=== PATIENT | male | born 1960 | race African-American/Black ===

== ENCOUNTER → 2016-05-24 | Day surgery (SDC) | payer OTHER ==
[2016-05-21 08:07] VITALS: Ht 193 cm; Wt 109.1 kg
[~2016-05-24] VITALS: Ht 193 cm; Wt 109.1 kg
[~2016-05-24] MED LIST: 500ML BSS 0.3ML EPI 1:1000PF IRRIG ONE; ACET-1311 PO; ACETAMINOPHEN 325 MG TAB PO PRN; AMOX500T PO; AMVISC PLUS 0.8ML SYRINGE INT OCU ONE; ASPI81TA28 PO; ATROPINE SULFATE 0.1 MG/ML 5ML SYR IV PRN; BISA1TAB15 PO; BROM0.07 TOP; BSS FLUSH ONE; CALC600T9 PO; CEPH500C2 PO; CLIN1CAP51 PO; DOCU100C31 PO; DOXY100C76 PO; EpHEDrine SULFATE INJ 50 MG/ML AMP IV PRN; EpINEphrine INJ 1MG/ML AMP 1 MG/ML AMP ONE; FIBER PO; FURO-85 PO; HYZ/10015 PO; IBUP-1427 PO; INSDGI SC; INSPMPRGR; INSU1INJ SC; LACTATED RINGER'S 1000ML 500 ML IV SCH; LCHC12280 TOP; LEVO175T3 PO; LIDOCAINE 3.5% OPH GEL PER APPLICATION CHARGE ONE; LIDOCAINE HCL 1% MPF 2 ML VIAL ONE; LISI40TA PO; MAGN400T6 PO; METO100T14 PO; MIDAZOLAM HCL 1 MG/ML 2ML VIAL ONE; MINO1TAB PO; MULT-106 PO; OCUCOAT 1 ML SOLN IO ONE; OMEP20TA PO; ONDA4TAB46 PO; PARO30TA3 PO; PHENYLEPHRINE HCL 10% OP SOLN PER DROP CHARGE OPL SCH; POLY99.0 OPB; POVIDONE-IODINE OP SOLN 30 ML BTL ONE; PRED1SUS3 OPL; PROPARACAINE 0.5% OP SOLN PER DROP CHARGE OPL SCH; RANI300T2 PO; SNTO30; SPIR100T PO; SULF800T23 PO; TOBRAMYCIN/DEXAMETHASONE OPH OINT PER APPLN CHARGE ONE; TOPI50TA16 PO
[2016-05-24] MEDS: PHENYLEPHRINE HCL 2.5% OP SOLN PER DROP CHARGE OPL SCH ×2 (06:48→06:53)
[2016-05-24] MEDS: TROPICAMIDE 1% OP SOLN PER DROP CHARGE OPL SCH ×2 (06:49→06:54)
[2016-05-24] MEDS: CYCLOPENTOLATE HCL 1% OP SOLN PER DROP CHARGE OPL SCH ×2 (06:50→06:55)
[2016-05-24] MEDS: KETOROLAC 0.5% OP SOLN PER DROP CHARGE OPL SCH ×2 (06:51→06:56)
[2016-05-24] MEDS: GATIFLOXACIN OP SOLN PER DROP CHARGE OPL SCH ×2 (06:52→07:02)
--- NOTE | 2016-05-24 07:03 | History & Physical Bridge - [place] ---
H&P Re-Evaluation Bridge Note: I have examined the patient, reviewed the History & Physical and in the interval since the performance of the History & Physical I have noted the following changes of clinical significance: No changes noted
--- NOTE | 2016-05-24 07:28 | Discharge Instructions-SurgCtr ---
Discharge Instructions Date of Service May 24, 2016. Visit Reason for Visit: Cataract Left Eye Discharge Discharge Diagnosis / Problem: cataract Discharge Goals Goal(s): Improve function Activity Recommendations Activity Limitations: per Instructions/Follow-up section Anesthesia . Post Anesthesia Instructions: If you have had General Anesthesia or IV Sedation: * Do not drive today. * Resume driving when surgeon permits. * Do not make important decisions or sign legal documents today. * Call surgeon for: 1. Temperature elevations greater than 101 degrees F. 2. Uncontrollable pain. 3. Excessive bleeding. 4. Persistent nausea and vomiting. 5. Medication intolerance (nausea, vomiting or rash). * For nausea and vomiting use only clear liquids such as: tea, soda, bouillon until nausea subsides, then gradually increase diet as tolerated. * If you have any concerns or questions, call your surgeon's office. If physician is unavailable and it is an emergency, call 911 or go to the nearest emergency room. . Instructions / Follow-Up Instructions / Follow-Up ACTIVITY RECOMMENDATIONS: * No strenuous lifting, jogging or running for 4 days * No swimming or yard work for 1 week. * Limited bending is permitted, such as putting on shoes. RETURN TO SCHOOL/WORK: No work until seen by physician in office. MEDICATIONS: Resume previous medications unless instructed otherwise by your surgeon. This includes eye drops for glaucoma. Zymaxid/Gatifloxacin (stuart cap) - one drop every 2 hours until bedtime Nevanac/Ilevro/Prolensa/Ketorolac (arguelles cap) - one drop every 4 hours until bedtime Prednisolone (white/pink cap, SHAKE WELL) - one drop every 2 hours until bedtime Starting tomorrow - all 3 drops every 4 hours until seen in the office Optive drops - as needed for discomfort SPECIAL CARE INSTRUCTIONS: * Wear eyeshield when sleeping, for four nights. * You may wear your own glasses or sunglasses while awake. * You may read or watch TV * You may shower and wash your face, but be gentle around the eye and pat dry. * Blurry vision and mild irritation are normal. * Call office if pain is more severe or vision becomes dark at . FOLLOW UP VISIT: Follow-up with Dr Waterman tomorrow. Diet Recommendations Home Diet: resume previous diet Procedures Procedures Performed: Left Cataract Phacoemulsification With Intraocular Lens Implant Pending Studies Studies pending at discharge: no Medical Emergencies . Who to Call and When: Medical Emergencies: If at any time you feel your situation is an emergency, please call 911 immediately. . Non-Emergent Contact Non-Emergency issues call your: Grocery Store Manager . . "Provider Documentation" section prepared by Mikey Waterman.
--- NOTE | 2016-05-24 07:29 | [facility] Operative Report ---
Operative Report Date of Service May 24, 2016. Operative Report 1. PREOPERATIVE DIAGNOSIS: Cataract of the left eye. 2. POSTOPERATIVE DIAGNOSIS: Same. 3. PROCEDURE: Phacoemulsification with intraocular lens implantation of the left eye. SURGEON: Dr. Mikey Waterman. ANESTHESIA: Topical Lidocaine gel, 1% Non- Preserved intracameral Lidocaine, and monitored intravenous sedation. INDICATIONS FOR THE PROCEDURE: The patient is a 55 - year-old male with a history of cataract of the left eye causing significant visual impairment. The details of the proposed procedure were explained to the patient who asked appropriate questions and following discussion of all risks, benefits and alternatives agreed to have the procedure done. 4. OPERATION AND FINDINGS: DESCRIPTION OF PROCEDURE: After informed consent was obtained, the patient was brought to the Operating Room at the [facility]. The patient was placed in a supine position and then the left eye was prepped and draped in the usual sterile fashion for intraocular surgery. A drop of topical Lidocaine gel was placed in the operative eye. A wire lid speculum was then placed in the fornices. A corneal paracentesis was then created temporally. The Non-Preserved Lidocaine was then instilled into the anterior chamber. The anterior chamber was then pressurized with viscoelastic. A 2.0 mm clear corneal incision was then created temporally. A cystotome was inserted into the anterior chamber and used to create a tear in the anterior lens capsule. This capsular tear was then used to create a small flap and the flap was dragged in a counterclockwise direction in order to create a continuous curvilinear capsulorrhexis. Hydrodissection was accomplished with balanced salt solution. Phacoemulsification of the lens nucleus was then performed in a standard bywxma-aaz-gpykzmy technique. The phaco time was 30 seconds with an average power of 12 %. The remaining cortical material was removed using irrigation aspiration. The capsular bag was then filled with viscoelastic. A Bausch [employer] Lomb MX60 +22.0 diopters lens was then loaded into the injector and injected into the capsular bag. The remaining viscoelastic was removed with the irrigation aspiration handpiece. The wound was hydrated and then checked and found to be watertight. The intraocular pressure was checked and found to be adequate. The wire lid speculum was removed and the patient's face was cleaned and dried. TobraDex ointment was placed in the inferior fornix. The patient was discharged to the Recovery Room having tolerated the procedure well. There were no complications. The patient will be seen tomorrow in the office for follow-up. I attest to the content of the Intraoperative Record and any orders documented therein. Any exceptions are noted below.
[2016-05-24 07:34] VITALS: TEMP 36.3
[2016-05-24 07:42] VITALS: BP 123/84; PULSE 62; O2SAT 99
--- NOTE | 2016-05-24 08:07 | Anesthesia Progress Nt - [facility] ---
Anesthesia Post Op Note Date & Time May 24, 2016 at 08:07 Vital Signs Pain Intensity: 0 Vital Signs Past 12 Hours Date Time Temp Pulse Resp B/P Pulse Ox O2 Delivery O2 Flow Rate FiO2 05/24/16 07:42 62 18 123/84 99 Room Air 05/24/16 07:34 36.3 69 18 153/101 99 Room Air 05/24/16 06:36 36.0 73 16 141/95 100 Room Air Notes Mental Status: alert / awake / arousable, participated in evaluation Pt Amnestic to Procedure: Yes Nausea / Vomiting: adequately controlled Pain: adequately controlled Airway Patency, RR, SpO2: stable & adequate BP & HR: stable & adequate Hydration State: stable & adequate Anesthetic Complications: no major complications apparent
== END | disposition home or self-care (01) ==
LOC: X.SURG 06:19
PROVIDERS: ATTEND Ophthalmology
DX: H26.9 Unspecified cataract (principal); H54.7 Unspecified visual loss; E11.9 Type 2 diabetes mellitus without complications; I10 Essential (primary) hypertension; D69.6 Thrombocytopenia, unspecified; Z98.890 Other specified postprocedural states

== ENCOUNTER → 2016-12-20 | Day surgery (SDC) | payer OTHER ==
[2016-09-17 09:37] VITALS: Ht 193 cm; Wt 109.1 kg
[~2016-12-20] VITALS: Ht 193 cm; Wt 109.1 kg
[~2016-12-20] MED LIST changes: -AMOX500T PO; -BISA1TAB15 PO; -BROM0.07 TOP; -CEPH500C2 PO; -CLIN1CAP51 PO; +CYCLOPENTOLATE HCL 1% OP SOLN PER DROP CHARGE OPR SCH; +GATIFLOXACIN OP SOLN PER DROP CHARGE OPR SCH; -INSDGI SC; +KETOROLAC 0.5% OP SOLN PER DROP CHARGE OPR SCH; -MAGN400T6 PO; -PHENYLEPHRINE HCL 10% OP SOLN PER DROP CHARGE OPL SCH; +PHENYLEPHRINE HCL 2.5% OP SOLN PER DROP CHARGE OPR SCH; -PRED1SUS3 OPL; -PROPARACAINE 0.5% OP SOLN PER DROP CHARGE OPL SCH; +PROPARACAINE 0.5% OP SOLN PER DROP CHARGE OPR SCH; -SNTO30; -SULF800T23 PO; +TROPICAMIDE 1% OP SOLN PER DROP CHARGE OPR SCH
[2016-12-20] MEDS: PHENYLEPHRINE HCL 2.5% OP SOLN PER DROP CHARGE OPR SCH ×2 (10:49→10:55)
[2016-12-20] MEDS: TROPICAMIDE 1% OP SOLN PER DROP CHARGE OPR SCH ×2 (10:50→10:56)
[2016-12-20] MEDS: CYCLOPENTOLATE HCL 1% OP SOLN PER DROP CHARGE OPR SCH ×2 (10:51→10:57)
[2016-12-20] MEDS: KETOROLAC 0.5% OP SOLN PER DROP CHARGE OPR SCH ×2 (10:52→10:57)
[2016-12-20] MEDS: GATIFLOXACIN OP SOLN PER DROP CHARGE OPR SCH ×2 (10:53→11:03)
--- NOTE | 2016-12-20 11:17 | History & Physical Bridge - [place] ---
H&P Re-Evaluation Bridge Note: I have examined the patient, reviewed the History & Physical and in the interval since the performance of the History & Physical I have noted the following changes of clinical significance: Diagnosis: Right Cataract Procedure: Right Cataract Removal with Lens Implant No changes noted
--- NOTE | 2016-12-20 12:05 | Discharge Instructions-SurgCtr ---
Discharge Instructions Date of Service Dec 20, 2016. Visit Reason for Visit: Cataract Right Eye Discharge Discharge Diagnosis / Problem: cataract Discharge Goals Goal(s): Improve function Activity Recommendations Activity Limitations: per Instructions/Follow-up section Anesthesia . Post Anesthesia Instructions: If you have had General Anesthesia or IV Sedation: * Do not drive today. * Resume driving when surgeon permits. * Do not make important decisions or sign legal documents today. * Call surgeon for: 1. Temperature elevations greater than 101 degrees F. 2. Uncontrollable pain. 3. Excessive bleeding. 4. Persistent nausea and vomiting. 5. Medication intolerance (nausea, vomiting or rash). * For nausea and vomiting use only clear liquids such as: tea, soda, bouillon until nausea subsides, then gradually increase diet as tolerated. * If you have any concerns or questions, call your surgeon's office. If physician is unavailable and it is an emergency, call 911 or go to the nearest emergency room. . Diet Recommendations Home Diet: resume previous diet Procedures Procedures Performed: Right Cataract Phacoemulsification With Intraocular Lens Implant Pending Studies Studies pending at discharge: no Medical Emergencies . Who to Call and When: Medical Emergencies: If at any time you feel your situation is an emergency, please call 911 immediately. . Non-Emergent Contact Non-Emergency issues call your: Special Technical Operations Officer . . "Provider Documentation" section prepared by Mikey Waterman. .
--- NOTE | 2016-12-20 12:06 | [facility] Operative Report ---
Operative Report Date of Service Dec 20, 2016. Operative Report 1. PREOPERATIVE DIAGNOSIS: Cataract of the right eye. 2. POSTOPERATIVE DIAGNOSIS: Same. 3. PROCEDURE: Phacoemulsification with intraocular lens implantation of the right eye. SURGEON: Dr. Mikey Waterman. ANESTHESIA: Topical Lidocaine gel, 1% Non- Preserved intracameral Lidocaine, and monitored intravenous sedation. INDICATIONS FOR THE PROCEDURE: The patient is a 56 - year-old male with a history of cataract of the right eye causing significant visual impairment. The details of the proposed procedure were explained to the patient who asked appropriate questions and following discussion of all risks, benefits and alternatives agreed to have the procedure done. 4. OPERATION AND FINDINGS: DESCRIPTION OF PROCEDURE: After informed consent was obtained, the patient was brought to the Operating Room at the [facility]. The patient was placed in a supine position and then the right eye was prepped and draped in the usual sterile fashion for intraocular surgery. A drop of topical Lidocaine gel was placed in the operative eye. A wire lid speculum was then placed in the fornices. A corneal paracentesis was then created temporally. The Non-Preserved Lidocaine was then instilled into the anterior chamber. The anterior chamber was then pressurized with viscoelastic. A 2.0 mm clear corneal incision was then created temporally. A cystotome was inserted into the anterior chamber and used to create a tear in the anterior lens capsule. This capsular tear was then used to create a small flap and the flap was dragged in a counterclockwise direction in order to create a continuous curvilinear capsulorrhexis. Hydrodissection was accomplished with balanced salt solution. Phacoemulsification of the lens nucleus was then performed in a standard hphgdy-kug-noblcae technique. The phaco time was 29 seconds with an average power of 11 %. The remaining cortical material was removed using irrigation aspiration. The capsular bag was then filled with viscoelastic. A Bausch & Lomb MX60 +20.5 diopters lens was then loaded into the injector and injected into the capsular bag. The remaining viscoelastic was removed with the irrigation aspiration handpiece. The wound was hydrated and then checked and found to be watertight. The intraocular pressure was checked and found to be adequate. The wire lid speculum was removed and the patient's face was cleaned and dried. TobraDex ointment was placed in the inferior fornix. The patient was discharged to the Recovery Room having tolerated the procedure well. There were no complications. The patient will be seen tomorrow in the office for follow-up. I attest to the content of the Intraoperative Record and any orders documented therein. Any exceptions are noted below.
[2016-12-20 12:21] VITALS: BP 125/80; PULSE 58; TEMP 36.5; O2SAT 100
--- NOTE | 2016-12-20 12:31 | Anesthesia Progress Nt - [facility] ---
Anesthesia Post Op Note Date & Time Dec 20, 2016 at 12:30 Vital Signs Pain Intensity: 0 Vital Signs Past 12 Hours Date Time Temp Pulse Resp B/P (MAP) Pulse Ox O2 Delivery O2 Flow Rate FiO2 12/20/16 12:21 36.5 58 16 125/80 (95) 100 Room Air 12/20/16 12:10 36.5 62 18 153/105 (121) 98 Room Air 12/20/16 10:43 36.4 61 20 126/80 (95) 99 Room Air Notes Mental Status: alert / awake / arousable, participated in evaluation Pt Amnestic to Procedure: Yes Nausea / Vomiting: adequately controlled Pain: adequately controlled Airway Patency, RR, SpO2: stable & adequate BP & HR: stable & adequate Hydration State: stable & adequate Anesthetic Complications: no major complications apparent
== END | disposition home or self-care (01) ==
LOC: X.SURG 10:22
PROVIDERS: ATTEND Ophthalmology
DX: E11.36 Type 2 diabetes mellitus with diabetic cataract (principal); H26.9 Unspecified cataract; Z98.42 Cataract extraction status, left eye; I10 Essential (primary) hypertension; E03.9 Hypothyroidism, unspecified; Z90.89 Acquired absence of other organs; Z86.19 Personal history of other infectious and parasitic diseases; Z79.4 Long term (current) use of insulin; Z79.899 Other long term (current) drug therapy

== ENCOUNTER → 2017-04-23 | Outpatient (CLI) | payer OTHER ==
[~2017-04-23] MED LIST changes: -500ML BSS 0.3ML EPI 1:1000PF IRRIG ONE; -ACET-1311 PO; -ACETAMINOPHEN 325 MG TAB PO PRN; -AMVISC PLUS 0.8ML SYRINGE INT OCU ONE; +ATOR-22 PO; -ATROPINE SULFATE 0.1 MG/ML 5ML SYR IV PRN; +BROM0.07 OPR; -BSS FLUSH ONE; +CEPH500C2 PO; -CYCLOPENTOLATE HCL 1% OP SOLN PER DROP CHARGE OPR SCH; -DOXY100C76 PO; -EpHEDrine SULFATE INJ 50 MG/ML AMP IV PRN; -EpINEphrine INJ 1MG/ML AMP 1 MG/ML AMP ONE; -FIBER PO; -FURO-85 PO; -GATIFLOXACIN OP SOLN PER DROP CHARGE OPR SCH; -KETOROLAC 0.5% OP SOLN PER DROP CHARGE OPR SCH; -LACTATED RINGER'S 1000ML 500 ML IV SCH; -LCHC12280 TOP; -LIDOCAINE 3.5% OPH GEL PER APPLICATION CHARGE ONE; -LIDOCAINE HCL 1% MPF 2 ML VIAL ONE; -MIDAZOLAM HCL 1 MG/ML 2ML VIAL ONE; -MULT-106 PO; -OCUCOAT 1 ML SOLN IO ONE; -OMEP20TA PO; -ONDA4TAB46 PO; -PHENYLEPHRINE HCL 2.5% OP SOLN PER DROP CHARGE OPR SCH; -POVIDONE-IODINE OP SOLN 30 ML BTL ONE; +PRED1SUS17 OPR; -PROPARACAINE 0.5% OP SOLN PER DROP CHARGE OPR SCH; -RANI300T2 PO; -SPIR100T PO; -TOBRAMYCIN/DEXAMETHASONE OPH OINT PER APPLN CHARGE ONE; -TROPICAMIDE 1% OP SOLN PER DROP CHARGE OPR SCH
== END | disposition home or self-care (01) ==
LOC: C.RDSM 07:00
PROVIDERS: ATTEND Orthopaedic Surgery Sports Medicine
DX: L98.499 Non-pressure chronic ulcer of skin of other sites with unspecified severity (principal)

== ENCOUNTER 2021-01-08 08:28 | Inpatient (IN) ==
[2021-01-08] MEDS ORDERED: SODIUM CHLORIDE 0.9% 500 ML IV STA (08:39)
[2021-01-08] MEDS ORDERED: dexAMETHasone**PF** 10 MG/ML VIAL IV ONE (08:39)
--- NOTE | 2021-01-08 08:45 | Emergency Department Note ---
Impression & Plan Respiratory failure, acute, Pneumonia due to 2019 novel coronavirus, Acute kidney injury, Hypoxia ED Provider Note NAME: MATTHEW [id number] ALVAREZ AGE: 60 SEX: M : 1960 ARRIVES VIA: Ambulance INFORMANT: Patient, EMS ED PROVIDER(S): Pj Shepard DO CHIEF COMPLAINT: Covid hypoxic HPI: Patient is a 60-year-old male who presents the ER from [facility]. His sympto ms start about 4 to 5 days ago. Includes cough, congestion, and a runny nose. He also admits to decreased taste and smell. He has shortness of breath which has been getting worse. He was tested in the correction and was positive for Covid. He was found to be hypoxic today consequently was transported to the ER. He was placed on 4 to 6 L and was 94%. He denies any belly pain, nausea, vomiting, or diarrhea. No dysuria, urgency, or frequency. He has not taken his blood pressure medications today as his blood pressure at the correction was a low per the report. ROS: See above HPI for pertinent positives & negatives. A total of 10 systems reviewed and were otherwise negative. PAST MEDICAL HISTORY:See Below PAST SURGICAL HISTORY:See Below FAMILY HISTORY:See Below SOCIAL HISTORY:See Below HOME MEDICATIONS:See Below ALLERGIES:See Below VITALS:See Below PHYSICAL EXAMINATION: GENERAL: Sitting up in bed, alert, chronically ill-appearing, disheveled, on nonrebreather EYE EXAM: normal conjunctiva. PERRL and EOM's grossly intact. OROPHARYNX: no exudate, no erythema, lips, buccal mucosa, and tongue normal and mucous membranes are moist NECK: supple, no nuchal rigidity, no adenopathy, non-tender LUNGS: Diminished bilaterally. Normal chest wall mechanics HEART: no murmurs, S1 normal and S2 normal ABDOMEN: abdomen soft, non-tender, normo-active bowel sounds, no masses, no rebound or guarding. UPPER EXTREMITIES: upper extremities are grossly normal. LOWER EXTREMITIES: No pitting edema. NEURO EXAM: Normal sensorium, cranial nerves II-XII grossly intact, normal speech, no gross weakness of arms, no gross weakness of legs. MEDICAL DECISION MAKING: Patient is a 60-year-old male who presents ER for above-stated complaint. He is Covid positive. IV was established blood was obtained. He was brought in on a nonrebreather. He is flipped to high flow. This was titrated up. Labs show no significant leukocytosis or anemia. INR was unremarkable. VBG with a pH of 7.3. BMP with a creatinine of 3.4 up from baseline of 1. Was a slight acidosis with a very faint gap. Do favor that this is likely reflecting uremia. Patient was Covid positive. Chest x-ray with bilateral infiltrates. He was discussed with hospitalist. He was given fluids as well as steroids and admitted for further work-up on BiPAP for hypoxic respiratory failure secondary to Covid. Triage Nursing notes reviewed. Limited review of prior medical records performed Vital Signs: reviewed and remarkable for hypoxic Differential diagnosis: Differential diagnoses includes but is not limited to pneumonia, bronchitis, COPD/Asthma exacerbation, pneumothorax, pulmonary embolism, congestive heart failure, acute coronary syndrome ER treatment provided: See below Diagnostics interpreted by me: ECG: Sinus rhythm rate of 99 Left axis No PVCs QTC 515 Cardiac Monitoring: An order was placed for continuous cardiac monitoring. The monitor shows a rate of 92 with sinus rhythm. Laboratory studies: As stated above and show below. Imaging studies: Portable AP upright 1 view chest shows bilateral infiltrates Consultation(s): Discussed with hospitalist for further evaluation Procedures: none Critical Care: I have personally spent 35 minutes of critical care time in the direct management of this patient. This includes bedside care, interpretation of diagnostic studies, and testing, discussion with consultants, patient, and family members, and other required patient management activities. This 35 mi nutes is in excess of all separately billable procedures. 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 [facility] History of cataract surgery History of thyroidectomy Family History Other Family history non-contributory Social History (Updated 01/08/21 @ 11:42 by Dianne Ashford MD) Smoking Status: Never smoker Beliefs That Will Affect Care: None marital status: Single Current Living Situation: Other Current Living Situation Comment: [facility] since 1989 current occupational status: other Feels Safe at Home: Yes Allergies Allergies Allergy/AdvReac Type Severity Reaction Status Date / Time No Known Allergies Allergy Verified 01/08/21 09:51 Home Meds Home Medications Medication Instructions Recorded Confirmed aspirin 81 mg tablet,delayed 81 mg PO DAILY 01/21/18 01/08/21 release (Adult Low Dose Aspirin) calcium carbonate 600 mg (1,500 1 tab PO TID tab 01/21/18 01/08/21 mg)-vitamin D3 400 unit tablet (Calcium 600 + D(3)) docusate sodium 100 mg capsule 100 mg PO BID 01/21/18 01/08/21 hydrochlorothiazide 25 mg tablet 25 mg PO DAILY 01/21/18 01/08/21 levothyroxine 175 mcg tablet 175 mcg PO DAILY 01/21/18 01/08/21 metoprolol succinate 100 mg 100 mg PO DAILY 01/21/18 01/08/21 tablet,extended release 24 hr minoxidil 10 mg tablet 10 mg PO DAILY 01/21/18 01/08/21 paroxetine HCl 30 mg tablet 60 mg PO DAILY tab 01/21/18 01/08/21 peg [id number] 1 1 drops OP QID 01/21/18 01/08/21 %-0.2 %-0.2 % eye drops (Visine Tears) topiramate 50 mg capsule,extended 50 mg PO DAILY 01/21/18 01/08/21 release 24 hr vitamin E 1 appln TOP BID gm 01/21/18 01/08/21 lisinopril 40 mg tablet 40 mg PO DAILY 03/17/18 01/08/21 timolol 0.5 % eye drops 1 drp OPHTHALMIC (EYE) BID 03/17/18 01/08/21 amlodipine 5 mg tablet 5 mg PO DAILY 01/08/21 01/08/21 atorvastatin 40 mg tablet 40 mg PO HS 01/08/21 01/08/21 brimonidine 0.15 % eye drops 1 drp OPHTHALMIC (EYE) TID 01/08/21 01/08/21 diclofenac sodium 75 mg 75 mg PO BID 01/08/21 01/08/21 tablet,delayed release insulin glargine 100 unit/mL 60 unit SUBCUT BID 01/08/21 01/08/21 subcutaneous solution (Semglee U-100 Insulin) insulin regular human 100 unit/mL 1 sliding scale dose SUBCUT 01/08/21 01/08/21 injection solution (Novolin R USEASDIRECTD Regular U-100 Insulin) insulin regular human 100 unit/mL 30 unit SUBCUT BID 01/08/21 01/08/21 injection solution (Novolin R Regular U-100 Insulin) latanoprost 0.005 % eye drops 1 drp OPHTHALMIC (EYE) PM 01/08/21 01/08/21 (Xalatan) trazodone 50 mg tablet 50 mg PO HS 01/08/21 01/08/21 Results & Data (ED) Vital Signs Vital Signs - 24 hr 01/08/21 08:37 01/08/21 08:48 01/08/21 09:03 Temperature 36.9 C Temperature Source Oral Pulse Rate 99 H Pulse Rate [Right Finger] Pulse Rhythm Respiratory Rate 18 Respiratory Effort / Characteristics Blood Pressure 109/67 Blood Pressure [Left Arm] Blood Pressure Mean 81 Blood Pressure Mean [Left Arm] Pulse Oximetry 90 94 100 Oxygen Delivery Method Non-rebreather Non-rebreather Non-rebreather Oxygen Flow Rate 6 10 10 Fraction of Inspired Oxygen Sepsis Recent Fever Within 48 Hours No Sepsis New/Unexplained Change in Mental Status No Sepsis Action Taken by Nursing No Action Required Oxygen Flow Rate - Titration 10 Pulse Oximetry Post Tiitration 93 01/08/21 09:10 01/08/21 09:32 01/08/21 09:52 Temperature Temperature Source Pulse Rate 98 H Pulse Rate [Right Finger] 100 H 100 H 98 H Pulse Rhythm Regular Respiratory Rate 20 20 18 Respiratory Effort / Characteristics Spontaneous Non-Labored Spontaneous Blood Pressure Blood Pressure [Left Arm] 101/80 Blood Pressure Mean Blood Pressure Mean [Left Arm] 87 Pulse Oximetry 99 93 92 Oxygen Delivery Method High Flow Nasal Cannula High Flow Nasal Cannula High Flow Nasal Cannula Oxygen Flow Rate 40 50 Fraction of Inspired Oxygen 40 70 Sepsis Recent Fever Within 48 Hours Sepsis New/Unexplained Change in Mental Status Sepsis Action Taken by Nursing Oxygen Flow Rate - Titration Pulse Oximetry Post Tiitration 01/08/21 10:28 01/08/21 11:00 Temperature Temperature Source Pulse Rate Pulse Rate [Right Finger] 97 H 97 H Pulse Rhythm Respiratory Rate 20 18 Respiratory Effort / Characteristics Blood Pressure Blood Pressure [Left Arm] 100/71 122/76 Blood Pressure Mean Blood Pressure Mean [Left Arm] 80 91 Pulse Oximetry 92 93 Oxygen Delivery Method High Flow Nasal Cannula High Flow Nasal Cannula Oxygen Flow Rate Fraction of Inspired Oxygen Sepsis Recent Fever Within 48 Hours Sepsis New/Unexplained Change in Mental Status Sepsis Action Taken by Nursing Oxygen Flow Rate - Titration Pulse Oximetry Post Tiitration Laboratory Data Result diagrams: 01/08/21 09:25 01/08/21 09:25 Lab Results 01/08/21 01/08/21 01/08/21 Range/Units 09:23 09:25 09:25 WBC 7.55 (4.8-10.8) K/uL RBC 6.72 H (4.7-6.1) M/uL Hgb 14.5 (14.0-18.0) g/dL Hct 43.3 (42-52) % MCV 64.4 L (80-100) fL MCH 21.6 L (25-34) pg MCHC 33.5 (32-36) g/dL RDW Std Deviation 38.5 (36.4-46.3) fL RDW Coeff of Shree 16.7 H (11.5-14.5) % Plt Count 105 L (130-400) K/uL Immature Gran % (Auto) 0.5 % Neut % (Auto) 56.4 % Lymph % (Auto) 33.6 % [place] % (Auto) 9.4 % Eos % (Auto) 0.0 % Baso % (Auto) 0.1 % Neut # (Auto) 4.25 (1.4-6.5) K/uL Lymph # (Auto) 2.54 (1.2-3.4) K/uL [place] # (Auto) 0.71 H (0.11-0.59) K/uL Eos # (Auto) 0.00 (0-0.5) K/uL Baso # (Auto) 0.01 (0-0.2) K/uL Immature Gran # (Auto) 0.04 H (0.00-0.02) K/uL Platelet Estimate Decreased L (Normal) Microcytosis Present Ovalocytes 1+ PT 10.4 (9.0-12.0) Seconds INR 1.0 (0.9-1.1) APTT 33.9 H (21.0-31.0) Seconds PTT Ratio 1.3 VBG pH (7.36-7.41) VBG pCO2 (38-50) mmHg VBG pO2 mmHg VBG HCO3 mmol/L VBG O2 Saturation % VBG Base Excess mEq/L Barometric Pressure mm/Hg Sodium (136-145) mmol/L Potassium (3.5-5.1) mmol/L Chloride (98-107) mmol/L Carbon Dioxide (21-32) mmol/L Anion Gap (3-11) BUN (7-18) mg/dl Creatinine (0.6-1.4) mg/dl Est Cr Clr Drug Dosing ml/min Est GFR ( Amer) ml/min Est GFR (Non-Af Amer) ml/min BUN/Creatinine Ratio (10-20) Glucose (70-99) mg/dl Calcium (8.5-10.1) mg/dl Total Bilirubin (0.2-1) mg/dl AST (15-37) U/L ALT (12-78) U/L Alkaline Phosphatase (45-117) U/L Troponin I (0-0.045) ng/ml C-Reactive Protein (0-0.29) mg/dl Total Protein (6.4-8.2) gm/dl Albumin (3.4-5.0) gm/dl Globulin (2.5-4.0) gm/dl Albumin/Globulin Ratio (0.9-2) Lipase (73-393) U/L SARS-CoV-2 (PCR) POSITIVE A* (Negative) 01/08/21 01/08/21 01/08/21 Range/Units 09:25 09:25 10:43 WBC (4.8-10.8) K/uL RBC (4.7-6.1) M/uL Hgb (14.0-18.0) g/dL Hct (42-52) % MCV (80-100) fL MCH (25-34) pg MCHC (32-36) g/dL RDW Std Deviation (36.4-46.3) fL RDW Coeff of Shree (11.5-14.5) % Plt Count (130-400) K/uL Immature Gran % (Auto) % Neut % (Auto) % Lymph % (Auto) % [place] % (Auto) % Eos % (Auto) % Baso % (Auto) % Neut # (Auto) (1.4-6.5) K/uL Lymph # (Auto) (1.2-3.4) K/uL [place] # (Auto) (0.11-0.59) K/uL Eos # (Auto) (0-0.5) K/uL Baso # (Auto) (0-0.2) K/uL Immature Gran # (Auto) (0.00-0.02) K/uL Platelet Estimate (Normal) Microcytosis Ovalocytes PT (9.0-12.0) Seconds INR (0.9-1.1) APTT (21.0-31.0) Seconds PTT Ratio VBG pH 7.32 L (7.36-7.41) VBG pCO2 47 (38-50) mmHg VBG pO2 31 mmHg VBG HCO3 23 mmol/L VBG O2 Saturation < 60.0 % VBG Base Excess -3.3 mEq/L Barometric Pressure 726.9 mm/Hg Sodium 138 (136-145) mmol/L Potassium 3.8 (3.5-5.1) mmol/L Chloride 104 (98-107) mmol/L Carbon Dioxide 20 L (21-32) mmol/L Anion Gap 13.0 H (3-11) BUN 61 H (7-18) mg/dl Creatinine 3.41 H (0.6-1.4) mg/dl Est Cr Clr Drug Dosing 34.7 ml/min Est GFR ( Amer) 21.6 ml/min Est GFR (Non-Af Amer) 18.6 ml/min BUN/Creatinine Ratio 17.9 (10-20) Glucose 158 H (70-99) mg/dl Calcium 9.6 (8.5-10.1) mg/dl Total Bilirubin 0.7 (0.2-1) mg/dl AST 30 (15-37) U/L ALT 15 (12-78) U/L Alkaline Phosphatase 54 (45-117) U/L Troponin I < 0.015 (0-0.045) ng/ml C-Reactive Protein 15.70 H (0-0.29) mg/dl Total Protein 8.8 H (6.4-8.2) gm/dl Albumin 2.9 L (3.4-5.0) gm/dl Globulin 5.9 H (2.5-4.0) gm/dl Albumin/Globulin Ratio 0.5 L (0.9-2) Lipase 154 (73-393) U/L SARS-CoV-2 (PCR) (Negative) Administered Medications Discontinued Medications Dexamethasone Sodium Phosphate (DexamethasonePf 10 Mg/Ml Vial) 6 mg IV NOW ONE Stop: 01/08/21 08:40 Last Admin: 01/08/21 09:30 Dose: 6 mg Documented by: [id number] Sodium Chloride (Nss) 500 mls @ 999 mls/hr IV .Q31M STA Stop: 01/08/21 09:09 Last Infusion: 01/08/21 10:05 Dose: 0 mls/hr Documented by: [id number] Admin: 01/08/21 09:30 Dose: 999 mls/hr Documented by: [id number] Sodium Chloride (Nss 1000ml) 1,000 mls @ 999 mls/hr IV .Q1H1M ONE Stop: 01/08/21 11:26 Last Infusion: 01/08/21 12:42 Dose: 0 mls/hr Documented by: [id number] Admin: 01/08/21 11:39 Dose: 999 mls/hr Documented by: [id number] Imaging Data Radiologist's Impression: Chest X-Ray 01/08/21 08:39 XR chest 1V portable CLINICAL HISTORY: Chest Pain. COMPARISON STUDY: 11/29/2013 TECHNIQUE: 1 view of the chest FINDINGS: Single frontal view of the chest demonstrates the cardiomediastinal silhouette to be within normal limits. Patchy interstitial and alveolar opacities are present bilaterally. The findings are most characteristic of a viral type pneumonitis. Covid 19 pneumonia should be excluded. There is no evidence for pleural effusion. There is no evidence for vascular congestion. There is no acute osseous pathology. IMPRESSION: Patchy interstitial and alveolar opacities bilaterally c haracteristic of a viral type pneumonitis and probable Covid 19 pneumonia. ACT 112: Negative or not required by law. Electronically signed by: Ede Torres M.D. 01/08/2021 8:57 AM Discharge Plan Visit Data Chief Complaint: Shortness of Breath/Dyspnea Stated Complaint: SOB, COVID + ED Provider: Pj Shepard Discharge Problem: Respiratory failure, acute, Pneumonia due to 2019 novel coronavirus, Acute kidney injury, Hypoxia Discharge Problem: Respiratory failure, acute Qualifiers: Respiratory failure complication: hypoxia Qualified Code(s): J96.01 - Acute respiratory failure with hypoxia
--- NOTE | 2021-01-08 08:59 | XRay Report ---
XR chest 1V portable CLINICAL HISTORY: Chest Pain. COMPARISON STUDY: 11/29/2013 TECHNIQUE: 1 view of the chest FINDINGS: Single frontal view of the chest demonstrates the cardiomediastinal silhouette to be within normal li mits. Patchy interstitial and alveolar opacities are present bilaterally. The findings are most shorty cteristic of a viral type pneumonitis. Covid 19 pneumonia should be excluded. There is no evidence fo r pleural effusion. There is no evidence for vascular congestion. There is no acute osseous pathology . IMPRESSION: Patchy interstitial and alveolar opacities bilaterally characteristic of a viral type pne umonitis and probable Covid 19 pneumonia. ACT 112: Negative or not required by law. Electronically signed by: Ede Torres M.D. 01/08/2021 8:57 AM
[2021-01-08 09:49] LABS: Partial Thromboplastin Ratio 1.3; Partial Thromboplastin Time 33.9 Seconds (21.0-31.0); Prothrombin Time 10.4 Seconds (9.0-12.0)
[2021-01-08 09:54] LABS: Hematocrit (blood only) 43.3 % (42-52); Hemoglobin 14.5 g/dL (14.0-18.0); Mean Corpuscular Hemoglobin 21.6 pg (25-34); Mean Corpuscular Hgb Conc 33.5 g/dL (32-36); Mean Corpuscular Volume 64.4 fL (80-100); Platelet Count 105 K/uL (130-400); RDW Coefficient of Variation 16.7 % (11.5-14.5); RDW Standard Deviation 38.5 fL (36.4-46.3); Red Blood Count 6.72 M/uL (4.7-6.1); White Blood Count 7.55 K/uL (4.8-10.8)
[2021-01-08 09:55] LABS: Albumin Level 2.9 gm/dl (3.4-5.0); BUN Creatinine Ratio 17.9 (10-20); Blood Urea Nitrogen 61 mg/dl (7-18); Calcium 9.6 mg/dl (8.5-10.1); Carbon Dioxide 20 mmol/L (21-32); Chloride 104 mmol/L (98-107); Creatinine Clr Calc Pharmacy 34.7 ml/min; Est GFR (African American) 21.6 ml/min; Est GFR (Non-African American) 18.6 ml/min; Glucose 158 mg/dl (70-99); Lipase 154 U/L (73-393); Potassium 3.8 mmol/L (3.5-5.1); Sodium 138 mmol/L (136-145)
[2021-01-08 10:00] LABS: Alanine Aminotransferase 15 U/L (12-78); Albumin Globulin Ratio 0.5 (0.9-2); Alkaline Phosphatase 54 U/L (45-117); Aspartate Aminotransferase 30 U/L (15-37); Bilirubin,Total 0.7 mg/dl (0.2-1); Globulin 5.9 gm/dl (2.5-4.0); Total Protein 8.8 gm/dl (6.4-8.2); Troponin I < 0.015 ng/ml (0-0.045)
[2021-01-08 10:17] LABS: Basophils # (auto) 0.01 K/uL (0-0.2); Basophils % (auto) 0.1 %; Immature Granulocytes # (auto) 0.04 K/uL (0.00-0.02); Immature Granulocytes % (auto) 0.5 %; Lymphocytes # (auto) 2.54 K/uL (1.2-3.4); Lymphocytes % (auto) 33.6 %; Microcytosis Present; Monocytes # (auto) 0.71 K/uL (0.11-0.59); Monocytes % (auto) 9.4 %; Neutrophils # (auto) 4.25 K/uL (1.4-6.5); Neutrophils % (auto) 56.4 %; Ovalocytes 1+; Platelet Estimate Decreased (Normal)
[2021-01-08] MEDS ORDERED: SODIUM CHLORIDE 0.9% 1000ML 1,000 ML IV ONE (10:26)
--- NOTE | 2021-01-08 10:29 | History & Physical Report ---
Date of Service January 08, 2021 Assessment & Plan (1) Pneumonia due to COVID-19 virus: Plan: Symptoms started approximately 01/03. With significantly high CRP and already requiring HFNC Fully vaccinated with J&J Vaccine several months prior CXR with bilat infiltrates With MEHRDAD secondary to dehydration from poor po intake in setting of taking ACEi,thiazide diuretic, and possibly hypotension (soft BPs on arrival) With thrombocytopenia although slightly worse than previous -admit to COVID unit on tele -continue dexamethasone started in ER 6mg IV daily -cannot have Remdesevir due to MEHRDAD but if MEHRDAD resolves, could start this -also does not currently meet criteria for baricitinib due to his MEHRDAD, but again, would start if MEHRADD improves/resolves within the next 72 hours -add IS and flutter valve -start Duonebs scheduled q6 hrs -encourage prone positioning -continue HFNC supplemental O2 to keep POx > 90-92%, and pt is agreeable to CPAP or even mechanical ventilation if needed -follow CBC, CMP, Mg, Phos in AM -check Procal now and if elevated, start abx for secondary bacterial PNA. There may be some slight elevation due to MEHRDAD (2) Acute respiratory failure with hypoxia: Plan: as above, secondary to COVID PNA, do not suspect PE (3) MEHRDAD (acute kidney injury): Plan: BUN/in store banker up to 61/3.4 from baseline in store banker 1.0 secondary to likely prerenal injury from poor po intake/dehydration in setting of taking HCTZ,lisinopril as outpt also takes chronic NSAIDs and was borderline hypotensive on arrival so may be a component of ATN Lytes are ok except mild metabolic acidosis although is also on topamax which itself can cause metabolic acidosis Making urine but is more concentrated -received 2L NS in ER, will give one more liter of LR overnight -follow BMP in AM -check UA with reflex to Ur cx -hold lisinopril, HCTZ, diclofenac -encourage po intake -check Renal US and place Funk if any obstruction -hold minoxidil as may need to be renally dosed (4) Diabetes mellitus, type 2: Plan: continue basal and bolus insulin consult Pharmacy check A1C accuchecks ADA diet (5) Hypothyroidism: Plan: no TSH in our system s/p thyroidectomy check TSH in AM continue home LT4 (6) Thrombocytopenia: Plan: chronic in our system, mildly low at 102 could be worse due to viral suppression check B12 level in AM follow CBC hold heparin and ASA if plts<50 (7) Neuropathy: Plan: with h/o bilat great toe amputations due to DM ulcers no meds needs good foot care (8) Anemia: Plan: chronic, profoundly microcytic hgb on arrival normal but is dehydrated, typical baseline 13 could be Fe def vs thalassemia check Fe studies in AM (9) Hypertension: Plan: BPs soft on arrival due to dehydration hold home HCTZ, lisinopril, minoxidil ok to give amlodipine and metoprolol with hold parameters in AM giving IVFs continue ASA (10) Hyperlipidemia: Plan: continue statin ASA (11) Glaucoma: Plan: continue home eye drops (12) Osteoarthritis: Plan: hold home diclofenac po for ADILSON start tylenol prn (13) Major depression with psychotic features: Plan: continue home Paxil Plan: DVT prophylaxis-heparin SQ 7500 tid due to MEHRDAD, SCDs Dispo-admit to PCU, guarded prognosis FULL CODE and desires intubation if needed, states "do whatever it takes" History of Present Illness Chief Complaint: SOB, COVID Primary Care Provider: MAMIE Polo This pt is a 60 yo male prisoner with a h/o DMII, obesity, parathyroid adenoma, thyroid goiter and hypothyroidism s/p total thyroidectomy, microcytic anemia, HTN, Hepatitis C now s/p curative tx, GERD, major depressive disorder with psychotic features,and hyperlipidemia who presents to the ER with 5 days of wors ening SOB, cough, loss of taste and smell, runny nose and congestion after testing positive for COVID at the custodial a few days ago. Of note, he was FULLY VACCINATED with J&J Vaccine several months ago. He was found to be hypoxic at the custodial and was sent to the ER. He is now on HFNC at 50L, 70% FiO2 and sats in the 90s. He reports feeling very tired, but denies CP. He is not really bringing up much sputum. He feels achy all over his body, denies headache. No nausea or vomiting but has no appetite and has not been eating or drinking much lately. He reports his urine has been dark in color but has been making about the same amount as usual. Denies diarrhea. Denies tongue or throat pain but does have evidence of thrush on exam. His CBC showed a chronic but slightly worse thrombocytopenia, CRP quite elevated at 15, BUN/in store banker elevated at 61/3.4 (baseline in store banker 1.0), trop neg,VBG normal,LFTs normal. CXR showed bilateral airspace opacities consistent with PNA. He will be admitted for COVID-19 Pneumonia and acute respiratory failure with hypoxia as well as acute kidney injury. Allergies Allergy/AdvReac Type Severity Reaction Status Date / Time No Known Allergies Allergy Verified 01/08/21 09:51 Home Medications Medication Instructions Recorded Confirmed Type aspirin 81 mg tablet,delayed 81 mg PO DAILY 01/21/18 01/08/21 History release (Adult Low Dose Aspirin) calcium carbonate 600 mg (1,500 1 tab PO TID tab 01/21/18 01/08/21 History mg)-vitamin D3 400 unit tablet (Calcium 600 + D(3)) docusate sodium 100 mg capsule 100 mg PO BID 01/21/18 01/08/21 History hydrochlorothiazide 25 mg tablet 25 mg PO DAILY 01/21/18 01/08/21 History levothyroxine 175 mcg tablet 175 mcg PO DAILY 01/21/18 01/08/21 History metoprolol succinate 100 mg 100 mg PO DAILY 01/21/18 01/08/21 History tablet,extended release 24 hr minoxidil 10 mg tablet 10 mg PO DAILY 01/21/18 01/08/21 History paroxetine HCl 30 mg tablet 60 mg PO DAILY tab 01/21/18 01/08/21 History peg [id number] 1 1 drops OP QID 01/21/18 01/08/21 History %-0.2 %-0.2 % eye drops (Visine Tears) topiramate 50 mg capsule,extended 50 mg PO DAILY 01/21/18 01/08/21 History release 24 hr vitamin E 1 appln TOP BID gm 01/21/18 01/08/21 History lisinopril 40 mg tablet 40 mg PO DAILY 03/17/18 01/08/21 History timolol 0.5 % eye drops 1 drp OPHTHALMIC (EYE) BID 03/17/18 01/08/21 History amlodipine 5 mg tablet 5 mg PO DAILY 01/08/21 01/08/21 History atorvastatin 40 mg tablet 40 mg PO HS 01/08/21 01/08/21 History brimonidine 0.15 % eye drops 1 drp OPHTHALMIC (EYE) TID 01/08/21 01/08/21 History diclofenac sodium 75 mg 75 mg PO BID 01/08/21 01/08/21 History tablet,delayed release insulin glargine 100 unit/mL 60 unit SUBCUT BID 01/08/21 01/08/21 History subcutaneous solution (Semglee U-100 Insulin) insulin regular human 100 unit/mL 1 sliding scale dose SUBCUT 01/08/21 01/08/21 History injection solution (Novolin R USEASDIRECTD Regular U-100 Insulin) insulin regular human 100 unit/mL 30 unit SUBCUT BID 01/08/21 01/08/21 History injection solution (Novolin R Regular U-100 Insulin) latanoprost 0.005 % eye drops 1 drp OPHTHALMIC (EYE) PM 01/08/21 01/08/21 History (Xalatan) trazodone 50 mg tablet 50 mg PO HS 01/08/21 01/08/21 History Past Med/Surg History Medical History (Updated 01/08/21 @ 10:49 by Dianne Ashford MD) Anemia Anxiety Diabetes mellitus, type 2 IDDM Glaucoma Hyperlipidemia Hypertension Hypocalcemia Hypothyroidism Kidney disease Major depression with psychotic features Neuropathy Osteoarthritis Thrombocytopenia Surgical History History of amputation LEFT GREAT TOE - 06/2017 [facility] History of cataract surgery History of thyroidectomy Family History Other Family history non-contributory Social History (Updated 01/08/21 @ 11:42 by Dianne Ashford MD) Smoking Status: Never smoker Beliefs That Will Affect Care: None marital status: Single Current Living Situation: Other Current Living Situation Comment: [facility] since 1989 current occupational status: other Feels Safe at Home: Yes Review of Systems Review of Systems: All systems reviewed & are unremarkable except as noted in HPI & below Physical Exam Constitutional: WD/WN, vitals as above + ill appearing and + obese Eyes: PERRL, conjunctivae normal, anicteric sclerae ENMT: Mouth: + oral mucosal abnormality (diffuse white exudate on tongue and buccal mucosa) Neck: trachea midline, no thyromegaly Respiratory: normal respiratory effort; no labored breathing and no cough Auscultation: + crackles (bilat lower and middle lung ellis); no wheezes Cardiovascular: RRR, no murmur, no edema Chest (Breasts): Chest: normal inspection of chest Gastrointestinal (Abdomen): normal bowel sounds, soft, nontender, no hepatosplenomegaly Musculoskeletal: Extremities: + extremities abnormal to inspection (bilat great toes amputated), no cyanosis and no clubbing Skin: no rashes, warm and dry Neurologic: moves all extremities and awake; no focal motor deficits Psychiatric: A+Ox3, euthymic affect Lymphatic: no lymphedema Results & Data Results & Data ([facility]) Vital Signs (Past 12 Hours) Vital Signs Temp Pulse Pulse Resp BP BP Pulse Ox 01/08/21 09:52 98 H 98 H 18 92 01/08/21 09:32 100 H 20 101/80 93 01/08/21 09:10 100 H 20 99 01/08/21 09:03 100 01/08/21 08:48 94 01/08/21 08:37 36.9 C 99 H 18 109/67 90 Laboratory Results 01/08/21 01/08/21 01/08/21 Range/Units 09:25 09:25 09:25 WBC 7.55 (4.8-10.8) K/uL RBC 6.72 H (4.7-6.1) M/uL Hgb 14.5 (14.0-18.0) g/dL Hct 43.3 (42-52) % MCV 64.4 L (80-100) fL MCH 21.6 L (25-34) pg MCHC 33.5 (32-36) g/dL RDW Std Deviation 38.5 (36.4-46.3) fL RDW Coeff of Shree 16.7 H (11.5-14.5) % Plt Count 105 L (130-400) K/uL Immature Gran % (Auto) 0.5 % Neut % (Auto) 56.4 % Lymph % (Auto) 33.6 % Sherman % (Auto) 9.4 % Eos % (Auto) 0.0 % Baso % (Auto) 0.1 % Neut # (Auto) 4.25 (1.4-6.5) K/uL Lymph # (Auto) 2.54 (1.2-3.4) K/uL Sherman # (Auto) 0.71 H (0.11-0.59) K/uL Eos # (Auto) 0.00 (0-0.5) K/uL Baso # (Auto) 0.01 (0-0.2) K/uL Immature Gran # (Auto) 0.04 H (0.00-0.02) K/uL Platelet Estimate Decreased L (Normal) Microcytosis Present Ovalocytes 1+ PT 10.4 (9.0-12.0) Seconds INR 1.0 (0.9-1.1) APTT 33.9 H (21.0-31.0) Seconds PTT Ratio 1.3 Sodium 138 (136-145) mmol/L Potassium 3.8 (3.5-5.1) mmol/L Chloride 104 (98-107) mmol/L Carbon Dioxide 20 L (21-32) mmol/L Anion Gap 13.0 H (3-11) BUN 61 H (7-18) mg/dl Creatinine 3.41 H (0.6-1.4) mg/dl Est Cr Clr Drug Dosing 34.7 ml/min Est GFR ( Amer) 21.6 ml/min Est GFR (Non-Af Amer) 18.6 ml/min BUN/Creatinine Ratio 17.9 (10-20) Glucose 158 H (70-99) mg/dl Calcium 9.6 (8.5-10.1) mg/dl Total Bilirubin 0.7 (0.2-1) mg/dl AST 30 (15-37) U/L ALT 15 (12-78) U/L Alkaline Phosphatase 54 (45-117) U/L Troponin I < 0.015 (0-0.045) ng/ml Total Protein 8.8 H (6.4-8.2) gm/dl Albumin 2.9 L (3.4-5.0) gm/dl Globulin 5.9 H (2.5-4.0) gm/dl Albumin/Globulin Ratio 0.5 L (0.9-2) Lipase 154 (73-393) U/L SARS-CoV-2 (PCR) (Negative) 01/08/21 Range/Units 09:23 WBC (4.8-10.8) K/uL RBC (4.7-6.1) M/uL Hgb (14.0-18.0) g/dL Hct (42-52) % MCV (80-100) fL MCH (25-34) pg MCHC (32-36) g/dL RDW Std Deviation (36.4-46.3) fL RDW Coeff of Shree (11.5-14.5) % Plt Count (130-400) K/uL Immature Gran % (Auto) % Neut % (Auto) % Lymph % (Auto) % Sherman % (Auto) % Eos % (Auto) % Baso % (Auto) % Neut # (Auto) (1.4-6.5) K/uL Lymph # (Auto) (1.2-3.4) K/uL Sherman # (Auto) (0.11-0.59) K/uL Eos # (Auto) (0-0.5) K/uL Baso # (Auto) (0-0.2) K/uL Immature Gran # (Auto) (0.00-0.02) K/uL Platelet Estimate (Normal) Microcytosis Ovalocytes PT (9.0-12.0) Seconds INR (0.9-1.1) APTT (21.0-31.0) Seconds PTT Ratio Sodium (136-145) mmol/L Potassium (3.5-5.1) mmol/L Chloride (98-107) mmol/L Carbon Dioxide (21-32) mmol/L Anion Gap (3-11) BUN (7-18) mg/dl Creatinine (0.6-1.4) mg/dl Est Cr Clr Drug Dosing ml/min Est GFR ( Amer) ml/min Est GFR (Non-Af Amer) ml/min BUN/Creatinine Ratio (10-20) Glucose (70-99) mg/dl Calcium (8.5-10.1) mg/dl Total Bilirubin (0.2-1) mg/dl AST (15-37) U/L ALT (12-78) U/L Alkaline Phosphatase (45-117) U/L Troponin I (0-0.045) ng/ml Total Protein (6.4-8.2) gm/dl Albumin (3.4-5.0) gm/dl Globulin (2.5-4.0) gm/dl Albumin/Globulin Ratio (0.9-2) Lipase (73-393) U/L SARS-CoV-2 (PCR) POSITIVE A* (Negative) Diagnostic Findings CXR image personally reviewed by me and agree with the following report: Chest X-Ray 01/08/21 08:39 XR chest 1V portable CLINICAL HISTORY: Chest Pain. COMPARISON STUDY: 11/29/2013 TECHNIQUE: 1 view of the chest FINDINGS: Single frontal view of the chest demonstrates the cardiomediastinal silhouette to be within normal limits. Patchy interstitial and alveolar opacities are present bilaterally. The findings are most characteristic of a viral type pneumonitis. Covid 19 pneumonia should be excluded. There is no evidence for pleural effusion. There is no evidence for vascular congestion. There is no acute osseous pathology. IMPRESSION: Patchy interstitial and alveolar opacities bilaterally characteristic of a viral type pneumonitis and probable Covid 19 pneumonia. ACT 112: Negative or not required by law. Electronically signed by: Ede Torres M.D. 01/08/2021 8:57 AM ECG Additional Comments: ECG 01/08/21 at 8:32 AM with NSR, rate 99, LAFB, prolonged QTc 515, no ischemic changes Code Status & VTE Plan Code Status FULL CODE VTE Prophylaxis Plan VTE Prophylaxis will be ordered: Yes PG Care Time/CCT Total # of Minutes Spent Total Time Spent with Patient: Total time spent is greater than 50% in coordination of care (as documented) at patient's floor/unit and/or counseling patient: Coding Level of Care Code 09155 Initial Inpt Care Lvl 3 Diagnoses Hypothyroidism E03.9 Osteoarthritis M19.90 Neuropathy G62.9 Anemia D64.9 Hypertension I10 Hyperlipidemia E78.5 Glaucoma H40.9 Diabetes mellitus, type 2 E11.9 Thrombocytopenia D69.6 Pneumonia due to COVID-19 virus U07.1; J12.82 Acute respiratory failure with hypoxia J96.01 MEHRDAD (acute kidney injury) N17.9 Major depression with psychotic features F32.3
--- NOTE | 2021-01-08 10:46 | Electrocardiogram Report ---
Test Reason : Blood Pressure : / mmHG Vent. Rate : 099 BPM Atrial Rate : 099 BPM P-R Int : 134 ms QRS Dur : 102 ms QT Int : 402 ms P-R-T Axes : 050 -67 071 degrees QTc Int : 515 ms Normal sinus rhythm Left anterior fascicular block Prolonged QT Abnormal ECG When compared with ECG of 03-JUL-2017 10:10, Vent. rate has increased BY 38 BPM Nonspecific T wave abnormality no longer evident in Inferior leads T wave amplitude has increased in Anterior leads QT has lengthened Confirmed by Syed Monaco ([id number]) on 01/08/2021 10:45:29 AM Referred By: Confirmed By:Gaurang Monaco
[2021-01-08 10:59] LABS: Base Excess VBG -3.3 mEq/L; HCO3 VBG 23 mmol/L; PCO2 VBG 47 mmHg (38-50); PO2 VBG 31 mmHg; pH VBG 7.32 (7.36-7.41)
[2021-01-08 11:06] LABS: Oxygen Saturation VBG < 60.0 %
--- NOTE | 2021-01-08 13:09 | Ultrasound Report ---
US renal/blad retro comp CLINICAL HISTORY: acute kidney injury. COMPARISON: None. TECHNIQUE: Multiple grayscale and color images of the kidneys and bladder. FINDINGS: Right kidney: The kidney is normal in size and echogenicity. There is no evidence for renal calculus or hydronephrosis. There is no evidence for solid renal mass. There is evidence for a 2.5 x 2.2 cm pa rapelvic cyst. No further follow-up is necessary of this benign finding. There is no evidence for med ical renal disease. The kidney measures 14.2 cm in greatest length. Left kidney: The kidney is normal in size and echogenicity. There is no evidence for renal calculus o r hydronephrosis. There is no evidence for solid renal mass. There is no evidence for medical renal d isease. The kidney measures 13.4 cm in greatest length. Bladder: Limited images of the bladder demonstrate no gross abnormality. No ureteral jets were identi fied. IMPRESSION: Essentially negative renal ultrasound. ACT 112: Negative or not required by law. Electronically signed by: Ede Torres M.D. 01/08/2021 1:07 PM
[2021-01-08] MEDS ORDERED: PHARMACY GLYCEMIC MGMT CONSULT PRN (14:02)
[2021-01-08] MEDS ORDERED: GLUCOSE 10 TABS/TUBE PO PRN (14:02)
[2021-01-08] MEDS ORDERED: LACTATED RINGER'S 1,000 ML IV SCH (14:02)
[2021-01-08] MEDS ORDERED: POLYETHYLENE (MIRALAX) 17 GM PACK PO PRN (14:02)
[2021-01-08] MEDS ORDERED: GLUCOSE 40% GEL 15 GM TUBE PO PRN (14:02)
[2021-01-08] MEDS ORDERED: GLUCAGON FOR INJ 1 MG VIAL SQ PRN (14:02)
[2021-01-08] MEDS: ALBUT/IPRATROP 3MG/0.5MG NEB 3 ML VIAL NEB SCH ×2 (14:30→19:33)
--- NOTE | 2021-01-08 15:12 | Pharmacy Report ---
Pharmacy Glycemic Short Note 2 - Date of Service January 08, 2021 - Glycemic Short BSG Results (Last 24 hours): 01/08/21 09:25 Glucose 158 H OUTPATIENT ANTIDIABETIC REGIMEN: * Lantus 60 units BID * Regular 30 units BID * HbA1C pending ASSESSMENT: * Mr Ricks is a 60 y/o M with a PMH of T2DM who presents with COVID plus kidney dysfunction. * Did not take insulin at [facility] today. * Scale of Lantus tonight with 30-60 units based upon BSG as patient's diet is tentative. * Heparin weight-based stress of 3. PLAN FOR INPATIENT GLYCEMIC CONTROL: * Basal insulin * Lantus 30-60 units SQ HS (30 units if BSG < 160 mg/dL; 45 units if BSG 160- 200 mg/dL; 60 units if BSG > 200 mg/dL) * Bolus insulin * NovoLog per scale ACHS or Q6hrs while NPO * Goal Range: Low 110 mg/dL - High 140 mg/dL * Correction Factor: 15 mg/dL/unit * Nutritional / Prandial insulin per carb ratio of 1 unit per 4 grams CHO consumed PLAN FOR DISCHARGE: * TBD HbA1C ordered
[2021-01-08] MEDS: ARTIFICIAL TEARS OP SCH ×4 (16:42→21:19)
[2021-01-08] MEDS: NYSTATIN SUSP 500,000 U/5 ML UDC PO SCH ×3 (16:43→21:23)
[2021-01-08] MEDS: BRIMONIDINE TARTRATE-P 0.15% 5 ML BTL OP SCH ×2 (16:43→21:20)
[2021-01-08] MEDS: HEPARIN SOD 5,000 UNIT/0.5 ML VIAL SQ SCH (16:44)
[2021-01-08] MEDS: INSULIN ASPART 100 UNITS/ML 3 ML PEN SC SCH ×2 (19:11→21:36)
[2021-01-08 20:27] LABS: Appearance Urine Turbid (Clear); Bacteria Urine Automated 1+ (Negative); Blood Urine 2+ (Negative); Color Urine Dark Yellow; Epithelial Cell Urine Auto >30 /lpf (0-5); Glucose Urine UA Trace (Negative); Ketones Urine 1+ (Negative); Leukocyte Esterase Urine Trace (Negative); Nitrite Urine Negative (Negative); Protein Urine 2+ (Negative); Specific Gravity Urine 1.022 (1.000-1.030); Urobilinogen Urine Negative (Negative); WBC Urine Automated >30 /hpf (0-5)
[2021-01-08 20:54] LABS: Bilirubin Urine 1+ (Negative)
[2021-01-08] MEDS: TIMOLOL MALEATE 0.5% OP SOLN 5 ML BTL OP SCH (21:20)
[2021-01-08] MEDS: LATANOPROST 0.005% OP SOLN 2.5 ML BTL OP SCH (21:20)
[2021-01-08] MEDS: traZODone HCL 50 MG TAB PO SCH (21:21)
[2021-01-08] MEDS: ATORVASTATIN 40 MG TAB PO SCH (21:22)
[2021-01-08] MEDS: DOCUSATE SODIUM 100 MG CAP PO SCH (21:22)
[2021-01-08] MEDS: INSULIN GLARGINE SOLOSTAR 100 UNITS/ML 3 ML PEN SC SCH (21:37)
[2021-01-08] MEDS: [UNRECOGNIZED DRUG - REMARK] SCH (23:34)
[2021-01-09] MEDS ORDERED: cefTRIAXone SODIUM 2000MG/70ML D5W IV ONE (00:02)
[2021-01-09] MEDS: cefTRIAXone SODIUM 2,000 MG in DEXTROSE 5% 50 ML IV SCH ×2 (00:11→23:43)
[2021-01-09] MEDS: HEPARIN SOD 5,000 UNIT/0.5 ML VIAL SQ SCH ×4 (00:11→21:12)
[2021-01-09] MEDS: LEVOTHYROXINE SODIUM 175 MCG TABLET PO SCH (05:33)
[2021-01-09 05:46] LABS: Mean Corpuscular Hgb Conc 33.1 g/dL (32-36)
[2021-01-09 06:02] LABS: Hematocrit (blood only) 42.6 % (42-52); Hemoglobin 14.1 g/dL (14.0-18.0); Mean Corpuscular Hemoglobin 21.2 pg (25-34); Mean Corpuscular Volume 64.2 fL (80-100); RDW Coefficient of Variation 16.7 % (11.5-14.5); RDW Standard Deviation 38.8 fL (36.4-46.3); Red Blood Count 6.64 M/uL (4.7-6.1); White Blood Count 8.24 K/uL (4.8-10.8)
[2021-01-09 06:16] LABS: Albumin Globulin Ratio 0.5 (0.9-2); Albumin Level 2.9 gm/dl (3.4-5.0); BUN Creatinine Ratio 27.4 (10-20); Calcium 9.7 mg/dl (8.5-10.1); Creatinine Clr Calc Pharmacy 49.6 ml/min; Est GFR (African American) 33.2 ml/min; Est GFR (Non-African American) 28.6 ml/min; Globulin 6.4 gm/dl (2.5-4.0); Magnesium 2.9 mg/dl (1.8-2.4); Phosphorus 3.5 mg/dl (2.5-4.9); Potassium 3.7 mmol/L (3.5-5.1); Total Protein 9.3 gm/dl (6.4-8.2)
[2021-01-09 06:24] LABS: Bilirubin,Total 0.7 mg/dl (0.2-1); Ferritin 790.1 ng/ml (8-388); Thyroid Stimulating Hormone 0.514 uIu/ml (0.300-4.500)
[2021-01-09 06:40] LABS: Platelet Count 121 K/uL (130-400)
[2021-01-09 06:41] LABS: Immature Granulocytes # (auto) 0.01 K/uL (0.00-0.02); Immature Granulocytes % (auto) 0.1 %; Lymphocytes # (auto) 1.74 K/uL (1.2-3.4); Lymphocytes % (auto) 21.1 %; Monocytes # (auto) 0.33 K/uL (0.11-0.59); Neutrophils # (auto) 6.16 K/uL (1.4-6.5); Neutrophils % (auto) 74.8 %; RBC Morphology Unremarkable
[2021-01-09] MEDS: ALBUT/IPRATROP 3MG/0.5MG NEB 3 ML VIAL NEB SCH ×4 (07:02→19:51)
[2021-01-09 07:33] LABS: Estimated Average Glucose 263 mg/dl; Hemoglobin A1C 10.8 % (4.5-5.6)
[2021-01-09] MEDS: INSULIN ASPART 100 UNITS/ML 3 ML PEN SC SCH ×4 (07:43→21:10)
[2021-01-09] MEDS: [UNRECOGNIZED DRUG - REMARK] SCH ×3 (07:44→23:44)
[2021-01-09] MEDS: ARTIFICIAL TEARS OP SCH ×4 (07:45→21:10)
[2021-01-09] MEDS: amLODIPine BESYLATE 5 MG TAB PO SCH (07:46)
[2021-01-09] MEDS: ASPIRIN 81 MG ECTAB PO SCH (07:46)
[2021-01-09] MEDS: PARoxetine HCL 20 MG TAB PO SCH (07:46)
[2021-01-09] MEDS: TIMOLOL MALEATE 0.5% OP SOLN 5 ML BTL OP SCH ×2 (07:47→21:11)
[2021-01-09] MEDS: BRIMONIDINE TARTRATE-P 0.15% 5 ML BTL OP SCH ×3 (07:49→21:10)
[2021-01-09] MEDS: NYSTATIN SUSP 500,000 U/5 ML UDC PO SCH ×4 (07:49→21:11)
[2021-01-09] MEDS: DOCUSATE SODIUM 100 MG CAP PO SCH ×2 (07:49→21:10)
[2021-01-09] MEDS: ACETAMINOPHEN 325 MG TAB PO PRN (07:51)
[2021-01-09] MEDS: METOPROLOL SUCC 50MG EXT REL TAB PO SCH (07:53)
[2021-01-09] MEDS: dexAMETHasone 6 MG in SYRINGE 0 ML IV SCH (08:57)
[2021-01-09] MEDS ORDERED: INSULIN HUMAN NPH SC SCH (09:00)
[2021-01-09] MEDS ORDERED: REMDESIVIR 200 MG in SODIUM CHLORIDE 0.9% 210 ML IV STA (13:46)
--- NOTE | 2021-01-09 15:24 | Pharmacy Report ---
Pharmacy Glycemic Short Note 2 - Date of Service January 09, 2021 - Glycemic Short BSG Results (Last 24 hours): 01/08/21 01/08/21 01/09/21 18:59 21:33 04:53 Glucose 224 H POC Glucose 240 H 245 H 01/09/21 01/09/21 07:26 11:50 Glucose POC Glucose 211 H 188 H OUTPATIENT ANTIDIABETIC REGIMEN: * Lantus 60 units BID * Regular 30 units BID * A1c = 10.8% 01/09/21 ASSESSMENT: 01/09 * Fasting BSG 211 this AM with 60 units Lantus on board from yesterday. Will up basal insulin regimen today, however will use NPH in the AM and Lantus in the PM due to IV dexamethasone given in the AM * Given the patient required ~180 units of insulin per day as outpt, will base initial Novolog CF and CR doses upon outpt requirements * Will add overnight BSG checks and coverage given upward trend in BSGs with ongoing significant stressors 01/08 * Mr Ricks is a 60 y/o M with a PMH of T2DM who presents with COVID plus kidney dysfunction. * Did not take insulin at [facility] today. * Scale of Lantus tonight with 30-60 units based upon BSG as patient's diet is tentative. * Heparin weight-based stress of 3. PLAN FOR INPATIENT GLYCEMIC CONTROL: * Basal insulin * Lantus 30-60 units SQ HS (30 units if BSG < 120 mg/dL; 45 units if BSG 120- 200 mg/dL; 60 units if BSG > 200 mg/dL) * NPH 40 units (~0.3units/kg) sub-Q Q AM with IV dexamethasone * Bolus insulin * NovoLog per scale ACHS or Q6hrs while NPO * Goal Range: Low 110 mg/dL - High 140 mg/dL * Correction Factor: 12 mg/dL/unit * Nutritional / Prandial insulin per carb ratio of 1 unit per 3 grams CHO consumed PLAN FOR DISCHARGE: * TBD
[2021-01-09 15:51] LABS: BUN Creatinine Ratio 32.6 (10-20); C Reactive Protein 16.1 mg/dl (0-0.29); Calcium 9.3 mg/dl (8.5-10.1); Creatinine Clr Calc Pharmacy 61.7 ml/min; Est GFR (African American) 43.2 ml/min; Est GFR (Non-African American) 37.3 ml/min
--- NOTE | 2021-01-09 16:18 | Pulmonary Consultation ---
Date of Consultation January 09, 2021 Assessment & Plan (1) Pneumonia due to 2019 novel coronavirus: (2) Acute respiratory failure with hypoxia: (3) Obesity (BMI 30-39.9): Attending: Dr. Quesada Impression: This is a 60-year-old -Lithuanian male. GFR is 33. LFTs are within normal limit. Patient presented with symptoms to the [facility] approximately 7 days ago. He was started on remdesivir today by Dr. Vallejo. Pulmonary is consulted regarding recommendation for tocilizumab or baricitinib. Patient has already been started on remdesivir (day #2) and is on dexamethasone 6 mg IV (day #2). He has poor control of his diabetes with a hemoglobin A1c of 10.8%. He also has history of osteomyelitis resulting in amputation of bilateral great toes. He was started on ceftriaxone this admission for UTI. Procalcitonin slightly elevated at 0.71. Recommendations: 1. COVID-19/ARDs: * Day #2 remdesivir * Day #2 dexamethasone 6 mg IV * Day #2 ceftriaxone * At this point would avoid azithromycin as patient has a prolonged QTC at 515 ms * Patient currently meets criteria for baricitinib as he is on high flow and was just recently admitted. It would need to be renally adjusted as the patient's GFR is 33 * Continue high flow supplemental oxygen as needed * Patient is open to endotracheal intubation and mechanical ventilation as needed * Currently on high flow nasal cannula 60 L/min and an FiO2 of 100% with respiratory rate of 26 and heart rate of 85 * Low threshold for endotracheal intubation with mechanical ventilation. * Will place order for baricitinib. Continue to follow on telemetry 2. Obesity: * Patient with a BMI of 35.0 kg/m and a weight of 130.5 kg. * Discussed with the patient obesity can increase mortality with COVID-19 * Will need to focus on weight loss as an outpatient 3. Acute respiratory failure with hypoxia: * Patient denies history of tobacco abuse * This appears to be secondary to his COVID-19/ARDs * Continue supplemental oxygen as above * Follow Covid treatment as above * VBG shows no significant hypercapnia * Serum carbon dioxide at 22 mmol/L * Continue with dexamethasone as above 4. DVT prophylaxis: * Patient with increased risk of thromboembolic disease secondary to COVID-19 * The addition of baricitinib also increases coagulopathy * No asymmetrical edema * Would discontinue heparin subcutaneously and start enoxaparin twice daily with renal adjustment 5. Urinary tract infection: * Patient started on ceftriaxone (day #2) * Procalcitonin 0.71 * With trend procalcitonin while on baricitinib 6. Oral candidiasis: * Continue nystatin swish and swallow Thank you very much for including us in the care of this patient. We will follow along with you for now. Please refer to Dr. Quesada's addendum for further recommendations. History of Present Illness Reason for Consultation: ARDs/COVID-19, hypoxia Requesting Physician: Dr. Vallejo Attending Physician: Farooq Vallejo History of Present Illness Attending: Dr. Quesada This is a 60-year-old -Lithuanian male with a past medical history including hypothyroidism, osteoarthritis, neuropathy, chronic kidney disease, diabetes mellitus type 2, diabetic foot ulcers resulting in amputation of bilateral great toes, multinodular goiter, parathyroid adenoma, hypertension, obesity with BMI of 35.7 kg/m. This is a patient who began having symptoms of COVID-19 approximately 7 days ago. He reports shortness of breath and runny nose. He has decreased smell and decreased taste although it is not absent. He has no reports of diarrhea. He has no abdominal pain or chest pain. He was in the infirmary in the skilled nursing and found to be hypoxic. He was then transferred to [facility] for further evaluation and treatment. The patient did have decreased saturations into the 70s per his report. He is currently on high flow supplemental oxygen at 60 L/min and 100% FiO2. Respiratory rate currently is approximately 22. Heart rate is controlled in the 80s. Patient denies any new back pain, abdominal pain, chest pain. He has no specific sputum production. He has no hemoptysis. Blood pressure is currently 110/75. Patient states he was vaccinated with [employer] several months ago Patient denies any tobacco abuse history Patient has no release date from skilled nursing at this time Allergies Allergy/AdvReac Type Severity Reaction Status Date / Time No Known Allergies Allergy Verified 01/08/21 09:51 Home Medications Medication Instructions Recorded Confirmed Type aspirin 81 mg tablet,delayed 81 mg PO DAILY 01/21/18 01/08/21 History release (Adult Low Dose Aspirin) calcium carbonate 600 mg (1,500 1 tab PO TID tab 01/21/18 01/08/21 History mg)-vitamin D3 400 unit tablet (Calcium 600 + D(3)) docusate sodium 100 mg capsule 100 mg PO BID 01/21/18 01/08/21 History hydrochlorothiazide 25 mg tablet 25 mg PO DAILY 01/21/18 01/08/21 History levothyroxine 175 mcg tablet 175 mcg PO DAILY 01/21/18 01/08/21 History metoprolol succinate 100 mg 100 mg PO DAILY 01/21/18 01/08/21 History tablet,extended release 24 hr minoxidil 10 mg tablet 10 mg PO DAILY 01/21/18 01/08/21 History paroxetine HCl 30 mg tablet 60 mg PO DAILY tab 01/21/18 01/08/21 History peg [id number] 1 1 drops OP QID 01/21/18 01/08/21 History %-0.2 %-0.2 % eye drops (Visine Tears) topiramate 50 mg capsule,extended 50 mg PO DAILY 01/21/18 01/08/21 History release 24 hr vitamin E 1 appln TOP BID gm 01/21/18 01/08/21 History lisinopril 40 mg tablet 40 mg PO DAILY 03/17/18 01/08/21 History timolol 0.5 % eye drops 1 drp OPHTHALMIC (EYE) BID 03/17/18 01/08/21 History amlodipine 5 mg tablet 5 mg PO DAILY 01/08/21 01/08/21 History atorvastatin 40 mg tablet 40 mg PO HS 01/08/21 01/08/21 History brimonidine 0.15 % eye drops 1 drp OPHTHALMIC (EYE) TID 01/08/21 01/08/21 History diclofenac sodium 75 mg 75 mg PO BID 01/08/21 01/08/21 History tablet,delayed release insulin glargine 100 unit/mL 60 unit SUBCUT BID 01/08/21 01/08/21 History subcutaneous solution (Semglee U-100 Insulin) insulin regular human 100 unit/mL 1 sliding scale dose SUBCUT 01/08/21 01/08/21 History injection solution (Novolin R USEASDIRECTD Regular U-100 Insulin) insulin regular human 100 unit/mL 30 unit SUBCUT BID 01/08/21 01/08/21 History injection solution (Novolin R Regular U-100 Insulin) latanoprost 0.005 % eye drops 1 drp OPHTHALMIC (EYE) PM 01/08/21 01/08/21 History (Xalatan) trazodone 50 mg tablet 50 mg PO HS 01/08/21 01/08/21 History Patient History Medical History (Updated 01/09/21 @ 16:25 by Vinny Almeida PA-C) Anemia Anxiety Diabetes mellitus, type 2 IDDM Glaucoma Hyperlipidemia Hypertension Hypocalcemia Hypothyroidism Kidney disease Major depression with psychotic features Neuropathy Obesity (BMI 30-39.9) Osteoarthritis Thrombocytopenia Surgical History History of amputation LEFT GREAT TOE - 06/2017 [facility] History of cataract surgery History of thyroidectomy Family History Other Family history non-contributory Social History Smoking Status: Never smoker Hx Alcohol Use: No Hx Substance Use: No Preferred Language: Israeli Communication Ability: Effective Photographer'S Assistant Required: No Beliefs That Will Affect Care: None marital status: Single Current Living Situation: Other Current Living Situation Comment: [facility] since 1989 current occupational status: other Other Information That Helps Us Care for You: No Feels Safe at Home: Yes Safety Concerns: Feels Safe At This Time Assistive Devices: Oxygen - Continuous Review of Systems Review of Systems: All systems reviewed & are unremarkable except as noted in Subjective Physical Exam Physical Exam: GENERAL : No acute distress. Appears ill EYES: No icterus, gaze conjugate. Pupils equal round and reactive to light NOSE: No evidence of epistaxis. High flow nasal cannula in place and secure MOUTH: No lesions. Evidence of thrush on tongue NECK: Supple LUNGS: Decreased breath sounds throughout. Crackles at the bilateral bases. HEART: Regular, rate controlled ABDOMEN: Soft, NT, ND, BS Present EXTREMITIES: No LE edema, pedal pulses intact and equal bilaterally. Bilateral amputation to the great toes NEURO: A&OX3 Results & Data Results & Data ([facility]) Vital Signs (Past 12 Hours) Vital Signs Temp Pulse Resp BP Pulse Ox 01/09/21 16:10 37.3 C 88 26 H 110/75 90 01/09/21 14:14 87 22 94 01/09/21 14:13 87 22 94 01/09/21 11:24 89 18 91 01/09/21 11:23 90 18 91 01/09/21 08:27 37.9 C H 105 H 20 146/97 H 94 01/09/21 07:03 104 H 24 93 Laboratory Results 01/09/21 04:53 01/09/21 14:45 01/08/21 10:43 VBG pH 7.32 L VBG pCO2 47 VBG pO2 31 VBG HCO3 23 VBG O2 Saturation < 60.0 VBG Base Excess -3.3 COVID-19 Results 01/08/21 09:23 SARS-CoV-2 (PCR) POSITIVE A* Diagnostic Findings XR chest 1V portable CLINICAL HISTORY: Chest Pain. COMPARISON STUDY: 11/29/2013 TECHNIQUE: 1 view of the chest FINDINGS: Single frontal view of the chest demonstrates the cardiomediastinal silhouette to be within normal limits. Patchy interstitial and alveolar opacities are present bilaterally. The findings are most characteristic of a viral type pneumonitis. Covid 19 pneumonia should be excluded. There is no evidence for pleural effusion. There is no evidence for vascular congestion. There is no acute osseous pathology. IMPRESSION: Patchy interstitial and alveolar opacities bilaterally characteristi c of a viral type pneumonitis and probable Covid 19 pneumonia. ACT 112: Negative or not required by law. Electronically signed by: Ede Torres M.D. 01/08/2021 8:57 AM Medications Administered Remdesivir Dexamethasone Ceftriaxone PG Care Time/CCT Total # of Minutes Spent Total Time Spent with Patient: Total time spent is greater than 50% in coordination of care (as documented) at patient's floor/unit and/or counseling patient: Coding Level of Care Code 35747 Inpt Consult Level 5 Diagnoses Pneumonia due to 2019 novel coronavirus U07.1; J12.82 Acute respiratory failure with hypoxia J96.01 Obesity (BMI 30-39.9) E66.9 Time Spent (min) 60
[2021-01-09] MEDS ORDERED: BARICITINIB COMMUNICATION ONE (16:35)
[2021-01-09] MEDS: SODIUM CHLORIDE 0.9% 10ML FLUSH IV SCH (16:39)
[2021-01-09] MEDS: 4mg Daily x 14 days (eGFR >60 mL/min/1.73m2) PO SCH (18:45)
[2021-01-09] MEDS: ATORVASTATIN 40 MG TAB PO SCH (21:10)
[2021-01-09] MEDS: INSULIN GLARGINE SOLOSTAR 100 UNITS/ML 3 ML PEN SC SCH (21:11)
[2021-01-09] MEDS: LATANOPROST 0.005% OP SOLN 2.5 ML BTL OP SCH (21:11)
[2021-01-09] MEDS: traZODone HCL 50 MG TAB PO SCH (21:12)
--- NOTE | 2021-01-09 22:55 | Hospitalist Progress Note ---
Date of Service January 09, 2021 Assessment & Plan (1) Pneumonia due to 2019 novel coronavirus: Plan: (1) Pneumonia due to COVID-19 virus: Plan: Symptoms started approximately 01/03. With significantly high CRP and already requiring HFNC Fully vaccinated with J&J Vaccine several months prior CXR with bilat infiltrates With MEHRDAD secondary to dehydration from poor po intake in setting of taking ACEi,thiazide diuretic, and possibly hypotension (soft BPs on arrival) With thrombocytopenia although slightly worse than previous -admit to COVID unit on tele -continue dexamethasone started in ER 6mg IV daily -cannot have Remdesevir due to MEHRDAD but if MEHRDAD resolves, could start this -also does not currently meet criteria for baricitinib due to his MEHRDAD, but again, would start if MERHDAD improves/resolves within the next 72 hours -add IS and flutter valve -start Duonebs scheduled q6 hrs -encourage prone positioning -continue HFNC supplemental O2 to keep POx > 90-92%, and pt is agreeable to CPAP or even mechanical ventilation if needed -follow CBC, CMP, Mg, Phos in AM -check Procal now and if elevated, start abx for secondary bacterial PNA. There may be some slight elevation due to MEHRDAD On 01/09 Patient continues to require high flow oxygen. Placed on remdesevir as creatinine clearance is above 30. Consulted Pulmonary and will place on baricitinib. (2) Acute respiratory failure with hypoxia: Plan: as above, secondary to COVID PNA, do not suspect PE (3) MEHRDAD (acute kidney injury): Plan: BUN/computer engineering technologist up to 61/3.4 from baseline computer engineering technologist 1.0 secondary to likely prerenal injury from poor po intake/dehydration in setting of taking HCTZ,lisinopril as outpt also takes chronic NSAIDs and was borderline hypotensive on arrival so may be a component of ATN Lytes are ok except mild metabolic acidosis although is also on topamax which itself can cause metabolic acidosis Making urine but is more concentrated -received 2L NS in ER, will give one more liter of LR overnight -follow BMP in AM -check UA with reflex to Ur cx -hold lisinopril, HCTZ, diclofenac -encourage po intake -check Renal US and place Funk if any obstruction -hold minoxidil as may need to be renally dosed (4) Diabetes mellitus, type 2: Plan: continue basal and bolus insulin consult Pharmacy check A1C accuchecks ADA diet (5) Hypothyroidism: Plan: no TSH in our system s/p thyroidectomy check TSH in AM continue home LT4 (6) Thrombocytopenia: Plan: chronic in our system, mildly low at 102 could be worse due to viral suppression check B12 level in AM follow CBC hold heparin and ASA if plts<50 (7) Neuropathy: Plan: with h/o bilat great toe amputations due to DM ulcers no meds needs good foot care (8) Anemia: Plan: chronic, profoundly microcytic hgb on arrival normal but is dehydrated, typical baseline 13 could be Fe def vs thalassemia check Fe studies in AM (9) Hypertension: Plan: BPs soft on arrival due to dehydration hold home HCTZ, lisinopril, minoxidil ok to give amlodipine and metoprolol with hold parameters in AM giving IVFs continue ASA (10) Hyperlipidemia: Plan: continue statin ASA (11) Glaucoma: Plan: continue home eye drops (12) Osteoarthritis: Plan: hold home diclofenac po for ADILSON start tylenol prn (13) Major depression with psychotic features: Plan: continue home Paxil Plan: DVT prophylaxis-heparin SQ 7500 tid due to MEHRDAD, SCDs Dispo-admit to PCU, guarded prognosis FULL CODE and desires intubation if needed, states "do whatever it takes" (2) Acute respiratory failure with hypoxia: (3) Obesity (BMI 30-39.9): Admission and Anticipated Discharge Date Admission Date: January 08, 2021 Subjective 60 yo male reports feeling comfortable on high flow. Review of Systems Review of Systems: All systems reviewed & are unremarkable except as noted in HPI & below Physical Exam Physical Exam: Constitutional: WD/WN, vitals as above + ill appearing and + obese Eyes: PERRL, conjunctivae normal, anicteric sclerae ENMT: Mouth: + oral mucosal abnormality (diffuse white exudate on tongue and buccal mucosa) Neck: trachea midline, no thyromegaly Respiratory: normal respiratory effort; no labored breathing and no cough Auscultation: + crackles (bilat lower and middle lung ellis); no wheezes Cardiovascular: RRR, no murmur, no edema Chest (Breasts): Chest: normal inspection of chest Gastrointestinal (Abdomen): normal bowel sounds, soft, nontender, no hepatosplenomegaly Musculoskeletal: Extremities: + extremities abnormal to inspection (bilat great toes amputated), no cyanosis and no clubbing Skin: no rashes, warm and dry Neurologic: moves all extremities and awake; no focal motor deficits Psychiatric: A+Ox3, euthymic affect Lymphatic: no lymphedema Results & Data Results & Data ([facility]) Vital Signs (Past 12 Hours) Vital Signs Temp Pulse Pulse Resp BP BP Pulse Ox 01/09/21 22:00 81 91 01/09/21 21:30 80 96 01/09/21 21:00 81 95 01/09/21 20:30 82 96 01/09/21 20:00 83 97 01/09/21 19:51 82 24 97 01/09/21 19:45 37.2 C 83 22 127/77 98 01/09/21 19:30 83 99 01/09/21 19:00 84 98 01/09/21 18:30 84 98 01/09/21 18:00 82 93 01/09/21 17:30 86 94 01/09/21 17:00 85 98 01/09/21 16:30 85 97 01/09/21 16:21 84 93 01/09/21 16:11 37.3 C 85 26 H 110/75 90 01/09/21 16:10 37.3 C 88 26 H 110/75 90 01/09/21 15:30 85 17 122/79 94 01/09/21 15:00 86 25 H 112/74 90 01/09/21 14:30 87 20 120/85 94 01/09/21 14:14 87 22 94 01/09/21 14:13 87 22 94 01/09/21 14:00 86 25 H 118/80 95 01/09/21 13:30 87 19 109/76 94 01/09/21 13:00 88 21 120/78 94 01/09/21 12:30 85 19 114/74 89 L 01/09/21 12:00 89 21 117/75 89 L 01/09/21 11:30 90 20 114/75 93 01/09/21 11:24 89 18 91 01/09/21 11:23 90 18 91 01/09/21 11:00 92 H 23 123/74 90 PG Care Time/CCT Total # of Minutes Spent Total Time Spent with Patient: Total time spent is greater than 50% in coordination of care (as documented) at patient's floor/unit and/or counseling patient: Coding Level of Care Code 50387 Subseq Hosp Care Lvl 2 Diagnoses Pneumonia due to 2019 novel coronavirus U07.1; J12.82 Acute respiratory failure with hypoxia J96.01 Obesity (BMI 30-39.9) E66.9
[2021-01-10] MEDS: INSULIN ASPART 100 UNITS/ML 3 ML PEN SC SCH ×5 (02:26→21:33)
[2021-01-10] MEDS: HEPARIN SOD 5,000 UNIT/0.5 ML VIAL SQ SCH ×3 (05:33→21:34)
[2021-01-10] MEDS: LEVOTHYROXINE SODIUM 175 MCG TABLET PO SCH (05:33)
[2021-01-10] MEDS: [UNRECOGNIZED DRUG - REMARK] SCH ×2 (07:10→13:32)
[2021-01-10] MEDS: ALBUT/IPRATROP 3MG/0.5MG NEB 3 ML VIAL NEB SCH (07:19)
[2021-01-10] MEDS: METOPROLOL SUCC 50MG EXT REL TAB PO SCH (07:55)
[2021-01-10] MEDS: DOCUSATE SODIUM 100 MG CAP PO SCH ×2 (07:55→21:33)
[2021-01-10] MEDS: ASPIRIN 81 MG ECTAB PO SCH (07:55)
[2021-01-10] MEDS: PARoxetine HCL 20 MG TAB PO SCH (07:55)
[2021-01-10] MEDS: dexAMETHasone 6 MG in SYRINGE 0 ML IV SCH (07:56)
[2021-01-10] MEDS: ARTIFICIAL TEARS OP SCH ×4 (07:56→21:32)
[2021-01-10] MEDS: BRIMONIDINE TARTRATE-P 0.15% 5 ML BTL OP SCH ×3 (07:56→21:32)
[2021-01-10] MEDS: amLODIPine BESYLATE 5 MG TAB PO SCH (07:56)
[2021-01-10] MEDS: TIMOLOL MALEATE 0.5% OP SOLN 5 ML BTL OP SCH ×2 (07:57→21:34)
[2021-01-10] MEDS: NYSTATIN SUSP 500,000 U/5 ML UDC PO SCH ×4 (07:57→21:34)
[2021-01-10] MEDS ORDERED: INSULIN HUMAN NPH SC SCH (09:00)
[2021-01-10 10:23] LABS: Mean Corpuscular Hgb Conc 32.7 g/dL (32-36)
[2021-01-10 10:25] LABS: Base Excess VBG -1.6 mEq/L; HCO3 VBG 23 mmol/L; PCO2 VBG 39 mmHg (38-50); PO2 VBG 30 mmHg; pH VBG 7.39 (7.36-7.41)
[2021-01-10 10:27] LABS: Oxygen Saturation VBG < 60.0 %
[2021-01-10 10:33] LABS: Hematocrit (blood only) 39.7 % (42-52); Mean Corpuscular Hemoglobin 20.8 pg (25-34); Mean Corpuscular Volume 63.6 fL (80-100); RDW Standard Deviation 38.6 fL (36.4-46.3); Red Blood Count 6.24 M/uL (4.7-6.1); White Blood Count 7.41 K/uL (4.8-10.8)
[2021-01-10 10:51] LABS: C Reactive Protein 14.5 mg/dl (0-0.29); Calcium 9.3 mg/dl (8.5-10.1); Creatinine Clr Calc Pharmacy 70.4 ml/min; Est GFR (African American) 51.5 ml/min; Est GFR (Non-African American) 44.4 ml/min; Potassium 4.1 mmol/L (3.5-5.1)
[2021-01-10 11:33] LABS: Platelet Count 152 K/uL (130-400)
[2021-01-10] MEDS: REMDESIVIR 100 MG in SODIUM CHLORIDE 0.9% 230 ML IV SCH (11:41)
[2021-01-10] MEDS: SODIUM CHLORIDE 0.9% 10ML FLUSH IV SCH (11:42)
[2021-01-10] MEDS: ALBUT/IPRATROP 3MG/0.5MG NEB 3 ML VIAL NEB PRN ×2 (14:17→19:25)
--- NOTE | 2021-01-10 14:21 | Pharmacy Report ---
Pharmacy Glycemic Short Note 2 - Date of Service January 10, 2021 - Glycemic Short BSG Results (Last 24 hours): 01/09/21 01/09/21 01/09/21 14:45 16:08 19:49 Glucose 205 H POC Glucose 191 H 202 H 01/10/21 01/10/21 01/10/21 05:18 07:51 09:55 Glucose 218 H POC Glucose 190 H 176 H 01/10/21 11:39 Glucose POC Glucose 212 H OUTPATIENT ANTIDIABETIC REGIMEN: * Lantus 60 units BID * Regular 30 units BID * A1c = 10.8% 01/09/21 ASSESSMENT: 01/10 * 139 units SQ insulin given over last 24 hrs while patient taking in very little PO * Mild hyperglycemia noted on labs, but acceptable given we are still titrating insulin doses * Most BSGs are essentially fasting, will increase NPH dose somewhat today while being cautious due to poor PO intake today as well as concern we have not yet achieved steady-state effects from current basal insulin doses. Will continue to use a scaled Lantus dose this PM as an element of safety. 01/09 * Fasting BSG 211 this AM with 60 units Lantus on board from yesterday. Will up basal insulin regimen today, however will use NPH in the AM and Lantus in the PM due to IV dexamethasone given in the AM * Given the patient required ~180 units of insulin per day as outpt, will base initial Novolog CF and CR doses upon outpt requirements * Will add overnight BSG checks and coverage given upward trend in BSGs with ongoing significant stressors 01/08 * Mr Ricks is a 60 y/o M with a PMH of T2DM who presents with COVID plus kidney dysfunction. * Did not take insulin at long-term today. * Scale of Lantus tonight with 30-60 units based upon BSG as patient's diet is tentative. * Heparin weight-based stress of 3. PLAN FOR INPATIENT GLYCEMIC CONTROL: * Basal insulin * Lantus 30-60 units SQ HS (30 units if BSG < 120 mg/dL; 45 units if BSG 120- 200 mg/dL; 60 units if BSG > 200 mg/dL) * NPH 50 units (~0.3units/kg) sub-Q Q AM with IV dexamethasone * Bolus insulin * NovoLog per scale ACHS or Q6hrs while NPO * Goal Range: Low 110 mg/dL - High 140 mg/dL * Correction Factor: 10 mg/dL/unit * Nutritional / Prandial insulin per carb ratio of 1 unit per 3 grams CHO consumed PLAN FOR DISCHARGE: * TBD
[2021-01-10] MEDS: 4mg Daily x 14 days (eGFR >60 mL/min/1.73m2) PO SCH (17:30)
--- NOTE | 2021-01-10 20:59 | Pulmonology Progress Note ---
Date of Service January 10, 2021 Assessment & Plan (1) Pneumonia due to 2019 novel coronavirus: (2) Acute respiratory failure with hypoxia: (3) Obesity (BMI 30-39.9): Plan: Attending: Dr. Quesada Impression: This is a 60-year-old -Bel[place]ian male. GFR is 33. LFTs are within normal limit. Patient presented with symptoms to the [facility] approximately 7 days ago. He was started on remdesivir today by Dr. Vallejo. Pulmonary is consulted regarding recommendation for tocilizumab or baricitinib. Patient has already been started on remdesivir (day #2) and is on dexamethasone 6 mg IV (day #2). He has poor control of his diabetes with a hemoglobin A1c of 10.8%. He also has history of osteomyelitis resulting in amputation of bilateral great toes. He was started on ceftriaxone this admission for UTI. Procalcitonin slightly elevated at 0.71. He only received one dose of J&J. Unclear role for remdesivir at this point given that he is more than 1 week out from illness. Continue Decadron 6 mg for 10 days total. Will defer antibiotic treatment to primary team. Wean high flow nasal cannula to maintain sats above 90%. O2 requirements improved. Continue baricitinib and monitor creatinine closely. Continue baricitinib for total of 10 days or discontinue if discharged prior or intubated. No further recommendations at this time. Please call ICU should the patient decompensate or potentially require intubation or higher level of care. Admission and Anticipated Discharge Date Admission Date: January 08, 2021 Subjective Mildly short of breath. Denies chest pain. Poor appetite/ Remains on HFNC. Review of Systems Review of Systems: All systems reviewed & are unremarkable except as noted in HPI & below Physical Exam Physical Exam: GENERAL : No acute distress. Appears ill EYES: No icterus, gaze conjugate. Pupils equal round and reactive to light NOSE: No evidence of epistaxis. High flow nasal cannula in place and secure MOUTH: No lesions. Evidence of thrush on tongue NECK: Supple LUNGS: Decreased breath sounds throughout. Crackles at the bilateral bases. HEART: Regular, rate controlled ABDOMEN: Soft, NT, ND, BS Present EXTREMITIES: No LE edema, pedal pulses intact and equal bilaterally. Bilateral amputation to the great toes NEURO: A&OX3 Results & Data Results & Data ([facility]) Vital Signs (Past 12 Hours) Vital Signs Temp Pulse Pulse Resp BP Pulse Ox 01/10/21 19:31 36.6 C 76 18 118/68 92 01/10/21 19:28 77 20 89 L 01/10/21 19:25 77 20 90 01/10/21 15:40 36.9 C 75 24 103/72 89 L 01/10/21 14:52 97 01/10/21 14:18 76 20 93 01/10/21 11:47 36.6 C 77 18 103/74 94 01/10/21 11:12 75 20 89 L Vital signs, labs and imaging reviewed PG Care Time/CCT Total # of Minutes Spent Total Time Spent with Patient: Total time spent is greater than 50% in coordination of care (as documented) at patient's floor/unit and/or counseling patient: Coding Level of Care Code 42838 Subseq Hosp Care Lvl 2 Diagnoses Pneumonia due to 2019 novel coronavirus U07.1; J12.82 Acute respiratory failure with hypoxia J96.01 Obesity (BMI 30-39.9) E66.9
[2021-01-10] MEDS: ATORVASTATIN 40 MG TAB PO SCH (21:32)
[2021-01-10] MEDS: INSULIN GLARGINE SOLOSTAR 100 UNITS/ML 3 ML PEN SC SCH (21:33)
[2021-01-10] MEDS: LATANOPROST 0.005% OP SOLN 2.5 ML BTL OP SCH (21:34)
[2021-01-10] MEDS: traZODone HCL 50 MG TAB PO SCH (21:34)
--- NOTE | 2021-01-10 22:00 | Hospitalist Progress Note ---
Date of Service January 10, 2021 Assessment & Plan (1) Pneumonia due to 2019 novel coronavirus: Plan: (1) Pneumonia due to COVID-19 virus: Plan: Symptoms started approximately 01/03. With significantly high CRP and already requiring HFNC Fully vaccinated with J&J Vaccine several months prior CXR with bilat infiltrates With MEHRDAD secondary to dehydration from poor po intake in setting of taking ACEi,thiazide diuretic, and possibly hypotension (soft BPs on arrival) With thrombocytopenia although slightly worse than previous -admit to COVID unit on tele -continue dexamethasone started in ER 6mg IV daily -cannot have Remdesevir due to MEHRDAD but if MEHRDAD resolves, could start this -also does not currently meet criteria for baricitinib due to his MEHRDAD, but again, would start if MEHRDAD improves/resolves within the next 72 hours -add IS and flutter valve -start Duonebs scheduled q6 hrs -encourage prone positioning -continue HFNC supplemental O2 to keep POx > 90-92%, and pt is agreeable to CPAP or even mechanical ventilation if needed -follow CBC, CMP, Mg, Phos in AM -check Procal now and if elevated, start abx for secondary bacterial PNA. There may be some slight elevation due to MEHRDAD On 01/10 Patient continues to require high flow oxygen, however his level has oxygen has been titrated down.. Placed on remdesevir as creatinine clearance is above 30. Consulted Pulmonary and will continue on baricitinib. 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 secondary to likely prerenal injury from poor po intake/dehydration in setting of taking HCTZ,lisinopril as outpt also takes chronic NSAIDs and was borderline hypotensive on arrival so may be a component of ATN Lytes are ok except mild metabolic acidosis although is also on topamax which itself can cause metabolic acidosis Making urine but is more concentrated -received 2L NS in ER, will give one more liter of LR overnight -follow BMP in AM -check UA with reflex to Ur cx -hold lisinopril, HCTZ, diclofenac -encourage po intake -check Renal US and place Funk if any obstruction -hold minoxidil as may need to be renally dosed (4) Diabetes mellitus, type 2: Plan: continue basal and bolus insulin consult Pharmacy check A1C accuchecks ADA diet (5) Hypothyroidism: Plan: no TSH in our system s/p thyroidectomy check TSH in AM continue home LT4 (6) Thrombocytopenia: Plan: chronic in our system, mildly low at 102 could be worse due to viral suppression check B12 level in AM follow CBC hold heparin and ASA if plts<50 (7) Neuropathy: Plan: with h/o bilat great toe amputations due to DM ulcers no meds needs good foot care (8) Anemia: Plan: chronic, profoundly microcytic hgb on arrival normal but is dehydrated, typical baseline 13 could be Fe def vs thalassemia check Fe studies in AM (9) Hypertension: Plan: BPs soft on arrival due to dehydration hold home HCTZ, lisinopril, minoxidil ok to give amlodipine and metoprolol with hold parameters in AM giving IVFs continue ASA (10) Hyperlipidemia: Plan: continue statin ASA (11) Glaucoma: Plan: continue home eye drops (12) Osteoarthritis: Plan: hold home diclofenac po for ADILSON start tylenol prn (13) Major depression with psychotic features: Plan: continue home Paxil Plan: DVT prophylaxis-heparin SQ 7500 tid due to MEHRDAD, SCDs Dispo-admit to PCU, guarded prognosis FULL CODE and desires intubation if needed, states "do whatever it takes" (2) Acute respiratory failure with hypoxia: (3) Obesity (BMI 30-39.9): Admission and Anticipated Discharge Date Admission Date: January 08, 2021 Subjective 60 yo male reports mild improvement. He is willing to try to prone. Review of Systems Review of Systems: All systems reviewed & are unremarkable except as noted in HPI & below Physical Exam Physical Exam: Constitutional: WD/WN, vitals as above + ill appearing and + obese Eyes: PERRL, conjunctivae normal, anicteric sclerae Neck: trachea midline, no thyromegaly Respiratory: normal respiratory effort; no labored breathing and no cough Auscultation: + crackles (bilat lower and middle lung ellis); no wheezes Cardiovascular: RRR, no murmur, no edema Chest (Breasts): Chest: normal inspection of chest Gastrointestinal (Abdomen): normal bowel sounds, soft, nontender, no hepatosplenomegaly Musculoskeletal: Extremities: + extremities abnormal to inspection (bilat great toes amputated), no cyanosis and no clubbing Skin: no rashes, warm and dry Neurologic: moves all extremities and awake; no focal motor deficits Psychiatric: A+Ox3, euthymic affect Lymphatic: no lymphedema Results & Data Results & Data ([facility]) Vital Signs (Past 12 Hours) Vital Signs Temp Pulse Pulse Resp BP Pulse Ox 01/10/21 19:31 36.6 C 76 18 118/68 92 01/10/21 19:28 77 20 89 L 01/10/21 19:25 77 20 90 01/10/21 15:40 36.9 C 75 24 103/72 89 L 01/10/21 14:52 97 01/10/21 14:18 76 20 93 01/10/21 11:47 36.6 C 77 18 103/74 94 01/10/21 11:12 75 20 89 L PG Care Time/CCT Total # of Minutes Spent Total Time Spent with Patient: Total time spent is greater than 50% in coordination of care (as documented) at patient's floor/unit and/or counseling patient: Coding Level of Care Code 68715 Subseq Hosp Care Lvl 2 Diagnoses Pneumonia due to 2019 novel coronavirus U07.1; J12.82 Acute respiratory failure with hypoxia J96.01 Obesity (BMI 30-39.9) E66.9
[2021-01-11] MEDS: [UNRECOGNIZED DRUG - REMARK] SCH ×3 (00:05→09:29)
[2021-01-11] MEDS: cefTRIAXone SODIUM 2,000 MG in DEXTROSE 5% 50 ML IV SCH (00:05)
[2021-01-11] MEDS: INSULIN ASPART 100 UNITS/ML 3 ML PEN SC SCH ×5 (01:54→21:07)
[2021-01-11] MEDS: HEPARIN SOD 5,000 UNIT/0.5 ML VIAL SQ SCH ×3 (05:30→20:55)
[2021-01-11] MEDS: LEVOTHYROXINE SODIUM 175 MCG TABLET PO SCH (05:30)
[2021-01-11 08:48] LABS: Calcium 9.1 mg/dl (8.5-10.1); Creatinine Clr Calc Pharmacy 86.3 ml/min; Est GFR (African American) 66.1 ml/min; Est GFR (Non-African American) 57.1 ml/min; Potassium 3.8 mmol/L (3.5-5.1)
[2021-01-11] MEDS ORDERED: INSULIN HUMAN NPH SC SCH (09:00)
[2021-01-11] MEDS: PARoxetine HCL 20 MG TAB PO SCH (09:17)
[2021-01-11] MEDS: NYSTATIN SUSP 500,000 U/5 ML UDC PO SCH ×4 (09:17→19:51)
[2021-01-11] MEDS: METOPROLOL SUCC 50MG EXT REL TAB PO SCH (09:18)
[2021-01-11] MEDS: amLODIPine BESYLATE 5 MG TAB PO SCH (09:18)
[2021-01-11] MEDS: TIMOLOL MALEATE 0.5% OP SOLN 5 ML BTL OP SCH ×2 (09:19→19:53)
[2021-01-11] MEDS: BRIMONIDINE TARTRATE-P 0.15% 5 ML BTL OP SCH ×3 (09:19→21:08)
[2021-01-11] MEDS: ARTIFICIAL TEARS OP SCH ×4 (09:20→19:53)
[2021-01-11] MEDS: ASPIRIN 81 MG ECTAB PO SCH (09:23)
[2021-01-11] MEDS: DOCUSATE SODIUM 100 MG CAP PO SCH ×2 (09:23→20:55)
[2021-01-11] MEDS: dexAMETHasone 6 MG in SYRINGE 0 ML IV SCH (09:28)
--- NOTE | 2021-01-11 12:39 | Pharmacy Report ---
Pharmacy Glycemic Short Note 2 - Date of Service January 11, 2021 - Glycemic Short BSG Results (Last 24 hours): 01/10/21 01/10/21 01/11/21 16:45 19:33 01:48 Glucose POC Glucose 244 H 273 H 168 H 01/11/21 01/11/21 01/11/21 07:23 07:43 11:38 Glucose 134 H POC Glucose 133 H 136 H OUTPATIENT ANTIDIABETIC REGIMEN: * Lantus 60 units BID * Regular 30 units BID * A1c = 10.8% 01/09/21 ASSESSMENT: 01/11: * BSGs increased throughout the day yesterday. NPH was increased this morning in response and thus far BSGs well controlled. Will continue with current novolog scale and adjust evening lantus scale slightly. Patient is ordered a diet and did eat ~21 g CHO at breakfast. * Patient continues on IV dexamethasone 01/10 * 139 units SQ insulin given over last 24 hrs while patient taking in very little PO * Mild hyperglycemia noted on labs, but acceptable given we are still titrating insulin doses * Most BSGs are essentially fasting, will increase NPH dose somewhat today while being cautious due to poor PO intake today as well as concern we have not yet achieved steady-state effects from current basal insulin doses. Will continue to use a scaled Lantus dose this PM as an element of safety. 01/09 * Fasting BSG 211 this AM with 60 units Lantus on board from yesterday. Will up basal insulin regimen today, however will use NPH in the AM and Lantus in the PM due to IV dexamethasone given in the AM * Given the patient required ~180 units of insulin per day as outpt, will base initial Novolog CF and CR doses upon outpt requirements * Will add overnight BSG checks and coverage given upward trend in BSGs with ongoing significant stressors 01/08 * Mr Ricks is a 60 y/o M with a PMH of T2DM who presents with COVID plus kidney dysfunction. * [facility]. * Scale of Lantus tonight with 30-60 units based upon BSG as patient's diet is tentative. * Heparin weight-based stress of 3. PLAN FOR INPATIENT GLYCEMIC CONTROL: * Basal insulin * Lantus 30-60 units SQ HS (30 units if BSG < 120 mg/dL; 50 units if BSG 120- 200 mg/dL; 60 units if BSG > 200 mg/dL) * NPH 60 units (~0.45 units/kg) sub-Q Q AM with IV dexamethasone * Bolus insulin * NovoLog per scale ACHS or Q6hrs while NPO * Goal Range: Low 110 mg/dL - High 140 mg/dL * Correction Factor: 10 mg/dL/unit * Nutritional / Prandial insulin per carb ratio of 1 unit per 3 grams CHO consumed PLAN FOR DISCHARGE: * TBD
[2021-01-11] MEDS: REMDESIVIR 100 MG in SODIUM CHLORIDE 0.9% 230 ML IV SCH (12:59)
[2021-01-11] MEDS: SODIUM CHLORIDE 0.9% 10ML FLUSH IV SCH (12:59)
[2021-01-11] MEDS: 4mg Daily x 14 days (eGFR >60 mL/min/1.73m2) PO SCH (17:14)
[2021-01-11] MEDS: ATORVASTATIN 40 MG TAB PO SCH (19:50)
[2021-01-11] MEDS: LATANOPROST 0.005% OP SOLN 2.5 ML BTL OP SCH (19:52)
[2021-01-11] MEDS: traZODone HCL 50 MG TAB PO SCH (20:55)
[2021-01-11] MEDS: INSULIN GLARGINE SOLOSTAR 100 UNITS/ML 3 ML PEN SC SCH (21:07)
--- NOTE | 2021-01-11 23:20 | Hospitalist Progress Note ---
Date of Service January 11, 2021 Assessment & Plan (1) Pneumonia due to 2019 novel coronavirus: Plan: (1) Pneumonia due to COVID-19 virus: Plan: Symptoms started approximately 01/03. With significantly high CRP and already requiring HFNC Fully vaccinated with J&J Vaccine several months prior CXR with bilat infiltrates With MEHRDAD secondary to dehydration from poor po intake in setting of taking ACEi,thiazide diuretic, and possibly hypotension (soft BPs on arrival) With thrombocytopenia although slightly worse than previous -admit to COVID unit on tele -continue dexamethasone started in ER 6mg IV daily -cannot have Remdesevir due to MEHRDAD but if MEHRDAD resolves, could start this -also does not currently meet criteria for baricitinib due to his MEHRDAD, but again, would start if MEHRDAD improves/resolves within the next 72 hours -add IS and flutter valve -start Duonebs scheduled q6 hrs -encourage prone positioning -continue HFNC supplemental O2 to keep POx > 90-92%, and pt is agreeable to CPAP or even mechanical ventilation if needed -follow CBC, CMP, Mg, Phos in AM -check Procal now and if elevated, start abx for secondary bacterial PNA. There may be some slight elevation due to MEHRDAD On 01/10 Patient continues to require high flow oxygen, however his level has oxygen has been titrated down.. Placed on remdesevir as creatinine clearance is above 30. Consulted Pulmonary and will continue on baricitinib. on 01/11 continues on high flow, and again is at 60 liters. continue baricitinib and remdesevir. recommend proning. 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 secondary to likely prerenal injury from poor po intake/dehydration in setting of taking HCTZ,lisinopril as outpt also takes chronic NSAIDs and was borderline hypotensive on arrival so may be a component of ATN resolved -hold lisinopril, HCTZ, diclofenac -encourage po intake -check Renal US and place Funk if any obstruction -hold minoxidil as may need to be renally dosed (4) Diabetes mellitus, type 2: Plan: continue basal and bolus insulin consult Pharmacy check A1C accuchecks ADA diet (5) Hypothyroidism: Plan: no TSH in our system s/p thyroidectomy check TSH in AM continue home LT4 (6) Thrombocytopenia: Plan: chronic in our system, mildly low at 102 could be worse due to viral suppression check B12 level in AM follow CBC hold heparin and ASA if plts<50 (7) Neuropathy: Plan: with h/o bilat great toe amputations due to DM ulcers no meds needs good foot care (8) Anemia: Plan: chronic, profoundly microcytic hgb on arrival normal but is dehydrated, typical baseline 13 could be Fe def vs thalassemia check Fe studies in AM (9) Hypertension: Plan: BPs soft on arrival due to dehydration hold home HCTZ, lisinopril, minoxidil ok to give amlodipine and metoprolol with hold parameters in AM giving IVFs continue ASA (10) Hyperlipidemia: Plan: continue statin ASA (11) Glaucoma: Plan: continue home eye drops (12) Osteoarthritis: Plan: hold home diclofenac po for ADILSON start tylenol prn (13) Major depression with psychotic features: Plan: continue home Paxil Plan: DVT prophylaxis-heparin SQ 7500 tid due to MEHRDAD, SCDs Dispo-admit to PCU, guarded prognosis FULL CODE and desires intubation if needed, states "do whatever it takes" (2) Acute respiratory failure with hypoxia: (3) Obesity (BMI 30-39.9): Admission and Anticipated Discharge Date Admission Date: January 08, 2021 Subjective Patient states that he is comfortable. He has no new complaints. Review of Systems Review of Systems: All systems reviewed & are unremarkable except as noted in HPI & below Physical Exam Physical Exam: Constitutional: WD/WN, vitals as above + ill appearing and + obese Eyes: PERRL, conjunctivae normal, anicteric sclerae Neck: trachea midline, no thyromegaly Respiratory: normal respiratory effort; no labored breathing and no cough Auscultation: + crackles (bilat lower and middle lung ellis); no wheezes Cardiovascular: RRR, no murmur, no edema Chest (Breasts): Chest: normal inspection of chest Gastrointestinal (Abdomen): normal bowel sounds, soft, nontender, no hepatosplenomegaly Musculoskeletal: Extremities: + extremities abnormal to inspection (bilat great toes amputated), no cyanosis and no clubbing Skin: no rashes, warm and dry Neurologic: moves all extremities and awake; no focal motor deficits Psychiatric: A+Ox3, euthymic affect Lymphatic: no lymphedema Results & Data Results & Data ([facility]) Vital Signs (Past 12 Hours) Vital Signs Temp Pulse Pulse Resp BP Pulse Ox Pulse Ox 01/11/21 23:09 36.8 C 75 16 131/84 90 01/11/21 22:34 78 18 90 01/11/21 19:33 36.8 C 76 18 133/80 82 L 01/11/21 17:33 75 20 90 01/11/21 16:27 37.1 C 76 22 129/70 92 01/11/21 15:14 75 19 90 01/11/21 14:00 92 01/11/21 12:10 79 21 93 01/11/21 11:51 36.8 C 79 20 125/78 90 PG Care Time/CCT Total # of Minutes Spent Total Time Spent with Patient: Total time spent is greater than 50% in coordination of care (as documented) at patient's floor/unit and/or counseling patient: Coding Level of Care Code 77575 Subseq Hosp Care Lvl 2 Diagnoses Pneumonia due to 2019 novel coronavirus U07.1; J12.82 Acute respiratory failure with hypoxia J96.01 Obesity (BMI 30-39.9) E66.9
[2021-01-12] MEDS: cefTRIAXone SODIUM 2,000 MG in DEXTROSE 5% 50 ML IV SCH ×2 (00:04→23:40)
[2021-01-12] MEDS: [UNRECOGNIZED DRUG - REMARK] SCH ×3 (03:31→12:12)
[2021-01-12] MEDS: CARBOHYDRATES FOR HYPOGLYCEMIA PO PRN ×2 (05:19→05:21)
[2021-01-12] MEDS: DEXTROSE 50% 50 ML SYRINGE IV PRN (05:21)
[2021-01-12] MEDS: INSULIN ASPART 100 UNITS/ML 3 ML PEN SC SCH ×5 (06:10→20:48)
[2021-01-12] MEDS: LEVOTHYROXINE SODIUM 175 MCG TABLET PO SCH (06:32)
[2021-01-12] MEDS: HEPARIN SOD 5,000 UNIT/0.5 ML VIAL SQ SCH ×3 (06:32→22:01)
[2021-01-12] MEDS: amLODIPine BESYLATE 5 MG TAB PO SCH (09:26)
[2021-01-12] MEDS: BRIMONIDINE TARTRATE-P 0.15% 5 ML BTL OP SCH ×3 (09:26→20:56)
[2021-01-12] MEDS: METOPROLOL SUCC 50MG EXT REL TAB PO SCH (09:26)
[2021-01-12] MEDS: NYSTATIN SUSP 500,000 U/5 ML UDC PO SCH ×4 (09:26→20:58)
[2021-01-12] MEDS: ASPIRIN 81 MG ECTAB PO SCH (09:26)
[2021-01-12] MEDS: PARoxetine HCL 20 MG TAB PO SCH (09:26)
[2021-01-12] MEDS: dexAMETHasone 6 MG in SYRINGE 0 ML IV SCH (09:26)
[2021-01-12] MEDS: ARTIFICIAL TEARS OP SCH ×4 (09:27→20:55)
[2021-01-12] MEDS: TIMOLOL MALEATE 0.5% OP SOLN 5 ML BTL OP SCH ×2 (09:27→20:54)
[2021-01-12] MEDS: DOCUSATE SODIUM 100 MG CAP PO SCH ×2 (09:27→22:00)
[2021-01-12 09:34] LABS: Hemoglobin 14.6 g/dL (14.0-18.0); Mean Corpuscular Hemoglobin 21.3 pg (25-34); Mean Corpuscular Hgb Conc 33.2 g/dL (32-36); Mean Corpuscular Volume 64.3 fL (80-100); Platelet Count 169 K/uL (130-400); RDW Coefficient of Variation 16.9 % (11.5-14.5); RDW Standard Deviation 38.5 fL (36.4-46.3); Red Blood Count 6.84 M/uL (4.7-6.1); White Blood Count 9.09 K/uL (4.8-10.8)
[2021-01-12 10:19] LABS: BUN Creatinine Ratio 38.2 (10-20); Calcium 9.1 mg/dl (8.5-10.1); Creatinine Clr Calc Pharmacy 110.4 ml/min; Est GFR (African American) 88.6 ml/min; Est GFR (Non-African American) 76.4 ml/min; Potassium 3.5 mmol/L (3.5-5.1)
[2021-01-12] MEDS: REMDESIVIR 100 MG in SODIUM CHLORIDE 0.9% 230 ML IV SCH (12:13)
[2021-01-12] MEDS: SODIUM CHLORIDE 0.9% 10ML FLUSH IV SCH (12:13)
--- NOTE | 2021-01-12 14:32 | Pharmacy Report ---
Pharmacy Glycemic Short Note 2 - Date of Service January 12, 2021 - Glycemic Short BSG Results (Last 24 hours): 01/11/21 01/11/21 01/12/21 16:09 19:53 03:39 Glucose POC Glucose 159 H 153 H 32 L* 01/12/21 01/12/21 01/12/21 03:43 04:09 04:12 Glucose POC Glucose 37 L* 38 L* 43 L* 01/12/21 01/12/21 01/12/21 04:36 05:01 07:58 Glucose POC Glucose 39 L* 101 H 96 01/12/21 01/12/21 09:06 11:51 Glucose 77 POC Glucose 87 OUTPATIENT ANTIDIABETIC REGIMEN: * Lantus 60 units BID * Regular 30 units BID * A1c = 10.8% 01/09/21 ASSESSMENT: 01/12: * 136 units SQ insulin admin in last 24 hours * PO intake low, but some carbs documented with each meal yesterday. 0 carbs given this AM per distance learning unit leader * Pt's BSGs well controlled during the day yesterday however severe hypoglycemia developed overnight (BSGs in 30s). Pt had received 60 units NPH yesterday and 50 units Lantus yesterday. Suspect pt's decreased PO intake combined with insulin accumulation may be to blame. BSGs remain below 100 thus far today. Will continue to hold both NPH and Lantus at this time and follow BSG pattern. Suspect he may resume a greatly reduced dose of Lantus this PM if BSG > 140 * IV dexamethasone continues 01/11: * BSGs increased throughout the day yesterday. NPH was increased this morning in response and thus far BSGs well controlled. Will continue with current novolog scale and adjust evening lantus scale slightly. Patient is ordered a diet and did eat ~21 g CHO at breakfast. * Patient continues on IV dexamethasone 01/10 * 139 units SQ insulin given over last 24 hrs while patient taking in very little PO * Mild hyperglycemia noted on labs, but acceptable given we are still titrating insulin doses * Most BSGs are essentially fasting, will increase NPH dose somewhat today while being cautious due to poor PO intake today as well as concern we have not yet achieved steady-state effects from current basal insulin doses. Will continue to use a scaled Lantus dose this PM as an element of safety. 11/29 * Fasting BSG 211 this AM with 60 units Lantus on board from yesterday. Will up basal insulin regimen today, however will use NPH in the AM and Lantus in the PM due to IV dexamethasone given in the AM * Given the patient required ~180 units of insulin per day as outpt, will base initial Novolog CF and CR doses upon outpt requirements * Will add overnight BSG checks and coverage given upward trend in BSGs with ongoing significant stressors 01/08 * Mr Ricks is a 60 y/o M with a PMH of T2DM who presents with COVID plus kidney dysfunction. * Did not take insulin at [facility] today. * Scale of Lantus tonight with 30-60 units based upon BSG as patient's diet is tentative. * Heparin weight-based stress of 3. PLAN FOR INPATIENT GLYCEMIC CONTROL: * Basal insulin * Hold Lantus * Hold NPH * Bolus insulin * NovoLog per scale ACHS or Q6hrs while NPO * Goal Range: Low 110 mg/dL - High 140 mg/dL * Correction Factor: 10 mg/dL/unit * Nutritional / Prandial insulin per carb ratio of 1 unit per 3 grams CHO consumed PLAN FOR DISCHARGE: * to be determined
[2021-01-12] MEDS: 4mg Daily x 14 days (eGFR >60 mL/min/1.73m2) PO SCH (17:34)
[2021-01-12] MEDS: LATANOPROST 0.005% OP SOLN 2.5 ML BTL OP SCH (20:53)
[2021-01-12] MEDS: ATORVASTATIN 40 MG TAB PO SCH (20:57)
[2021-01-12] MEDS: traZODone HCL 50 MG TAB PO SCH (22:01)
--- NOTE | 2021-01-12 23:18 | Hospitalist Progress Note ---
Date of Service January 12, 2021 Assessment & Plan (1) Pneumonia due to 2019 novel coronavirus: Plan: (1) Pneumonia due to COVID-19 virus: Plan: Symptoms started approximately 01/03. With significantly high CRP and already requiring HFNC Fully vaccinated with J&J Vaccine several months prior CXR with bilat infiltrates With MEHRDAD secondary to dehydration from poor po intake in setting of taking ACEi,thiazide diuretic, and possibly hypotension (soft BPs on arrival) With thrombocytopenia although slightly worse than previous -admit to COVID unit on tele -continue dexamethasone started in ER 6mg IV daily -cannot have Remdesevir due to MEHRDAD but if MEHRDAD resolves, could start this -also does not currently meet criteria for baricitinib due to his MEHRDAD, but again, would start if MEHRDAD improves/resolves within the next 72 hours -add IS and flutter valve -start Duonebs scheduled q6 hrs -encourage prone positioning -continue HFNC supplemental O2 to keep POx > 90-92%, and pt is agreeable to CPAP or even mechanical ventilation if needed -follow CBC, CMP, Mg, Phos in AM -check Procal now and if elevated, start abx for secondary bacterial PNA. There may be some slight elevation due to MEHRDAD On 01/10 Patient continues to require high flow oxygen, however his level has oxygen has been titrated down.. Placed on remdesevir as creatinine clearance is above 30. Consulted Pulmonary and will continue on baricitinib. on 01/12 continues on high flow, and again is at 60 liters. continue baricitinib and remdesevir. recommend proning. 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 secondary to likely prerenal injury from poor po intake/dehydration in setting of taking HCTZ,lisinopril as outpt also takes chronic NSAIDs and was borderline hypotensive on arrival so may be a component of ATN resolved -hold lisinopril, HCTZ, diclofenac -encourage po intake -check Renal US and place Funk if any obstruction -hold minoxidil as may need to be renally dosed (4) Diabetes mellitus, type 2: Plan: continue basal and bolus insulin consult Pharmacy check A1C accuchecks ADA diet (5) Hypothyroidism: Plan: no TSH in our system s/p thyroidectomy check TSH in AM continue home LT4 (6) Thrombocytopenia: Plan: chronic in our system, mildly low at 102 could be worse due to viral suppression check B12 level in AM follow CBC hold heparin and ASA if plts<50 (7) Neuropathy: Plan: with h/o bilat great toe amputations due to DM ulcers no meds needs good foot care (8) Anemia: Plan: chronic, profoundly microcytic hgb on arrival normal but is dehydrated, typical baseline 13 could be Fe def vs thalassemia check Fe studies in AM (9) Hypertension: Plan: BPs soft on arrival due to dehydration hold home HCTZ, lisinopril, minoxidil ok to give amlodipine and metoprolol with hold parameters in AM giving IVFs continue ASA (10) Hyperlipidemia: Plan: continue statin ASA (11) Glaucoma: Plan: continue home eye drops (12) Osteoarthritis: Plan: hold home diclofenac po for ADILSON start tylenol prn (13) Major depression with psychotic features: Plan: continue home Paxil Plan: DVT prophylaxis-heparin SQ 7500 tid due to MEHRDAD, SCDs Dispo-admit to PCU, guarded prognosis FULL CODE and desires intubation if needed, states "do whatever it takes" (2) Acute respiratory failure with hypoxia: (3) Obesity (BMI 30-39.9): Admission and Anticipated Discharge Date Admission Date: January 08, 2021 Subjective Patient reports feeling more SOB. Explained he needs to prone. Had extensive talk with patient. D.W staff. Review of Systems Review of Systems: All systems reviewed & are unremarkable except as noted in HPI & below Physical Exam Physical Exam: Constitutional: WD/WN, vitals as above + ill appearing and + obese Eyes: PERRL, conjunctivae normal, anicteric sclerae Neck: trachea midline, no thyromegaly Respiratory: normal respiratory effort; no labored breathing and no cough Auscultation: + crackles (bilat lower and middle lung ellis); no wheezes Cardiovascular: RRR, no murmur, no edema Chest (Breasts): Chest: normal inspection of chest Gastrointestinal (Abdomen): normal bowel sounds, soft, nontender, no hepatosplenomegaly Musculoskeletal: Extremities: + extremities abnormal to inspection (bilat great toes amputated), no cyanosis and no clubbing Skin: no rashes, warm and dry Neurologic: moves all extremities and awake; no focal motor deficits Psychiatric: A+Ox3, euthymic affect Lymphatic: no lymphedema Results & Data Results & Data ([facility]) Vital Signs (Past 12 Hours) Vital Signs Temp Pulse Resp BP Pulse Ox 01/12/21 20:00 37.6 C H 87 20 151/100 H 91 01/12/21 18:26 85 21 91 01/12/21 17:06 36.7 C 86 20 154/89 H 95 01/12/21 14:56 60 22 98 01/12/21 11:31 88 26 H 91 01/12/21 11:24 36.8 C 87 24 155/83 H 93 PG Care Time/CCT Total # of Minutes Spent Total Time Spent with Patient: Total time spent is greater than 50% in coordination of care (as documented) at patient's floor/unit and/or counseling patient: Coding Level of Care Code 82095 Subseq Hosp Care Lvl 2 Diagnoses Pneumonia due to 2019 novel coronavirus U07.1; J12.82 Acute respiratory failure with hypoxia J96.01 Obesity (BMI 30-39.9) E66.9 Time Spent (min) 25
[2021-01-13] MEDS: INSULIN ASPART 100 UNITS/ML 3 ML PEN SC SCH ×5 (02:24→21:06)
[2021-01-13] MEDS: [UNRECOGNIZED DRUG - REMARK] SCH (02:38)
[2021-01-13] MEDS: HEPARIN SOD 5,000 UNIT/0.5 ML VIAL SQ SCH ×3 (06:12→21:04)
[2021-01-13] MEDS: LEVOTHYROXINE SODIUM 175 MCG TABLET PO SCH (06:12)
[2021-01-13] MEDS: amLODIPine BESYLATE 5 MG TAB PO SCH ×2 (08:00→09:12)
[2021-01-13] MEDS: ASPIRIN 81 MG ECTAB PO SCH ×2 (08:28→09:12)
[2021-01-13] MEDS: DOCUSATE SODIUM 100 MG CAP PO SCH ×3 (08:29→21:03)
[2021-01-13] MEDS: METOPROLOL SUCC 50MG EXT REL TAB PO SCH ×2 (08:29→09:13)
[2021-01-13] MEDS: PARoxetine HCL 20 MG TAB PO SCH ×2 (08:30→09:13)
[2021-01-13] MEDS: ACETAMINOPHEN 325 MG TAB PO PRN (08:30)
[2021-01-13] MEDS: dexAMETHasone 6 MG in SYRINGE 0 ML IV SCH ×3 (08:32→21:24)
[2021-01-13] MEDS: ARTIFICIAL TEARS OP SCH ×4 (09:12→20:48)
[2021-01-13] MEDS: BRIMONIDINE TARTRATE-P 0.15% 5 ML BTL OP SCH ×3 (09:12→20:50)
[2021-01-13] MEDS: NYSTATIN SUSP 500,000 U/5 ML UDC PO SCH ×4 (09:13→21:04)
[2021-01-13] MEDS: TIMOLOL MALEATE 0.5% OP SOLN 5 ML BTL OP SCH ×2 (09:13→20:50)
[2021-01-13 09:16] LABS: BUN Creatinine Ratio 28.3 (10-20); Calcium 9.4 mg/dl (8.5-10.1); Est GFR (African American) 105.1 ml/min; Est GFR (Non-African American) 90.7 ml/min
[2021-01-13] MEDS: INSULIN GLARGINE SOLOSTAR 100 UNITS/ML 3 ML PEN SC SCH (09:47)
[2021-01-13] MEDS: REMDESIVIR 100 MG in SODIUM CHLORIDE 0.9% 230 ML IV SCH (12:00)
[2021-01-13] MEDS: SODIUM CHLORIDE 0.9% 10ML FLUSH IV SCH (12:07)
--- NOTE | 2021-01-13 12:13 | Pharmacy Report ---
Pharmacy Glycemic Short Note 2 - Date of Service January 13, 2021 - Glycemic Short BSG Results (Last 24 hours): 01/12/21 01/12/21 01/13/21 16:56 20:14 02:20 Glucose POC Glucose 103 H 113 H 211 H 01/13/21 01/13/21 01/13/21 05:50 07:36 07:55 Glucose Cancelled 187 H POC Glucose 176 H 01/13/21 11:16 Glucose POC Glucose 213 H OUTPATIENT ANTIDIABETIC REGIMEN: * Lantus 60 units BID * Regular 30 units BID * A1c = 10.8% 01/09/21 ASSESSMENT: 01/13: * BSGs remained low for the duration of the day yesterday. No repeat episodes of hypoglycemia noted. BSG did begin to climb overnight however. * Will resume a reduced dose of Lantus this AM and add a small dose of NPH with lunch for continued fasting hyperglycemia. Will be cautious with insulin doses in light of recent hypoglycemic episode and ongoing poor nutritional intake; * IV dexamethasone continues 01/12: * 136 units SQ insulin admin in last 24 hours * PO intake low, but some carbs documented with each meal yesterday. 0 carbs given this AM per loss control representative * Pt's BSGs well controlled during the day yesterday however severe hypoglycemia developed overnight (BSGs in 30s). Pt had received 60 units NPH yesterday and 50 units Lantus yesterday. Suspect pt's decreased PO intake combined with insulin accumulation may be to blame. BSGs remain below 100 thus far today. Will continue to hold both NPH and Lantus at this time and follow BSG pattern. Suspect he may resume a greatly reduced dose of Lantus this PM if BSG > 140 * IV dexamethasone continues 01/11: * BSGs increased throughout the day yesterday. NPH was increased this morning in response and thus far BSGs well controlled. Will continue with current novolog scale and adjust evening lantus scale slightly. Patient is ordered a diet and did eat ~21 g CHO at breakfast. * Patient continues on IV dexamethasone 01/10 * 139 units SQ insulin given over last 24 hrs while patient taking in very little PO * Mild hyperglycemia noted on labs, but acceptable given we are still titrating insulin doses * Most BSGs are essentially fasting, will increase NPH dose somewhat today while being cautious due to poor PO intake today as well as concern we have not yet achieved steady-state effects from current basal insulin doses. Will continue to use a scaled Lantus dose this PM as an element of safety. PLAN FOR INPATIENT GLYCEMIC CONTROL: * Basal insulin * Lantus 30 units SQ QAM * NPH 15 units SQ x 1 at noon * Bolus insulin * NovoLog per scale ACHS or Q6hrs while NPO * Goal Range: Low 110 mg/dL - High 140 mg/dL * Correction Factor: 10 mg/dL/unit * Nutritional / Prandial insulin per carb ratio of 1 unit per 3 grams CHO consumed PLAN FOR DISCHARGE: * to be determined
[2021-01-13] MEDS ORDERED: INSULIN HUMAN NPH SC ONE (12:15)
[2021-01-13] MEDS: 4mg Daily x 14 days (eGFR >60 mL/min/1.73m2) PO SCH (17:36)
[2021-01-13] MEDS: ALBUT/IPRATROP 3MG/0.5MG NEB 3 ML VIAL NEB PRN (20:02)
[2021-01-13] MEDS: LATANOPROST 0.005% OP SOLN 2.5 ML BTL OP SCH (20:51)
[2021-01-13] MEDS: ATORVASTATIN 40 MG TAB PO SCH (21:03)
[2021-01-13] MEDS: traZODone HCL 50 MG TAB PO SCH (21:05)
[2021-01-13] MEDS ORDERED: INSULIN GLARGINE SOLOSTAR 100 UNITS/ML 3 ML PEN SC SCH (22:00)
--- NOTE | 2021-01-13 22:51 | Hospitalist Progress Note ---
Date of Service January 13, 2021 Assessment & Plan (1) Pneumonia due to 2019 novel coronavirus: Plan: (1) Pneumonia due to COVID-19 virus: Plan: Symptoms started approximately 01/03. With significantly high CRP and already requiring HFNC Fully vaccinated with J&J Vaccine several months prior CXR with bilat infiltrates With MEHRDAD secondary to dehydration from poor po intake in setting of taking ACEi,thiazide diuretic, and possibly hypotension (soft BPs on arrival) With thrombocytopenia although slightly worse than previous -admit to COVID unit on tele -continue dexamethasone started in ER 6mg IV daily -cannot have Remdesevir due to MEHRDAD but if MEHRDAD resolves, could start this -also does not currently meet criteria for baricitinib due to his MEHRDAD, but again, would start if MEHRDAD improves/resolves within the next 72 hours -add IS and flutter valve -start Duonebs scheduled q6 hrs -encourage prone positioning -continue HFNC supplemental O2 to keep POx > 90-92%, and pt is agreeable to CPAP or even mechanical ventilation if needed -follow CBC, CMP, Mg, Phos in AM -check Procal now and if elevated, start abx for secondary bacterial PNA. There may be some slight elevation due to MEHRDAD On 01/10 Patient continues to require high flow oxygen, however his level has oxygen has been titrated down.. Placed on remdesevir as creatinine clearance is above 30. Consulted Pulmonary and will continue on baricitinib. on 01/12 continues on high flow, and again is at 60 liters. continue baricitinib and remdesevir. recommend proning. on 01/13 Now on BIPAP 100 FIO2 contine baricitinib and remdesevir recommend proning. will increase dexamethasone IV BID as CRP is elevated at 17 (2) Acute respiratory failure with hypoxia: Plan: as above, secondary to COVID PNA, do not suspect PE (3) MEHRDAD (acute kidney injury): Plan: BUN/flight physician up to 61/3.4 from baseline flight physician 1.0 secondary to likely prerenal injury from poor po intake/dehydration in setting of taking HCTZ,lisinopril as outpt also takes chronic NSAIDs and was borderline hypotensive on arrival so may be a component of ATN resolved -hold lisinopril, HCTZ, diclofenac -encourage po intake -check Renal US and place Funk if any obstruction -hold minoxidil as may need to be renally dosed (4) Diabetes mellitus, type 2: Plan: continue basal and bolus insulin consult Pharmacy check A1C accuchecks ADA diet (5) Hypothyroidism: Plan: no TSH in our system s/p thyroidectomy check TSH in AM continue home LT4 (6) Thrombocytopenia: Plan: chronic in our system, mildly low at 102 could be worse due to viral suppression check B12 level in AM follow CBC hold heparin and ASA if plts<50 (7) Neuropathy: Plan: with h/o bilat great toe amputations due to DM ulcers no meds needs good foot care (8) Anemia: Plan: chronic, profoundly microcytic hgb on arrival normal but is dehydrated, typical baseline 13 could be Fe def vs thalassemia check Fe studies in AM (9) Hypertension: Plan: BPs soft on arrival due to dehydration hold home HCTZ, lisinopril, minoxidil ok to give amlodipine and metoprolol with hold parameters in AM giving IVFs continue ASA (10) Hyperlipidemia: Plan: continue statin ASA (11) Glaucoma: Plan: continue home eye drops (12) Osteoarthritis: Plan: hold home diclofenac po for ADILSON start tylenol prn (13) Major depression with psychotic features: Plan: continue home Paxil Plan: DVT prophylaxis-heparin SQ 7500 tid due to MEHRDAD, SCDs Dispo-admit to PCU, guarded prognosis FULL CODE and desires intubation if needed, states "do whatever it takes" (2) Acute respiratory failure with hypoxia: (3) Obesity (BMI 30-39.9): Admission and Anticipated Discharge Date Admission Date: January 08, 2021 Subjective Patient is comfortable on BIPAP. He continues to state that he will prone, but he has yet to attempt to prone since he has been in the hospital Review of Systems Review of Systems: All systems reviewed & are unremarkable except as noted in HPI & below Physical Exam Physical Exam: Constitutional: WD/WN, vitals as above + ill appearing and + obese Eyes: PERRL, conjunctivae normal, anicteric sclerae Neck: trachea midline, no thyromegaly Respiratory: normal respiratory effort; no labored breathing and no cough Auscultation: + crackles (bilat lower and middle lung ellis); no wheezes Cardiovascular: RRR, no murmur, no edema Chest (Breasts): Chest: normal inspection of chest Gastrointestinal (Abdomen): normal bowel sounds, soft, nontender, no hepatosplenomegaly Musculoskeletal: Extremities: + extremities abnormal to inspection (bilat great toes amputated), no cyanosis and no clubbing Skin: no rashes, warm and dry Neurologic: moves all extremities and awake; no focal motor deficits Psychiatric: A+Ox3, euthymic affect Lymphatic: no lymphedema Results & Data Results & Data ([facility]) Vital Signs (Past 12 Hours) Vital Signs Temp Pulse Pulse Resp BP Pulse Ox Pulse Ox 01/13/21 20:03 83 30 H 95 01/13/21 19:40 36.9 C 83 20 143/95 H 95 01/13/21 17:36 83 01/13/21 17:09 84 98 01/13/21 15:40 84 01/13/21 15:21 36.6 C 84 17 143/91 H 93 01/13/21 14:04 83 23 92 01/13/21 14:00 83 01/13/21 11:30 95 01/13/21 11:18 36.6 C 87 21 114/79 96 PG Care Time/CCT Total # of Minutes Spent Total Time Spent with Patient: Total time spent is greater than 50% in coordination of care (as documented) at patient's floor/unit and/or counseling patient: Coding Level of Care Code 39750 Subseq Hosp Care Lvl 2 Diagnoses Pneumonia due to 2019 novel coronavirus U07.1; J12.82 Acute respiratory failure with hypoxia J96.01 Obesity (BMI 30-39.9) E66.9
[2021-01-14] MEDS: INSULIN ASPART 100 UNITS/ML 3 ML PEN SC SCH ×5 (02:36→21:48)
[2021-01-14] MEDS: LEVOTHYROXINE SODIUM 175 MCG TABLET PO SCH (05:53)
[2021-01-14] MEDS: HEPARIN SOD 5,000 UNIT/0.5 ML VIAL SQ SCH ×3 (05:53→21:46)
[2021-01-14] MEDS: PARoxetine HCL 20 MG TAB PO SCH (08:00)
[2021-01-14 08:13] LABS: Hematocrit (blood only) 41.4 % (42-52); Hemoglobin 13.5 g/dL (14.0-18.0); Mean Corpuscular Hemoglobin 21.1 pg (25-34); Mean Corpuscular Hgb Conc 32.6 g/dL (32-36); Mean Corpuscular Volume 64.7 fL (80-100); Platelet Count 194 K/uL (130-400); RDW Coefficient of Variation 16.7 % (11.5-14.5); RDW Standard Deviation 38.9 fL (36.4-46.3); White Blood Count 13.74 K/uL (4.8-10.8)
[2021-01-14] MEDS: amLODIPine BESYLATE 5 MG TAB PO SCH (08:28)
[2021-01-14] MEDS: ASPIRIN 81 MG ECTAB PO SCH (08:28)
[2021-01-14] MEDS: dexAMETHasone 6 MG in SYRINGE 0 ML IV SCH ×2 (08:29→21:46)
[2021-01-14] MEDS: METOPROLOL SUCC 50MG EXT REL TAB PO SCH (08:29)
[2021-01-14 08:30] LABS: BUN Creatinine Ratio 30.5 (10-20); C Reactive Protein 15.8 mg/dl (0-0.29); Calcium 9.4 mg/dl (8.5-10.1); Creatinine Clr Calc Pharmacy 105.3 ml/min; Est GFR (African American) 84.7 ml/min; Est GFR (Non-African American) 73.1 ml/min; Potassium 4.2 mmol/L (3.5-5.1)
[2021-01-14] MEDS: DOCUSATE SODIUM 100 MG CAP PO SCH ×2 (08:30→21:46)
[2021-01-14] MEDS: BRIMONIDINE TARTRATE-P 0.15% 5 ML BTL OP SCH ×3 (08:31→21:46)
[2021-01-14] MEDS: ARTIFICIAL TEARS OP SCH ×4 (08:32→21:44)
[2021-01-14] MEDS: INSULIN GLARGINE SOLOSTAR 100 UNITS/ML 3 ML PEN SC SCH (08:37)
[2021-01-14] MEDS ORDERED: INSULIN HUMAN NPH SC ONE (09:00)
[2021-01-14] MEDS: TIMOLOL MALEATE 0.5% OP SOLN 5 ML BTL OP SCH ×2 (09:18→21:45)
[2021-01-14] MEDS: NYSTATIN SUSP 500,000 U/5 ML UDC PO SCH ×4 (09:18→21:41)
--- NOTE | 2021-01-14 11:05 | Hospitalist Progress Note ---
Date of Service January 14, 2021 Assessment & Plan (1) Pneumonia due to 2019 novel coronavirus: Plan: (1) Pneumonia due to COVID-19 virus: Plan: Symptoms started approximately 01/03. With significantly high CRP and already requiring HFNC on admission Fully vaccinated with J&J Vaccine several months prior CXR with bilat infiltrates patient is on dexamethasone and baricitinib has been on BIPAP for over 24 hours but able to place on 60L 100% this evening to give him a break he is tachypneic but not is distress try to avoid intubation if possible pulmonary following, contact ICU if he needs intubated (2) Acute respiratory failure with hypoxia: Plan: as above, secondary to COVID PNA give Lasix daily, place bo (3) MEHRDAD (acute kidney injury): Plan: BUN/resolution expert up to 61/3.4 from baseline resolution expert 1.0 secondary to likely prerenal injury from poor po intake/dehydration in setting of taking HCTZ,lisinopril as outpt also takes chronic NSAIDs and was borderline hypotensive on arrival so may be a component of ATN resolved, Cr is 1.1 today bo placed for urinary retention (4) Diabetes mellitus, type 2: Plan: continue basal and bolus insulin consult Pharmacy check A1C accuchecks ADA diet monitor for hypo and hyperglycemia (5) Hypothyroidism: Plan: no TSH in our system s/p thyroidectomy (6) Thrombocytopenia: Plan: resolved, counts are 194k today, likely from acute viral illness (7) Neuropathy: Plan: with h/o bilat great toe amputations due to DM ulcers no meds needs good foot care (8) Anemia: Plan: chronic, profoundly microcytic Hb is 13 today (9) Hypertension: Plan: BPs soft on arrival due to dehydration holding home HCTZ, lisinopril, minoxidil ok to give amlodipine and metoprolol with hold parameters in AM BP better now that he is volume resuscitated (10) Hyperlipidemia: Plan: continue statin ASA (11) Glaucoma: Plan: continue home eye drops (12) Osteoarthritis: Plan: hold home diclofenac po for MEHRDAD start tylenol prn (13) Major depression with psychotic features: Plan: continue home Paxil Plan: DVT prophylaxis-heparin SQ 7500 tid due to MEHRDAD, SCDs Dispo-admit to PCU, guarded prognosis FULL CODE and desires intubation if needed, states "do whatever it takes" (2) Acute respiratory failure with hypoxia: (3) Obesity (BMI 30-39.9): (4) Respiratory failure, acute: (5) Acute kidney injury: (6) Major depression with psychotic features: (7) Thrombocytopenia: (8) Hypothyroidism: (9) Osteoarthritis: (10) Neuropathy: (11) Anemia: Admission and Anticipated Discharge Date Admission Date: January 08, 2021 Subjective patient has been on BIPAP since yesterday, 01/18 this morning at 70% FiO2 he is asking to take the mask off to drink cold water, very dry mouth I discussed with RT, working to get FiO2 down to 65% and will try high flow to give him some relief spoke with ICU/pulmonology, will let them know if patient needs intubated, try to avoid it reviewed labs and the chart since time of admission Review of Systems Review of Systems: All systems reviewed & are unremarkable except as noted in Subjective Ear, Nose, Mouth, Throat: + dry mouth Respiratory: + cough, + dyspnea and + dyspnea on exertion Physical Exam Physical Exam: General: well developed, well nourished, no distress, on BIPAP, ill appearing male EENT: dry MMM Neck: supple, trachea midline, normal thyroid Lungs: clear to auscultation bilaterally, tachypneic, accessory muscle use on BIPAP Heart: regular S1 and S2, no murmur, peripheral pulses normal, capillary refill normal, no edema Abdomen: soft, NT, ND, + BS, no hepatomegaly, normal to percussion Extremities: normal in appearance, no cyanosis, no petechiae, strength is 5/5 bilaterally Neuro: awake, cooperative, moves all extremities, no focal motor deficits, CN II-XII intact, sensation in extremities intact, normal speech Skin: warm, dry, no rash, normal turgor Psych: Awake, alert oriented x 3, euthymic affect Results & Data Results & Data ([facility]) Vital Signs (Past 12 Hours) Vital Signs Temp Pulse Pulse Resp BP Pulse Ox 01/14/21 10:54 81 22 01/14/21 10:31 84 01/14/21 08:00 83 01/14/21 07:29 37.4 C 86 18 128/81 93 01/14/21 07:02 87 20 95 01/14/21 06:13 92 01/14/21 03:50 37.4 C 85 21 129/89 95 01/14/21 03:15 83 21 95 01/13/21 23:45 89 20 97 01/13/21 23:31 36.8 C 89 21 142/92 H 95 Laboratory Results Laboratory Results - last 24 hr 01/13/21 01/13/21 01/13/21 05:50 07:55 11:16 WBC RBC Hgb Hct MCV MCH MCHC RDW Std Deviation RDW Coeff of Shree Plt Count Sodium Potassium Chloride Carbon Dioxide Anion Gap BUN Creatinine Est Cr Clr Drug Dosing Est GFR ( Amer) Est GFR (Non-Af Amer) BUN/Creatinine Ratio Glucose POC Glucose 213 H Calcium C-Reactive Protein 17.10 H Procalcitonin Cancelled 01/13/21 01/13/21 01/13/21 15:05 16:32 20:15 WBC RBC Hgb Hct MCV MCH MCHC RDW Std Deviation RDW Coeff of Shree Plt Count Sodium Potassium Chloride Carbon Dioxide Anion Gap BUN Creatinine Est Cr Clr Drug Dosing Est GFR ( Amer) Est GFR (Non-Af Amer) BUN/Creatinine Ratio Glucose POC Glucose 257 H 228 H Calcium C-Reactive Protein Procalcitonin 0.14 01/14/21 01/14/21 01/14/21 02:35 07:27 07:36 WBC RBC Hgb Hct MCV MCH MCHC RDW Std Deviation RDW Coeff of Shree Plt Count Sodium 136 Potassium 4.2 Chloride 103 Carbon Dioxide 24 Anion Gap 10.0 BUN 34 H Creatinine 1.10 Est Cr Clr Drug Dosing 105.3 Est GFR ( Amer) 84.7 Est GFR (Non-Af Amer) 73.1 BUN/Creatinine Ratio 30.5 H Glucose 270 H POC Glucose 261 H 235 H Calcium 9.4 C-Reactive Protein 15.80 H Procalcitonin 01/14/21 07:36 WBC 13.74 H RBC 6.40 H Hgb 13.5 L Hct 41.4 L MCV 64.7 L MCH 21.1 L MCHC 32.6 RDW Std Deviation 38.9 RDW Coeff of Shree 16.7 H Plt Count 194 Sodium Potassium Chloride Carbon Dioxide Anion Gap BUN Creatinine Est Cr Clr Drug Dosing Est GFR ( Amer) Est GFR (Non-Af Amer) BUN/Creatinine Ratio Glucose POC Glucose Calcium C-Reactive Protein Procalcitonin Medications Administered Current Inpatient Medications Acetaminophen (Acetaminophen 325 Mg Tab) 650 mg PO Q4H PRN PRN Reason: Pain or Fever Stop: 02/07/21 14:01 Last Admin: 01/13/21 08:30 Dose: 650 mg Documented by: Albuterol (Albut/Ipratrop 3mg/0.5mg Neb 3 Ml Vial) 3 ml NEB Q4 PRN PRN Reason: Shortness Of Breath Or Wheezing Stop: 02/09/21 10:41 Last Admin: 01/13/21 20:02 Dose: 3 ml Documented by: Amlodipine Besylate (Amlodipine Besylate 5 Mg Tab) 5 mg PO DAILY DENILSON Stop: 02/08/21 08:59 Last Admin: 01/14/21 08:28 Dose: 5 mg Documented by: Artificial Tears (Artificial Tears) 1 drops OP QID DENILSON Stop: 02/07/21 14:01 Last Admin: 01/14/21 08:32 Dose: 1 drops Documented by: Aspirin (Aspirin 81 Mg Ectab) 81 mg PO DAILY DENILSON Stop: 02/08/21 08:59 Last Admin: 01/14/21 08:28 Dose: 81 mg Documented by: Atorvastatin Calcium (Atorvastatin 40 Mg Tab) 40 mg PO HS DENILSON Stop: 02/07/21 20:59 Last Admin: 01/13/21 21:03 Dose: 40 mg Documented by: Baricitinib (4mg Daily X 14 Days (Egfr >60 Ml/Min/1.73m2)) 4 mg PO Q24H DENILSON; Protocol Stop: 01/22/21 17:01 Last Admin: 01/13/21 17:36 Dose: 4 mg Documented by: Brimonidine Tartrate (Brimonidine Tartrate-P 0.15% 5 Ml Btl) 1 drops OP TID DENILSON Stop: 02/07/21 14:01 Last Admin: 01/14/21 08:31 Dose: 1 drops Documented by: Dextrose (Dextrose 50% 50 Ml Syringe) 25 - 50 ml IV UD PRN; Protocol PRN Reason: Hypoglycemia Protocol Stop: 02/07/21 14:01 Last Admin: 01/12/21 05:21 Dose: 25 ml Documented by: Docusate Sodium (Docusate Sodium 100 Mg Cap) 100 mg PO BID DENILSON Stop: 02/07/21 20:59 Last Admin: 01/14/21 08:30 Dose: 100 mg Documented by: Glucagon (Glucagon For Inj 1 Mg Vial) 1 mg SQ UD PRN; Protocol PRN Reason: Hypoglycemia Protocol Stop: 02/07/21 14:01 Glucose (Glucose 10 Tabs/Tube) 4 - 8 tabs PO UD PRN; Protocol PRN Reason: Hypoglycemia Protocol Stop: 02/07/21 14:01 Glucose (Glucose 40% Gel 15 Gm Tube) 15 - 30 gm PO UD PRN; Protocol PRN Reason: Hypoglycemia Protocol Stop: 02/07/21 14:01 Heparin Sodium (Porcine) (Heparin Sod 5,000 Unit/0.5 Ml Vial) 7,500 units SQ Q8 [facility] Stop: 02/07/21 14:01 Last Admin: 01/14/21 05:53 Dose: 7,500 units Documented by: Dexamethasone 6 mg/ Syringe 1.5 mls @ 1 mls/min IV BID [facility] Stop: 02/12/21 20:59 Last Admin: 01/14/21 08:29 Dose: 1 mls/min Documented by: Insulin Aspart (Insulin Aspart 100 Units/Ml 3 Ml Pen) 0 units SC ACHS [facility] Stop: 02/07/21 16:29 Last Admin: 01/14/21 08:36 Dose: 12 units Documented by: Insulin Aspart (Insulin Aspart 100 Units/Ml 3 Ml Pen) 0 units SC TODAY@0200 [facility] Stop: 02/09/21 01:59 Last Admin: 01/14/21 02:36 Dose: 13 units Documented by: Insulin Glargine (Insulin Glargine Solostar 100 Units/Ml 3 Ml Pen) [facility] [place] Stop: 02/12/21 08:59 Last Admin: 01/14/21 08:37 Dose: 30 units Documented by: Insulin Glargine (Insulin Glargine Solostar 100 Units/Ml 3 Ml Pen) 30 units SC [facility]; Protocol Stop: 01/14/21 21:01 Latanoprost (Latanoprost 0.005% Op Soln 2.5 Ml Btl) 1 drops OP PM [facility] Stop: 02/07/21 20:59 Last Admin: 01/13/21 20:51 Dose: 1 drops Documented by: Levothyroxine Sodium (Levothyroxine Sodium 175 Mcg Tablet) 175 mcg PO DAILYBB [facility] Stop: 02/08/21 06:29 Last Admin: 01/14/21 05:53 Dose: 175 mcg Documented by: Metoprolol Succinate (Metoprolol Succ 50mg Ext Rel Tab) 100 mg PO DAILY DENILSON Stop: 02/08/21 08:59 Last Admin: 01/14/21 08:29 Dose: 100 mg Documented by: Petraaneous (Topiramate Xr: Order Awaiting Action) 1 ea N/A QS DENILSON Stop: 02/07/21 15:59 Last Admin: 01/13/21 02:38 Dose: Not Given Documented by: Denia (Carbohydrates For Hypoglycemia ) 15 - 30 gm PO UD PRN PRN Reason: Hypoglycemia Protocol Stop: 02/07/21 14:01 Last Admin: 01/12/21 05:21 Dose: 30 gm Documented by: Denia Information (Pharmacy Glycemic Mgmt Consult) 1 ea N/A UD PRN; Protocol PRN Reason: Consult Stop: 02/07/21 14:01 Nystatin (Nystatin Susp 500,000 U/5 Ml Udc) 5 ml PO QID DENILSON Stop: 01/18/21 14:01 Last Admin: 01/14/21 09:18 Dose: 5 ml Documented by: Paroxetine HCl (Paroxetine Hcl 20 Mg Tab) 60 mg PO DAILY DENILSON Stop: 02/08/21 08:59 Last Admin: 01/14/21 08:00 Dose: 60 mg Documented by: Polyethylene Glycol (Polyethylene (Miralax) 17 Gm Pack) 17 gm PO DAILY PRN PRN Reason: Constipation Stop: 02/07/21 14:01 Timolol Maleate (Timolol Maleate 0.5% Op Soln 5 Ml Btl) 1 drops OP BID DENILSON Stop: 02/07/21 20:59 Last Admin: 01/14/21 09:18 Dose: 1 drops Documented by: Trazodone HCl (Trazodone Hcl 50 Mg Tab) 50 mg PO HS DENILSON Stop: 02/07/21 20:59 Last Admin: 01/13/21 21:05 Dose: 50 mg Documented by: PG Care Time/CCT Total # of Minutes Spent Total Time Spent with Patient: Total time spent is greater than 50% in coordination of care (as documented) at patient's floor/unit and/or counseling patient: Coding Level of Care Code 19794 Subseq Hosp Care Lvl 3 Diagnoses Pneumonia due to 2019 novel coronavirus U07.1; J12.82 Acute respiratory failure with hypoxia J96.01 Obesity (BMI 30-39.9) E66.9 Respiratory failure, acute J96.01 Respiratory failure complication: hypoxia Acute kidney injury N17.9 Major depression with psychotic features F32.3 Thrombocytopenia D69.6 Hypothyroidism E03.9 Osteoarthritis M19.90 Neuropathy G62.9 Anemia D64.9 (1) Respiratory failure, acute Respiratory failure complication: hypoxia Qualified Code(s): J96.01 - Acute respiratory failure with hypoxia
[2021-01-14] MEDS ORDERED: FUROSEMIDE INJ 20 MG/2 ML VIAL IV ONE (11:07)
--- NOTE | 2021-01-14 12:55 | XRay Report ---
XR chest 1V portable CLINICAL HISTORY: hypoxia, COVID COMPARISON STUDY: Chest radiograph January 08, 2021. FINDINGS: Mild elevation of the left hemidiaphragm is unchanged. There is no pneumothorax or pleural effusion. Extensive bilateral airspace opacities have progressed. There is mild cardiomegaly. There i s no evidence for pulmonary edema. IMPRESSION: Progression of extensive bilateral airspace opacities suggestive of viral pneumonia. Rad iographic follow-up to ensure resolution is recommended. ACT 112: Negative or not required by law. Electronically signed by: Jared Navarro M.D. 01/14/2021 12:54 PM
[2021-01-14] MEDS: 4mg Daily x 14 days (eGFR >60 mL/min/1.73m2) PO SCH (16:46)
[2021-01-14] MEDS ORDERED: INSULIN GLARGINE SOLOSTAR 100 UNITS/ML 3 ML PEN SC SCH (21:00)
[2021-01-14] MEDS: ATORVASTATIN 40 MG TAB PO SCH (21:44)
[2021-01-14] MEDS: LATANOPROST 0.005% OP SOLN 2.5 ML BTL OP SCH (21:45)
[2021-01-14] MEDS: traZODone HCL 50 MG TAB PO SCH (21:55)
[2021-01-14] MEDS: INSULIN HUMAN NPH SC SCH (21:56)
[2021-01-15] MEDS: INSULIN ASPART 100 UNITS/ML 3 ML PEN SC SCH ×3 (02:08→13:02)
[2021-01-15] MEDS: LEVOTHYROXINE SODIUM 175 MCG TABLET PO SCH (05:46)
[2021-01-15] MEDS: HEPARIN SOD 5,000 UNIT/0.5 ML VIAL SQ SCH ×3 (05:47→21:34)
[2021-01-15] MEDS: METOPROLOL SUCC 50MG EXT REL TAB PO SCH (08:00)
[2021-01-15] MEDS: dexAMETHasone 6 MG in SYRINGE 0 ML IV SCH ×2 (08:05→21:34)
[2021-01-15] MEDS: amLODIPine BESYLATE 5 MG TAB PO SCH (08:06)
[2021-01-15] MEDS: PARoxetine HCL 20 MG TAB PO SCH (08:06)
[2021-01-15] MEDS: DOCUSATE SODIUM 100 MG CAP PO SCH ×2 (08:06→21:30)
[2021-01-15] MEDS: ASPIRIN 81 MG ECTAB PO SCH (08:06)
[2021-01-15] MEDS: ARTIFICIAL TEARS OP SCH ×4 (08:07→21:23)
[2021-01-15] MEDS: NYSTATIN SUSP 500,000 U/5 ML UDC PO SCH ×4 (08:07→21:32)
[2021-01-15] MEDS: BRIMONIDINE TARTRATE-P 0.15% 5 ML BTL OP SCH ×3 (08:07→21:27)
[2021-01-15] MEDS: TIMOLOL MALEATE 0.5% OP SOLN 5 ML BTL OP SCH ×2 (08:08→21:27)
[2021-01-15 08:20] LABS: Calcium 9.3 mg/dl (8.5-10.1); Creatinine Clr Calc Pharmacy 101.3 ml/min; Est GFR (African American) 80.3 ml/min; Est GFR (Non-African American) 69.3 ml/min; Potassium 5.2 mmol/L (3.5-5.1)
[2021-01-15] MEDS: INSULIN HUMAN NPH SC SCH ×2 (08:36→21:36)
[2021-01-15] MEDS: INSULIN GLARGINE SOLOSTAR 100 UNITS/ML 3 ML PEN SC SCH (08:36)
[2021-01-15] MEDS ORDERED: FUROSEMIDE 40 MG/4 ML VIAL IV ONE (11:30)
--- NOTE | 2021-01-15 11:31 | Hospitalist Progress Note ---
Date of Service January 15, 2021 Assessment & Plan (1) Pneumonia due to 2019 novel coronavirus: Plan: (1) Pneumonia due to COVID-19 virus: Plan: Symptoms started approximately 01/03. With significantly high CRP and already requiring HFNC on admission Fully vaccinated with J&J Vaccine several months prior CXR with bilat infiltrates, CXR on 01/14 shows worsening infiltrates give Lasix 40mg IV this morning patient is on dexamethasone and baricitinib has been on BIPAP 01/18 90% this morning, was able to be on 60L 100% for several hours yesterday afternoon/evening he is tachypneic but not is distress try to avoid intubation if possible pulmonary following, contact ICU if he needs intubated (2) Acute respiratory failure with hypoxia: Plan: as above, secondary to COVID PNA give Lasix 40mg IV daily, place bo (3) MEHRDAD (acute kidney injury): Plan: 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 secondary to likely prerenal injury from poor po intake/dehydration in setting of taking HCTZ,lisinopril as outpt also takes chronic NSAIDs and was borderline hypotensive on arrival so may be a component of ATN resolved, Cr is 1.15 today bo placed for urinary retention, give Lasix to improve urine output want to keep him negative on daily I/O (4) Diabetes mellitus, type 2: Plan: continue basal and bolus insulin consult Pharmacy check A1C accuchecks ADA diet monitor for hypo and hyperglycemia (5) Hypothyroidism: Plan: no TSH in our system s/p thyroidectomy (6) Thrombocytopenia: Plan: resolved, counts are 194k today, likely from acute viral illness (7) Neuropathy: Plan: with h/o bilat great toe amputations due to DM ulcers no meds needs good foot care (8) Anemia: Plan: chronic, profoundly microcytic Hb is 13 today (9) Hypertension: Plan: BPs soft on arrival due to dehydration holding home HCTZ, lisinopril, minoxidil ok to give amlodipine and metoprolol with hold parameters in AM BP better now that he is volume resuscitated give Lasix 40mg IV today (10) Hyperkalemia 5.2 today, give Lasix 40mg IV and repeat BMP this afternoon DVT prophylaxis-[place] 7500 tid due to MEHRDAD, SCDs Dispo-admit to PCU, guarded prognosis FULL CODE and desires intubation if needed, states "do whatever it takes" (2) Acute respiratory failure with hypoxia: (3) Obesity (BMI 30-39.9): (4) Respiratory failure, acute: (5) Acute kidney injury: (6) Major depression with psychotic features: (7) Thrombocytopenia: (8) Hypothyroidism: (9) Osteoarthritis: (10) Neuropathy: (11) Anemia: (12) Hyperkalemia: Admission and Anticipated Discharge Date Admission Date: January 08, 2021 Subjective patient was able to stay on high flow 60L 100% for several hours last night back on BIPAP this morning, will cycle back and forth reviewed labs, K is 5.2, Cr is stable, will give Lasix 40mg IV now discussed with him that he is in a arguleles zone, I need to speak with ICU not an overwhelming need to intubate but cannot be on BIPAP continuously during the day he c/o his dry mouth, he wants to eat and drink but cannot, frustrated Review of Systems Review of Systems: All systems reviewed & are unremarkable except as noted in Subjective Constitutional: no fever Ear, Nose, Mouth, Throat: + dry mouth Respiratory: + cough, + dyspnea and + dyspnea on exertion Cardiovascular: no chest pain Gastrointestinal: no abdominal pain, no nausea, no vomiting, no constipation and no diarrhea/loose stools Physical Exam Physical Exam: General: well developed, well nourished, no distress, on BIPAP, ill appearing male EENT: dry MMM Neck: supple, trachea midline, normal thyroid Lungs: clear to auscultation bilaterally, tachypneic, accessory muscle use on BIPAP Heart: regular S1 and S2, no murmur, peripheral pulses normal, capillary refill normal, no edema Abdomen: soft, NT, ND, + BS, no hepatomegaly, normal to percussion Extremities: normal in appearance, no cyanosis, no petechiae, strength is 5/5 bilaterally Neuro: awake, cooperative, moves all extremities, no focal motor deficits, CN II-XII intact, sensation in extremities intact, normal speech Skin: warm, dry, no rash, normal turgor Psych: Awake, alert oriented x 3, euthymic affect Results & Data Results & Data ([facility]) Vital Signs (Past 12 Hours) Vital Signs Temp Pulse Pulse Resp BP Pulse Ox 01/15/21 07:37 37.0 C 85 20 126/85 94 01/15/21 07:09 83 23 92 01/15/21 04:16 81 30 H 95 01/15/21 04:01 36.8 C 82 20 128/87 95 01/15/21 01:42 83 Laboratory Results Laboratory Results - last 24 hr 01/14/21 01/14/21 01/15/21 17:19 20:14 02:04 Sodium Potassium Chloride Carbon Dioxide Anion Gap BUN Creatinine Est Cr Clr Drug Dosing Est GFR ( Amer) Est GFR (Non-Af Amer) BUN/Creatinine Ratio Glucose POC Glucose 235 H 259 H 174 H Calcium Specimen Hemolysis 01/15/21 01/15/21 06:49 07:38 Sodium 133 L Potassium 5.2 H D Chloride 102 Carbon Dioxide 23 Anion Gap 8.0 BUN 43 H Creatinine 1.15 Est Cr Clr Drug Dosing 101.3 Est GFR ( Amer) 80.3 Est GFR (Non-Af Amer) 69.3 BUN/Creatinine Ratio 37.0 H Glucose 122 H POC Glucose 120 H Calcium 9.3 Specimen Hemolysis Medications Administered Current Inpatient Medications Acetaminophen (Acetaminophen 325 Mg Tab) 650 mg PO Q4H PRN PRN Reason: Pain or Fever Stop: 02/07/21 14:01 Last Admin: 01/13/21 08:30 Dose: 650 mg Documented by: Albuterol (Albut/Ipratrop 3mg/0.5mg Neb 3 Ml Vial) 3 ml NEB Q4 PRN PRN Reason: Shortness Of Breath Or Wheezing Stop: 02/09/21 10:41 Last Admin: 01/13/21 20:02 Dose: 3 ml Documented by: Amlodipine Besylate (Amlodipine Besylate 5 Mg Tab) 5 mg PO DAILY [facility] Stop: 02/08/21 08:59 Last Admin: 01/15/21 08:06 Dose: 5 mg Documented by: Artificial Tears (Artificial Tears) 1 drops OP QID [facility] Stop: 02/07/21 14:01 Last Admin: 01/15/21 08:07 Dose: 1 drops Documented by: Aspirin (Aspirin 81 Mg Ectab) 81 mg PO DAILY [facility] Stop: 02/08/21 08:59 Last Admin: 01/15/21 08:06 Dose: 81 mg Documented by: Atorvastatin Calcium (Atorvastatin 40 Mg Tab) 40 mg PO HS [facility] Stop: 02/07/21 20:59 Last Admin: 01/14/21 21:44 Dose: 40 mg Documented by: Baricitinib (4mg Daily X 14 Days (Egfr >60 Ml/Min/1.73m2)) 4 mg PO Q24H [facility]; Protocol Stop: 01/22/21 17:01 Last Admin: 01/14/21 16:46 Dose: 4 mg Documented by: Brimonidine Tartrate (Brimonidine Tartrate-P 0.15% 5 Ml Btl) 1 drops OP TID [facility] Stop: 02/07/21 14:01 Last Admin: 01/15/21 08:07 Dose: 1 drops Documented by: Dextrose (Dextrose 50% 50 Ml Syringe) 25 - 50 ml IV UD PRN; Protocol PRN Reason: Hypoglycemia Protocol Stop: 02/07/21 14:01 Last Admin: 01/12/21 05:21 Dose: 25 ml Documented by: Docusate Sodium (Docusate Sodium 100 Mg Cap) 100 mg PO BID [facility] Stop: 02/07/21 20:59 Last Admin: 01/15/21 08:06 Dose: 100 mg Documented by: Glucagon (Glucagon For Inj 1 Mg Vial) 1 mg SQ UD PRN; Protocol PRN Reason: Hypoglycemia Protocol Stop: 02/07/21 14:01 Glucose (Glucose 10 Tabs/Tube) 4 - 8 tabs PO UD PRN; Protocol PRN Reason: Hypoglycemia Protocol Stop: 02/07/21 14:01 Glucose (Glucose 40% Gel 15 Gm Tube) 15 - 30 gm PO UD PRN; Protocol PRN Reason: Hypoglycemia Protocol Stop: 02/07/21 14:01 Heparin Sodium (Porcine) (Heparin Sod 5,000 Unit/0.5 Ml Vial) 7,500 units SQ Q8 [facility] Stop: 02/07/21 14:01 Last Admin: 01/15/21 05:47 Dose: 7,500 units Documented by: Dexamethasone 6 mg/ Syringe 1.5 mls @ 1 mls/min IV BID [facility] Stop: 02/12/21 20:59 Last Admin: 01/15/21 08:05 Dose: 1 mls/min Documented by: Insulin Aspart (Insulin Aspart 100 Units/Ml 3 Ml Pen) 0 units SC ACHS [facility] Stop: 02/07/21 16:29 Last Admin: 01/15/21 08:30 Dose: Not Given Documented by: Insulin Aspart (Insulin Aspart 100 Units/Ml 3 Ml Pen) 0 units SC TODAY@0200 [facility] Stop: 02/09/21 01:59 Last Admin: 01/15/21 02:08 Dose: 4 units Documented by: Insulin Glargine (Insulin Glargine Solostar 100 Units/Ml 3 Ml Pen) 30 units SC QAM [facility]; Protocol Stop: 02/12/21 08:59 Last Admin: 01/15/21 08:36 Dose: 30 units Documented by: Insulin Human NPH (Insulin Human Nph) 30 units SC BID [facility] Stop: 02/13/21 21:29 Last Admin: 01/15/21 08:36 Dose: 30 units Documented by: Latanoprost (Latanoprost 0.005% Op Soln 2.5 Ml Btl) 1 drops OP PM [facility] Stop: 02/07/21 20:59 Last Admin: 01/14/21 21:45 Dose: 1 drops Documented by: Levothyroxine Sodium (Levothyroxine Sodium 175 Mcg Tablet) 175 mcg PO DAILYBB [facility] Stop: 02/08/21 06:29 Last Admin: 01/15/21 05:46 Dose: 175 mcg Documented by: Metoprolol Succinate (Metoprolol Succ 50mg Ext Rel Tab) 100 mg PO DAILY [facility] Stop: 02/08/21 08:59 Last Admin: 01/15/21 08:00 Dose: 100 mg Documented by: Miscellaneous (Topiramate Xr: Order Awaiting Action) 1 ea N/A QS [facility] Stop: 02/07/21 15:59 Last Admin: 01/13/21 02:38 Dose: Not Given Documented by: Miscellaneous (Carbohydrates For Hypoglycemia ) 15 - 30 gm PO UD PRN PRN Reason: Hypoglycemia Protocol Stop: 02/07/21 14:01 Last Admin: 01/12/21 05:21 Dose: 30 gm Documented by: Miscellaneous Information (Pharmacy Glycemic Mgmt Consult) 1 ea N/A UD PRN; Protocol PRN Reason: Consult Stop: 02/07/21 14:01 Nystatin (Nystatin Susp 500,000 U/5 Ml Udc) 5 ml PO QID [facility] Stop: 01/18/21 14:01 Last Admin: 01/15/21 08:07 Dose: 5 ml Documented by: Paroxetine HCl (Paroxetine Hcl 20 Mg Tab) 60 mg PO DAILY [facility] Stop: 02/08/21 08:59 Last Admin: 01/15/21 08:06 Dose: 60 mg Documented by: Polyethylene Glycol (Polyethylene (Miralax) 17 Gm Pack) 17 gm PO DAILY PRN PRN Reason: Constipation Stop: 02/07/21 14:01 Timolol Maleate (Timolol Maleate 0.5% Op Soln 5 Ml Btl) 1 drops OP BID [facility] Stop: 02/07/21 20:59 Last Admin: 01/15/21 08:08 Dose: 1 drops Documented by: Trazodone HCl (Trazodone Hcl 50 Mg Tab) 50 mg PO HS [facility] Stop: 02/07/21 20:59 Last Admin: 01/14/21 21:55 Dose: 50 mg Documented by: PG Care Time/CCT Total # of Minutes Spent Total Time Spent with Patient: Total time spent is greater than 50% in coordination of care (as documented) at patient's floor/unit and/or counseling patient: Coding Level of Care Code 93807 Subseq Hosp Care Lvl 3 Diagnoses Pneumonia due to 2019 novel coronavirus U07.1; J12.82 Acute respiratory failure with hypoxia J96.01 Obesity (BMI 30-39.9) E66.9 Respiratory failure, acute J96.01 Respiratory failure complication: hypoxia Acute kidney injury N17.9 Major depression with psychotic features F32.3 Thrombocytopenia D69.6 Hypothyroidism E03.9 Osteoarthritis M19.90 Neuropathy G62.9 Anemia D64.9 Hyperkalemia E87.5 (1) Respiratory failure, acute Respiratory failure complication: hypoxia Qualified Code(s): J96.01 - Acute respiratory failure with hypoxia
[2021-01-15 16:06] LABS: BUN Creatinine Ratio 33.1 (10-20); Calcium 9.1 mg/dl (8.5-10.1); Creatinine Clr Calc Pharmacy 98.7 ml/min; Est GFR (African American) 77.8 ml/min; Est GFR (Non-African American) 67.1 ml/min; Potassium 4.8 mmol/L (3.5-5.1)
[2021-01-15] MEDS: INSULIN ASPART 100 UNITS/ML VIAL SC SCH ×2 (16:37→21:37)
[2021-01-15] MEDS: 4mg Daily x 14 days (eGFR >60 mL/min/1.73m2) PO SCH (17:28)
[2021-01-15] MEDS ORDERED: INSULIN GLARGINE SOLOSTAR 100 UNITS/ML 3 ML PEN SC SCH (21:00)
[2021-01-15] MEDS: LATANOPROST 0.005% OP SOLN 2.5 ML BTL OP SCH (21:28)
[2021-01-15] MEDS: traZODone HCL 50 MG TAB PO SCH (21:30)
[2021-01-15] MEDS: ATORVASTATIN 40 MG TAB PO SCH (21:30)
[2021-01-16] MEDS: INSULIN ASPART 100 UNITS/ML VIAL SC SCH ×5 (02:00→21:09)
[2021-01-16] MEDS: CARBOHYDRATES FOR HYPOGLYCEMIA PO PRN ×2 (02:05→03:10)
[2021-01-16] MEDS: HEPARIN SOD 5,000 UNIT/0.5 ML VIAL SQ SCH ×2 (06:17→21:10)
[2021-01-16] MEDS: LEVOTHYROXINE SODIUM 175 MCG TABLET PO SCH (06:17)
[2021-01-16] MEDS ORDERED: ONDANSETRON INJ 2 MG/ML 2 ML VIAL IV ONE (06:58)
[2021-01-16] MEDS: ARTIFICIAL TEARS OP SCH ×4 (08:03→21:12)
[2021-01-16] MEDS: BRIMONIDINE TARTRATE-P 0.15% 5 ML BTL OP SCH ×3 (08:04→21:12)
[2021-01-16] MEDS: amLODIPine BESYLATE 5 MG TAB PO SCH (08:04)
[2021-01-16] MEDS: dexAMETHasone 6 MG in SYRINGE 0 ML IV SCH (08:05)
[2021-01-16] MEDS: DOCUSATE SODIUM 100 MG CAP PO SCH ×2 (08:05→12:04)
[2021-01-16] MEDS: METOPROLOL SUCC 50MG EXT REL TAB PO SCH (08:05)
[2021-01-16] MEDS: ASPIRIN 81 MG ECTAB PO SCH (08:06)
[2021-01-16] MEDS: TIMOLOL MALEATE 0.5% OP SOLN 5 ML BTL OP SCH ×2 (08:07→21:12)
[2021-01-16] MEDS: NYSTATIN SUSP 500,000 U/5 ML UDC PO SCH ×5 (08:07→21:12)
[2021-01-16] MEDS ORDERED: INSULIN GLARGINE SOLOSTAR 100 UNITS/ML 3 ML PEN SC SCH (09:00)
[2021-01-16] MEDS ORDERED: RAPID SEQUENCE INDUCTION BAG ONE (10:14)
[2021-01-16] MEDS ORDERED: PROPOFOL IV EMULSION 10 MG/ML 100 ML VIAL IV ONE (10:15)
[2021-01-16] MEDS ORDERED: ROCURONIUM BROMIDE 10 MG/ML 5 ML VIAL IV ONE ×2 (10:35→18:23)
[2021-01-16] MEDS ORDERED: PROPOFOL IV EMULSION 10 MG/ML 20 ML VIAL IV ONE (10:35)
[2021-01-16] MEDS ORDERED: NOREPINEPHRINE/D5W 8 MG/508 ML IV ONE (10:55)
[2021-01-16] MEDS: propofoL 1,000 MG/100 ML VIAL IV SCH ×6 (11:30→22:54)
--- NOTE | 2021-01-16 11:36 | Anesthesia Procedure Note ---
Anesthesia Procedure Note Arterial Line Note Date of procedure: 01/16/21 Consent: Risk / Benefits Reviewed With: PT / POA / Parent / Guardian, Accepts Plan and All Questions Answered Monitors attached: Blood Pressure, CO2 and EKG Oxygen delivery method: ETT Time out completed: Yes Premedication: Midazolam (mg) and Propofol (mg) Laterality: Left Location: Radial Hand hygeine: Alcohol based hand rub Equipment/Supplies: Cap, Mask, Sterile gown, Sterile gloves and Sterile procedures used Skin prep: Chloraprep Ultrasound used: Yes US equipment and supplies: Sterile Gel and Sterile Probe Cover Louie test: Negative Attempts: 2 Post-Procedure: Pt hemodynamically stable, Pt tolerates well and No complication Central Line Note Date of procedure: 01/16/21 Indication: Central intravenous access Consent: Risk / Benefits Reviewed With: PT / POA / Parent / Guardian, Accepts Plan and All Questions Answered Monitors attached: Blood Pressure, CO2, EKG and Pulse Oximetry Oxygen delivery method: ETT Time out completed: Yes Premedication: Midazolam (mg), Fentanyl (mcg) and Propofol (mg) Laterality: Right Location: Internal Jugular Surgical Prep: Hand hygeine: Alcohol based hand rub Equipment/Supplies: Cap, Mask, Sterile gown, Sterile gloves, Sterile drapes and Sterile procedures used Skin prep: Chloraprep Ultrasound Guidance: Ultrasound used: Yes US equipment and supplies: Sterile Gel and Sterile Probe Cover Central line lumen: Triple Catheter sutured at: CM (20) Attempts: 1 Post-Procedure: Pt hemodynamically stable, Pt tolerates well, No complication and Post placement CXR ordered Intubation Note Date of procedure: 01/16/21 Indication for intubation: Failure to oxygenate Consent: Risk / Benefits Reviewed With: PT / POA / Parent / Guardian, Accepts Plan, Informed Consent Obtained and All Questions Answered Monitors attached: Blood Pressure, CO2, EKG and Pulse Oximetry Time out completed: Yes Premedication: Midazolam (mg), Fentanyl (mcg) and Propofol (mg) Paralytic medication: Rocuronium (mg) Intubation technique: Adequate preoxygenation and RSI Equipment: Glidescope View: Grade 1 Endotracheal tube: Oral, 8.0, with Stylet, Tube secured @ cm (24) and Balloon inflated Attempts: 1 Tube placement confirmation: auscultation and Positive CO2 detection Post-procedure: Pt hemodynamically stable, Pt tolerates well, No complication and Post placement CXR ordered
[2021-01-16] MEDS: DEXTROSE 50% 50 ML SYRINGE IV PRN (11:44)
[2021-01-16] MEDS: fentaNYL DRIP 1,250 MCG/250 ML BAG IV SCH ×2 (11:45→21:38)
--- NOTE | 2021-01-16 11:48 | XRay Report ---
XR chest 1V portable CLINICAL HISTORY: ETT, central line, OG placement. Follow-up follow-up bilateral airspace opacities COMPARISON STUDY: 01/14/2021 TECHNIQUE: 1 view of the chest FINDINGS: Single frontal view of the chest demonstrates the cardiomediastinal silhouette to be within normal li mits. An endotracheal tube has been placed with its tip approximately 7.5 cm above the mitch. Could be advanced 2 cm. Right ventricular catheter is in place with its tip in the distal SVC. There is no evidence for pneumothorax. OG tube is also in place with its tip extending into the gastric fundus. Compared to previous study, diffuse interstitial and alveolar opacities are again seen bilaterally mo st characteristic of a viral type pneumonitis and probable Covid pneumonia. There is no evidence for pleural effusion. There is no evidence for vascular congestion. There is no acute osseous pathology. IMPRESSION: 1. Status post interval intubation with the tip of the ET tube 7.5 cm above the mitch. It could be a dvanced 2 cm. 2. Tip of right jugular catheter in distal SVC with no pneumothorax. 3. Tip of OG tube in the gastric fundus. 3. Diffuse interstitial and alveolar opacities are again seen bilaterally characteristic of a viral t ype pneumonitis and Covid pneumonia. ACT 112: Negative or not required by law. Electronically signed by: Ede Torres M.D. 01/16/2021 11:46 AM
[2021-01-16] MEDS ORDERED: PROPOFOL BOLUS FROM BAG IV PRN (12:01)
[2021-01-16] MEDS ORDERED: STAT IV Infusion **Titration per Protocol STA ×3 (12:01→13:38)
[2021-01-16] MEDS: PARoxetine HCL 20 MG TAB PO SCH (12:04)
[2021-01-16 12:37] LABS: iSTAT Art Bld Gas pCO2 Correct 69 mmHg (35-46); iSTAT Art Bld Gas pH Corrected 7.252 (7.35-7.45); iSTAT Arterial Blood Gas HCO3 31 meg/L (19-24); iSTAT Arterial Blood Gas pCO2 69 mmHg (35-46); iSTAT Arterial Blood Gas pH 7.25 (7.35-7.45); iSTAT Arterial Blood Gas pO2 80 mmHg (80-95); iSTAT Arterial Blood Gas pO2 C 80; iSTAT Carbon Dioxide 33 mmol/L (24-31); iSTAT FiO2 100 %; iSTAT Hematocrit 49 % (42-52); iSTAT Hemoglobin 16.7 g/dl (14.0-18.0); iSTAT Potassium 4.3 mmol/L (3.3-5.0); iSTAT Site Art Line; iSTAT Sodium 136 mmol/L (135-144)
[2021-01-16] MEDS ORDERED: VECURONIUM BROMIDE 10 MG VIAL IV ONE (13:08)
[2021-01-16 13:09] LABS: Calcium 8.3 mg/dl (8.5-10.1); Creatinine Clr Calc Pharmacy 128.3 ml/min; Est GFR (African American) 103.8 ml/min; Est GFR (Non-African American) 89.5 ml/min
[2021-01-16] MEDS ORDERED: MIDAZOLAM BOLUS FROM BAG IV PRN (13:38)
--- NOTE | 2021-01-16 13:46 | Critical Care Consultation ---
Date of Consultation January 16, 2021 Assessment & Plan (1) Pneumonia due to 2019 novel coronavirus: (2) Respiratory failure, acute: (3) Obesity (BMI 30-39.9): (4) ARDS (adult respiratory distress syndrome): Impression: 60-year-old -[place] male who is an inmate admitted with Covid pneumonia. He is failed high flow oxygen positive airway pressure ventilation despite dexamethasone and baricitinib. He was intubated 01/16/2021 and proned. Recommendations: 1. Neurologic: Continue aggressive sedation with propofol fentanyl and Versed as well as neuromuscular blockade for now. We will discontinue his Paxil. Continue trazodone at night. 2. Cardiac: Hold antihypertensives as a suspect the patient may have some degree of hypotension associated with sedation. May need norepinephrine. 3. Pulmonary: Progressive ARDS: The patient is not a candidate for advanced therapies such as ECMO. We will discontinue baricitinib now that he is on mechanical ventilation. Continue dexamethasone at 6 mg daily. No indication for twice daily dosing. We will continue to follow chest x-ray. Check respiratory cultures as well as procalcitonin and BNP level. Continue ARDS net ventilatory strategy. Prognosis uncertain. 4. GI: N.p.o. for now. Enteric access. Continue PPI. 5. Renal: Electrolytes are acceptable. Post intubation gas demonstrates hypercarbia but will allow for permissive hypercarbia in an effort to try and maintain plateau pressures less than 30. 6. ID: We will check respiratory cultures. Follow fever curve. Previous procalcitonin was negative. 7. Endocrine: Glycemic control per ICU pharmacist. 8. Heme-onc: No active issues. We will decrease DVT prophylaxis subcu heparin to 7500 twice daily. Patient is critically ill with significant possibility of . A total of 50 minutes critical care time was spent in evaluation management and stabilization of this patient. History of Present Illness Attending Physician: Nik Whitfield DO History of Present Illness Asked by hospitalist to evaluate this patient with progressive hypoxemic respiratory failure. He was seen previously on the pulmonary consult service. He has been treated with baricitinib and dexamethasone. Unfortunately his oxygen requirements have escalated. He is failing BiPAP with oxygen saturations in the mid 80s. I discussed with the patient need for intubation mechanical ventilation and he is agreeable to proceed. We briefly discussed tracheostomy and PEG tube placement should the patient fail to improve. Allergies Allergy/AdvReac Type Severity Reaction Status Date / Time No Known Allergies Allergy Verified 01/08/21 09:51 Home Medications Medication Instructions Recorded Confirmed Type aspirin 81 mg tablet,delayed 81 mg PO DAILY 01/21/18 01/08/21 History release (Adult Low Dose Aspirin) calcium carbonate 600 mg-vitamin 1 tab PO TID tab 01/21/18 01/08/21 History D3 10 mcg (400 unit) tablet (Calcium 600 + D(3)) docusate sodium 100 mg capsule 100 mg PO BID 01/21/18 01/08/21 History hydrochlorothiazide 25 mg tablet 25 mg PO DAILY 01/21/18 01/08/21 History levothyroxine 175 mcg tablet 175 mcg PO DAILY 01/21/18 01/08/21 History metoprolol succinate 100 mg 100 mg PO DAILY 01/21/18 01/08/21 History tablet,extended release 24 hr minoxidil 10 mg tablet 10 mg PO DAILY 01/21/18 01/08/21 History paroxetine HCl 30 mg tablet 60 mg PO DAILY tab 01/21/18 01/08/21 History peg [id number] 1 1 drops OP QID 01/21/18 01/08/21 History %-0.2 %-0.2 % eye drops (Visine Tears) topiramate 50 mg capsule,extended 50 mg PO DAILY 01/21/18 01/08/21 History release 24 hr vitamin E 1 appln TOP BID gm 01/21/18 01/08/21 History lisinopril 40 mg tablet 40 mg PO DAILY 03/17/18 01/08/21 History timolol 0.5 % eye drops 1 drp OPHTHALMIC (EYE) BID 03/17/18 01/08/21 History amlodipine 5 mg tablet 5 mg PO DAILY 01/08/21 01/08/21 History atorvastatin 40 mg tablet 40 mg PO HS 01/08/21 01/08/21 History brimonidine 0.15 % eye drops 1 drp OPHTHALMIC (EYE) TID 01/08/21 01/08/21 History diclofenac sodium 75 mg 75 mg PO BID 01/08/21 01/08/21 History tablet,delayed release insulin glargine 100 unit/mL 60 unit SUBCUT BID 01/08/21 01/08/21 History subcutaneous solution (Semglee U-100 Insulin) insulin regular human 100 unit/mL 1 sliding scale dose SUBCUT 01/08/21 01/08/21 History injection solution (Novolin R USEASDIRECTD Regular U-100 Insulin) insulin regular human 100 unit/mL 30 unit SUBCUT BID 01/08/21 01/08/21 History injection solution (Novolin R Regular U-100 Insulin) latanoprost 0.005 % eye drops 1 drp OPHTHALMIC (EYE) PM 01/08/21 01/08/21 History (Xalatan) trazodone 50 mg tablet 50 mg PO HS 01/08/21 01/08/21 History Patient History Medical History (Updated 01/16/21 @ 13:42 by Teddy Reyes MD) Anemia Anxiety Diabetes mellitus, type 2 IDDM Glaucoma Hyperlipidemia Hypertension Hypocalcemia Hypothyroidism Kidney disease Major depression with psychotic features Neuropathy Obesity (BMI 30-39.9) Osteoarthritis Thrombocytopenia Surgical History History of amputation LEFT GREAT TOE - 06/2017 [facility] History of cataract surgery History of thyroidectomy Family History Other Family history non-contributory Social History Smoking Status: Never smoker Hx Alcohol Use: No Hx Substance Use: No Preferred Language: Romanian Communication Ability: Unable 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 Beliefs That Will Affect Care: None marital status: Single Current Living Situation: Other Current Living Situation Comment: [facility] since 1989 current occupational status: other Other Information That Helps Us Care for You: No Feels Safe at Home: Yes Safety Concerns: Feels Safe At This Time Assistive Devices: BiPap Review of Systems Review of Systems: Unobtainable due to endotracheal tube Physical Exam Constitutional: WD/WN, vitals as above + diaphoretic and + mechanically ventilated Neck: trachea midline, no thyromegaly Respiratory: + respiratory distress, + labored breathing and + tachypneic Auscultation: + crackles and + wheezes Cardiovascular: RRR, no murmur, no edema Gastrointestinal (Abdomen): normal bowel sounds, soft, nontender, no hepatosplenomegaly Musculoskeletal: Extremities: extremities normal to inspection Skin: no rashes, warm and dry Neurologic: Nonfocal exam Lymphatic: no cervical lymphadenopathy Results & Data Results & Data ([facility]) Vital Signs (Past 12 Hours) Vital Signs Temp Pulse Pulse Pulse Resp BP Pulse Ox 01/16/21 11:39 90 28 H 91 01/16/21 08:46 81 26 H 90 01/16/21 07:34 37.2 C 89 20 139/90 90 01/16/21 04:02 87 22 90 01/16/21 03:54 36.5 C 87 20 123/81 90 Critical Care Results & Data Vital Signs (Past 12 Hours) Vital Signs Temp Pulse Pulse Pulse Resp BP Pulse Ox 01/16/21 11:39 90 28 H 91 01/16/21 08:46 81 26 H 90 01/16/21 07:34 37.2 C 89 20 139/90 90 01/16/21 04:02 87 22 90 01/16/21 03:54 36.5 C 87 20 123/81 90 Lab & Micro Results (Past 24 Hours) No Data to Display Na 135 mmol/L (136-145) L 01/16/21 K 4.0 mmol/L (3.5-5.1) 01/16/21 Cl 101 mmol/L (98-107) 01/16/21 CO2 27 mmol/L (21-32) 01/16/21 Anion Gap 7.0 (3-11) 01/16/21 BUN 30 mg/dl (7-18) H 01/16/21 Creatinine 0.93 mg/dl (0.6-1.4) 01/16/21 Estimated GFR ( Amer) 103.8 ml/min 01/16/21 Estimated GFR (Non-Af Amer) 89.5 ml/min 01/16/21 BUN/Creatinine Ratio 32.0 (10-20) H 01/16/21 Glu 197 mg/dl (70-99) H 01/16/21 Ca 8.3 mg/dl (8.5-10.1) L 01/16/21 Calcium Level 8.3 mg/dl (8.5-10.1) L 01/16/21 11:53 01/16/21 Louie Test NA 01/16/21 12:23 01/16/21 Diagnostic Findings (Past 24 Hours) Chest X-Ray 01/16/21 11:07 XR chest 1V portable CLINICAL HISTORY: ETT, central line, OG placement. Follow-up follow-up bilateral airspace opacities COMPARISON STUDY: 01/14/2021 TECHNIQUE: 1 view of the chest FINDINGS: Single frontal view of the chest demonstrates the cardiomediastinal silhouette to be within normal limits. An endotracheal tube has been placed with its tip approximately 7.5 cm above the mitch. Could be advanced 2 cm. Right ventricular catheter is in place with its tip in the distal SVC. There is no evidence for pneumothorax. OG tube is also in place with its tip extending into the gastric fundus. Compared to previous study, diffuse interstitial and alveolar opacities are again seen bilaterally most characteristic of a viral type pneumonitis and probable Covid pneumonia. There is no evidence for pleural effusion. There is no evidence for vascular congestion. There is no acute osseous pathology. IMPRESSION: 1. Status post interval intubation with the tip of the ET tube 7.5 cm above the mitch. It could be advanced 2 cm. 2. Tip of right jugular catheter in distal SVC with no pneumothorax. 3. Tip of OG tube in the gastric fundus. 3. Diffuse interstitial and alveolar opacities are again seen bilaterally characteristic of a viral type pneumonitis and Covid pneumonia. ACT 112: Negative or not required by law. Electronically signed by: Ede Torres M.D. 01/16/2021 11:46 AM I & O Totals 24 Hours 01/15/21 01/16/21 01/17/21 06:59 06:59 06:59 Intake Total 920 / 920 1770 / 1770 64.05 / 64.05 Output Total 1825 / 1825 1375 / 1375 200 / 200 Balance -905 / -905 395 / 395 -135.95 / -135.95 Cumulative 01/08/21 08:14 thru 01/16/21 12:00 Intake Total 00993.05 Output Total 9605 Balance 1685.05 RT Ventilator Mngmt (Last Documented) Ventilator Ordered Settings Ventilator Support Mode Assist Control 01/16/21 11:39 Respiratory Rate 28 01/16/21 11:39 Ventilator Tidal Volume 345 01/16/21 11:39 Setting Minute Ventilation 9.3 01/16/21 11:39 Ventilator Positive Pressure 12 01/15/21 20:00 Support Setting Positive End Expiratory 18 01/16/21 11:39 Pressure Fraction of Inspired Oxygen 100 01/16/21 11:39 Ventilator - PT Measurements Respiratory Rate 28 Exhaled Tidal Volume 333 Minute Ventilation 9.3 Peak Inspiratory Airway 38 Pressure Plateau Pressure 34 Respiratory Cycle Inspiratory: 1:1.9 Expiratory Ratio Static Lung Compliance 20.81 Dynamic Lung Compliance 16.65 Normal Static Lung Compliance 44.00 Coding Level of Care Code Critical Care 1st 30-74 mins Diagnoses Pneumonia due to 2019 novel coronavirus U07.1; J12.82 Respiratory failure, acute J96.01 Respiratory failure complication: hypoxia Obesity (BMI 30-39.9) E66.9 ARDS (adult respiratory distress syndrome) J80 (1) Respiratory failure, acute Respiratory failure complication: hypoxia Qualified Code(s): J96.01 - Acute respiratory failure with hypoxia
[2021-01-16] MEDS: CISATRACURIUM BESYLATE 40 MG in 0.9 % SODIUM CHLORIDE 80 ML IV SCH ×2 (13:57→17:22)
--- NOTE | 2021-01-16 14:51 | Pharmacy Report ---
Pharmacy Glycemic Short Note 2 - Date of Service January 16, 2021 - Glycemic Short BSG Results (Last 24 hours): 01/15/21 01/15/21 01/15/21 15:15 16:57 21:06 Glucose 138 H POC Glucose 141 H 94 01/16/21 01/16/21 01/16/21 01:52 01:55 02:28 Glucose POC Glucose 56 L* 60 L* 69 L* 01/16/21 01/16/21 01/16/21 03:25 07:33 11:36 Glucose POC Glucose 127 H 71 46 L* 01/16/21 01/16/21 01/16/21 11:38 11:53 12:04 Glucose 197 H POC Glucose 47 L* 83 01/16/21 13:45 Glucose POC Glucose 89 OUTPATIENT ANTIDIABETIC REGIMEN: * Lantus 60 units BID * Regular 30 units BID * A1c = 10.8% 01/09/21 ASSESSMENT: 01/16: * Patient again became hypoglycemic overnight. Fasting BSG 56 this AM with repeat of hypoglycemia 47 at noon time today. * Patient had received 45 units Lantus + 60 units NPH yesterday. Both basal insulin will be held today. * He had experience a similar hypoglycemic episode on 01/12 and he required no insulin that day while retaining BSGs at an acceptable level. Will likely resume reduced dose basal insulin tomorrow. Would prefer to administer long acting insulins in the AM with IV dexamethasone to allow for dissipation of effect over night. * Dexamethasone has been reduced from 6mg IV BID to once daily in the AM * Will lessen Novolog doses today as well should BSGs begin to rise 01/13: * BSGs remained low for the duration of the day yesterday. No repeat episodes of hypoglycemia noted. BSG did begin to climb overnight however. * Will resume a reduced dose of Lantus this AM and add a small dose of NPH with lunch for continued fasting hyperglycemia. Will be cautious with insulin doses in light of recent hypoglycemic episode and ongoing poor nutritional intake; * IV dexamethasone continues 01/12: * 136 units SQ insulin admin in last 24 hours * PO intake low, but some carbs documented with each meal yesterday. 0 carbs given this AM per food consultant * Pt's BSGs well controlled during the day yesterday however severe hypoglycemia developed overnight (BSGs in 30s). Pt had received 60 units NPH yesterday and 50 units Lantus yesterday. Suspect pt's decreased PO intake combined with insulin accumulation may be to blame. BSGs remain below 100 thus far today. Will continue to hold both NPH and Lantus at this time and follow BSG pattern. Suspect he may resume a greatly reduced dose of Lantus this PM if BSG > 140 * IV dexamethasone continues PLAN FOR INPATIENT GLYCEMIC CONTROL: * Basal insulin * Lantus - hold * NPH - hold * Bolus insulin * NovoLog per scale ACHS and at 0200 * Goal Range: Low 110 mg/dL - High 140 mg/dL * Correction Factor: 15 mg/dL/unit * Nutritional / Prandial insulin per carb ratio of 1 unit per 5 grams CHO consumed PLAN FOR DISCHARGE: * to be determined
[2021-01-16] MEDS: NOREPINEPHRINE/D5W 8 MG/508 ML BAG IV SCH ×2 (15:02→22:47)
[2021-01-16] MEDS: ARTIFICIAL TEARS OP OINT 3.5 GM TUBE OP SCH ×3 (15:02→21:13)
--- NOTE | 2021-01-16 15:57 | Electrocardiogram Report ---
Test Reason : Blood Pressure : / mmHG Vent. Rate : 088 BPM Atrial Rate : 088 BPM P-R Int : 142 ms QRS Dur : 106 ms QT Int : 406 ms P-R-T Axes : 047 -43 051 degrees QTc Int : 491 ms Normal sinus rhythm Left axis deviation Prolonged QT Abnormal ECG When compared with ECG of 08-JAN-2021 08:32, No significant change was found Confirmed by Arnold Gonzalez ([id number]) on 01/16/2021 3:57:03 PM Referred By: NO PCP Confirmed By:Arnold Gonzalez
--- NOTE | 2021-01-16 16:18 | Hospitalist Progress Note ---
Date of Service January 16, 2021 Assessment & Plan (1) Pneumonia due to 2019 novel coronavirus: Plan: (1) Pneumonia due to COVID-19 virus: Plan: Symptoms started approximately 01/03. 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 secondary to likely prerenal injury from poor po intake/dehydration in setting of taking HCTZ,lisinopril as outpt also takes chronic NSAIDs and was borderline hypotensive on arrival so may be a component of ATN resolved, Cr down to 1.1 bo placed for urinary retention, Lasix 40mg IV given 01/15 (4) Diabetes mellitus, type 2: Plan: continue basal and bolus insulin consult Pharmacy check A1C accuchecks ADA diet had hypoglycemia on 01/15 at night ICU protocol now (5) Hypothyroidism: Plan: no TSH in our system s/p thyroidectomy (6) Thrombocytopenia: Plan: resolved, likely from acute viral illness (7) Neuropathy: Plan: with h/o bilat great toe amputations due to DM ulcers no meds needs good foot care (8) Anemia: Plan: chronic, profoundly microcytic Hb is stable (9) Hypertension: Plan: holding meds now needs Levophed after sedation/intubation (10) Hyperkalemia resolved, down to 4.0 after Lasix on 01/16 DVT prophylaxis-heparin SQ 7500 tid due to MEHRDAD, SCDs Dispo- transfer to ICU status FULL CODE and desires intubation if needed, states "do whatever it takes" (2) Acute respiratory failure with hypoxia: (3) Obesity (BMI 30-39.9): (4) Respiratory failure, acute: (5) Acute kidney injury: (6) Major depression with psychotic features: (7) Thrombocytopenia: (8) Hypothyroidism: (9) Osteoarthritis: (10) Neuropathy: (11) Anemia: (12) Hyperkalemia: Admission and Anticipated Discharge Date Admission Date: January 08, 2021 Subjective patient rapidly desaturated this morning after taking his oral medications saturations were < 85% despite BIPAP 100% FiO2 Dr. Reyes was at the bedside, discussed situation with patient, he wanted to be intubated Dr. Reyes performed emergent intubation, now he is ventilated reviewed labs Review of Systems Review of Systems: Unobtainable due to endotracheal tube Physical Exam Physical Exam: General: well developed, well nourished, mechanically ventilated Neck: supple, trachea midline, normal thyroid Lungs: clear to auscultation bilaterally, symmetric chest movement on ventilator Heart: tachycardic S1 and S2, no murmur, peripheral pulses normal, capillary refill normal, no edema Abdomen: soft, NT, ND, + BS, no hepatomegaly, normal to percussion Extremities: normal in appearance, no cyanosis, no petechiae, strength is 5/5 bilaterally Neuro: sedated, no focal motor deficits, CN II-XII intact Skin: warm, dry, no rash, normal turgor Psych: sedated Results & Data Results & Data ([facility]) Vital Signs (Past 12 Hours) Vital Signs Temp Pulse Pulse Resp BP Pulse Ox 01/16/21 14:47 109 H 32 H 88 L 01/16/21 12:00 37.5 C 01/16/21 11:39 90 28 H 91 01/16/21 08:46 81 26 H 90 01/16/21 07:34 37.2 C 89 20 139/90 90 Laboratory Results Laboratory Results - last 24 hr 01/15/21 01/15/21 01/16/21 16:57 21:06 01:52 POC Hgb POC Hct Sample Site POC pH POC pCO2 POC pO2 POC HCO3 POC Total CO2 POC Base Excess ABG pH (Temp Correct) ABG pCO2 (Temp Corrct POC ABG pO2 at Pt Temp POC ABG O2 Sat Louie Test O2 Delivery Device POC O2 Rate Minute Ventilation POC FiO2 Tidal Volume PEEP POC Sodium Sodium POC Potassium Potassium Chloride Carbon Dioxide Anion Gap BUN Creatinine Est Cr Clr Drug Dosing Est GFR ( Amer) Est GFR (Non-Af Amer) BUN/Creatinine Ratio Glucose POC Glucose 141 H 94 56 L* Calcium 01/16/21 01/16/21 01/16/21 01:55 02:28 03:25 POC Hgb POC Hct Sample Site POC pH POC pCO2 POC pO2 POC HCO3 POC Total CO2 POC Base Excess ABG pH (Temp Correct) ABG pCO2 (Temp Corrct POC ABG pO2 at Pt Temp POC ABG O2 Sat Louie Test O2 Delivery Device POC O2 Rate Minute Ventilation POC FiO2 Tidal Volume PEEP POC Sodium Sodium POC Potassium Potassium Chloride Carbon Dioxide Anion Gap BUN Creatinine Est Cr Clr Drug Dosing Est GFR ( Amer) Est GFR (Non-Af Amer) BUN/Creatinine Ratio Glucose POC Glucose 60 L* 69 L* 127 H Calcium 01/16/21 01/16/21 01/16/21 07:33 11:36 11:38 POC Hgb POC Hct Sample Site POC pH POC pCO2 POC pO2 POC HCO3 POC Total CO2 POC Base Excess ABG pH (Temp Correct) ABG pCO2 (Temp Corrct POC ABG pO2 at Pt Temp POC ABG O2 Sat Louie Test O2 Delivery Device POC O2 Rate Minute Ventilation POC FiO2 Tidal Volume PEEP POC Sodium Sodium POC Potassium Potassium Chloride Carbon Dioxide Anion Gap BUN Creatinine Est Cr Clr Drug Dosing Est GFR ( Amer) Est GFR (Non-Af Amer) BUN/Creatinine Ratio Glucose POC Glucose 71 46 L* 47 L* Calcium 01/16/21 01/16/21 01/16/21 11:53 12:04 12:23 POC Hgb 16.7 POC Hct 49 Sample Site Art Line POC pH 7.25 L POC pCO2 69 H POC pO2 80 POC HCO3 31 H POC Total CO2 33 H POC Base Excess 3.0 H ABG pH (Temp Correct) 7.252 L ABG pCO2 (Temp Corrct 69 H POC ABG pO2 at Pt Temp 80 POC ABG O2 Sat 93.0 Louie Test NA O2 Delivery Device Ventilator POC O2 Rate 28 Minute Ventilation 8.16 POC FiO2 100 Tidal Volume 345 PEEP 18 POC Sodium 136 Sodium 135 L POC Potassium 4.3 Potassium 4.0 D Chloride 101 Carbon Dioxide 27 Anion Gap 7.0 BUN 30 H Creatinine 0.93 Est Cr Clr Drug Dosing 128.3 Est GFR ( Amer) 103.8 Est GFR (Non-Af Amer) 89.5 BUN/Creatinine Ratio 32.0 H Glucose 197 H POC Glucose 83 Calcium 8.3 L 01/16/21 13:45 POC Hgb POC Hct Sample Site POC pH POC pCO2 POC pO2 POC HCO3 POC Total CO2 POC Base Excess ABG pH (Temp Correct) ABG pCO2 (Temp Corrct POC ABG pO2 at Pt Temp POC ABG O2 Sat Louie Test O2 Delivery Device POC O2 Rate Minute Ventilation POC FiO2 Tidal Volume PEEP POC Sodium Sodium POC Potassium Potassium Chloride Carbon Dioxide Anion Gap BUN Creatinine Est Cr Clr Drug Dosing Est GFR ( Amer) Est GFR (Non-Af Amer) BUN/Creatinine Ratio Glucose POC Glucose 89 Calcium Medications Administered Current Inpatient Medications Acetaminophen (Acetaminophen 325 Mg Tab) 650 mg PO Q4H PRN PRN Reason: Pain or Fever Stop: 02/07/21 14:01 Last Admin: 01/13/21 08:30 Dose: 650 mg Documented by: Albuterol (Albut/Ipratrop 3mg/0.5mg Neb 3 Ml Vial) 3 ml NEB Q4 PRN PRN Reason: Shortness Of Breath Or Wheezing Stop: 02/09/21 10:41 Last Admin: 01/13/21 20:02 Dose: 3 ml Documented by: Artificial Tears (Artificial Tears) 1 drops OP QID DENILSON Stop: 02/07/21 14:01 Last Admin: 01/16/21 15:01 Dose: 1 drops Documented by: Aspirin (Aspirin 81 Mg Ectab) 81 mg PO DAILY DENILSON Stop: 02/08/21 08:59 Last Admin: 01/16/21 08:06 Dose: 81 mg Documented by: Atorvastatin Calcium (Atorvastatin 40 Mg Tab) 40 mg PO HS DENILSON Stop: 02/07/21 20:59 Last Admin: 01/15/21 21:30 Dose: 40 mg Documented by: Brimonidine Tartrate (Brimonidine Tartrate-P 0.15% 5 Ml Btl) 1 drops OP TID DENILSON Stop: 02/07/21 14:01 Last Admin: 01/16/21 15:02 Dose: 1 drops Documented by: Dextrose (Dextrose 50% 50 Ml Syringe) 25 - 50 ml IV UD PRN; Protocol PRN Reason: Hypoglycemia Protocol Stop: 02/07/21 14:01 Last Admin: 01/16/21 11:44 Dose: 50 ml Documented by: Docusate Sodium (Docusate Sodium 100 Mg Cap) 100 mg PO BID DENILSON Stop: 02/07/21 20:59 Last Admin: 01/16/21 12:04 Dose: Not Given Documented by: Fentanyl Citrate (Fentanyl Bolus From Bag) 50 mcg IV Q60M PRN PRN Reason: Pain or Agitation Stop: 01/30/21 12:01 Glucagon (Glucagon For Inj 1 Mg Vial) 1 mg SQ UD PRN; Protocol PRN Reason: Hypoglycemia Protocol Stop: 02/07/21 14:01 Glucose (Glucose 10 Tabs/Tube) 4 - 8 tabs PO UD PRN; Protocol PRN Reason: Hypoglycemia Protocol Stop: 02/07/21 14:01 Last Admin: 01/16/21 02:37 Dose: 2 tabs Documented by: Glucose (Glucose 40% Gel 15 Gm Tube) 15 - 30 gm PO UD PRN; Protocol PRN Reason: Hypoglycemia Protocol Stop: 02/07/21 14:01 Heparin Sodium (Porcine) (Heparin Sod 5,000 Unit/0.5 Ml Vial) 7,500 units SQ Q12 DENILSON Stop: 02/15/21 20:59 Propofol (Diprivan) 1,000 mg in 100 mls @ 40.5 mls/hr IV .Q2H29M DENILSON; Protocol Stop: 01/19/21 12:14 Last Admin: 01/16/21 13:58 Dose: 50 mcg/kg/min, 40.5 mls/hr Documented by: Fentanyl Citrate (Fentanyl Drip) 1,250 mcg in 250 mls @ 20 mls/hr IV .[id number] DENILSON; Protocol Stop: 01/30/21 12:14 Last Titration: 01/16/21 14:45 Dose: 100 mcg/hr, 20 mls/hr Documented by: Cisatracurium Besylate 40 mg/ (Sodium Chloride) 100 mls @ 13.05 mls/hr IV .Q7H40M [facility]; Protocol Stop: 02/15/21 12:59 Last Admin: 01/16/21 13:57 Dose: 1 mcg/kg/min, 13.1 mls/hr Documented by: Midazolam HCl (Versed) 125 mg in 250 mls @ 2 mls/hr IV .Q96H [facility]; Protocol Stop: 02/15/21 13:44 Norepinephrine Bitartrate (Levophed/D5w) 8 mg in 508 mls @ 25.718 mls/hr IV .[id number] [facility]; Protocol Stop: 02/15/21 13:44 Last Admin: 01/16/21 15:02 Dose: Not Given Documented by: Dexamethasone 6 mg/ Syringe 1.5 mls @ 1 mls/min IV DAILY [facility] Stop: 02/16/21 08:59 Insulin Aspart (Insulin Aspart 100 Units/Ml Vial) 0 units SC ACHS [facility] Stop: 02/14/21 16:29 Last Admin: 01/16/21 12:08 Dose: Not Given Documented by: Insulin Aspart (Insulin Aspart 100 Units/Ml Vial) 0 units SC 0200 [facility] Stop: 02/15/21 01:59 Last Admin: 01/16/21 02:00 Dose: Not Given Documented by: Latanoprost (Latanoprost 0.005% Op Soln 2.5 Ml Btl) 1 drops OP PM [facility] Stop: 02/07/21 20:59 Last Admin: 01/15/21 21:28 Dose: 1 drops Documented by: Levothyroxine Sodium (Levothyroxine Sodium 175 Mcg Tablet) 175 mcg PO DAILYBB [facility] Stop: 02/08/21 06:29 Last Admin: 01/16/21 06:17 Dose: 175 mcg Documented by: Midazolam HCl (Midazolam Bolus From Bag) 2 mg IV Q60M PRN PRN Reason: Sedation Stop: 02/15/21 13:37 Miscellaneous (Topiramate Xr: Order Awaiting Action) 1 ea N/A QS [facility] Stop: 02/07/21 15:59 Last Admin: 01/13/21 02:38 Dose: Not Given Documented by: Miscellaneous (Carbohydrates For Hypoglycemia ) 15 - 30 gm PO UD PRN PRN Reason: Hypoglycemia Protocol Stop: 02/07/21 14:01 Last Admin: 01/16/21 03:10 Dose: 13 gm Documented by: Miscellaneous (Icu Electrolyte Replacement Protocol) 1 ea N/A BID@18 [facility]; Protocol Stop: 01/23/21 17:59 Miscellaneous Information (Pharmacy Glycemic Mgmt Consult) 1 ea N/A UD PRN; Protocol PRN Reason: Consult Stop: 02/07/21 14:01 Multi-Ingredient Cream (Artificial Tears Op Oint 3.5 Gm Tube) 1 appln OP Q4H [facility] Stop: 02/15/21 13:59 Last Admin: 01/16/21 15:02 Dose: 1 appln Documented by: Nystatin (Nystatin Susp 500,000 U/5 Ml Ud) 5 ml PO QID [place]ILSON Stop: 01/18/21 14:01 Last Admin: 01/16/21 13:33 Dose: Not Given Documented by: Polyethylene Glycol (Polyethylene (Miralax) 17 Gm Pack) 17 gm PO DAILY PRN PRN Reason: Constipation Stop: 02/07/21 14:01 Propofol (Propofol Bolus From Bag) 20 mg IV Q5M PRN PRN Reason: Sedation Stop: 01/19/21 12:00 Timolol Maleate (Timolol Maleate 0.5% Op Soln 5 Ml Btl) 1 drops OP BID [place]ILSON Stop: 02/07/21 20:59 Last Admin: 01/16/21 08:07 Dose: Not Given Documented by: Trazodone HCl (Trazodone Hcl 50 Mg Tab) 50 mg PO HS [facility] Stop: 02/07/21 20:59 Last Admin: 01/15/21 21:30 Dose: 50 mg Documented by: PG Care Time/CCT Total # of Minutes Spent Total Time Spent with Patient: Total time spent is greater than 50% in coordination of care (as documented) at patient's floor/unit and/or counseling patient: Coding Level of Care Code 87030 Subseq Hosp Care Lvl 3 Diagnoses Pneumonia due to 2019 novel coronavirus U07.1; J12.82 Acute respiratory failure with hypoxia J96.01 Obesity (BMI 30-39.9) E66.9 Respiratory failure, acute J96.01 Respiratory failure complication: hypoxia Acute kidney injury N17.9 Major depression with psychotic features F32.3 Thrombocytopenia D69.6 Hypothyroidism E03.9 Osteoarthritis M19.90 Neuropathy G62.9 Anemia D64.9 Hyperkalemia E87.5 (1) Respiratory failure, acute Respiratory failure complication: hypoxia Qualified Code(s): J96.01 - Acute respiratory failure with hypoxia
[2021-01-16] MEDS ORDERED: MIDAZOLAM HCL 5 MG/ML 10 ML IV ONE (18:23)
[2021-01-16] MEDS ORDERED: fentaNYL citrate 100 MCG/2 ML VIAL IV ONE (18:23)
[2021-01-16] MEDS: ICU ELECTROLYTE REPLACEMENT PROTOCOL SCH (19:07)
[2021-01-16] MEDS: LATANOPROST 0.005% OP SOLN 2.5 ML BTL OP SCH (21:12)
[2021-01-16] MEDS ORDERED: FUROSEMIDE 40 MG/4 ML VIAL IV ONE (22:23)
[2021-01-16 22:53] LABS: iSTAT Art Bld Gas pCO2 Correct 94 mmHg (35-46); iSTAT Arterial Blood Gas HCO3 31 meg/L (19-24); iSTAT Arterial Blood Gas pCO2 91 mmHg (35-46); iSTAT Arterial Blood Gas pH 7.14 (7.35-7.45); iSTAT Arterial Blood Gas pO2 70 mmHg (80-95); iSTAT Arterial Blood Gas pO2 C 73; iSTAT Carbon Dioxide 34 mmol/L (24-31); iSTAT FiO2 100 %; iSTAT Hematocrit 55 % (42-52); iSTAT Hemoglobin 18.7 g/dl (14.0-18.0); iSTAT Potassium 6.2 mmol/L (3.3-5.0); iSTAT Site Art Line; iSTAT Sodium 134 mmol/L (135-144)
[2021-01-16 23:52] LABS: iSTAT Art Bld Gas pCO2 Correct 71 mmHg (35-46); iSTAT Art Bld Gas pH Corrected 7.173 (7.35-7.45); iSTAT Arterial Blood Gas HCO3 26 meg/L (19-24); iSTAT Arterial Blood Gas pCO2 69 mmHg (35-46); iSTAT Arterial Blood Gas pH 7.18 (7.35-7.45); iSTAT Arterial Blood Gas pO2 63 mmHg (80-95); iSTAT Arterial Blood Gas pO2 C 66; iSTAT Carbon Dioxide 28 mmol/L (24-31); iSTAT FiO2 100 %; iSTAT Hematocrit 55 % (42-52); iSTAT Hemoglobin 18.7 g/dl (14.0-18.0); iSTAT Potassium 6.1 mmol/L (3.3-5.0); iSTAT Site Art Line; iSTAT Sodium 134 mmol/L (135-144)
[2021-01-17] MEDS: fentaNYL DRIP 1,250 MCG/250 ML BAG IV SCH (00:31)
[2021-01-17] MEDS: CISATRACURIUM BESYLATE 40 MG in 0.9 % SODIUM CHLORIDE 80 ML IV SCH ×2 (01:24→17:18)
[2021-01-17] MEDS: propofoL 1,000 MG/100 ML VIAL IV SCH ×3 (01:24→12:54)
[2021-01-17] MEDS: INSULIN ASPART 100 UNITS/ML VIAL SC SCH (02:07)
[2021-01-17] MEDS: ARTIFICIAL TEARS OP OINT 3.5 GM TUBE OP SCH ×4 (02:08→18:43)
[2021-01-17] MEDS ORDERED: ALBUMIN 25% 100 mL 25 GM/100 ML VIAL IV ONE (02:59)
[2021-01-17 03:44] LABS: iSTAT Art Bld Gas pCO2 Correct 67 mmHg (35-46); iSTAT Art Bld Gas pH Corrected 7.164 (7.35-7.45); iSTAT Arterial Blood Gas HCO3 24 meg/L (19-24); iSTAT Arterial Blood Gas pCO2 63 mmHg (35-46); iSTAT Arterial Blood Gas pH 7.18 (7.35-7.45); iSTAT Arterial Blood Gas pO2 62 mmHg (80-95); iSTAT Arterial Blood Gas pO2 C 68; iSTAT Carbon Dioxide 26 mmol/L (24-31); iSTAT FiO2 100 %; iSTAT Hematocrit 54 % (42-52); iSTAT Hemoglobin 18.4 g/dl (14.0-18.0); iSTAT Potassium 6.6 mmol/L (3.3-5.0); iSTAT Site Art Line; iSTAT Sodium 132 mmol/L (135-144)
[2021-01-17] MEDS: ACETAMINOPHEN 1,000 MG/100 ML VIAL IV PRN (03:53)
[2021-01-17] MEDS ORDERED: INSULIN ASPART 100 UNITS/ML VIAL SC SCH (06:00)
[2021-01-17] MEDS ORDERED: VANCOMYCIN CONSULT ACTIVE PRN (06:29)
[2021-01-17] MEDS ORDERED: PIPERACILL/TAZOBAC CONSULT ACTIVE PRN (06:31)
[2021-01-17 06:42] LABS: Hematocrit (blood only) 47.8 % (42-52); Hemoglobin 14.8 g/dL (14.0-18.0); Mean Corpuscular Hemoglobin 21.3 pg (25-34); Mean Corpuscular Volume 68.7 fL (80-100); Nucleated RBC # (auto) 0.06 K/uL (0-0); Nucleated RBC % (auto) 0.2 %; Platelet Count 302 K/uL (130-400); RDW Coefficient of Variation 17.8 % (11.5-14.5); RDW Standard Deviation 43.3 fL (36.4-46.3); Red Blood Count 6.96 M/uL (4.7-6.1); White Blood Count 29.67 K/uL (4.8-10.8)
[2021-01-17 06:44] LABS: BUN Creatinine Ratio 18.5 (10-20); Beta-Hydroxybutyrate 6.81 mg/dl (0.2-2.81); Calcium 8.7 mg/dl (8.5-10.1); Creatinine Clr Calc Pharmacy 40.6 ml/min; Est GFR (African American) 25.8 ml/min; Est GFR (Non-African American) 22.3 ml/min; Magnesium 2.9 mg/dl (1.8-2.4); Potassium 6.6 mmol/L (3.5-5.1)
[2021-01-17] MEDS ORDERED: SODIUM BICARB 8.4% INJ 50 MEQ/50 ML SYR IV STA (06:45)
[2021-01-17] MEDS ORDERED: INSULIN PROTOCOL GOAL RANGE ONE (06:45)
[2021-01-17] MEDS ORDERED: STAT IV Infusion **Titration per Protocol STA ×3 (06:45→21:25)
[2021-01-17] MEDS ORDERED: PIPERACILLIN/TAZOBACTAM 3.375 GM in DEXTROSE 5% 100 ML IV SCH (06:45)
[2021-01-17 06:51] LABS: ALC (manual) 2.58 K/uL (1.2-3.4); ANC (manual) 26.05 K/uL (1.4-6.5); Echinocytes 1+; Lymphocytes # (manual) 2.58 K/uL (1.2-3.4); Lymphocytes % (manual) 8.7 %; Microcytosis Present; Monocytes # (manual) 1.04 K/uL (0.11-0.59); Monocytes % (manual) 3.5 %; Neutrophils # (manual) 26.05 K/uL (1.4-6.5); Neutrophils % (manual) 87.8 %
[2021-01-17] MEDS ORDERED: NORMOSOL-R 1,000 ML IV ONE (06:51)
[2021-01-17] MEDS ORDERED: PIPERACILLIN/TAZOBACTAM 4.5 GM in DEXTROSE 5% 100 ML IV ONE (07:00)
[2021-01-17] MEDS ORDERED: VANCOMYCIN HCL 2,750 MG in SODIUM CHLORIDE 0.9% 500 ML IV ONE (07:00)
[2021-01-17] MEDS ORDERED: INSULIN HUMAN REGULAR PER UNIT 10 UNITS in SYRINGE 0 ML IV ONE (07:05)
[2021-01-17] MEDS ORDERED: DEXTROSE 50% 50 ML SYRINGE IV ONE (07:06)
[2021-01-17] MEDS ORDERED: CALCIUM GLUCONATE 10% 1,000 MG in SODIUM CHLORIDE 0.9% 50 ML IV ONE (07:15)
[2021-01-17] MEDS: INSULIN REGULAR 250 UNITS in SODIUM CHLORIDE 0.9% 247.5 ML IV SCH (07:24)
--- NOTE | 2021-01-17 07:31 | Ultrasound Report ---
US venous doppler LE BI CLINICAL HISTORY: Bilateral leg swelling COMPARISON: None available at the time of this dictation. TECHNIQUE: Bilateral lower extremity real-time compression venous ultrasound with Color Doppler imagi ng. Utilizing real-time ultrasonic imaging multiple real time high-resolution ultrasonic images with comp ression and noncompression maneuvers of the deep venous system in addition to color doppler imaging w ere performed from the common femoral vein through the proximal calf veins. FINDINGS: The study is limited by the patient's body habitus. Currently there is normal compressibility of the deep venous system from the common femoral vein thro ugh the proximal calf veins. No current evidence of acute thrombosis is identified. However, the calf veins were not well imaged and no flow could be detected in the left peroneal veins. This is probabl y related to the patient's body habitus. Impression: No evidence of deep venous thrombus. However, there is limited evaluation of the calf veins bilateral ly related to the patient's body habitus. ACT 112: Negative or not required by law. Electronically signed by: Ede Torres M.D. 01/17/2021 7:30 AM
[2021-01-17 07:46] LABS: Albumin Level 2.4 gm/dl (3.4-5.0); Bilirubin Direct 0.8 mg/dl (0-0.2); Bilirubin,Total 1.1 mg/dl (0.2-1)
[2021-01-17 08:09] LABS: Phosphorus 10.9 mg/dl (2.5-4.9)
[2021-01-17] MEDS: BRIMONIDINE TARTRATE-P 0.15% 5 ML BTL OP SCH ×3 (08:45→22:26)
[2021-01-17] MEDS: TIMOLOL MALEATE 0.5% OP SOLN 5 ML BTL OP SCH ×2 (08:50→22:26)
[2021-01-17] MEDS: INSULIN ASPART 100 UNITS/ML 3 ML PEN SC SCH ×4 (09:29→22:24)
[2021-01-17] MEDS: SODIUM BICARBONATE 8.4% 150 MEQ in WATER, STERILE 1,000 ML IV SCH (09:39)
[2021-01-17] MEDS: VASOPRESSIN 20 UNITS in 0.9 % SODIUM CHLORIDE 100 ML IV SCH ×2 (09:40→16:41)
[2021-01-17] MEDS: HEPARIN SOD 5,000 UNIT/0.5 ML VIAL SQ SCH ×2 (09:40→22:32)
--- NOTE | 2021-01-17 09:54 | Nephrology Consultation ---
Date of Consultation January 17, 2021 Assessment & Plan (1) Acute kidney injury: Clinically consistent with ischemic ATN. Oliguric. Prognosis guarded. Anticipate that patient will require [employer] in next 24 hours. Medical management is being provided currently. Repeat labs and evaluation this afternoon. Check CK. Repeat UA/micro. Funk to gravity. Medications appropriate for kidney dysfunction. (2) Hyperkalemia: Patiromer 8.4 gm now. Repeat this afternoon. EKG reviewed. Continue IV steroids. Acute adrenal crisis unlikely with Dexaethasone. (3) ARDS (adult respiratory distress syndrome): Prognosis guarded. Palliative care consult pending. (4) Pneumonia due to COVID-19 virus: Plan of care reviewed with ICU team. History of Present Illness Reason for Consultation: MEHRDAD Requesting Physician: Nik Whitfield DO Attending Physician: Nik Whitfield DO History of Present Illness Mr. Douglas Ricks is a 60-year-old male with obesity, uncontrolled DM, hypertension, and hypothyroidism. He was admitted to [facility] on 01/03 with COVID pneumonia. Initially treated with Remdesivir, Dexamethasone, and Baricitinib. Intubated with progressive respiratory failure on 01/16. Remains on FIO2 90% with PEEP 14. Overnight, Navin developed notable hemodynamic instability. He is receiving an IV Normosol bolus. Vasopressor support provided with Levophed. No arrhythmia. Navin is oliguric. Funk draining concentrated urine. Furosemide had been provided daily to encourage negative fluid balance. Laboratory studies now demonstrating acidosis and hyperkalemia. Calcium gluconate and insulin + dextrose have been provided. I discussed the patient's history and plan of care with Dr. Whitfield this morning. Dr. Whitfield has been in contact with the patient's family. UA/micro from admission with suspected UTI initially treated with ceftriaxone. Repeat urine studies requested at this time. Renal US on 01/08 demonstrated normal appearing kidneys. 2.5 parapelvic cyst noted on the R. Allergies Allergy/AdvReac Type Severity Reaction Status Date / Time No Known Allergies Allergy Verified 01/08/21 09:51 Home Medications Medication Instructions Recorded Confirmed Type aspirin 81 mg tablet,delayed 81 mg PO DAILY 01/21/18 01/08/21 History release (Adult Low Dose Aspirin) calcium carbonate 600 mg-vitamin 1 tab PO TID tab 01/21/18 01/08/21 History D3 10 mcg (400 unit) tablet (Calcium 600 + D(3)) docusate sodium 100 mg capsule 100 mg PO BID 01/21/18 01/08/21 History hydrochlorothiazide 25 mg tablet 25 mg PO DAILY 01/21/18 01/08/21 History levothyroxine 175 mcg tablet 175 mcg PO DAILY 01/21/18 01/08/21 History metoprolol succinate 100 mg 100 mg PO DAILY 01/21/18 01/08/21 History tablet,extended release 24 hr minoxidil 10 mg tablet 10 mg PO DAILY 01/21/18 01/08/21 History paroxetine HCl 30 mg tablet 60 mg PO DAILY tab 01/21/18 01/08/21 History peg [id number] 1 1 drops OP QID 01/21/18 01/08/21 History %-0.2 %-0.2 % eye drops (Visine Tears) topiramate 50 mg capsule,extended 50 mg PO DAILY 01/21/18 01/08/21 History release 24 hr vitamin E 1 appln TOP BID gm 01/21/18 01/08/21 History lisinopril 40 mg tablet 40 mg PO DAILY 03/17/18 01/08/21 History timolol 0.5 % eye drops 1 drp OPHTHALMIC (EYE) BID 03/17/18 01/08/21 History amlodipine 5 mg tablet 5 mg PO DAILY 01/08/21 01/08/21 History atorvastatin 40 mg tablet 40 mg PO HS 01/08/21 01/08/21 History brimonidine 0.15 % eye drops 1 drp OPHTHALMIC (EYE) TID 01/08/21 01/08/21 History diclofenac sodium 75 mg 75 mg PO BID 01/08/21 01/08/21 History tablet,delayed release insulin glargine 100 unit/mL 60 unit SUBCUT BID 01/08/21 01/08/21 History subcutaneous solution (Semglee U-100 Insulin) insulin regular human 100 unit/mL 1 sliding scale dose SUBCUT 01/08/21 01/08/21 History injection solution (Novolin R USEASDIRECTD Regular U-100 Insulin) insulin regular human 100 unit/mL 30 unit SUBCUT BID 01/08/21 01/08/21 History injection solution (Novolin R Regular U-100 Insulin) latanoprost 0.005 % eye drops 1 drp OPHTHALMIC (EYE) PM 01/08/21 01/08/21 History (Xalatan) trazodone 50 mg tablet 50 mg PO HS 01/08/21 01/08/21 History Patient History Medical History Anemia Anxiety Diabetes mellitus, type 2 IDDM Glaucoma Hyperlipidemia Hypertension Hypocalcemia Hypothyroidism Kidney disease Major depression with psychotic features Neuropathy Obesity (BMI 30-39.9) Osteoarthritis Thrombocytopenia Surgical History History of amputation LEFT GREAT TOE - 06/2017 [facility] History of cataract surgery History of thyroidectomy Family History Other Family history non-contributory Social History Smoking Status: Never smoker Hx Alcohol Use: No Hx Substance Use: No Preferred Language: [place] Islander Communication Ability: Unable Edge Inker Required: No Beliefs That Will Affect Care: None marital status: Single Current Living Situation: Other Current Living Situation Comment: [employer] since 1989 current occupational status: other Other Information That Helps Us Care for You: No Feels Safe at Home: Yes Safety Concerns: Feels Safe At This Time Assistive Devices: Oxygen - Continuous Review of Systems Review of Systems: Unobtainable due to endotracheal tube and Unobtainable due to reduced consciousness Physical Exam Constitutional: well developed, + ill appearing and + obese Eyes: + anicteric sclerae; no corneal abnormality ENMT: ETT, OGT draining dark bilious fluid Neck: normal visual inspection and trachea midline Respiratory: normal respiratory effort Auscultation: lungs clear to auscultation bilaterally Cardiovascular: Rate/Rhythm: + tachycardic Heart Sounds: normal S1 and no rmal S2 Extremities: + edema Gastrointestinal (Abdomen): Inspection/Auscultation: + abdomen distended and normal bowel sounds Percussion/Palpation: abdomen soft Musculoskeletal: Extremities: no cyanosis and no clubbing Skin: normal turgor; no lesions Neurologic: Motor/Sensory: no tremor and no asterixis Psychiatric: sedated and unresponsive Genitourinary: Funk with a small amount of concentrated urine Results & Data ([facility]) Vital Signs (Past 12 Hours) Vital Signs Temp Pulse Resp BP Pulse Ox 01/17/21 07:53 37.9 C H 01/17/21 07:15 116 H 32 H 91 01/17/21 07:00 118 H 32 H 93 01/17/21 06:45 118 H 32 H 92 01/17/21 06:30 115 H 32 H 107/78 01/17/21 06:15 115 H 32 H 91 01/17/21 06:10 32 H 01/17/21 06:05 119 H 30 H 86 L 01/17/21 06:00 38.7 C H 118 H 86 L 01/17/21 05:45 38.6 C H 118 H 23 86 L 01/17/21 05:30 38.6 C H 119 H 25 H 86 L 01/17/21 05:15 38.6 C H 118 H 13 86 L 01/17/21 05:00 38.5 C H 118 H 15 86 L 01/17/21 04:45 38.5 C H 118 H 17 85 L 01/17/21 04:30 38.5 C H 118 H 12 85 L 01/17/21 04:15 38.5 C H 117 H 12 85 L 01/17/21 04:00 38.4 C H 116 H 13 84 L 01/17/21 03:45 38.4 C H 116 H 7 L 83 L 01/17/21 03:30 38.4 C H 117 H 13 83 L 01/17/21 03:15 38.3 C H 117 H 15 83 L 01/17/21 03:00 38.3 C H 118 H 18 83 L 01/17/21 02:45 38.2 C H 118 H 20 83 L 01/17/21 02:36 118 H 32 H 84 L 01/17/21 02:30 38.2 C H 117 H 14 84 L 01/17/21 02:15 38.1 C H 117 H 32 H 83 L 01/17/21 02:00 38.1 C H 116 H 84 L 01/17/21 01:45 38.0 C H 117 H 84 L 01/17/21 01:30 38.0 C H 118 H 84 L 01/17/21 01:15 37.9 C H 118 H 84 L 01/17/21 01:00 37.9 C H 116 H 103/72 84 L 01/17/21 00:45 37.9 C H 117 H 84 L 01/17/21 00:30 37.8 C H 117 H 23 84 L 01/17/21 00:15 117 H 32 H 84 L 01/17/21 00:00 116 H 32 H 83 L 01/16/21 23:45 116 H 23 83 L 01/16/21 23:30 117 H 20 83 L 01/16/21 23:15 116 H 25 H 82 L 01/16/21 23:00 113 H 26 H 83 L 01/16/21 22:45 108 H 32 H 84 L 01/16/21 22:30 111 H 29 H 01/16/21 22:15 112 H 13 83 L 01/16/21 22:00 113 H 16 82 L Laboratory Results Laboratory Results - last 24 hr 01/16/21 01/16/21 01/16/21 11:36 11:38 11:53 WBC RBC Hgb POC Hgb Hct POC Hct MCV MCH MCHC RDW Std Deviation RDW Coeff of Shree Plt Count Absolute Nucleated RBC Nucleated RBC % (auto) Neutrophils % (Manual) Lymphocytes % (Manual) Monocytes % (Manual) Neutrophils # (Manual) Total Absolute Neuts Lymphocytes # (Manual) Total Abs Lymphocytes Monocytes # (Manual) Microcytosis Echinocytes Sample Site POC pH POC pCO2 POC pO2 POC HCO3 POC Total CO2 POC Base Excess ABG pH (Temp Correct) ABG pCO2 (Temp Corrct POC ABG pO2 at Pt Temp POC ABG O2 Sat Louie Test O2 Delivery Device POC O2 Rate Minute Ventilation POC FiO2 Tidal Volume PEEP POC Sodium Sodium 135 L POC Potassium Potassium 4.0 D Chloride 101 Carbon Dioxide 27 Anion Gap 7.0 BUN 30 H Creatinine 0.93 Est Cr Clr Drug Dosing 128.3 Est GFR ( Amer) 103.8 Est GFR (Non-Af Amer) 89.5 BUN/Creatinine Ratio 32.0 H Glucose 197 H POC Glucose 46 L* 47 L* POC Glucose (other) Lactate Calcium 8.3 L Phosphorus Magnesium Total Bilirubin Direct Bilirubin AST ALT Alkaline Phosphatase Total Creatine Kinase Total Protein Albumin Beta-Hydroxybutyric Acd Procalcitonin 01/16/21 01/16/21 01/16/21 12:04 12:23 13:45 WBC RBC Hgb POC Hgb 16.7 Hct POC Hct 49 MCV MCH MCHC RDW Std Deviation RDW Coeff of Shree Plt Count Absolute Nucleated RBC Nucleated RBC % (auto) Neutrophils % (Manual) Lymphocytes % (Manual) Monocytes % (Manual) Neutrophils # (Manual) Total Absolute Neuts Lymphocytes # (Manual) Total Abs Lymphocytes Monocytes # (Manual) Microcytosis Echinocytes Sample Site Art Line POC pH 7.25 L POC pCO2 69 H POC pO2 80 POC HCO3 31 H POC Total CO2 33 H POC Base Excess 3.0 H ABG pH (Temp Correct) 7.252 L ABG pCO2 (Temp Corrct 69 H POC ABG pO2 at Pt Temp 80 POC ABG O2 Sat 93.0 Louie Test NA O2 Delivery Device Ventilator POC O2 Rate 28 Minute Ventilation 8.16 POC FiO2 100 Tidal Volume 345 PEEP 18 POC Sodium 136 Sodium POC Potassium 4.3 Potassium Chloride Carbon Dioxide Anion Gap BUN Creatinine Est Cr Clr Drug Dosing Est GFR ( Amer) Est GFR (Non-Af Amer) BUN/Creatinine Ratio Glucose POC Glucose 83 89 POC Glucose (other) Lactate Calcium Phosphorus Magnesium Total Bilirubin Direct Bilirubin AST ALT Alkaline Phosphatase Total Creatine Kinase Total Protein Albumin Beta-Hydroxybutyric Acd Procalcitonin 01/16/21 01/16/21 01/16/21 17:10 21:08 22:28 WBC RBC Hgb POC Hgb 18.7 H Hct POC Hct 55 H MCV MCH MCHC RDW Std Deviation RDW Coeff of Shree Plt Count Absolute Nucleated RBC Nucleated RBC % (auto) Neutrophils % (Manual) Lymphocytes % (Manual) Monocytes % (Manual) Neutrophils # (Manual) Total Absolute Neuts Lymphocytes # (Manual) Total Abs Lymphocytes Monocytes # (Manual) Microcytosis Echinocytes Sample Site Art Line POC pH 7.14 L* POC pCO2 91 H POC pO2 70 L POC HCO3 31 H POC Total CO2 34 H POC Base Excess 2.0 H ABG pH (Temp Correct) 7.130 L* ABG pCO2 (Temp Corrct 94 H POC ABG pO2 at Pt Temp 73 POC ABG O2 Sat 86.0 L Louie Test NA O2 Delivery Device Ventilator POC O2 Rate 32 Minute Ventilation POC FiO2 100 Tidal Volume 345 PEEP 16 POC Sodium 134 L Sodium POC Potassium 6.2 H* Potassium Chloride Carbon Dioxide Anion Gap BUN Creatinine Est Cr Clr Drug Dosing Est GFR ( Amer) Est GFR (Non-Af Amer) BUN/Creatinine Ratio Glucose POC Glucose 135 H 136 H POC Glucose (other) Lactate Calcium Phosphorus Magnesium Total Bilirubin Direct Bilirubin AST ALT Alkaline Phosphatase Total Creatine Kinase Total Protein Albumin Beta-Hydroxybutyric Acd Procalcitonin 01/16/21 01/17/21 01/17/21 23:34 02:04 03:30 WBC RBC Hgb POC Hgb 18.7 H 18.4 H Hct POC Hct 55 H 54 H MCV MCH MCHC RDW Std Deviation RDW Coeff of Shree Plt Count Absolute Nucleated RBC Nucleated RBC % (auto) Neutrophils % (Manual) Lymphocytes % (Manual) Monocytes % (Manual) Neutrophils # (Manual) Total Absolute Neuts Lymphocytes # (Manual) Total Abs Lymphocytes Monocytes # (Manual) Microcytosis Echinocytes Sample Site Art Line Art Line POC pH 7.18 L* 7.18 L* POC pCO2 69 H 63 H POC pO2 63 L 62 L POC HCO3 26 H 24 POC Total CO2 28 26 POC Base Excess -2.0 -5.0 ABG pH (Temp Correct) 7.173 L* 7.164 L* ABG pCO2 (Temp Corrct 71 H 67 H POC ABG pO2 at Pt Temp 66 68 POC ABG O2 Sat 85.0 L 84.0 L Louie Test NA NA O2 Delivery Device Ventilator Ventilator POC O2 Rate 32 32 Minute Ventilation POC FiO2 100 100 Tidal Volume 400 400 PEEP 14 14 POC Sodium 134 L 132 L Sodium POC Potassium 6.1 H* 6.6 H* Potassium Chloride Carbon Dioxide Anion Gap BUN Creatinine Est Cr Clr Drug Dosing Est GFR ( Amer) Est GFR (Non-Af Amer) BUN/Creatinine Ratio Glucose POC Glucose POC Glucose (other) 256 H Lactate Calcium Phosphorus Magnesium Total Bilirubin Direct Bilirubin AST ALT Alkaline Phosphatase Total Creatine Kinase Total Protein Albumin Beta-Hydroxybutyric Acd Procalcitonin 01/17/21 01/17/21 01/17/21 05:31 05:31 05:31 WBC 29.67 H RBC 6.96 H Hgb 14.8 POC Hgb Hct 47.8 POC Hct MCV 68.7 L MCH 21.3 L MCHC 31.0 L RDW Std Deviation 43.3 RDW Coeff of Shree 17.8 H Plt Count 302 Absolute Nucleated RBC 0.06 H Nucleated RBC % (auto) 0.2 Neutrophils % (Manual) 87.8 Lymphocytes % (Manual) 8.7 Monocytes % (Manual) 3.5 Neutrophils # (Manual) 26.05 H Total Absolute Neuts 26.05 H Lymphocytes # (Manual) 2.58 Total Abs Lymphocytes 2.58 Monocytes # (Manual) 1.04 H Microcytosis Present Echinocytes 1+ Sample Site POC pH POC pCO2 POC pO2 POC HCO3 POC Total CO2 POC Base Excess ABG pH (Temp Correct) ABG pCO2 (Temp Corrct POC ABG pO2 at Pt Temp POC ABG O2 Sat Louie Test O2 Delivery Device POC O2 Rate Minute Ventilation POC FiO2 Tidal Volume PEEP POC Sodium Sodium 130 L POC Potassium Potassium 6.6 H* D Chloride 95 L Carbon Dioxide 24 Anion Gap 11.0 BUN 54 H D Creatinine 2.94 H D Est Cr Clr Drug Dosing 40.6 Est GFR ( Amer) 25.8 Est GFR (Non-Af Amer) 22.3 BUN/Creatinine Ratio 18.5 Glucose 280 H POC Glucose POC Glucose (other) Lactate 4.8 H* Calcium 8.7 Phosphorus 10.9 H Magnesium 2.9 H Total Bilirubin Direct Bilirubin AST ALT Alkaline Phosphatase Total Creatine Kinase Total Protein Albumin Beta-Hydroxybutyric Acd 6.81 H Procalcitonin 01/17/21 01/17/21 01/17/21 05:35 05:35 05:46 WBC RBC Hgb POC Hgb Hct POC Hct MCV MCH MCHC RDW Std Deviation RDW Coeff of Shree Plt Count Absolute Nucleated RBC Nucleated RBC % (auto) Neutrophils % (Manual) Lymphocytes % (Manual) Monocytes % (Manual) Neutrophils # (Manual) Total Absolute Neuts Lymphocytes # (Manual) Total Abs Lymphocytes Monocytes # (Manual) Microcytosis Echinocytes Sample Site POC pH POC pCO2 POC pO2 POC HCO3 POC Total CO2 POC Base Excess ABG pH (Temp Correct) ABG pCO2 (Temp Corrct POC ABG pO2 at Pt Temp POC ABG O2 Sat Louie Test O2 Delivery Device POC O2 Rate Minute Ventilation POC FiO2 Tidal Volume PEEP POC Sodium Sodium POC Potassium Potassium Chloride Carbon Dioxide Anion Gap BUN Creatinine Est Cr Clr Drug Dosing Est GFR ( Amer) Est GFR (Non-Af Amer) BUN/Creatinine Ratio Glucose POC Glucose POC Glucose (other) 287 H Lactate Calcium Phosphorus Magnesium Total Bilirubin 1.1 H Direct Bilirubin 0.8 H AST 67 H ALT 29 Alkaline Phosphatase 95 Total Creatine Kinase Total Protein 8.0 Albumin 2.4 L Beta-Hydroxybutyric Acd Procalcitonin 6.54 H 01/17/21 01/17/21 01/17/21 07:42 08:38 08:57 WBC RBC Hgb POC Hgb Hct POC Hct MCV MCH MCHC RDW Std Deviation RDW Coeff of Shree Plt Count Absolute Nucleated RBC Nucleated RBC % (auto) Neutrophils % (Manual) Lymphocytes % (Manual) Monocytes % (Manual) Neutrophils # (Manual) Total Absolute Neuts Lymphocytes # (Manual) Total Abs Lymphocytes Monocytes # (Manual) Microcytosis Echinocytes Sample Site POC pH POC pCO2 POC pO2 POC HCO3 POC Total CO2 POC Base Excess ABG pH (Temp Correct) ABG pCO2 (Temp Corrct POC ABG pO2 at Pt Temp POC ABG O2 Sat Louie Test O2 Delivery Device POC O2 Rate Minute Ventilation POC FiO2 Tidal Volume PEEP POC Sodium Sodium 134 L POC Potassium Potassium Pending Chloride 97 L Carbon Dioxide 22 Anion Gap 16.0 H BUN 56 H Creatinine 2.99 H Est Cr Clr Drug Dosing 39.9 Est GFR ( Amer) 25.3 Est GFR (Non-Af Amer) 21.8 BUN/Creatinine Ratio 18.6 Glucose 343 H* POC Glucose POC Glucose (other) 308 H 350 H Lactate Calcium 7.3 L D Phosphorus Magnesium Total Bilirubin Direct Bilirubin AST ALT Alkaline Phosphatase Total Creatine Kinase Total Protein Albumin Beta-Hydroxybutyric Acd Pending Procalcitonin 01/17/21 01/17/21 01/17/21 08:57 08:57 09:36 WBC RBC Hgb POC Hgb 16.0 Hct POC Hct 47 MCV MCH MCHC RDW Std Deviation RDW Coeff of Shree Plt Count Absolute Nucleated RBC Nucleated RBC % (auto) Neutrophils % (Manual) Lymphocytes % (Manual) Monocytes % (Manual) Neutrophils # (Manual) Total Absolute Neuts Lymphocytes # (Manual) Total Abs Lymphocytes Monocytes # (Manual) Microcytosis Echinocytes Sample Site Art Line POC pH 7.22 L POC pCO2 62 H POC pO2 80 POC HCO3 25 H POC Total CO2 27 POC Base Excess -2.0 ABG pH (Temp Correct) 7.205 L ABG pCO2 (Temp Corrct 65 H POC ABG pO2 at Pt Temp 86 POC ABG O2 Sat 93.0 Louie Test NA O2 Delivery Device Ventilator POC O2 Rate 32 Minute Ventilation POC FiO2 50 Tidal Volume 400 PEEP 14 POC Sodium 134 L Sodium POC Potassium 5.2 H Potassium Chloride Carbon Dioxide Anion Gap BUN Creatinine Est Cr Clr Drug Dosing Est GFR ( Amer) Est GFR (Non-Af Amer) BUN/Creatinine Ratio Glucose POC Glucose POC Glucose (other) Lactate 4.0 H* Calcium Phosphorus Magnesium Total Bilirubin Direct Bilirubin AST ALT Alkaline Phosphatase Total Creatine Kinase Pending Total Protein Albumin Beta-Hydroxybutyric Acd Procalcitonin 01/17/21 09:40 WBC RBC Hgb POC Hgb Hct POC Hct MCV MCH MCHC RDW Std Deviation RDW Coeff of Shree Plt Count Absolute Nucleated RBC Nucleated RBC % (auto) Neutrophils % (Manual) Lymphocytes % (Manual) Monocytes % (Manual) Neutrophils # (Manual) Total Absolute Neuts Lymphocytes # (Manual) Total Abs Lymphocytes Monocytes # (Manual) Microcytosis Echinocytes Sample Site POC pH POC pCO2 POC pO2 POC HCO3 POC Total CO2 POC Base Excess ABG pH (Temp Correct) ABG pCO2 (Temp Corrct POC ABG pO2 at Pt Temp POC ABG O2 Sat Louie Test O2 Delivery Device POC O2 Rate Minute Ventilation POC FiO2 Tidal Volume PEEP POC Sodium Sodium POC Potassium Potassium Chloride Carbon Dioxide Anion Gap BUN Creatinine Est Cr Clr Drug Dosing Est GFR ( Amer) Est GFR (Non-Af Amer) BUN/Creatinine Ratio Glucose POC Glucose POC Glucose (other) 316 H Lactate Calcium Phosphorus Magnesium Total Bilirubin Direct Bilirubin AST ALT Alkaline Phosphatase Total Creatine Kinase Total Protein Albumin Beta-Hydroxybutyric Acd Procalcitonin PG Care Time/CCT Total # of Minutes Spent Total Time Spent with Patient: Total time spent is greater than 50% in coordination of care (as documented) at patient's floor/unit and/or counseling patient: Coding Level of Care Code 88257 Inpt Consult Level 5 Diagnoses ARDS (adult respiratory distress syndrome) J80 Hyperkalemia E87.5 Acute kidney injury N17.9 Pneumonia due to COVID-19 virus U07.1; J12.82
[2021-01-17 09:57] LABS: BUN Creatinine Ratio 18.6 (10-20); Calcium 7.3 mg/dl (8.5-10.1); Creatinine Clr Calc Pharmacy 39.9 ml/min; Est GFR (African American) 25.3 ml/min; Est GFR (Non-African American) 21.8 ml/min
[2021-01-17 09:58] LABS: iSTAT Art Bld Gas pCO2 Correct 65 mmHg (35-46); iSTAT Art Bld Gas pH Corrected 7.205 (7.35-7.45); iSTAT Arterial Blood Gas HCO3 25 meg/L (19-24); iSTAT Arterial Blood Gas pCO2 62 mmHg (35-46); iSTAT Arterial Blood Gas pH 7.22 (7.35-7.45); iSTAT Arterial Blood Gas pO2 80 mmHg (80-95); iSTAT Arterial Blood Gas pO2 C 86; iSTAT Carbon Dioxide 27 mmol/L (24-31); iSTAT FiO2 50 %; iSTAT Hematocrit 47 % (42-52); iSTAT Potassium 5.2 mmol/L (3.3-5.0); iSTAT Site Art Line; iSTAT Sodium 134 mmol/L (135-144)
[2021-01-17] MEDS: dexAMETHasone 6 MG in SYRINGE 0 ML IV SCH (10:20)
[2021-01-17] MEDS: ICU ELECTROLYTE REPLACEMENT PROTOCOL SCH (10:23)
[2021-01-17 10:25] LABS: Beta-Hydroxybutyrate 2.47 mg/dl (0.2-2.81)
[2021-01-17] MEDS: PANTOprazole 40 MG in SYRINGE 0 ML IV SCH (11:01)
[2021-01-17] MEDS: LEVOTHYROXINE SODIUM 175 MCG TABLET PO SCH (11:02)
[2021-01-17] MEDS: PATIROMER CALCIUM SORBITEX 8.4 GM PACK PO SCH ×2 (11:02→17:18)
[2021-01-17] MEDS: MIDAZOLAM HCL 125 MG/250 ML BAG IV SCH (11:56)
[2021-01-17] MEDS ORDERED: PIPERACILLIN/TAZOBACTAM 4.5 GM in DEXTROSE 5% 100 ML IV SCH (12:00)
[2021-01-17] MEDS ORDERED: SODIUM CHLORIDE 0.9% 1000ML 1,000 ML IV PRN ×2 (12:09→12:11)
[2021-01-17] MEDS: NYSTATIN SUSP 500,000 U/5 ML UDC PO SCH ×3 (12:10→22:24)
[2021-01-17] MEDS: NOREPINEPHRINE/D5W 32 MG/250 ML BAG IV SCH (12:11)
--- NOTE | 2021-01-17 12:28 | Palliative Care Consultation ---
Date of Consultation January 17, 2021 History of Present Illness Reason for Consultation: goals of care Requesting Physician: Chris SCHMIDT Attending Physician: Nik Whitfield DO Allergies Allergy/AdvReac Type Severity Reaction Status Date / Time No Known Allergies Allergy Verified 01/08/21 09:51 Home Medications Medication Instructions Recorded Confirmed Type aspirin 81 mg tablet,delayed 81 mg PO DAILY 01/21/18 01/08/21 History release (Adult Low Dose Aspirin) calcium carbonate 600 mg-vitamin 1 tab PO TID tab 01/21/18 01/08/21 History D3 10 mcg (400 unit) tablet (Calcium 600 + D(3)) docusate sodium 100 mg capsule 100 mg PO BID 01/21/18 01/08/21 History hydrochlorothiazide 25 mg tablet 25 mg PO DAILY 01/21/18 01/08/21 History levothyroxine 175 mcg tablet 175 mcg PO DAILY 01/21/18 01/08/21 History metoprolol succinate 100 mg 100 mg PO DAILY 01/21/18 01/08/21 History tablet,extended release 24 hr minoxidil 10 mg tablet 10 mg PO DAILY 01/21/18 01/08/21 History paroxetine HCl 30 mg tablet 60 mg PO DAILY tab 01/21/18 01/08/21 History peg [id number] 1 1 drops OP QID 01/21/18 01/08/21 History %-0.2 %-0.2 % eye drops (Visine Tears) topiramate 50 mg capsule,extended 50 mg PO DAILY 01/21/18 01/08/21 History release 24 hr vitamin E 1 appln TOP BID gm 01/21/18 01/08/21 History lisinopril 40 mg tablet 40 mg PO DAILY 03/17/18 01/08/21 History timolol 0.5 % eye drops 1 drp OPHTHALMIC (EYE) BID 03/17/18 01/08/21 History amlodipine 5 mg tablet 5 mg PO DAILY 01/08/21 01/08/21 History atorvastatin 40 mg tablet 40 mg PO HS 01/08/21 01/08/21 History brimonidine 0.15 % eye drops 1 drp OPHTHALMIC (EYE) TID 01/08/21 01/08/21 History diclofenac sodium 75 mg 75 mg PO BID 01/08/21 01/08/21 History tablet,delayed release insulin glargine 100 unit/mL 60 unit SUBCUT BID 01/08/21 01/08/21 History subcutaneous solution (Semglee U-100 Insulin) insulin regular human 100 unit/mL 1 sliding scale dose SUBCUT 01/08/21 01/08/21 History injection solution (Novolin R USEASDIRECTD Regular U-100 Insulin) insulin regular human 100 unit/mL 30 unit SUBCUT BID 01/08/21 01/08/21 History injection solution (Novolin R Regular U-100 Insulin) latanoprost 0.005 % eye drops 1 drp OPHTHALMIC (EYE) PM 01/08/21 01/08/21 History (Xalatan) trazodone 50 mg tablet 50 mg PO HS 01/08/21 01/08/21 History Patient History Medical History Anemia Anxiety Diabetes mellitus, type 2 IDDM Glaucoma Hyperlipidemia Hypertension Hypocalcemia Hypothyroidism Kidney disease Major depression with psychotic features Neuropathy Obesity (BMI 30-39.9) Osteoarthritis Thrombocytopenia Surgical History History of amputation LEFT GREAT TOE - 06/2017 [facility] History of cataract surgery History of thyroidectomy Family History Other Family history non-contributory Social History Smoking Status: Never smoker Hx Alcohol Use: No Hx Substance Use: No Preferred Language: [place]ian Communication Ability: Unable Hot End Operator Required: No Beliefs That Will Affect Care: None marital status: Single Current Living Situation: Other Current Living Situation Comment: [employer] since 1989 current occupational status: other Other Information That Helps Us Care for You: No Feels Safe at Home: Yes Safety Concerns: Feels Safe At This Time Assistive Devices: Oxygen - Continuous Results & Data ([facility]) Vital Signs (Past 12 Hours) Vital Signs Temp Pulse Resp BP Pulse Ox 01/17/21 11:56 38.3 C H 01/17/21 11:20 113 H 30 H 92 01/17/21 07:53 37.9 C H 01/17/21 07:15 116 H 32 H 91 01/17/21 07:00 118 H 32 H 93 01/17/21 06:45 118 H 32 H 92 01/17/21 06:30 115 H 32 H 107/78 01/17/21 06:15 115 H 32 H 91 01/17/21 06:10 32 H 01/17/21 06:05 119 H 30 H 86 L 01/17/21 06:00 38.7 C H 118 H 86 L 01/17/21 05:45 38.6 C H 118 H 23 86 L 01/17/21 05:30 38.6 C H 119 H 25 H 86 L 01/17/21 05:15 38.6 C H 118 H 13 86 L 01/17/21 05:00 38.5 C H 118 H 15 86 L 01/17/21 04:45 38.5 C H 118 H 17 85 L 01/17/21 04:30 38.5 C H 118 H 12 85 L 01/17/21 04:15 38.5 C H 117 H 12 85 L 01/17/21 04:00 38.4 C H 116 H 13 84 L 01/17/21 03:45 38.4 C H 116 H 7 L 83 L 01/17/21 03:30 38.4 C H 117 H 13 83 L 01/17/21 03:15 38.3 C H 117 H 15 83 L 01/17/21 03:00 38.3 C H 118 H 18 83 L 01/17/21 02:45 38.2 C H 118 H 20 83 L 01/17/21 02:36 118 H 32 H 84 L 01/17/21 02:30 38.2 C H 117 H 14 84 L 01/17/21 02:15 38.1 C H 117 H 32 H 83 L 01/17/21 02:00 38.1 C H 116 H 84 L 01/17/21 01:45 38.0 C H 117 H 84 L 01/17/21 01:30 38.0 C H 118 H 84 L 01/17/21 01:15 37.9 C H 118 H 84 L 01/17/21 01:00 37.9 C H 116 H 103/72 84 L 01/17/21 00:45 37.9 C H 117 H 84 L 01/17/21 00:30 37.8 C H 117 H 23 84 L PG Care Time/CCT Total # of Minutes Spent Total Time Spent with Patient: Total time spent is greater than 50% in coordination of care (as documented) at patient's floor/unit and/or counseling patient: Coding
[2021-01-17] MEDS ORDERED: HEPARIN SOD (PORCINE) 1000 UNIT/ML IV SCH (12:30)
[2021-01-17 12:33] LABS: Potassium 5.4 mmol/L (3.5-5.1)
--- NOTE | 2021-01-17 12:33 | XRay Report ---
XR chest 1V portable CLINICAL HISTORY: Resp failure TECHNIQUE: Single frontal radiograph of the chest was obtained. Comparison: Comparison is made to chest one view 01/16/2021 FINDINGS: Lines and tubes are stable. The cardiomediastinal silhouette is normal. Multifocal airspace opacities are seen. There is likely a small right pleural effusion. IMPRESSION: 1. Multifocal airspace opacities may represent atelectasis, pneumonia, and/or aspiration. 2. Small right pleural effusion. ACT 112: Negative or not required by law. Electronically signed by: Nik Curry M.D. 01/17/2021 12:32 PM
[2021-01-17] MEDS: ARTIFICIAL TEARS OP SCH (12:35)
[2021-01-17] MEDS: ASPIRIN 81 MG CHEW NG SCH (12:37)
[2021-01-17] MEDS: ASPIRIN 81 MG ECTAB PO SCH (12:55)
--- NOTE | 2021-01-17 13:04 | Pharmacy Report ---
Pharmacy Vanc AUC Short Note - Date of Service January 17, 2021 - Assessment & Plan Assessment * 60 year old M receiving VANCOMYCIN + ZOSYN for treatment of septic shock, possible pulm source vs urinary vs line. Pt has been hospitalized for COVID19 viral pna > 5 days and has been ventilated > 48 hrs. * Pertinent microbiologic data includes: Positive MRSA Nasal Swab. BLCX's pending * Day # 1 of antimicrobial therapy * New MEHRDAD present on labs, pt is oligouric and requiring relatively high doses of norepi. Vasopressin was added this AM as well. Plan Vancomycin * AUC/WALDO is the preferred PK/PD target for vancomycin - however this patient is not a candidate for this method of dosing due to changing renal fxn. * Patient received 2750mg (20mg/kg) IV loading dose early this AM. Given difficulty predicting trajectory of renal fxn, will check a random level this evening and give a maint dose x 1 (1250mg) if level is less than 20. If level is 20 or greater, will repeat random level w/ AM labs to further guide redosing. Zosyn * eCrCl likely less than 20cc/min given oligouria and > 2x rise in SCr in last 24 hrs; will change to 4.5gm ext-infusion Q 12 hrs Pharmacy will continue to follow and will adjust dose/frequency as necessary. Thank you.
[2021-01-17] MEDS: fentaNYL citrate 2,500 MCG/250 ML BAG IV SCH (13:50)
[2021-01-17 13:53] LABS: BUN Creatinine Ratio 17.4 (10-20); Calcium 7.9 mg/dl (8.5-10.1); Creatinine Clr Calc Pharmacy 35.8 ml/min; Est GFR (African American) 22.2 ml/min; Est GFR (Non-African American) 19.2 ml/min; Potassium 5.1 mmol/L (3.5-5.1)
--- NOTE | 2021-01-17 15:40 | Procedure Note ---
Procedure Note Date of Service January 17, 2021 Note CENTRAL LINE PROCEDURE NOTE: Procedure: Central Line Placement Provider: Teddy Reyes MD Indication: Acute renal failure needing access for hemodialysis Anesthesia: none Site: L IJ Procedure was emergent. Patient intubated sedated unable to provide consent. No family immediately available A time-out was completed verifying correct patient, procedure, site, positioning, and implants(s) or special equipment if applicable. Patients left neck was cleansed and draped in the typical sterile fashion using Chloraprep. We initially attempted to access the subclavian vein however the patient's body habitus prevented the needle from accessing the vein and we transitioned to an internal jugular approach. The Internal Jugular Vein and Carotid Artery were identified using ultrasound. The Internal Jugular vein was cannulated under direct ultrasound guidance using an introducer needle on a syringe. Good venous blood return was maintained prior to removal of syringe from introducer needle. Using Seldinger Technique, a guide wire was advanced through the introducer needle without resistance. The introducer needle was removed. A small incision was made in penetrating fashion at the guide wire insertion site utilizing an 11 blade scalpel. Serial dilators were advanced to the vessel without resistance. The final dilator was exchanged for the 24 cm hemodialysis catheter which was advanced into the vessel without resistance. The guide wire was removed intact from the catheter without issue. Claves were placed on each catheter tip with confirmation of good blood flow from each lumen. Each port was easily flushed wi th sterile saline. The catheter was placed at the hub and sutured in place. BioPatch was applied to the catheter and a sterile Tegaderm dressing was applied over the catheter with careful attention to sterility. Patient tolerated procedure well. No immediate complications were met. The dialysis ports were packed with 1-1000 heparin solution. Post procedure x-ray currently pending Ultrasound images were not saved to the medical record due to technical issues Procedural Ultrasound Guidance: Procedure Date: 01/17/2021 Indication: Vascular access Proceduralist: Teddy Reyes MD Artery AND Vein visualized: Yes Compressible Vein: Yes Guidewire or Short Catheter seen in vein prior to dilation: Yes Line confirmed in Vein with ultrasound: Yes Coding CPT Codes Tubes, Drains, and Vasc Access - Tubes, Drains, and Vasc Access: [id number] Insertion of cannula for hemodialysis ([id number]) Tubes, Drains, and Vasc Access - Tubes, Drains, and Vasc Access: [id number] Ultrasound Guidance For Vascular ([id number]) [facility] Procedure Codes (Charges) Tubes, Drains, and Vasc Access Procedure 1: Tubes, Drains, and Vasc Access: [id number] Insertion of cannula for hemodialysis Procedure 2: Tubes, Drains, and Vasc Access: [id number] Ultrasound Guidance For Vascular
--- NOTE | 2021-01-17 15:41 | XRay Report ---
XR chest 1V portable HISTORY: 60 years-old Male L HD Line Placement status post placement of a left IJ central venous cat heter COMPARISON: Chest radiograph of same day at 11:41 AM TECHNIQUE: Portable AP view of the chest FINDINGS: Cardiomediastinal and hilar silhouettes are unchanged. Enteric tube courses below the diaphragm with distal tip outside the [id number]. Endotracheal tube overlies the midline, 6.1 cm superior to the mitch. Unchanged positioning of the right IJ central venous catheter. Left IJ hemodialysis catheter distal tip terminates in the spectrum location of the mid SVC. No postprocedural pneumothorax. Extens hunter left greater than right airspace opacities with associated interstitial coarsening is stable from prior. Probable trace pleural effusions. Degenerative changes of the shoulders and spine. IMPRESSION: 1. Status post placement of a left IJ hemodialysis catheter with distal tip in the expected location of the mid SVC. No postprocedural pneumothorax. 2. Otherwise stable exam. ACT 112: Negative or not required by law. The above report was generated using voice recognition software. It may contain grammatical, syntax o r spelling errors. Electronically signed by: Harvinder Mccartney M.D. 01/17/2021 3:40 PM
--- NOTE | 2021-01-17 16:10 | Critical Care Progress Note ---
Date of Service January 17, 2021 Assessment & Plan (1) Pneumonia due to 2019 novel coronavirus: (2) Respiratory failure, acute: (3) Obesity (BMI 30-39.9): (4) ARDS (adult respiratory distress syndrome): Plan: Impression: 60-year-old -Serbian male who is an inmate admitted with Covid pneumonia. He is failed high flow oxygen positive airway pressure ventilation despite dexamethasone and baricitinib. He was intubated 01/16/2021 and proned. 24-hour events: Patient transferred to the ICU. He was intubated and central line and arterial lines were placed. He was proned. Unfortunately proning for over 20 hours had little impact on the patient's VQ mismatching and oxygen saturations did not improved. He returned to the supine position at 6:00 this morning. He unfortunately has developed progressive what appears to be septic shock with requirements for 2 vasopressor agents. He is also in anuric renal failure. Nephrology consultation was obtained. Bicarb was initiated. A dialysis line was placed this afternoon. Efforts were made to transfer the patient to a tertiary center as it is likely he would need CVVH. No facilities have bed availability. The [facility] did allow us to contact the patient's aunt who is his primary decision maker. She requests that everything be done to prolong Navin's life. Recommendations: 1. Neurologic: Continue aggressive sedation with propofol fentanyl and Versed. Hold additional neuromuscular blockade. 2. Cardiac: Probable severe septic shock. Continue norepinephrine and vasopressin. Patient is already receiving systemic steroids so little utility in random cortisol. 3. Pulmonary: Progressive ARDS: The patient is not a candidate for advanced therapies such as ECMO. Current vent settings: Assist control/34/400/14/0.9 with a plateau pressure of 29. Current AB.22/62/80 current P:F 88. Continue dexamethasone at 6 mg daily. Check respiratory cultures as well as procalcitonin and BNP level. Continue ARDS net ventilatory strategy. At risk for barotrauma. 4. GI: N.p.o. for now until pressors decreased. Continue PPI. 5. Renal: Acute oliguric renal failure. Nephrology consultation appreciated. Discussed with nephrology. Ideally the patient should get CVVH however there are no facilities accepting patients. We will place a dialysis catheter and Dr. Bailey is going to attempt slow dialysis to see if we can normalize his acid-base status and electrolytes. Prognosis of patients with Covid on the ventilator progressing to renal failure is quite poor. Discontinue ICU electrolyte replacement protocol 6. ID: Marked leukocytosis at 27,000 and the patient is febrile to 39. Cultures have shown no growth to date. Day #2 Zosyn and vancomycin 7. Endocrine: Glycemic control per ICU pharmacist. 8. Heme-onc: No active issues. Continue DVT prophylaxis subcu heparin 7500 twice daily. Patient is critically ill with significant possibility of . A total of 85 minutes critical care time was spent in evaluation management and stabilization of this patient. Dr. Whitfield updated POA. Admission and Anticipated Discharge Date Admission Date: January 08, 2021 Subjective Patient intubated and sedated Review of Systems Review of Systems: Unobtainable due to endotracheal tube Physical Exam Constitutional: WD/WN, vitals as above + diaphoretic and + mechanically ventilated Neck: trachea midline, no thyromegaly Respiratory: Auscultation: + crackles and + wheezes Cardiovascular: RRR, no murmur, no edema Gastrointestinal (Abdomen): normal bowel sounds, soft, nontender, no hepatosplenomegaly Musculoskeletal: Extremities: extremities normal to inspection Skin: no rashes, warm and dry Lymphatic: no cervical lymphadenopathy Results & Data Results & Data ([facility]) Vital Signs (Past 12 Hours) Vital Signs Temp Pulse Resp BP Pulse Ox 01/17/21 15:38 39.0 C H 01/17/21 15:25 125 H 34 H 90 01/17/21 11:56 38.3 C H 01/17/21 11:20 113 H 30 H 92 01/17/21 07:53 37.9 C H 01/17/21 07:15 116 H 32 H 91 01/17/21 07:00 118 H 32 H 93 01/17/21 06:45 118 H 32 H 92 01/17/21 06:30 115 H 32 H 107/78 01/17/21 06:15 115 H 32 H 91 01/17/21 06:10 32 H 01/17/21 06:05 119 H 30 H 86 L 01/17/21 06:00 38.7 C H 118 H 86 L 01/17/21 05:45 38.6 C H 118 H 23 86 L 01/17/21 05:30 38.6 C H 119 H 25 H 86 L 01/17/21 05:15 38.6 C H 118 H 13 86 L 01/17/21 05:00 38.5 C H 118 H 15 86 L 01/17/21 04:45 38.5 C H 118 H 17 85 L 01/17/21 04:30 38.5 C H 118 H 12 85 L 01/17/21 04:15 38.5 C H 117 H 12 85 L Critical Care Results & Data Vital Signs (Past 12 Hours) Vital Signs Temp Pulse Resp BP Pulse Ox 01/17/21 15:38 39.0 C H 01/17/21 15:25 125 H 34 H 90 01/17/21 11:56 38.3 C H 01/17/21 11:20 113 H 30 H 92 01/17/21 07:53 37.9 C H 01/17/21 07:15 116 H 32 H 91 01/17/21 07:00 118 H 32 H 93 01/17/21 06:45 118 H 32 H 92 01/17/21 06:30 115 H 32 H 107/78 01/17/21 06:15 115 H 32 H 91 01/17/21 06:10 32 H 01/17/21 06:05 119 H 30 H 86 L 01/17/21 06:00 38.7 C H 118 H 86 L 01/17/21 05:45 38.6 C H 118 H 23 86 L 01/17/21 05:30 38.6 C H 119 H 25 H 86 L 01/17/21 05:15 38.6 C H 118 H 13 86 L 01/17/21 05:00 38.5 C H 118 H 15 86 L 01/17/21 04:45 38.5 C H 118 H 17 85 L 01/17/21 04:30 38.5 C H 118 H 12 85 L 01/17/21 04:15 38.5 C H 117 H 12 85 L Lab & Micro Results (Past 24 Hours) RBC 6.96 M/uL (4.7-6.1) H 01/17/21 WBC 29.67 K/uL (4.8-10.8) H 01/17/21 Hgb 14.8 g/dL (14.0-18.0) 01/17/21 Hct 47.8 % (42-52) 01/17/21 MCV 68.7 fL (80-100) L 01/17/21 MCH 21.3 pg (25-34) L 01/17/21 MCHC 31.0 g/dL (32-36) L 01/17/21 RDW Standard Deviation 43.3 fL (36.4-46.3) 01/17/21 RDW Coefficient of Variation 17.8 % (11.5-14.5) H 01/17/21 Plt Count 302 K/uL (130-400) 01/17/21 Nucleated Red Blood Cells % (auto) 0.2 % 01/17/21 Nucleated RBC Absolute Count (auto) 0.06 K/uL (0-0) H 01/17/21 ANC 26.05 K/uL (1.4-6.5) H 01/17/21 ALC 2.58 K/uL (1.2-3.4) 01/17/21 Neutrophils % (Manual) 87.8 % 01/17/21 Lymphocytes % (Manual) 8.7 % 01/17/21 Monocytes % (Manual) 3.5 % 01/17/21 Neutrophils # (Manual) 26.05 K/uL (1.4-6.5) H 01/17/21 Lymphocytes # (Manual) 2.58 K/uL (1.2-3.4) 01/17/21 Monocytes # (Manual) 1.04 K/uL (0.11-0.59) H 01/17/21 Echinocytes 1+ 01/17/21 Microcytosis Present 01/17/21 Na 133 mmol/L (136-145) L 01/17/21 K 5.1 mmol/L (3.5-5.1) 01/17/21 Cl 98 mmol/L (98-107) 01/17/21 CO2 22 mmol/L (21-32) 01/17/21 Anion Gap 13.0 (3-11) H 01/17/21 BUN 58 mg/dl (7-18) H 01/17/21 Creatinine 3.33 mg/dl (0.6-1.4) H 01/17/21 Estimated GFR ( Amer) 22.2 ml/min 01/17/21 Estimated GFR (Non-Af Amer) 19.2 ml/min 01/17/21 BUN/Creatinine Ratio 17.4 (10-20) 01/17/21 Glu 187 mg/dl (70-99) H 01/17/21 Ca 7.9 mg/dl (8.5-10.1) L 01/17/21 Phosphorus Level 10.9 mg/dl (2.5-4.9) H 01/17/21 Total Bilirubin 1.1 mg/dl (0.2-1) H 01/17/21 Direct Bilirubin 0.8 mg/dl (0-0.2) H 01/17/21 AST 67 U/L (15-37) H 01/17/21 ALT 29 (12-78) 01/17/21 Alkaline Phosphatase 95 U/L (45-117) 01/17/21 TP 8.0 gm/dl (6.4-8.2) 01/17/21 Albumin 2.4 gm/dl (3.4-5.0) L 01/17/21 Mg 2.9 mg/dl (1.8-2.4) H 01/17/21 05:31 01/17/21 Calcium Level 7.9 mg/dl (8.5-10.1) L 01/17/21 12:57 01/17/21 Louie Test NA 01/17/21 09:36 01/17/21 Microbiology 01/17/21 11:45 Gram Stain - Final Sputum,Vent Suction Diagnostic Findings (Past 24 Hours) Venous Doppler Study 01/17/21 00:00 US venous doppler LE BI CLINICAL HISTORY: Bilateral leg swelling COMPARISON: None available at the time of this dictation. TECHNIQUE: Bilateral lower extremity real-time compression venous ultrasound with Color Doppler imaging. Utilizing real-time ultrasonic imaging multiple real time high-resolution ultrasonic images with compression and noncompression maneuvers of the deep venous system in addition to color doppler imaging were performed from the common femoral vein through the proximal calf veins. FINDINGS: The study is limited by the patient's body habitus. Currently there is normal compressibility of the deep venous system from the common femoral vein through the proximal calf veins. No current evidence of acute thrombosis is identified. However, the calf veins were not well imaged and no flow could be detected in the left peroneal veins. This is probably related to the patient's body habitus. Impression: No evidence of deep venous thrombus. However, there is limited evaluation of the calf veins bilaterally related to the patient's body habitus. ACT 112: Negative or not required by law. Electronically signed by: Ede Torres M.D. 01/17/2021 7:30 AM Chest X-Ray 01/17/21 07:00 XR chest 1V portable CLINICAL HISTORY: Resp failure TECHNIQUE: Single frontal radiograph of the chest was obtained. Comparison: Comparison is made to chest one view 01/16/2021 FINDINGS: Lines and tubes are stable. The cardiomediastinal silhouette is normal. Multifoc al airspace opacities are seen. There is likely a small right pleural effusion. IMPRESSION: 1. Multifocal airspace opacities may represent atelectasis, pneumonia, and/or aspiration. 2. Small right pleural effusion. ACT 112: Negative or not required by law. Electronically signed by: Nik Curry M.D. 01/17/2021 12:32 PM Chest X-Ray 01/17/21 14:43 XR chest 1V portable HISTORY: 60 years-old Male L HD Line Placement status post placement of a left IJ central venous catheter COMPARISON: Chest radiograph of same day at 11:41 AM TECHNIQUE: Portable AP view of the chest FINDINGS: Cardiomediastinal and hilar silhouettes are unchanged. Enteric tube courses below the diaphragm with distal tip outside the [id number]. Endotracheal tube overlies the midline, 6.1 cm superior to the mitch. Unchanged positioning of the right IJ central venous catheter. Left IJ hemodialysis catheter distal tip terminates in the spectrum location of the mid SVC. No postprocedural pneumothorax. Extensive left greater than right airspace opacities with associated interstitial coarsening is stable from prior. Probable trace pleural effusions. Degenerative changes of the shoulders and spine. IMPRESSION: 1. Status post placement of a left IJ hemodialysis catheter with distal tip in the expected location of the mid SVC. No postprocedural pneumothorax. 2. Otherwise stable exam. ACT 112: Negative or not required by law. The above report was generated using voice recognition software. It may contain grammatical, syntax or spelling errors. Electronically signed by: Harvinder Mccartney M.D. 01/17/2021 3:40 PM I & O Totals 24 Hours 12/06/21 12/07/21 12/08/21 06:59 06:59 06:59 Intake Total 1770 / 1770 1764.508 / 8030.642 1952.122 / 2275.122 Output Total 1375 / 1375 475 / 475 150 / 150 Balance 395 / 395 1289.508 / 2656.764 4815.122 / 2125.122 Cumulative 01/08/21 08:14 thru 01/17/21 15:35 Intake Total 44651.630 Output Total 18673 Balance 5235.630 RT Ventilator Mngmt (Last Documented) Ventilator Ordered Settings Ventilator Support Mode Assist Control 01/17/21 15:25 Respiratory Rate 34 01/17/21 15:25 Ventilator Tidal Volume 400 01/17/21 15:25 Setting Minute Ventilation 12 01/17/21 15:25 Ventilator Positive Pressure 12 01/15/21 20:00 Support Setting Positive End Expiratory 14 01/17/21 15:25 Pressure Fraction of Inspired Oxygen 90 01/17/21 15:25 Peak Inspiratory Flow 28 01/16/21 18:19 Machine Comment PT SUPINE AT THIS TIME, SPO2 01/17/21 06:10 INCREASED, FIO2 CHANGED TO 90%, SPO2 91% Ventilator - PT Measurements Respiratory Rate 34 Exhaled Tidal Volume 400 Minute Ventilation 12 Peak Inspiratory Airway 35 Pressure Plateau Pressure 29 Respiratory Cycle Inspiratory: 1:1.5 Expiratory Ratio Inspiratory Phase Time 0.7 End-Tidal CO2 33 Static Lung Compliance 26.67 Dynamic Lung Compliance 19.05 Normal Static Lung Compliance 45.00 Patient Measurements Comment ETC02 NOT WORKIG DESPITE CHANGING LINE, ADAPTER AND ADJUSTING MACHINE Coding Level of Care Code Critical Care 1st 30-74 mins Diagnoses Pneumonia due to 2019 novel coronavirus U07.1; J12.82 Respiratory failure, acute J96.01 Respiratory failure complication: hypoxia Obesity (BMI 30-39.9) E66.9 ARDS (adult respiratory distress syndrome) J80 Time Spent (min) 85 Comment 66611 and 33712 (1) Respiratory failure, acute Respiratory failure complication: hypoxia Qualified Code(s): J96.01 - Acute respiratory failure with hypoxia
[2021-01-17 17:03] LABS: BUN Creatinine Ratio 15.6 (10-20); Calcium 7.7 mg/dl (8.5-10.1); Creatinine Clr Calc Pharmacy 31.2 ml/min; Est GFR (African American) 18.8 ml/min; Est GFR (Non-African American) 16.2 ml/min; Potassium 5.8 mmol/L (3.5-5.1)
--- NOTE | 2021-01-17 17:49 | Hospitalist Progress Note ---
Date of Service January 17, 2021 Assessment & Plan (1) Pneumonia due to 2019 novel coronavirus: Plan: (1) Pneumonia due to COVID-19 virus: Plan: Symptoms started approximately 01/03. With significantly high CRP and already requiring HFNC on admission Fully vaccinated with J&J Vaccine several months prior CXR with bilat infiltrates, CXR on 01/14 shows worsening infiltrates Lasix 40mg IV on 01/15, little response on dexamethasone intubated on 01/16 after failing BIPAP his prognosis has worsened, now has circulatory shock requiring pressors and oliguric renal failure, hyperkalemia discussed with his aunt Randee, wants to keep him Level 1 (2) Acute respiratory failure with hypoxia: Plan: as above, secondary to COVID PNA progressed to needing intubated on 01/16 ICU managing he is on PEEP 15 and FiO2 90% (3) MEHRDAD (acute kidney injury): Plan: Cr was 0.9 on 01/16 prior to intubation he did have some hypotension after intubation, required Levophed now he is on Levophed and Vasopressin Cr up to 3.3, has been trending up he is oliguric, minimal urine in bo bag K down to 5.2 from 6.6 after Veltassa poor prognosis, needs CRRT but no facilities have ICU beds, likely for a week will try low volume, slow HD this evening, Dr. Reyes placed temp HD catheter (4) Shock requiring Levophed and Vasopressin will make normal HD difficult, might be impossible (5) DM ICU protocol for glucose management (6) Thrombocytopenia: Plan: resolved, likely from acute viral illness (7) Neuropathy: Plan: with h/o bilat great toe amputations due to DM ulcers no meds needs good foot care (8) Anemia: Plan: chronic, profoundly microcytic Hb is stable (9) Hypertension: Plan: holding meds now needs Levophed after sedation/intubation (10) Hyperkalemia resolved, down to 4.0 after Lasix on 01/16 DVT prophylaxis-heparin SQ 7500 tid due to MEHRDAD, SCDs Dispo- transfer to ICU status FULL CODE and desires intubation if needed, states "do whatever it takes" (2) Acute respiratory failure with hypoxia: (3) Obesity (BMI 30-39.9): (4) Respiratory failure, acute: (5) Acute kidney injury: (6) Major depression with psychotic features: (7) Thrombocytopenia: (8) Hypothyroidism: (9) Osteoarthritis: (10) Neuropathy: (11) Anemia: (12) Hyperkalemia: (13) ARDS (adult respiratory distress syndrome): Admission and Anticipated Discharge Date Admission Date: January 08, 2021 Subjective patient intubated he has developed renal failure since intubation, Cr up to 3.3 K was 6.6, gave him Veltassa, down to 5.2 will attempt low volume, slow HD this afternoon but unsure he will tolerate he is on levophed and vasopressin spiking fevers, not responding to Tylenol had discussions regarding plan with both Dr Soto and Dr. Reyes he needs to be at facility that has CRRT I called [facility], [facility] and [facility] all of the ICUs at those facilities have several day wait times with several other patients already on the transfer list I called his aunt Randee, this is family contact provided by MAMIE Polo she understands he is in respiratory failure, renal failure, circulatory shock with poor prognosis she asked that we continue to try everthing I explained that without CRRT he will not do well, high risk of in next few days she understands, does not wish to change his code status at this time Review of Systems Review of Systems: Unobtainable due to endotracheal tube Physical Exam Physical Exam: General: well developed, well nourished, mechanically ventilated Neck: supple, trachea midline, normal thyroid Lungs: clear to auscultation bilaterally, symmetric chest movement on ventilator Heart: tachycardic S1 and S2, no murmur, peripheral pulses normal, capillary refill normal, no edema Abdomen: soft, NT, ND, + BS, no hepatomegaly, normal to percussion Extremities: normal in appearance, no cyanosis, no petechiae, strength is 5/5 bilaterally Neuro: sedated, no focal motor deficits, CN II-XII intact Skin: warm, dry, no rash, normal turgor Psych: sedated Results & Data Results & Data ([facility]) Vital Signs (Past 12 Hours) Vital Signs Temp Pulse Resp BP Pulse Ox 01/17/21 15:38 39.0 C H 01/17/21 15:25 125 H 34 H 90 01/17/21 11:56 38.3 C H 12/07/21 11:20 113 H 30 H 92 12/07/21 07:53 37.9 C H 01/17/21 07:15 116 H 32 H 91 01/17/21 07:00 118 H 32 H 93 01/17/21 06:45 118 H 32 H 92 01/17/21 06:30 115 H 32 H 107/78 01/17/21 06:15 115 H 32 H 91 01/17/21 06:10 32 H 01/17/21 06:05 119 H 30 H 86 L 01/17/21 06:00 38.7 C H 118 H 86 L 01/17/21 05:45 38.6 C H 118 H 23 86 L Laboratory Results Laboratory Results - last 24 hr 01/16/21 01/16/21 01/16/21 21:08 22:28 23:34 WBC RBC Hgb POC Hgb 18.7 H 18.7 H Hct POC Hct 55 H 55 H MCV MCH MCHC RDW Std Deviation RDW Coeff of Shree Plt Count Absolute Nucleated RBC Nucleated RBC % (auto) Neutrophils % (Manual) Lymphocytes % (Manual) Monocytes % (Manual) Neutrophils # (Manual) Total Absolute Neuts Lymphocytes # (Manual) Total Abs Lymphocytes Monocytes # (Manual) Microcytosis Echinocytes Sample Site Art Line Art Line POC pH 7.14 L* 7.18 L* POC pCO2 91 H 69 H POC pO2 70 L 63 L POC HCO3 31 H 26 H POC Total CO2 34 H 28 POC Base Excess 2.0 H -2.0 ABG pH (Temp Correct) 7.130 L* 7.173 L* ABG pCO2 (Temp Corrct 94 H 71 H POC ABG pO2 at Pt Temp 73 66 POC ABG O2 Sat 86.0 L 85.0 L Louie Test NA NA O2 Delivery Device Ventilator Ventilator POC O2 Rate 32 32 POC FiO2 100 100 Tidal Volume 345 400 PEEP 16 14 POC Sodium 134 L 134 L Sodium POC Potassium 6.2 H* 6.1 H* Potassium Chloride Carbon Dioxide Anion Gap BUN Creatinine Est Cr Clr Drug Dosing Est GFR ( Amer) Est GFR (Non-Af Amer) BUN/Creatinine Ratio Glucose POC Glucose 136 H POC Glucose (other) Lactate Calcium Phosphorus Magnesium Total Bilirubin Direct Bilirubin AST ALT Alkaline Phosphatase Total Creatine Kinase Total Protein Albumin Beta-Hydroxybutyric Acd Procalcitonin Hep Bs Antigen Hep B Core Total Ab 1201/17/21 01/17/21 02:04 03:30 05:31 WBC 29.67 H RBC 6.96 H Hgb 14.8 POC Hgb 18.4 H Hct 47.8 POC Hct 54 H MCV 68.7 L MCH 21.3 L MCHC 31.0 L RDW Std Deviation 43.3 RDW Coeff of Shree 17.8 H Plt Count 302 Absolute Nucleated RBC 0.06 H Nucleated RBC % (auto) 0.2 Neutrophils % (Manual) 87.8 Lymphocytes % (Manual) 8.7 Monocytes % (Manual) 3.5 Neutrophils # (Manual) 26.05 H Total Absolute Neuts 26.05 H Lymphocytes # (Manual) 2.58 Total Abs Lymphocytes 2.58 Monocytes # (Manual) 1.04 H Microcytosis Present Echinocytes 1+ Sample Site Art Line POC pH 7.18 L* POC pCO2 63 H POC pO2 62 L POC HCO3 24 POC Total CO2 26 POC Base Excess -5.0 ABG pH (Temp Correct) 7.164 L* ABG pCO2 (Temp Corrct 67 H POC ABG pO2 at Pt Temp 68 POC ABG O2 Sat 84.0 L Louie Test NA O2 Delivery Device Ventilator POC O2 Rate 32 POC FiO2 100 Tidal Volume 400 PEEP 14 POC Sodium 132 L Sodium POC Potassium 6.6 H* Potassium Chloride Carbon Dioxide Anion Gap BUN Creatinine Est Cr Clr Drug Dosing Est GFR ( Amer) Est GFR (Non-Af Amer) BUN/Creatinine Ratio Glucose POC Glucose POC Glucose (other) 256 H Lactate Calcium Phosphorus Magnesium Total Bilirubin Direct Bilirubin AST ALT Alkaline Phosphatase Total Creatine Kinase Total Protein Albumin Beta-Hydroxybutyric Acd Procalcitonin Hep Bs Antigen Hep B Core Total Ab 01/17/21 01/17/21 01/17/21 05:31 05:31 05:35 WBC RBC Hgb POC Hgb Hct POC Hct MCV MCH MCHC RDW Std Deviation RDW Coeff of Shree Plt Count Absolute Nucleated RBC Nucleated RBC % (auto) Neutrophils % (Manual) Lymphocytes % (Manual) Monocytes % (Manual) Neutrophils # (Manual) Total Absolute Neuts Lymphocytes # (Manual) Total Abs Lymphocytes Monocytes # (Manual) Microcytosis Echinocytes Sample Site POC pH POC pCO2 POC pO2 POC HCO3 POC Total CO2 POC Base Excess ABG pH (Temp Correct) ABG pCO2 (Temp Corrct POC ABG pO2 at Pt Temp POC ABG O2 Sat Louie Test O2 Delivery Device POC O2 Rate POC FiO2 Tidal Volume PEEP POC Sodium Sodium 130 L POC Potassium Potassium 6.6 H* D Chloride 95 L Carbon Dioxide 24 Anion Gap 11.0 BUN 54 H D Creatinine 2.94 H D Est Cr Clr Drug Dosing 40.6 Est GFR ( Amer) 25.8 Est GFR (Non-Af Amer) 22.3 BUN/Creatinine Ratio 18.5 Glucose 280 H POC Glucose POC Glucose (other) Lactate 4.8 H* Calcium 8.7 Phosphorus 10.9 H Magnesium 2.9 H Total Bilirubin 1.1 H Direct Bilirubin 0.8 H AST 67 H ALT 29 Alkaline Phosphatase 95 Total Creatine Kinase Total Protein 8.0 Albumin 2.4 L Beta-Hydroxybutyric Acd 6.81 H Procalcitonin Hep Bs Antigen Hep B Core Total Ab 01/17/21 01/17/21 01/17/21 05:35 05:46 07:42 WBC RBC Hgb POC Hgb Hct POC Hct MCV MCH MCHC RDW Std Deviation RDW Coeff of Shree Plt Count Absolute Nucleated RBC Nucleated RBC % (auto) Neutrophils % (Manual) Lymphocytes % (Manual) Monocytes % (Manual) Neutrophils # (Manual) Total Absolute Neuts Lymphocytes # (Manual) Total Abs Lymphocytes Monocytes # (Manual) Microcytosis Echinocytes Sample Site POC pH POC pCO2 POC pO2 POC HCO3 POC Total CO2 POC Base Excess ABG pH (Temp Correct) ABG pCO2 (Temp Corrct POC ABG pO2 at Pt Temp POC ABG O2 Sat Louie Test O2 Delivery Device POC O2 Rate POC FiO2 Tidal Volume PEEP POC Sodium Sodium POC Potassium Potassium Chloride Carbon Dioxide Anion Gap BUN Creatinine Est Cr Clr Drug Dosing Est GFR ( Amer) Est GFR (Non-Af Amer) BUN/Creatinine Ratio Glucose POC Glucose POC Glucose (other) 287 H 308 H Lactate Calcium Phosphorus Magnesium Total Bilirubin Direct Bilirubin AST ALT Alkaline Phosphatase Total Creatine Kinase Total Protein Albumin Beta-Hydroxybutyric Acd Procalcitonin 6.54 H Hep Bs Antigen Hep B Core Total Ab 01/17/21 01/17/21 01/17/21 08:38 08:57 08:57 WBC RBC Hgb POC Hgb Hct POC Hct MCV MCH MCHC RDW Std Deviation RDW Coeff of Shree Plt Count Absolute Nucleated RBC Nucleated RBC % (auto) Neutrophils % (Manual) Lymphocytes % (Manual) Monocytes % (Manual) Neutrophils # (Manual) Total Absolute Neuts Lymphocytes # (Manual) Total Abs Lymphocytes Monocytes # (Manual) Microcytosis Echinocytes Sample Site POC pH POC pCO2 POC pO2 POC HCO3 POC Total CO2 POC Base Excess ABG pH (Temp Correct) ABG pCO2 (Temp Corrct POC ABG pO2 at Pt Temp POC ABG O2 Sat Louie Test O2 Delivery Device POC O2 Rate POC FiO2 Tidal Volume PEEP POC Sodium Sodium 134 L POC Potassium Potassium 5.4 H D Chloride 97 L Carbon Dioxide 22 Anion Gap 16.0 H BUN 56 H Creatinine 2.99 H Est Cr Clr Drug Dosing 39.9 Est GFR ( Amer) 25.3 Est GFR (Non-Af Amer) 21.8 BUN/Creatinine Ratio 18.6 Glucose 343 H* POC Glucose POC Glucose (other) 350 H Lactate 4.0 H* Calcium 7.3 L D Phosphorus Magnesium Total Bilirubin Direct Bilirubin AST ALT Alkaline Phosphatase Total Creatine Kinase Total Protein Albumin Beta-Hydroxybutyric Acd 2.47 Procalcitonin Hep Bs Antigen Hep B Core Total Ab 01/17/21 01/17/21 01/17/21 08:57 09:36 09:40 WBC RBC Hgb POC Hgb 16.0 Hct POC Hct 47 MCV MCH MCHC RDW Std Deviation RDW Coeff of Shree Plt Count Absolute Nucleated RBC Nucleated RBC % (auto) Neutrophils % (Manual) Lymphocytes % (Manual) Monocytes % (Manual) Neutrophils # (Manual) Total Absolute Neuts Lymphocytes # (Manual) Total Abs Lymphocytes Monocytes # (Manual) Microcytosis Echinocytes Sample Site Art Line POC pH 7.22 L POC pCO2 62 H POC pO2 80 POC HCO3 25 H POC Total CO2 27 POC Base Excess -2.0 ABG pH (Temp Correct) 7.205 L ABG pCO2 (Temp Corrct 65 H POC ABG pO2 at Pt Temp 86 POC ABG O2 Sat 93.0 Louie Test NA O2 Delivery Device Ventilator POC O2 Rate 32 POC FiO2 50 Tidal Volume 400 PEEP 14 POC Sodium 134 L Sodium POC Potassium 5.2 H Potassium Chloride Carbon Dioxide Anion Gap BUN Creatinine Est Cr Clr Drug Dosing Est GFR ( Amer) Est GFR (Non-Af Amer) BUN/Creatinine Ratio Glucose POC Glucose POC Glucose (other) 316 H Lactate Calcium Phosphorus Magnesium Total Bilirubin Direct Bilirubin AST ALT Alkaline Phosphatase Total Creatine Kinase 2080 H Total Protein Albumin Beta-Hydroxybutyric Acd Procalcitonin Hep Bs Antigen Hep B Core Total Ab 01/17/21 01/17/21 01/17/21 10:58 12:09 12:57 WBC RBC Hgb POC Hgb Hct POC Hct MCV MCH MCHC RDW Std Deviation RDW Coeff of Shree Plt Count Absolute Nucleated RBC Nucleated RBC % (auto) Neutrophils % (Manual) Lymphocytes % (Manual) Monocytes % (Manual) Neutrophils # (Manual) Total Absolute Neuts Lymphocytes # (Manual) Total Abs Lymphocytes Monocytes # (Manual) Microcytosis Echinocytes Sample Site POC pH POC pCO2 POC pO2 POC HCO3 POC Total CO2 POC Base Excess ABG pH (Temp Correct) ABG pCO2 (Temp Corrct POC ABG pO2 at Pt Temp POC ABG O2 Sat Louie Test O2 Delivery Device POC O2 Rate POC FiO2 Tidal Volume PEEP POC Sodium Sodium 133 L POC Potassium Potassium 5.1 Chloride 98 Carbon Dioxide 22 Anion Gap 13.0 H BUN 58 H Creatinine 3.33 H D Est Cr Clr Drug Dosing 35.8 Est GFR ( Amer) 22.2 Est GFR (Non-Af Amer) 19.2 BUN/Creatinine Ratio 17.4 Glucose 187 H POC Glucose POC Glucose (other) 278 H 230 H Lactate Calcium 7.9 L Phosphorus Magnesium Total Bilirubin Direct Bilirubin AST ALT Alkaline Phosphatase Total Creatine Kinase Total Protein Albumin Beta-Hydroxybutyric Acd Procalcitonin Hep Bs Antigen Hep B Core Total Ab 01/17/21 01/17/21 01/17/21 13:04 14:02 15:45 WBC RBC Hgb POC Hgb Hct POC Hct MCV MCH MCHC RDW Std Deviation RDW Coeff of Shree Plt Count Absolute Nucleated RBC Nucleated RBC % (auto) Neutrophils % (Manual) Lymphocytes % (Manual) Monocytes % (Manual) Neutrophils # (Manual) Total Absolute Neuts Lymphocytes # (Manual) Total Abs Lymphocytes Monocytes # (Manual) Microcytosis Echinocytes Sample Site POC pH POC pCO2 POC pO2 POC HCO3 POC Total CO2 POC Base Excess ABG pH (Temp Correct) ABG pCO2 (Temp Corrct POC ABG pO2 at Pt Temp POC ABG O2 Sat Louie Test O2 Delivery Device POC O2 Rate POC FiO2 Tidal Volume PEEP POC Sodium Sodium POC Potassium Potassium Chloride Carbon Dioxide Anion Gap BUN Creatinine Est Cr Clr Drug Dosing Est GFR ( Amer) Est GFR (Non-Af Amer) BUN/Creatinine Ratio Glucose POC Glucose POC Glucose (other) 188 H 153 H 113 H Lactate Calcium Phosphorus Magnesium Total Bilirubin Direct Bilirubin AST ALT Alkaline Phosphatase Total Creatine Kinase Total Protein Albumin Beta-Hydroxybutyric Acd Procalcitonin Hep Bs Antigen Hep B Core Total Ab 01/17/21 01/17/21 01/17/21 16:29 16:29 17:11 WBC RBC Hgb POC Hgb Hct POC Hct MCV MCH MCHC RDW Std Deviation RDW Coeff of Shree Plt Count Absolute Nucleated RBC Nucleated RBC % (auto) Neutrophils % (Manual) Lymphocytes % (Manual) Monocytes % (Manual) Neutrophils # (Manual) Total Absolute Neuts Lymphocytes # (Manual) Total Abs Lymphocytes Monocytes # (Manual) Microcytosis Echinocytes Sample Site POC pH POC pCO2 POC pO2 POC HCO3 POC Total CO2 POC Base Excess ABG pH (Temp Correct) ABG pCO2 (Temp Corrct POC ABG pO2 at Pt Temp POC ABG O2 Sat Louie Test O2 Delivery Device POC O2 Rate POC FiO2 Tidal Volume PEEP POC Sodium Sodium 133 L POC Potassium Potassium 5.8 H Chloride 98 Carbon Dioxide 24 Anion Gap 11.0 BUN 60 H Creatinine 3.82 H D Est Cr Clr Drug Dosing 31.2 Est GFR ( Amer) 18.8 Est GFR (Non-Af Amer) 16.2 BUN/Creatinine Ratio 15.6 Glucose 113 H POC Glucose POC Glucose (other) 108 H Lactate Calcium 7.7 L Phosphorus Magnesium Total Bilirubin Direct Bilirubin AST ALT Alkaline Phosphatase Total Creatine Kinase Total Protein Albumin Beta-Hydroxybutyric Acd Procalcitonin Hep Bs Antigen Pending Hep B Core Total Ab Pending Medications Administered Current Inpatient Medications Acetaminophen (Acetaminophen 325 Mg Tab) 650 mg PO Q4H PRN PRN Reason: Pain or Fever Stop: 02/07/21 14:01 Last Admin: 01/13/21 08:30 Dose: 650 mg Documented by: Artificial Tears (Artificial Tears) 1 drops OP QID [facility] Stop: 02/07/21 14:01 Last Admin: 01/17/21 12:35 Dose: Not Given Documented by: Aspirin (Aspirin 81 Mg Chew) 81 mg NG QAM [facility] Stop: 02/16/21 10:29 Last Admin: 01/17/21 12:37 Dose: 81 mg Documented by: Brimonidine Tartrate (Brimonidine Tartrate-P 0.15% 5 Ml Btl) 1 drops OP TID [facility] Stop: 02/07/21 14:01 Last Admin: 01/17/21 15:29 Dose: 1 drops Documented by: Dextrose (Dextrose 50% 50 Ml Syringe) 25 - 50 ml IV UD PRN; Protocol PRN Reason: Hypoglycemia Protocol Stop: 02/07/21 14:01 Last Admin: 01/16/21 11:44 Dose: 50 ml Documented by: Fentanyl Citrate (Fentanyl Bolus From Bag) 50 mcg IV Q60M PRN PRN Reason: Pain or Agitation Stop: 01/30/21 12:01 Glucagon (Glucagon For Inj 1 Mg Vial) 1 mg SQ UD PRN; Protocol PRN Reason: Hypoglycemia Protocol Stop: 02/07/21 14:01 Glucose (Glucose 10 Tabs/Tube) 4 - 8 tabs PO UD PRN; Protocol PRN Reason: Hypoglycemia Protocol Stop: 02/07/21 14:01 Last Admin: 01/16/21 02:37 Dose: 2 tabs Documented by: Glucose (Glucose 40% Gel 15 Gm Tube) 15 - 30 gm PO UD PRN; Protocol PRN Reason: Hypoglycemia Protocol Stop: 02/07/21 14:01 Heparin Sodium (Porcine) (Heparin Sod 5,000 Unit/0.5 Ml Vial) 7,500 units SQ Q12 [facility] Stop: 02/15/21 20:59 Last Admin: 01/17/21 09:40 Dose: 7,500 units Documented by: Cisatracurium Besylate 40 mg/ (Sodium Chloride) 100 mls @ 13.05 mls/hr IV .Q7H40M [facility]; Protocol Stop: 02/15/21 12:59 Last Admin: 01/17/21 17:18 Dose: Not Given Documented by: Midazolam HCl (Versed) 125 mg in 250 mls @ 2 mls/hr IV .Q96H [facility]; Protocol Stop: 02/15/21 13:44 Last Admin: 01/17/21 11:56 Dose: 1 mg/hr, 2 mls/hr Documented by: Dexamethasone 6 mg/ Syringe 1.5 mls @ 1 mls/min IV DAILY [facility] Stop: 02/16/21 08:59 Last Admin: 01/17/21 10:20 Dose: 1 mls/min Documented by: Acetaminophen (Ofirmev) 1,000 mg in 100 mls @ 400 mls/hr IV Q8H PRN PRN Reason: Fever Stop: 01/20/21 03:43 Last Infusion: 01/17/21 04:10 Dose: Infused Documented by: Insulin Human Regular 250 (units/ Sodium Chloride) 250 mls @ 8.5 mls/hr IV .Q24H [facility]; Protocol Stop: 02/16/21 07:07 Last Titration: 01/17/21 09:45 Dose: 8.5 units/hr, 8.5 mls/hr Documented by: Vasopressin 20 units/ Sodium (Chloride) 101 mls @ 12.12 mls/hr IV .Q8H20M [facility] Stop: 02/16/21 06:59 Last Admin: 01/17/21 16:41 Dose: 0.04 unit/min, 12.1 mls/hr Documented by: Sodium Bicarbonate 150 meq/ (Sterile Water) 1,150 mls @ 75 mls/hr IV .[id number] [facility] Stop: 02/16/21 07:09 Last Admin: 01/17/21 09:39 Dose: 75 mls/hr Documented by: Pantoprazole Sodium 40 mg/ (Syringe) 10 mls @ 5 mls/min IV DAILY@1100 [facility] Stop: 02/16/21 10:59 Last Admin: 01/17/21 11:01 Dose: 5 mls/min Documented by: Norepinephrine Bitartrate (Levophed/D5w) 32 mg in 250 mls @ 14.555 mls/hr IV .[id number] [facility]; Protocol Stop: 02/16/21 10:29 Last Admin: 01/17/21 12:11 Dose: 0.21 mcg/kg/min, 13.3 mls/hr Documented by: Fentanyl Citrate (Fentanyl Citrate) 2,500 mcg in 250 mls @ 10 mls/hr IV .Q25H [facility]; Protocol Stop: 01/31/21 11:14 Last Admin: 01/17/21 13:50 Dose: 100 mcg/hr, 10 mls/hr Documented by: Sodium Chloride (Nss 1000ml) 1,000 mls @ 0 mls/hr IV .Q0M PRN PRN Reason: For Hemodialysis Use ONLY Stop: 01/17/21 18:10 Piperacillin Sod/Tazobactam (Sod 4.5 gm/ Dextrose) 120 mls @ 30 mls/hr IV Q12H [facility]; Protocol Stop: 01/25/21 00:00 Insulin Aspart (Insulin Aspart 100 Units/Ml 3 Ml Pen) 0 units SC ACHS [facility] Stop: 02/16/21 07:29 Last Admin: 01/17/21 17:19 Dose: Not Given Documented by: Latanoprost (Latanoprost 0.005% Op Soln 2.5 Ml Btl) 1 drops OP PM [facility] Stop: 02/07/21 20:59 Last Admin: 01/16/21 21:12 Dose: Not Given Documented by: Levothyroxine Sodium (Levothyroxine Sodium 175 Mcg Tablet) 175 mcg PO DAILYBB [facility] Stop: 02/08/21 06:29 Last Admin: 01/17/21 11:02 Dose: 175 mcg Documented by: Midazolam HCl (Midazolam Bolus From Bag) 2 mg IV Q60M PRN PRN Reason: Sedation Stop: 02/15/21 13:37 Miscellaneous (Carbohydrates For Hypoglycemia ) 15 - 30 gm PO UD PRN PRN Reason: Hypoglycemia Protocol Stop: 02/07/21 14:01 Last Admin: 01/16/21 03:10 Dose: 13 gm Documented by: Miscellaneous (Pending Order: If Vancomycin Level Less Than 20) 1 ea N/A TODAY@2100 [facility] Stop: 01/17/21 21:01 Miscellaneous Information (Pharmacy Glycemic Mgmt Consult) 1 ea N/A UD PRN; Protocol PRN Reason: Consult Stop: 02/07/21 14:01 Miscellaneous Information (Vancomycin Consult Active) 1 ea N/A UD PRN PRN Reason: Consult Stop: 02/16/21 06:28 Miscellaneous Information (Piperacill/Tazobac Consult Active) 1 ea N/A UD PRN PRN Reason: Consult Stop: 02/16/21 06:30 Multi-Ingredient Cream (Artificial Tears Op Oint 3.5 Gm Tube) 1 appln OP Q4H [facility] Stop: 02/15/21 13:59 Last Admin: 01/17/21 15:29 Dose: 1 appln Documented by: Nystatin (Nystatin Susp 500,000 U/5 Ml Udc) 5 ml PO QID [facility] Stop: 01/18/21 14:01 Last Admin: 01/17/21 17:18 Dose: Not Given Documented by: Patiromer (Patiromer Calcium Sorbitex 8.4 Gm Pack) 8.4 gm PO DAILY@1000 [facility] Stop: 02/16/21 09:44 Last Admin: 01/17/21 17:18 Dose: Not Given Documented by: Polyethylene Glycol (Polyethylene (Miralax) 17 Gm Pack) 17 gm PO DAILY PRN PRN Reason: Constipation Stop: 02/07/21 14:01 Timolol Maleate (Timolol Maleate 0.5% Op Soln 5 Ml Btl) 1 drops OP BID [facility] Stop: 02/07/21 20:59 Last Admin: 01/17/21 08:50 Dose: 1 drops Documented by: PG Care Time/CCT Total # of Minutes Spent Total Time Spent: 70 Total Time Spent with Patient: Total time spent is greater than 50% in coordination of care (as documented) at patient's floor/unit and/or counseling patient: reviewing chart, imaging, examining patient, documentation several conversations with Dr. Reyes and Dr. Soto two separate phone calls to MAMIE Polo to discuss with their provider, guidance on care and family contact two separate calls to aunt Randee to discuss situation, goals of care 4 phone calls to try to find an accepting hospital: [facility], [facility] and [facility] Prolonged Care Time Prolonged Care Time: Yes Total Prolonged Care Time: 40 Coding Level of Care Code 53081 Subseq Hosp Care Lvl 3 (25 - SIGNIFICANT, SEPARATELY IDENTIFIABLE ) Diagnoses Pneumonia due to 2019 novel coronavirus U07.1; J12.82 Acute respiratory failure with hypoxia J96.01 Obesity (BMI 30-39.9) E66.9 Respiratory failure, acute J96.01 Respiratory failure complication: hypoxia Acute kidney injury N17.9 Major depression with psychotic features F32.3 Thrombocytopenia D69.6 Hypothyroidism E03.9 Osteoarthritis M19.90 Neuropathy G62.9 Anemia D64.9 Hyperkalemia E87.5 ARDS (adult respiratory distress syndrome) J80 Additional Codes Prolonged Care Time - Prolonged Care Time: Yes ([id number]) (1) Respiratory failure, acute Respiratory failure complication: hypoxia Qualified Code(s): J96.01 - Acute respiratory failure with hypoxia
[2021-01-17] MEDS: LATANOPROST 0.005% OP SOLN 2.5 ML BTL OP SCH (22:27)
[2021-01-18] MEDS: SODIUM BICARBONATE 8.4% 150 MEQ in WATER, STERILE 1,000 ML IV SCH (00:48)
[2021-01-18] MEDS: NOREPINEPHRINE/D5W 32 MG/250 ML BAG IV SCH ×4 (00:49→19:52)
[2021-01-18] MEDS: PIPERACILLIN/TAZOBACTAM 4.5 GM in DEXTROSE 5% 100 ML IV SCH ×3 (00:52→23:55)
[2021-01-18] MEDS: VASOPRESSIN 20 UNITS in 0.9 % SODIUM CHLORIDE 100 ML IV SCH ×3 (01:01→17:48)
[2021-01-18] MEDS: ARTIFICIAL TEARS OP OINT 3.5 GM TUBE OP SCH ×7 (01:37→19:59)
[2021-01-18 01:42] LABS: BUN Creatinine Ratio 14.2 (10-20); Calcium 7.7 mg/dl (8.5-10.1); Est GFR (African American) 19.4 ml/min; Est GFR (Non-African American) 16.7 ml/min; Potassium 4.9 mmol/L (3.5-5.1)
[2021-01-18] MEDS: fentaNYL citrate 2,500 MCG/250 ML BAG IV SCH ×2 (02:46→16:43)
[2021-01-18 03:57] LABS: iSTAT Art Bld Gas pCO2 Correct 63 mmHg (35-46); iSTAT Art Bld Gas pH Corrected 7.225 (7.35-7.45); iSTAT Arterial Blood Gas HCO3 26 meg/L (19-24); iSTAT Arterial Blood Gas pCO2 65 mmHg (35-46); iSTAT Arterial Blood Gas pH 7.22 (7.35-7.45); iSTAT Arterial Blood Gas pO2 68 mmHg (80-95); iSTAT Arterial Blood Gas pO2 C 65; iSTAT Carbon Dioxide 28 mmol/L (24-31); iSTAT FiO2 100 %; iSTAT Hematocrit 48 % (42-52); iSTAT Hemoglobin 16.3 g/dl (14.0-18.0); iSTAT Potassium 5.2 mmol/L (3.3-5.0); iSTAT Site Art Line; iSTAT Sodium 134 mmol/L (135-144)
[2021-01-18] MEDS: LEVOTHYROXINE SODIUM 175 MCG TABLET PO SCH (05:38)
[2021-01-18] MEDS: PHENYLEPHRINE HCL 20 MG in DEXTROSE 5% 500 ML IV SCH ×6 (06:14→23:55)
[2021-01-18 06:41] LABS: BUN Creatinine Ratio 13.5 (10-20); Calcium 7.2 mg/dl (8.5-10.1); Creatinine Clr Calc Pharmacy 28.8 ml/min; Est GFR (African American) 17.1 ml/min; Est GFR (Non-African American) 14.7 ml/min; Magnesium 2.5 mg/dl (1.8-2.4); Potassium 5.4 mmol/L (3.5-5.1)
[2021-01-18 06:46] LABS: Hematocrit (blood only) 44.1 % (42-52); Mean Corpuscular Hemoglobin 21.1 pg (25-34); Mean Corpuscular Hgb Conc 31.7 g/dL (32-36); Mean Corpuscular Volume 66.5 fL (80-100); Nucleated RBC # (auto) 0.13 K/uL (0-0); Nucleated RBC % (auto) 0.3 %; Platelet Count 190 K/uL (130-400); RDW Coefficient of Variation 17.7 % (11.5-14.5); Red Blood Count 6.63 M/uL (4.7-6.1); White Blood Count 47.13 K/uL (4.8-10.8)
[2021-01-18 06:47] LABS: Basophils # (auto) 0.09 K/uL (0-0.2); Basophils % (auto) 0.2 %; Eosinophils # (auto) 0.01 K/uL (0-0.5); Immature Granulocytes # (auto) 0.53 K/uL (0.00-0.02); Immature Granulocytes % (auto) 1.1 %; Lymphocytes # (auto) 3.01 K/uL (1.2-3.4); Lymphocytes % (auto) 6.4 %; Microcytosis Present; Monocytes # (auto) 3.88 K/uL (0.11-0.59); Monocytes % (auto) 8.2 %; Neutrophils # (auto) 39.61 K/uL (1.4-6.5); Neutrophils % (auto) 84.1 %; Poikilocytosis Present
--- NOTE | 2021-01-18 08:43 | XRay Report ---
XR chest 1V portable CLINICAL HISTORY: Respiratory failure. COMPARISON STUDY: Chest radiograph January 17, 2021 at 2:45 PM. FINDINGS: Tip of endotracheal tube is 5.3 cm above the mitch. Tip of nasogastric tube is below the l ower aspect of this image but at least within the proximal stomach. Bilateral internal jugular centra l lines remain in place. There is no pneumothorax. There are small bilateral pleural effusions. Exten sive bilateral airspace opacities persist. IMPRESSION: 1. Satisfactory positioning of lines and tubes. 2. Persistent extensive bilateral airspace opacities consistent with viral pneumonia. 3. Small bilateral pleural effusions. No pneumothorax. ACT 112: Negative or not required by law. Electronically signed by: Jared Navarro M.D. 01/18/2021 8:42 AM
[2021-01-18] MEDS: INSULIN ASPART 100 UNITS/ML 3 ML PEN SC SCH ×4 (08:55→19:57)
[2021-01-18] MEDS: dexAMETHasone 6 MG in SYRINGE 0 ML IV SCH (09:06)
[2021-01-18] MEDS: PATIROMER CALCIUM SORBITEX 8.4 GM PACK PO SCH (09:07)
[2021-01-18] MEDS: HEPARIN SOD 5,000 UNIT/0.5 ML VIAL SQ SCH ×2 (09:09→19:58)
[2021-01-18] MEDS: ASPIRIN 81 MG CHEW NG SCH (09:09)
[2021-01-18] MEDS: NYSTATIN SUSP 500,000 U/5 ML UDC PO SCH ×2 (09:10→12:03)
[2021-01-18] MEDS: INSULIN REGULAR 250 UNITS in SODIUM CHLORIDE 0.9% 247.5 ML IV SCH ×2 (09:10→13:24)
[2021-01-18] MEDS: TIMOLOL MALEATE 0.5% OP SOLN 5 ML BTL OP SCH ×2 (09:11→19:58)
[2021-01-18] MEDS: BRIMONIDINE TARTRATE-P 0.15% 5 ML BTL OP SCH ×3 (09:12→19:58)
--- NOTE | 2021-01-18 09:18 | Nephrology Progress Note ---
Date of Service January 18, 2021 Assessment & Plan (1) Acute kidney injury: Plan: Clinically consistent with ischemic ATN. Oliguric. Prognosis very poor. Unfortunately, there was no facility able to accept Navin for CRRT. Increasingly unstable for transfer. At this time, ability to tolerate [employer] is tenuous. I explained my concerns to Navin's aunt this morning. We discussed goals of care and briefly what should be done in the event his heart stops. She is processing a lot of information and understanably emotional. She would like us to continue HD as tolerated. I have discussed with the dialysis nurse. Orders for HD today with low QB and minimal UF have been entered into the EHR. Funk to gravity. Medications appropriate for kidney dysfunction. (2) Hyperkalemia: Plan: Will attempt clearance with HD today. (3) ARDS (adult respiratory distress syndrome): Plan: Prognosis guarded. Palliative care consult pending. (4) Pneumonia due to COVID-19 virus: Plan: Plan of care reviewed with ICU team. Admission and Anticipated Discharge Date Admission Date: January 08, 2021 Subjective Near maximal vasopressor support. Hemodynamically unstable during HD yesterday evening. 2 hrs of HD completed with minimal UF @ Qb 200. Remains on mechanical ventilator at FIO2 90-100%. Plan of care reviewed with Dr. Whitfield this morning. I contacted the patient's aunt, Randee, this morning. We reviewed Navin's current status. I explained the risks of the dialysis treatment and procedure. I explained the risk that his heart could stop during treatment. She expressed understanding. She is hoping and praying for a miracle. She is not ready to limit care provided in any way; she feels this is consistent with what Navin would want. Review of Systems Review of Systems: Unobtainable due to endotracheal tube and Unobtainable due to reduced consciousness Physical Exam Constitutional: + ill appearing, + obese and + mechanically ventilated Eyes: + anicteric sclerae; no corneal abnormality ENMT: ETT Neck: normal visual inspection and trachea midline LIJ HD catheter Respiratory: normal respiratory effort Auscultation: lungs clear to auscultation bilaterally Cardiovascular: Rate/Rhythm: + tachycardic Heart Sounds: normal S1 and normal S2 Extremities: + edema Gastrointestinal (Abdomen): Inspection/Auscultation: + abdomen distended and normal bowel sounds Percussion/Palpation: abdomen soft Musculoskeletal: Extremities: no cyanosis and no clubbing Skin: normal turgor; no lesions Neurologic: Motor/Sensory: no tremor and no asterixis Results & Data ([facility]) Vital Signs (Past 12 Hours) Vital Signs Temp Pulse Pulse Resp BP BP Pulse Ox 01/18/21 07:54 123 H 33 H 92 01/18/21 06:45 37.3 C 118 H 87 L 01/18/21 06:30 37.2 C 115 H 88 L 01/18/21 06:15 37.1 C 113 H 91 01/18/21 06:00 37.0 C 110 H 91 01/18/21 05:45 36.9 C 108 H 91 01/18/21 05:30 36.8 C 107 H 91 01/18/21 05:15 36.7 C 106 H 91 01/18/21 05:00 36.6 C 105 H 92 01/18/21 04:45 36.5 C 104 H 91 01/18/21 04:30 36.5 C 103 H 90 01/18/21 04:15 36.4 C L 102 H 90 01/18/21 04:00 36.3 C L 103 H 89 L 01/18/21 03:45 36.3 C L 103 H 86 L 01/18/21 03:30 36.3 C L 102 H 87 L 01/18/21 03:15 36.2 C L 102 H 86 L 01/18/21 03:00 36.2 C L 102 H 32 H 86 L 01/18/21 02:47 101 H 32 H 88 L 01/18/21 02:45 36.1 C L 102 H 88 L 01/18/21 02:30 36.1 C L 101 H 87 L 01/18/21 02:15 36.1 C L 101 H 90 01/18/21 02:00 36.1 C L 101 H 88 L 01/18/21 01:45 36.1 C L 101 H 88 L 01/18/21 01:30 36.1 C L 102 H 88 L 01/18/21 01:15 36.1 C L 102 H 88 L 01/18/21 01:00 36.1 C L 102 H 01/18/21 00:45 36.1 C L 103 H 77 L 01/18/21 00:30 36.1 C L 104 H 80 L 01/18/21 00:15 36.2 C L 101 H 87 L 01/18/21 00:00 36.3 C L 100 H 89 L 01/17/21 23:45 36.3 C L 102 H 89 L 01/17/21 23:30 36.3 C L 104 H 89 L 01/17/21 23:15 36.4 C L 105 H 88 L 01/17/21 23:00 36.4 C L 108 H 88 L 01/17/21 22:45 36.6 C 111 H 86 L 01/17/21 22:30 36.8 C 113 H 89 L 01/17/21 22:26 109 H 32 H 91 01/17/21 22:15 36.9 C 112 H 32 H 92 01/17/21 22:00 37.1 C 115 H 93 01/17/21 21:50 37.3 C 113 H 115 H 158/85 H 158/85 H 91 01/17/21 21:45 118 H 111/68 01/17/21 21:40 37.6 C H 117 H 91 01/17/21 21:30 37.8 C H 117 H 90 01/17/21 21:26 118 H 80/56 L 01/17/21 21:20 38.0 C H 120 H 89 L Laboratory Results Laboratory Results - last 24 hr 01/17/21 01/17/21 01/17/21 08:57 08:57 08:57 WBC RBC Hgb POC Hgb Hct POC Hct MCV MCH MCHC RDW Std Deviation RDW Coeff of Shree Plt Count Immature Gran % (Auto) Neut % (Auto) Lymph % (Auto) [place] % (Auto) Eos % (Auto) Baso % (Auto) Neut # (Auto) Lymph # (Auto) [place] # (Auto) Eos # (Auto) Baso # (Auto) Immature Gran # (Auto) Absolute Nucleated RBC Nucleated RBC % (auto) Poikilocytosis Microcytosis Sample Site POC pH POC pCO2 POC pO2 POC HCO3 POC Total CO2 POC Base Excess ABG pH (Temp Correct) ABG pCO2 (Temp Corrct POC ABG pO2 at Pt Temp POC ABG O2 Sat Louie Test O2 Delivery Device POC O2 Rate POC FiO2 Tidal Volume PEEP POC Sodium Sodium 134 L POC Potassium Potassium 5.4 H D Chloride 97 L Carbon Dioxide 22 Anion Gap 16.0 H BUN 56 H Creatinine 2.99 H Est Cr Clr Drug Dosing 39.9 Est GFR ( Amer) 25.3 Est GFR (Non-Af Amer) 21.8 BUN/Creatinine Ratio 18.6 Glucose 343 H* POC Glucose (other) Lactate 4.0 H* Calcium 7.3 L D Phosphorus Magnesium Total Creatine Kinase 2080 H Beta-Hydroxybutyric Acd 2.47 Random Vancomycin Hep Bs Antigen Hep B Core Total Ab 01/17/21 01/17/21 01/17/21 09:36 09:40 10:58 WBC RBC Hgb POC Hgb 16.0 Hct POC Hct 47 MCV MCH MCHC RDW Std Deviation RDW Coeff of Shree Plt Count Immature Gran % (Auto) Neut % (Auto) Lymph % (Auto) [place] % (Auto) Eos % (Auto) Baso % (Auto) Neut # (Auto) Lymph # (Auto) [place] # (Auto) Eos # (Auto) Baso # (Auto) Immature Gran # (Auto) Absolute Nucleated RBC Nucleated RBC % (auto) Poikilocytosis Microcytosis Sample Site Art Line POC pH 7.22 L POC pCO2 62 H POC pO2 80 POC HCO3 25 H POC Total CO2 27 POC Base Excess -2.0 ABG pH (Temp Correct) 7.205 L ABG pCO2 (Temp Corrct 65 H POC ABG pO2 at Pt Temp 86 POC ABG O2 Sat 93.0 Louie Test NA O2 Delivery Device Ventilator POC O2 Rate 32 POC FiO2 50 Tidal Volume 400 PEEP 14 POC Sodium 134 L Sodium POC Potassium 5.2 H Potassium Chloride Carbon Dioxide Anion Gap BUN Creatinine Est Cr Clr Drug Dosing Est GFR ( Amer) Est GFR (Non-Af Amer) BUN/Creatinine Ratio Glucose POC Glucose (other) 316 H 278 H Lactate Calcium Phosphorus Magnesium Total Creatine Kinase Beta-Hydroxybutyric Acd Random Vancomycin Hep Bs Antigen Hep B Core Total Ab 01/17/21 01/17/21 01/17/21 12:09 12:57 13:04 WBC RBC Hgb POC Hgb Hct POC Hct MCV MCH MCHC RDW Std Deviation RDW Coeff of Shree Plt Count Immature Gran % (Auto) Neut % (Auto) Lymph % (Auto) [place] % (Auto) Eos % (Auto) Baso % (Auto) Neut # (Auto) Lymph # (Auto) [place] # (Auto) Eos # (Auto) Baso # (Auto) Immature Gran # (Auto) Absolute Nucleated RBC Nucleated RBC % (auto) Poikilocytosis Microcytosis Sample Site POC pH POC pCO2 POC pO2 POC HCO3 POC Total CO2 POC Base Excess ABG pH (Temp Correct) ABG pCO2 (Temp Corrct POC ABG pO2 at Pt Temp POC ABG O2 Sat Louie Test O2 Delivery Device POC O2 Rate POC FiO2 Tidal Volume PEEP POC Sodium Sodium 133 L POC Potassium Potassium 5.1 Chloride 98 Carbon Dioxide 22 Anion Gap 13.0 H BUN 58 H Creatinine 3.33 H D Est Cr Clr Drug Dosing 35.8 Est GFR ( Amer) 22.2 Est GFR (Non-Af Amer) 19.2 BUN/Creatinine Ratio 17.4 Glucose 187 H POC Glucose (other) 230 H 188 H Lactate Calcium 7.9 L Phosphorus Magnesium Total Creatine Kinase Beta-Hydroxybutyric Acd Random Vancomycin Hep Bs Antigen Hep B Core Total Ab 01/17/21 01/17/21 01/17/21 14:02 15:45 16:29 WBC RBC Hgb POC Hgb Hct POC Hct MCV MCH MCHC RDW Std Deviation RDW Coeff of Shree Plt Count Immature Gran % (Auto) Neut % (Auto) Lymph % (Auto) [place] % (Auto) Eos % (Auto) Baso % (Auto) Neut # (Auto) Lymph # (Auto) [place] # (Auto) Eos # (Auto) Baso # (Auto) Immature Gran # (Auto) Absolute Nucleated RBC Nucleated RBC % (auto) Poikilocytosis Microcytosis Sample Site POC pH POC pCO2 POC pO2 POC HCO3 POC Total CO2 POC Base Excess ABG pH (Temp Correct) ABG pCO2 (Temp Corrct POC ABG pO2 at Pt Temp POC ABG O2 Sat Louie Test O2 Delivery Device POC O2 Rate POC FiO2 Tidal Volume PEEP POC Sodium Sodium 133 L POC Potassium Potassium 5.8 H Chloride 98 Carbon Dioxide 24 Anion Gap 11.0 BUN 60 H Creatinine 3.82 H D Est Cr Clr Drug Dosing 31.2 Est GFR ( Amer) 18.8 Est GFR (Non-Af Amer) 16.2 BUN/Creatinine Ratio 15.6 Glucose 113 H POC Glucose (other) 153 H 113 H Lactate Calcium 7.7 L Phosphorus Magnesium Total Creatine Kinase Beta-Hydroxybutyric Acd Random Vancomycin Hep Bs Antigen Hep B Core Total Ab 01/17/21 01/17/21 01/17/21 16:29 17:11 17:51 WBC RBC Hgb POC Hgb Hct POC Hct MCV MCH MCHC RDW Std Deviation RDW Coeff of Shree Plt Count Immature Gran % (Auto) Neut % (Auto) Lymph % (Auto) [place] % (Auto) Eos % (Auto) Baso % (Auto) Neut # (Auto) Lymph # (Auto) [place] # (Auto) Eos # (Auto) Baso # (Auto) Immature Gran # (Auto) Absolute Nucleated RBC Nucleated RBC % (auto) Poikilocytosis Microcytosis Sample Site POC pH POC pCO2 POC pO2 POC HCO3 POC Total CO2 POC Base Excess ABG pH (Temp Correct) ABG pCO2 (Temp Corrct POC ABG pO2 at Pt Temp POC ABG O2 Sat Louie Test O2 Delivery Device POC O2 Rate POC FiO2 Tidal Volume PEEP POC Sodium Sodium POC Potassium Potassium Chloride Carbon Dioxide Anion Gap BUN Creatinine Est Cr Clr Drug Dosing Est GFR ( Amer) Est GFR (Non-Af Amer) BUN/Creatinine Ratio Glucose POC Glucose (other) 108 H 108 H Lactate Calcium Phosphorus Magnesium Total Creatine Kinase Beta-Hydroxybutyric Acd Random Vancomycin Hep Bs Antigen Pending Hep B Core Total Ab Pending 01/17/21 01/17/21 01/17/21 18:44 20:06 20:28 WBC RBC Hgb POC Hgb Hct POC Hct MCV MCH MCHC RDW Std Deviation RDW Coeff of Shree Plt Count Immature Gran % (Auto) Neut % (Auto) Lymph % (Auto) [place] % (Auto) Eos % (Auto) Baso % (Auto) Neut # (Auto) Lymph # (Auto) [place] # (Auto) Eos # (Auto) Baso # (Auto) Immature Gran # (Auto) Absolute Nucleated RBC Nucleated RBC % (auto) Poikilocytosis Microcytosis Sample Site POC pH POC pCO2 POC pO2 POC HCO3 POC Total CO2 POC Base Excess ABG pH (Temp Correct) ABG pCO2 (Temp Corrct POC ABG pO2 at Pt Temp POC ABG O2 Sat Louie Test O2 Delivery Device POC O2 Rate POC FiO2 Tidal Volume PEEP POC Sodium Sodium POC Potassium Potassium Chloride Carbon Dioxide Anion Gap BUN Creatinine Est Cr Clr Drug Dosing Est GFR ( Amer) Est GFR (Non-Af Amer) BUN/Creatinine Ratio Glucose POC Glucose (other) 137 H 131 H Lactate Calcium Phosphorus Magnesium Total Creatine Kinase Beta-Hydroxybutyric Acd Random Vancomycin 28.4 Hep Bs Antigen Hep B Core Total Ab 01/17/21 01/17/21 01/17/21 21:09 22:05 23:11 WBC RBC Hgb POC Hgb Hct POC Hct MCV MCH MCHC RDW Std Deviation RDW Coeff of Shree Plt Count Immature Gran % (Auto) Neut % (Auto) Lymph % (Auto) [place] % (Auto) Eos % (Auto) Baso % (Auto) Neut # (Auto) Lymph # (Auto) [place] # (Auto) Eos # (Auto) Baso # (Auto) Immature Gran # (Auto) Absolute Nucleated RBC Nucleated RBC % (auto) Poikilocytosis Microcytosis Sample Site POC pH POC pCO2 POC pO2 POC HCO3 POC Total CO2 POC Base Excess ABG pH (Temp Correct) ABG pCO2 (Temp Corrct POC ABG pO2 at Pt Temp POC ABG O2 Sat Louie Test O2 Delivery Device POC O2 Rate POC FiO2 Tidal Volume PEEP POC Sodium Sodium POC Potassium Potassium Chloride Carbon Dioxide Anion Gap BUN Creatinine Est Cr Clr Drug Dosing Est GFR ( Amer) Est GFR (Non-Af Amer) BUN/Creatinine Ratio Glucose POC Glucose (other) 106 H 107 H 127 H Lactate Calcium Phosphorus Magnesium Total Creatine Kinase Beta-Hydroxybutyric Acd Random Vancomycin Hep Bs Antigen Hep B Core Total Ab 01/18/21 01/18/21 01/18/21 00:36 01:07 01:32 WBC RBC Hgb POC Hgb Hct POC Hct MCV MCH MCHC RDW Std Deviation RDW Coeff of Shree Plt Count Immature Gran % (Auto) Neut % (Auto) Lymph % (Auto) [place] % (Auto) Eos % (Auto) Baso % (Auto) Neut # (Auto) Lymph # (Auto) [place] # (Auto) Eos # (Auto) Baso # (Auto) Immature Gran # (Auto) Absolute Nucleated RBC Nucleated RBC % (auto) Poikilocytosis Microcytosis Sample Site POC pH POC pCO2 POC pO2 POC HCO3 POC Total CO2 POC Base Excess ABG pH (Temp Correct) ABG pCO2 (Temp Corrct POC ABG pO2 at Pt Temp POC ABG O2 Sat Louie Test O2 Delivery Device POC O2 Rate POC FiO2 Tidal Volume PEEP POC Sodium Sodium 134 L POC Potassium Potassium 4.9 D Chloride 98 Carbon Dioxide 23 Anion Gap 13.0 H BUN 53 H Creatinine 3.73 H Est Cr Clr Drug Dosing 32.0 Est GFR ( Amer) 19.4 Est GFR (Non-Af Amer) 16.7 BUN/Creatinine Ratio 14.2 Glucose 157 H POC Glucose (other) 153 H 152 H Lactate Calcium 7.7 L Phosphorus Magnesium Total Creatine Kinase Beta-Hydroxybutyric Acd Random Vancomycin Hep Bs Antigen Hep B Core Total Ab 01/18/21 01/18/21 01/18/21 02:33 03:41 03:49 WBC RBC Hgb POC Hgb 16.3 Hct POC Hct 48 MCV MCH MCHC RDW Std Deviation RDW Coeff of Shree Plt Count Immature Gran % (Auto) Neut % (Auto) Lymph % (Auto) [place] % (Auto) Eos % (Auto) Baso % (Auto) Neut # (Auto) Lymph # (Auto) [place] # (Auto) Eos # (Auto) Baso # (Auto) Immature Gran # (Auto) Absolute Nucleated RBC Nucleated RBC % (auto) Poikilocytosis Microcytosis Sample Site Art Line POC pH 7.22 L POC pCO2 65 H POC pO2 68 L POC HCO3 26 H POC Total CO2 28 POC Base Excess -1.0 ABG pH (Temp Correct) 7.225 L ABG pCO2 (Temp Corrct 63 H POC ABG pO2 at Pt Temp 65 POC ABG O2 Sat 88.0 L Louie Test NA O2 Delivery Device Ventilator POC O2 Rate 32 POC FiO2 100 Tidal Volume 400 PEEP 14 POC Sodium 134 L Sodium POC Potassium 5.2 H Potassium Chloride Carbon Dioxide Anion Gap BUN Creatinine Est Cr Clr Drug Dosing Est GFR ( Amer) Est GFR (Non-Af Amer) BUN/Creatinine Ratio Glucose POC Glucose (other) 152 H 150 H Lactate Calcium Phosphorus Magnesium Total Creatine Kinase Beta-Hydroxybutyric Acd Random Vancomycin Hep Bs Antigen Hep B Core Total Ab 01/18/21 01/18/21 01/18/21 05:34 05:41 05:41 WBC RBC Hgb POC Hgb Hct POC Hct MCV MCH MCHC RDW Std Deviation RDW Coeff of Shree Plt Count Immature Gran % (Auto) Neut % (Auto) Lymph % (Auto) [place] % (Auto) Eos % (Auto) Baso % (Auto) Neut # (Auto) Lymph # (Auto) [place] # (Auto) Eos # (Auto) Baso # (Auto) Immature Gran # (Auto) Absolute Nucleated RBC Nucleated RBC % (auto) Poikilocytosis Microcytosis Sample Site POC pH POC pCO2 POC pO2 POC HCO3 POC Total CO2 POC Base Excess ABG pH (Temp Correct) ABG pCO2 (Temp Corrct POC ABG pO2 at Pt Temp POC ABG O2 Sat Louie Test O2 Delivery Device POC O2 Rate POC FiO2 Tidal Volume PEEP POC Sodium Sodium 134 L POC Potassium Potassium 5.4 H Chloride 97 L Carbon Dioxide 24 Anion Gap 13.0 H BUN 56 H Creatinine 4.14 H D Est Cr Clr Drug Dosing 28.8 Est GFR ( Amer) 17.1 Est GFR (Non-Af Amer) 14.7 BUN/Creatinine Ratio 13.5 Glucose 137 H POC Glucose (other) 144 H Lactate Calcium 7.2 L Phosphorus Pending Magnesium 2.5 H Total Creatine Kinase Beta-Hydroxybutyric Acd Random Vancomycin 21.6 Hep Bs Antigen Hep B Core Total Ab 01/18/21 01/18/21 05:41 07:48 WBC 47.13 H* RBC 6.63 H Hgb 14.0 POC Hgb Hct 44.1 POC Hct MCV 66.5 L MCH 21.1 L MCHC 31.7 L RDW Std Deviation 42.0 RDW Coeff of Shree 17.7 H Plt Count 190 Immature Gran % (Auto) 1.1 Neut % (Auto) 84.1 Lymph % (Auto) 6.4 [place] % (Auto) 8.2 Eos % (Auto) 0.0 Baso % (Auto) 0.2 Neut # (Auto) 39.61 H Lymph # (Auto) 3.01 [place] # (Auto) 3.88 H Eos # (Auto) 0.01 Baso # (Auto) 0.09 Immature Gran # (Auto) 0.53 H Absolute Nucleated RBC 0.13 H Nucleated RBC % (auto) 0.3 Poikilocytosis Present Microcytosis Present Sample Site POC pH POC pCO2 POC pO2 POC HCO3 POC Total CO2 POC Base Excess ABG pH (Temp Correct) ABG pCO2 (Temp Corrct POC ABG pO2 at Pt Temp POC ABG O2 Sat Louie Test O2 Delivery Device POC O2 Rate POC FiO2 Tidal Volume PEEP POC Sodium Sodium POC Potassium Potassium Chloride Carbon Dioxide Anion Gap BUN Creatinine Est Cr Clr Drug Dosing Est GFR ( Amer) Est GFR (Non-Af Amer) BUN/Creatinine Ratio Glucose POC Glucose (other) 139 H Lactate Calcium Phosphorus Magnesium Total Creatine Kinase Beta-Hydroxybutyric Acd Random Vancomycin Hep Bs Antigen Hep B Core Total Ab PG Care Time/CCT Total # of Minutes Spent Total Time Spent with Patient: Total time spent is greater than 50% in coordination of care (as documented) at patient's floor/unit and/or counseling patient: Coding Level of Care Code 87797 Subseq Hosp Care Lvl 3 Diagnoses Acute kidney injury N17.9 Hyperkalemia E87.5 ARDS (adult respiratory distress syndrome) J80 Pneumonia due to COVID-19 virus U07.1; J12.82
[2021-01-18] MEDS: ACETAMINOPHEN 1,000 MG/100 ML VIAL IV PRN (09:22)
[2021-01-18] MEDS ORDERED: HEPARIN SOD (PORCINE) 1000 UNIT/ML IV SCH (09:35)
[2021-01-18 09:41] LABS: Phosphorus 9.5 mg/dl (2.5-4.9)
[2021-01-18] MEDS: PANTOprazole 40 MG in SYRINGE 0 ML IV SCH (12:00)
--- NOTE | 2021-01-18 15:35 | Pharmacy Report ---
Pharmacy Glycemic Short Note 2 - Date of Service January 18, 2021 - Glycemic Short BSG Results (Last 24 hours): 01/17/21 01/17/21 01/17/21 15:45 16:29 17:11 Glucose 113 H POC Glucose (other) 113 H 108 H 01/17/21 01/17/21 01/17/21 17:51 18:44 20:06 Glucose POC Glucose (other) 108 H 137 H 131 H 01/17/21 01/17/21 01/17/21 21:09 22:05 23:11 Glucose POC Glucose (other) 106 H 107 H 127 H 01/18/21 01/18/21 01/18/21 00:36 01:07 01:32 Glucose 157 H POC Glucose (other) 153 H 152 H 01/18/21 01/18/21 01/18/21 02:33 03:49 05:34 Glucose POC Glucose (other) 152 H 150 H 144 H 01/18/21 01/18/21 01/18/21 05:41 07:48 09:34 Glucose 137 H POC Glucose (other) 139 H 139 H 01/18/21 01/18/21 11:54 13:20 Glucose POC Glucose (other) 139 H 147 H OUTPATIENT ANTIDIABETIC REGIMEN: * Lantus 60 units BID * Regular 30 units BID * A1c = 10.8% 01/09/21 ASSESSMENT: 01/18: * Patient initiated on insulin drip yesterday due to hyperkalemia and hyperglycemia in the setting of septic shock, need for multiple pressors * Patient continues on relatively high doses of pressors, hyperkalemia improved but persistent, HD ordered for today * He is not receiving enteral feeds. He remains intubated and receiving dexamethasone 6mg IV daily * IV insulin therapy still indicated as this is controlling his BSGs, and I doubt SQ absorption is reliable given pressor requirements 01/16: * Patient again became hypoglycemic overnight. Fasting BSG 56 this AM with repeat of hypoglycemia 47 at noon time today. * Patient had received 45 units Lantus + 60 units NPH yesterday. Both basal insulin will be held today. * He had experience a similar hypoglycemic episode on 01/12 and he required no insulin that day while retaining BSGs at an acceptable level. Will likely resume reduced dose basal insulin tomorrow. Would prefer to administer long acting insulins in the AM with IV dexamethasone to allow for dissipation of effect over night. * Dexamethasone has been reduced from 6mg IV BID to once daily in the AM * Will lessen Novolog doses today as well should BSGs begin to rise 01/13: * BSGs remained low for the duration of the day yesterday. No repeat episodes of hypoglycemia noted. BSG did begin to climb overnight however. * Will resume a reduced dose of Lantus this AM and add a small dose of NPH with lunch for continued fasting hyperglycemia. Will be cautious with insulin doses in light of recent hypoglycemic episode and ongoing poor nutritional intake; * IV dexamethasone continues 01/12: * 136 units SQ insulin admin in last 24 hours * PO intake low, but some carbs documented with each meal yesterday. 0 carbs given this AM per expressive music therapist * Pt's BSGs well controlled during the day yesterday however severe hypoglycemia developed overnight (BSGs in 30s). Pt had received 60 units NPH yesterday and 50 units Lantus yesterday. Suspect pt's decreased PO intake combined with insulin accumulation may be to blame. BSGs remain below 100 thus far today. Will continue to hold both NPH and Lantus at this time and follow BSG pattern. Suspect he may resume a greatly reduced dose of Lantus this PM if BSG > 140 * IV dexamethasone continues PLAN FOR INPATIENT GLYCEMIC CONTROL: * Continue IV insulin drip - goal range 110-180 * Basal insulin * Lantus - hold * NPH - hold * Bolus insulin * Novolog SQ if permitted to have enteral feeds - carb ratio to be calculated by rate adjustment calculator PLAN FOR DISCHARGE: * to be determined
--- NOTE | 2021-01-18 15:40 | Pharmacy Report ---
Pharmacy [facility] Short Note - Date of Service January 18, 2021 - Assessment & Plan Assessment 60 year old M receiving vancomycin/zosyn for treatment of septic shock, possible pulm source vs urinary vs line. Pt has been hospitalized for COVID19 viral pna > 5 days and has been ventilated > 48 hrs. * Pertinent microbiologic data includes: Positive MRSA Nasal Swab. BCx- NGTD. Sputum culture (+) Staph spp. (awaiting ID/sensitivities) * iHD initiated yesterday * Day # 2 of antimicrobial therapy Plan Vancomycin * Random level (pre-HD) this AM- 21.6mcg/mL, which is therapeutic. Patient currently being dialyzed. * Given vancomycin serum concentration expected to drop below 20mcg/mL post HD today, will administer a 250mg dose of vancomycin today after dialysis. Pt making very little urine, so not expected to clear vancomycin outside of HD. * Random level ordered with AM labs tomorrow. Pharmacy will continue to follow and will adjust dose/frequency as necessary. Thank you.
--- NOTE | 2021-01-18 17:01 | Critical Care Progress Note ---
Date of Service January 18, 2021 Assessment & Plan (1) Pneumonia due to 2019 novel coronavirus: (2) Respiratory failure, acute: (3) Obesity (BMI 30-39.9): (4) ARDS (adult respiratory distress syndrome): Plan: Impression: 60-year-old -[place] male who is an inmate admitted with Covid pneumonia. He is failed high flow oxygen positive airway pressure ventilation despite dexamethasone and baricitinib. He was intubated 01/16/2021 and proned. 24-hour events: Patient remains critically ill. He got through a session of HD yesterday with intensive vasopressor support. He remains on 2 vasopressors and is currently undergoing dialysis again. Discussions were held with the patient's aunt who stated she was holding out for a miracle and had no intentions of limiting interventions at this point time. He remains int ermittently febrile. He is an uric. He continues with high ventilator requirements. Recommendations: 1. Neurologic: Continue aggressive sedation with propofol fentanyl and Versed. 2. Cardiac: Probable severe septic shock. Continue norepinephrine and vasopressin. 3. Pulmonary: Progressive ARDS: The patient is not a candidate for advanced therapies such as ECMO. Current vent settings: Assist control/32/400/14/0.8 with a plateau pressure of 29. Current AB.22/65/68, current P:F 85. Continue dexamethasone at 6 mg daily. Continue ARDS net ventilatory strategy. At risk for barotrauma. 4. GI: N.p.o. for now until pressors decreased. Continue PPI. 5. Renal: Acute oliguric renal failure. Nephrology input reviewed and appreciated. Tolerating HD today on 2 vasopressor agents. Additional recommendations per nephrology. 6. ID: Marked leukocytosis at 47,000 and the patient remains febrile. Respiratory cultures are growing staph. 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 Day #3 Zosyn and vancomycin. Continue for now. Tylenol as needed for fever. Patient is too unstable to consider additional imaging such as CT of the abdomen and pelvis. Has not had any diarrhea or bowel movements so suspicion for C. difficile is low. This could represent ischemic bowel or other intra-abdominal catastrophe however again the patient is too unstable to consider any additional imaging and certainly not surgical candidate. 7. Endocrine: Glycemic control per ICU pharmacist. 8. Heme-onc: No active issues. Continue DVT prophylaxis subcu heparin 7500 twice daily. Patient is critically ill with significant possibility of . A total of 45 minutes critical care time was spent in evaluation management and stabilization of this patient. Dr. Whitfield updated POA. Admission and Anticipated Discharge Date Admission Date: January 08, 2021 Subjective intubated and sedated. Review of Systems Review of Systems: Unobtainable due to endotracheal tube Physical Exam Constitutional: WD/WN, vitals as above + diaphoretic and + mechanically ventilated Neck: trachea midline, no thyromegaly Respiratory: Auscultation: + crackles and + wheezes Cardiovascular: RRR, no murmur, no edema Gastrointestinal (Abdomen): normal bowel sounds, soft, nontender, no hepatosplenomegaly Musculoskeletal: Extremities: extremities normal to inspection Skin: no rashes, warm and dry Lymphatic: no cervical lymphadenopathy Results & Data Results & Data ([facility]) Vital Signs (Past 12 Hours) Vital Signs Temp Pulse Pulse Resp BP Pulse Ox 01/18/21 16:40 108 H 88/62 L 01/18/21 16:20 108 H 89/62 L 01/18/21 16:00 36.0 C L 108 H 98/64 L 90 01/18/21 15:40 108 H 94/64 L 01/18/21 15:30 36.1 C L 108 H 90 01/18/21 15:22 108 H 96/63 L 01/18/21 15:00 36.2 C L 108 H 98/63 L 91 01/18/21 14:45 109 H 32 H 86 L 01/18/21 14:40 108 H 110/66 01/18/21 14:30 36.4 C L 109 H 86 L 01/18/21 14:20 109 H 100/59 L 01/18/21 14:09 107 H 113/61 01/18/21 14:00 36.5 C 110 H 88 L 01/18/21 13:53 37.4 C 110 H 01/18/21 13:30 36.7 C 109 H 89 L 01/18/21 13:00 37.0 C 112 H 91 01/18/21 12:30 37.2 C 115 H 90 01/18/21 12:15 37.4 C 115 H 89 L 01/18/21 12:00 37.5 C 117 H 90 01/18/21 11:30 37.8 C H 118 H 89 L 01/18/21 11:00 38.0 C H 120 H 89 L 01/18/21 10:49 120 H 33 H 92 01/18/21 10:30 38.1 C H 121 H 91 01/18/21 10:00 38.2 C H 124 H 92 01/18/21 09:30 38.1 C H 126 H 91 01/18/21 09:00 38.0 C H 126 H 91 01/18/21 08:30 37.8 C H 124 H 91 01/18/21 08:00 37.7 C H 114 H 90 01/18/21 07:54 123 H 33 H 92 01/18/21 07:30 37.6 C H 121 H 89 L 01/18/21 07:00 37.3 C 119 H 88 L 01/18/21 06:45 37.3 C 118 H 87 L 01/18/21 06:30 37.2 C 115 H 88 L 01/18/21 06:15 37.1 C 113 H 91 01/18/21 06:00 37.0 C 110 H 91 01/18/21 05:45 36.9 C 108 H 91 01/18/21 05:30 36.8 C 107 H 91 01/18/21 05:15 36.7 C 106 H 91 01/18/21 05:00 36.6 C 105 H 92 Critical Care Results & Data Vital Signs (Past 12 Hours) Vital Signs Temp Pulse Pulse Resp BP Pulse Ox 01/18/21 16:40 108 H 88/62 L 01/18/21 16:20 108 H 89/62 L 01/18/21 16:00 36.0 C L 108 H 98/64 L 90 01/18/21 15:40 108 H 94/64 L 01/18/21 15:30 36.1 C L 108 H 90 01/18/21 15:22 108 H 96/63 L 01/18/21 15:00 36.2 C L 108 H 98/63 L 91 01/18/21 14:45 109 H 32 H 86 L 01/18/21 14:40 108 H 110/66 01/18/21 14:30 36.4 C L 109 H 86 L 01/18/21 14:20 109 H 100/59 L 01/18/21 14:09 107 H 113/61 01/18/21 14:00 36.5 C 110 H 88 L 01/18/21 13:53 37.4 C 110 H 01/18/21 13:30 36.7 C 109 H 89 L 01/18/21 13:00 37.0 C 112 H 91 01/18/21 12:30 37.2 C 115 H 90 01/18/21 12:15 37.4 C 115 H 89 L 01/18/21 12:00 37.5 C 117 H 90 01/18/21 11:30 37.8 C H 118 H 89 L 01/18/21 11:00 38.0 C H 120 H 89 L 01/18/21 10:49 120 H 33 H 92 01/18/21 10:30 38.1 C H 121 H 91 01/18/21 10:00 38.2 C H 124 H 92 01/18/21 09:30 38.1 C H 126 H 91 01/18/21 09:00 38.0 C H 126 H 91 01/18/21 08:30 37.8 C H 124 H 91 01/18/21 08:00 37.7 C H 114 H 90 01/18/21 07:54 123 H 33 H 92 01/18/21 07:30 37.6 C H 121 H 89 L 01/18/21 07:00 37.3 C 119 H 88 L 01/18/21 06:45 37.3 C 118 H 87 L 01/18/21 06:30 37.2 C 115 H 88 L 01/18/21 06:15 37.1 C 113 H 91 01/18/21 06:00 37.0 C 110 H 91 01/18/21 05:45 36.9 C 108 H 91 01/18/21 05:30 36.8 C 107 H 91 01/18/21 05:15 36.7 C 106 H 91 01/18/21 05:00 36.6 C 105 H 92 Lab & Micro Results (Past 24 Hours) RBC 6.63 M/uL (4.7-6.1) H 01/18/21 WBC 47.13 K/uL (4.8-10.8) H* 01/18/21 Hgb 14.0 g/dL (14.0-18.0) 01/18/21 Hct 44.1 % (42-52) 01/18/21 MCV 66.5 fL (80-100) L 01/18/21 MCH 21.1 pg (25-34) L 01/18/21 MCHC 31.7 g/dL (32-36) L 01/18/21 RDW Standard Deviation 42.0 fL (36.4-46.3) 01/18/21 RDW Coefficient of Variation 17.7 % (11.5-14.5) H 01/18/21 Plt Count 190 K/uL (130-400) 01/18/21 Nucleated Red Blood Cells % (auto) 0.3 % 01/18/21 Nucleated RBC Absolute Count (auto) 0.13 K/uL (0-0) H 01/18/21 Neutrophils (%) (Auto) 84.1 % 01/18/21 Lymphocytes (%) (Auto) 6.4 % 01/18/21 Monocytes # (Auto) 3.88 K/uL (0.11-0.59) H 01/18/21 Eosinophils # (Auto) 0.01 K/uL (0-0.5) 01/18/21 Immature Granulocyte % (Auto) 1.1 % 01/18/21 Neutrophils # (Auto) 39.61 K/uL (1.4-6.5) H 01/18/21 Lymphocytes # (Auto) 3.01 K/uL (1.2-3.4) 01/18/21 Monocytes # (Auto) 3.88 K/uL (0.11-0.59) H 01/18/21 Eosinophils # (Auto) 0.01 K/uL (0-0.5) 01/18/21 Basophils # (Auto) 0.09 K/uL (0-0.2) 01/18/21 Immature Granulocyte # (Auto) 0.53 K/uL (0.00-0.02) H 01/18/21 Poikilocytosis Present 01/18/21 Microcytosis Present 01/18/21 Na 134 mmol/L (136-145) L 01/18/21 K 5.4 mmol/L (3.5-5.1) H 01/18/21 Cl 97 mmol/L (98-107) L 01/18/21 CO2 24 mmol/L (21-32) 01/18/21 Anion Gap 13.0 (3-11) H 01/18/21 BUN 56 mg/dl (7-18) H 01/18/21 Creatinine 4.14 mg/dl (0.6-1.4) H 01/18/21 Estimated GFR ( Amer) 17.1 ml/min 01/18/21 Estimated GFR (Non-Af Amer) 14.7 ml/min 01/18/21 BUN/Creatinine Ratio 13.5 (10-20) 01/18/21 Glu 137 mg/dl (70-99) H 01/18/21 Ca 7.2 mg/dl (8.5-10.1) L 01/18/21 Phosphorus Level 9.5 mg/dl (2.5-4.9) H 01/18/21 Mg 2.5 mg/dl (1.8-2.4) H 01/18/21 05:41 01/18/21 Calcium Level 7.2 mg/dl (8.5-10.1) L 01/18/21 05:41 01/18/21 Louie Test NA 01/18/21 03:41 01/18/21 Microbiology 01/17/21 11:45 Gram Stain - Final Sputum,Vent Suction Sputum Culture - Preliminary Staphylococcus species 01/17/21 07:19 Aerobic Blood Culture - Preliminary Blood No growth in Aerobic bottle after 24 hours. Anaerobic Blood Culture - Preliminary No growth in Anaerobic bottle after 24 hours. 01/17/21 07:34 Aerobic Blood Culture - Preliminary Blood No growth in Aerobic bottle after 24 hours. Anaerobic Blood Culture - Preliminary No growth in Anaerobic bottle after 24 hours. Diagnostic Findings (Past 24 Hours) Chest X-Ray 01/18/21 07:00 XR chest 1V portable CLINICAL HISTORY: Respiratory failure. COMPARISON STUDY: Chest radiograph January 17, 2021 at 2:45 PM. FINDINGS: Tip of endotracheal tube is 5.3 cm above the mitch. Tip of nasogastric tube is below the lower aspect of this image but at least within the proximal stomach. Bilateral internal jugular central lines remain in place. There is no pneumothorax. There are small bilateral pleural effusions. Extensive bilateral airspace opacities persist. IMPRESSION: 1. Satisfactory positioning of lines and tubes. 2. Persistent extensive bilateral airspace opacities consistent with viral pneumonia. 3. Small bilateral pleural effusions. No pneumothorax. ACT 112: Negative or not required by law. Electronically signed by: Jared Navarro M.D. 01/18/2021 8:42 AM I & O Totals 24 Hours 01/17/21 01/18/21 01/19/21 06:59 06:59 06:59 Intake Total 1764.508 / 0242.170 4291.943 / 4464.943 1460.392 / 1460.392 Output Total 475 / 475 200 / 200 0 / 0 Balance 1289.508 / 7917.305 0102.943 / 4264.943 1460.392 / 1460.392 Cumulative 01/08/21 08:14 thru 01/18/21 16:00 Intake Total 95163.843 Output Total 20284 Balance 8835.843 RT Ventilator Mngmt (Last Documented) Ventilator Ordered Settings Ventilator Support Mode Assist Control 01/18/21 16:00 Respiratory Rate 32 01/18/21 14:45 Ventilator Tidal Volume 400 01/18/21 16:00 Setting Minute Ventilation 12.7 01/18/21 14:45 Ventilator Positive Pressure 12 01/15/21 20:00 Support Setting Positive End Expiratory 14 01/18/21 16:00 Pressure Fraction of Inspired Oxygen 80 01/18/21 16:00 Peak Inspiratory Flow 28 01/16/21 18:19 Machine Comment increased to 100%O2 01/18/21 14:45 Ventilator - PT Measurements Respiratory Rate 32 Exhaled Tidal Volume 401 Minute Ventilation 12.7 Peak Inspiratory Airway 31 Pressure Plateau Pressure 28 Respiratory Cycle Inspiratory: 1:1.5 Expiratory Ratio Inspiratory Phase Time 0.75 End-Tidal CO2 33 Static Lung Compliance 28.64 Dynamic Lung Compliance 23.59 Normal Static Lung Compliance 46.00 Patient Measurements Comment patient getting dialysis at this time Coding Level of Care Code Critical Care 1st 30-74 mins Diagnoses Pneumonia due to 2019 novel coronavirus U07.1; J12.82 Respiratory failure, acute J96.01 Respiratory failure complication: hypoxia Obesity (BMI 30-39.9) E66.9 ARDS (adult respiratory distress syndrome) J80 (1) Respiratory failure, acute Respiratory failure complication: hypoxia Qualified Code(s): J96.01 - Acute respiratory failure with hypoxia
--- NOTE | 2021-01-18 17:08 | Hospitalist Progress Note ---
Date of Service January 18, 2021 Assessment & Plan (1) Pneumonia due to 2019 novel coronavirus: Plan: (1) Pneumonia due to COVID-19 virus: Plan: Symptoms started approximately 01/03. With significantly high CRP and already requiring HFNC on admission Fully vaccinated with J&J Vaccine several months prior CXR with bilat infiltrates, CXR on 01/14 shows worsening infiltrates Lasix 40mg IV on 01/15, little response on dexamethasone since admission intubated on 01/16 after failing BIPAP his prognosis has worsened, now has circulatory shock requiring pressors and oliguric renal failure, hyperkalemia discussed with his aunt Randee again on 01/18, wants to keep him Level 1 (2) Acute respiratory failure with hypoxia: Plan: as above, secondary to COVID PNA progressed to needing intubated on 01/16 ICU managing he is on PEEP 15 and FiO2 80% cannot prone as he is unstable with shock (3) MEHRDAD (acute kidney injury): Plan: Cr was 0.9 on 01/16 prior to intubation he did have some hypotension after intubation, required Levophed now he is on Levophed and Vasopressin Cr up to 4.1 today he is oliguric, minimal urine in bo bag HD on 01/17 and HD on 01/18 called 4 facilities on 01/17 to try for transfer for CRRT, no facilities have ICU beds for days, likely a week explained this to family (4) Shock could be septic as his WBC is up to 47k and spiking fevers on Vanco and Zosyn requiring Levophed and Vasopressin slow HD, low volume with no plans for UF (5) DM ICU protocol for glucose management (6) Thrombocytopenia: Plan: resolved, likely from acute viral illness (7) Neuropathy: Plan: with h/o bilat great toe amputations due to DM ulcers (8) Anemia: Plan: Hb is stable (9) Hypertension: Plan: holding meds now needs Levophed after sedation/intubation (10) Hyperkalemia 5.2 today, this was prior to HD [place] prophylaxis[place] 7500 tid due to MEHRDAD, SCDs Dispo- transfer to ICU status remains full code, discussed with his aunt Randee today, 01/18 (2) Acute respiratory failure with hypoxia: (3) Obesity (BMI 30-39.9): (4) Respiratory failure, acute: (5) Acute kidney injury: (6) Major depression with psychotic features: (7) Thrombocytopenia: (8) Hypothyroidism: (9) Osteoarthritis: (10) Neuropathy: (11) Anemia: (12) Hyperkalemia: (13) ARDS (adult respiratory distress syndrome): Admission and Anticipated Discharge Date Admission Date: January 08, 2021 Subjective patient spiking fevers, on Vasopressin and Levophed tolerated low flow HD yesterday but required 3 pressors tolerated several hours of HD today CR up to 4.1, K elevated, WBC is 47k he is on 80% FiO2 with PEEP [address] Soto as well as Dr. Reyes I called his aunt Randee to discuss very guarded prognosis, the lack of CRRT she pleaded that we continue to do everything possible I assured her that we are doing everything we can I asked her to speak with other family members about CPR, coding the patient if his heart would stop as this would be result his severe illness that we cannot reverse she continued to ask for everything possible to be done, including CPR if he would code I told her we would continue what we are doing and I would call her tomorrow Dr. Soto called her as well and explained grave situation with his renal function Review of Systems Review of Systems: Unobtainable due to endotracheal tube Physical Exam Physical Exam: General: well developed, well nourished, mechanically ventilated Neck: supple, trachea midline, normal thyroid Lungs: clear to auscultation bilaterally, symmetric chest movement on ventilator Heart: tachycardic S1 and S2, no murmur, peripheral pulses normal, capillary refill normal, no edema Abdomen: soft, NT, ND, + BS, no hepatomegaly, normal to percussion Extremities: normal in appearance, both big toes amputated Neuro: sedated, no focal motor deficits, CN II-XII intact Skin: warm, dry, no rash, normal turgor Psych: sedated Results & Data Results & Data ([facility]) Vital Signs (Past 12 Hours) Vital Signs Temp Pulse Pulse Resp BP Pulse Ox 01/18/21 16:40 108 H 88/62 L 01/18/21 16:20 108 H 89/62 L 01/18/21 16:00 36.0 C L 108 H 98/64 L 90 01/18/21 15:40 108 H 94/64 L 01/18/21 15:30 36.1 C L 108 H 90 01/18/21 15:22 108 H 96/63 L 01/18/21 15:00 36.2 C L 108 H 98/63 L 91 01/18/21 14:45 109 H 32 H 86 L 01/18/21 14:40 108 H 110/66 01/18/21 14:30 36.4 C L 109 H 86 L 01/18/21 14:20 109 H 100/59 L 01/18/21 14:09 107 H 113/61 01/18/21 14:00 36.5 C 110 H 88 L 01/18/21 13:53 37.4 C 110 H 01/18/21 13:30 36.7 C 109 H 89 L 01/18/21 13:00 37.0 C 112 H 91 01/18/21 12:30 37.2 C 115 H 90 01/18/21 12:15 37.4 C 115 H 89 L 01/18/21 12:00 37.5 C 117 H 90 01/18/21 11:30 37.8 C H 118 H 89 L 01/18/21 11:00 38.0 C H 120 H 89 L 01/18/21 10:49 120 H 33 H 92 01/18/21 10:30 38.1 C H 121 H 91 01/18/21 10:00 38.2 C H 124 H 92 01/18/21 09:30 38.1 C H 126 H 91 01/18/21 09:00 38.0 C H 126 H 91 01/18/21 08:30 37.8 C H 124 H 91 01/18/21 08:00 37.7 C H 114 H 90 01/18/21 07:54 123 H 33 H 92 01/18/21 07:30 37.6 C H 121 H 89 L 01/18/21 07:00 37.3 C 119 H 88 L 01/18/21 06:45 37.3 C 118 H 87 L 01/18/21 06:30 37.2 C 115 H 88 L 01/18/21 06:15 37.1 C 113 H 91 01/18/21 06:00 37.0 C 110 H 91 01/18/21 05:45 36.9 C 108 H 91 01/18/21 05:30 36.8 C 107 H 91 01/18/21 05:15 36.7 C 106 H 91 01/18/21 05:00 36.6 C 105 H 92 Laboratory Results Laboratory Results - last 24 hr 01/17/21 01/17/21 01/17/21 15:45 16:29 17:11 WBC RBC Hgb POC Hgb Hct POC Hct MCV MCH MCHC RDW Std Deviation RDW Coeff of Shree Plt Count Immature Gran % (Auto) Neut % (Auto) Lymph % (Auto) [place] % (Auto) Eos % (Auto) Baso % (Auto) Neut # (Auto) Lymph # (Auto) [place] # (Auto) Eos # (Auto) Baso # (Auto) Immature Gran # (Auto) Absolute Nucleated RBC Nucleated RBC % (auto) Poikilocytosis Microcytosis Sample Site POC pH POC pCO2 POC pO2 POC HCO3 POC Total CO2 POC Base Excess ABG pH (Temp Correct) ABG pCO2 (Temp Corrct POC ABG pO2 at Pt Temp POC ABG O2 Sat Louie Test O2 Delivery Device POC O2 Rate POC FiO2 Tidal Volume PEEP POC Sodium Sodium 133 L POC Potassium Potassium 5.8 H Chloride 98 Carbon Dioxide 24 Anion Gap 11.0 BUN 60 H Creatinine 3.82 H D Est Cr Clr Drug Dosing 31.2 Est GFR ( Amer) 18.8 Est GFR (Non-Af Amer) 16.2 BUN/Creatinine Ratio 15.6 Glucose 113 H POC Glucose (other) 113 H 108 H Calcium 7.7 L Phosphorus Magnesium Random Vancomycin Hep Bs Antigen Hep Bs Antibody Hep Bs Antibody, Quant 01/17/21 01/17/21 01/17/21 17:51 18:44 20:06 WBC RBC Hgb POC Hgb Hct POC Hct MCV MCH MCHC RDW Std Deviation RDW Coeff of Shree Plt Count Immature Gran % (Auto) Neut % (Auto) Lymph % (Auto) [place] % (Auto) Eos % (Auto) Baso % (Auto) Neut # (Auto) Lymph # (Auto) [place] # (Auto) Eos # (Auto) Baso # (Auto) Immature Gran # (Auto) Absolute Nucleated RBC Nucleated RBC % (auto) Poikilocytosis Microcytosis Sample Site POC pH POC pCO2 POC pO2 POC HCO3 POC Total CO2 POC Base Excess ABG pH (Temp Correct) ABG pCO2 (Temp Corrct POC ABG pO2 at Pt Temp POC ABG O2 Sat Louie Test O2 Delivery Device POC O2 Rate POC FiO2 Tidal Volume PEEP POC Sodium Sodium POC Potassium Potassium Chloride Carbon Dioxide Anion Gap BUN Creatinine Est Cr Clr Drug Dosing Est GFR ( Amer) Est GFR (Non-Af Amer) BUN/Creatinine Ratio Glucose POC Glucose (other) 108 H 137 H 131 H Calcium Phosphorus Magnesium Random Vancomycin Hep Bs Antigen Hep Bs Antibody Hep Bs Antibody, Quant 01/17/21 01/17/21 01/17/21 20:28 21:09 22:05 WBC RBC Hgb POC Hgb Hct POC Hct MCV MCH MCHC RDW Std Deviation RDW Coeff of Shree Plt Count Immature Gran % (Auto) Neut % (Auto) Lymph % (Auto) [place] % (Auto) Eos % (Auto) Baso % (Auto) Neut # (Auto) Lymph # (Auto) [place] # (Auto) Eos # (Auto) Baso # (Auto) Immature Gran # (Auto) Absolute Nucleated RBC Nucleated RBC % (auto) Poikilocytosis Microcytosis Sample Site POC pH POC pCO2 POC pO2 POC HCO3 POC Total CO2 POC Base Excess ABG pH (Temp Correct) ABG pCO2 (Temp Corrct POC ABG pO2 at Pt Temp POC ABG O2 Sat Louie Test O2 Delivery Device POC O2 Rate POC FiO2 Tidal Volume PEEP POC Sodium Sodium POC Potassium Potassium Chloride Carbon Dioxide Anion Gap BUN Creatinine Est Cr Clr Drug Dosing Est GFR ( Amer) Est GFR (Non-Af Amer) BUN/Creatinine Ratio Glucose POC Glucose (other) 106 H 107 H Calcium Phosphorus Magnesium Random Vancomycin 28.4 Hep Bs Antigen Hep Bs Antibody Hep Bs Antibody, Quant 01/17/21 01/18/21 01/18/21 23:11 00:36 01:07 WBC RBC Hgb POC Hgb Hct POC Hct MCV MCH MCHC RDW Std Deviation RDW Coeff of Shree Plt Count Immature Gran % (Auto) Neut % (Auto) Lymph % (Auto) [place] % (Auto) Eos % (Auto) Baso % (Auto) Neut # (Auto) Lymph # (Auto) [place] # (Auto) Eos # (Auto) Baso # (Auto) Immature Gran # (Auto) Absolute Nucleated RBC Nucleated RBC % (auto) Poikilocytosis Microcytosis Sample Site POC pH POC pCO2 POC pO2 POC HCO3 POC Total CO2 POC Base Excess ABG pH (Temp Correct) ABG pCO2 (Temp Corrct POC ABG pO2 at Pt Temp POC ABG O2 Sat Louie Test O2 Delivery Device POC O2 Rate POC FiO2 Tidal Volume PEEP POC Sodium Sodium 134 L POC Potassium Potassium 4.9 D Chloride 98 Carbon Dioxide 23 Anion Gap 13.0 H BUN 53 H Creatinine 3.73 H Est Cr Clr Drug Dosing 32.0 Est GFR ( Amer) 19.4 Est GFR (Non-Af Amer) 16.7 BUN/Creatinine Ratio 14.2 Glucose 157 H POC Glucose (other) 127 H 153 H Calcium 7.7 L Phosphorus Magnesium Random Vancomycin Hep Bs Antigen Hep Bs Antibody Hep Bs Antibody, Quant 01/18/21 01/18/21 01/18/21 01:32 02:33 03:41 WBC RBC Hgb POC Hgb 16.3 Hct POC Hct 48 MCV MCH MCHC RDW Std Deviation RDW Coeff of Shree Plt Count Immature Gran % (Auto) Neut % (Auto) Lymph % (Auto) [place] % (Auto) Eos % (Auto) Baso % (Auto) Neut # (Auto) Lymph # (Auto) [place] # (Auto) Eos # (Auto) Baso # (Auto) Immature Gran # (Auto) Absolute Nucleated RBC Nucleated RBC % (auto) Poikilocytosis Microcytosis Sample Site Art Line POC pH 7.22 L POC pCO2 65 H POC pO2 68 L POC HCO3 26 H POC Total CO2 28 POC Base Excess -1.0 ABG pH (Temp Correct) 7.225 L ABG pCO2 (Temp Corrct 63 H POC ABG pO2 at Pt Temp 65 POC ABG O2 Sat 88.0 L Louie Test NA O2 Delivery Device Ventilator POC O2 Rate 32 POC FiO2 100 Tidal Volume 400 PEEP 14 POC Sodium 134 L Sodium POC Potassium 5.2 H Potassium Chloride Carbon Dioxide Anion Gap BUN Creatinine Est Cr Clr Drug Dosing Est GFR ( Amer) Est GFR (Non-Af Amer) BUN/Creatinine Ratio Glucose POC Glucose (other) 152 H 152 H Calcium Phosphorus Magnesium Random Vancomycin Hep Bs Antigen Hep Bs Antibody Hep Bs Antibody, Quant 01/18/21 01/18/21 01/18/21 03:49 05:34 05:41 WBC RBC Hgb POC Hgb Hct POC Hct MCV MCH MCHC RDW Std Deviation RDW Coeff of Shree Plt Count Immature Gran % (Auto) Neut % (Auto) Lymph % (Auto) [place] % (Auto) Eos % (Auto) Baso % (Auto) Neut # (Auto) Lymph # (Auto) [place] # (Auto) Eos # (Auto) Baso # (Auto) Immature Gran # (Auto) Absolute Nucleated RBC Nucleated RBC % (auto) Poikilocytosis Microcytosis Sample Site POC pH POC pCO2 POC pO2 POC HCO3 POC Total CO2 POC Base Excess ABG pH (Temp Correct) ABG pCO2 (Temp Corrct POC ABG pO2 at Pt Temp POC ABG O2 Sat Louie Test O2 Delivery Device POC O2 Rate POC FiO2 Tidal Volume PEEP POC Sodium Sodium 134 L POC Potassium Potassium 5.4 H Chloride 97 L Carbon Dioxide 24 Anion Gap 13.0 H BUN 56 H Creatinine 4.14 H D Est Cr Clr Drug Dosing 28.8 Est GFR ( Amer) 17.1 Est GFR (Non-Af Amer) 14.7 BUN/Creatinine Ratio 13.5 Glucose 137 H POC Glucose (other) 150 H 144 H Calcium 7.2 L Phosphorus 9.5 H Magnesium 2.5 H Random Vancomycin Hep Bs Antigen Hep Bs Antibody Hep Bs Antibody, Quant 01/18/21 01/18/21 01/18/21 05:41 05:41 05:41 WBC 47.13 H* RBC 6.63 H Hgb 14.0 POC Hgb Hct 44.1 POC Hct MCV 66.5 L MCH 21.1 L MCHC 31.7 L RDW Std Deviation 42.0 RDW Coeff of Shree 17.7 H Plt Count 190 Immature Gran % (Auto) 1.1 Neut % (Auto) 84.1 Lymph % (Auto) 6.4 [place] % (Auto) 8.2 Eos % (Auto) 0.0 Baso % (Auto) 0.2 Neut # (Auto) 39.61 H Lymph # (Auto) 3.01 [place] # (Auto) 3.88 H Eos # (Auto) 0.01 Baso # (Auto) 0.09 Immature Gran # (Auto) 0.53 H Absolute Nucleated RBC 0.13 H Nucleated RBC % (auto) 0.3 Poikilocytosis Present Microcytosis Present Sample Site POC pH POC pCO2 POC pO2 POC HCO3 POC Total CO2 POC Base Excess ABG pH (Temp Correct) ABG pCO2 (Temp Corrct POC ABG pO2 at Pt Temp POC ABG O2 Sat Louie Test O2 Delivery Device POC O2 Rate POC FiO2 Tidal Volume PEEP POC Sodium Sodium POC Potassium Potassium Chloride Carbon Dioxide Anion Gap BUN Creatinine Est Cr Clr Drug Dosing Est GFR ( Amer) Est GFR (Non-Af Amer) BUN/Creatinine Ratio Glucose POC Glucose (other) Calcium Phosphorus Magnesium Random Vancomycin 21.6 Hep Bs Antigen Pending Hep Bs Antibody Pending Hep Bs Antibody, Quant Pending 01/18/21 01/18/21 01/18/21 07:48 09:34 11:54 WBC RBC Hgb POC Hgb Hct POC Hct MCV MCH MCHC RDW Std Deviation RDW Coeff of Shree Plt Count Immature Gran % (Auto) Neut % (Auto) Lymph % (Auto) [place] % (Auto) Eos % (Auto) Baso % (Auto) Neut # (Auto) Lymph # (Auto) [place] # (Auto) Eos # (Auto) Baso # (Auto) Immature Gran # (Auto) Absolute Nucleated RBC Nucleated RBC % (auto) Poikilocytosis Microcytosis Sample Site POC pH POC pCO2 POC pO2 POC HCO3 POC Total CO2 POC Base Excess ABG pH (Temp Correct) ABG pCO2 (Temp Corrct POC ABG pO2 at Pt Temp POC ABG O2 Sat Louie Test O2 Delivery Device POC O2 Rate POC FiO2 Tidal Volume PEEP POC Sodium Sodium POC Potassium Potassium Chloride Carbon Dioxide Anion Gap BUN Creatinine Est Cr Clr Drug Dosing Est GFR ( Amer) Est GFR (Non-Af Amer) BUN/Creatinine Ratio Glucose POC Glucose (other) 139 H 139 H 139 H Calcium Phosphorus Magnesium Random Vancomycin Hep Bs Antigen Hep Bs Antibody Hep Bs Antibody, Quant 01/18/21 01/18/21 13:20 15:35 WBC RBC Hgb POC Hgb Hct POC Hct MCV MCH MCHC RDW Std Deviation RDW Coeff of Shree Plt Count Immature Gran % (Auto) Neut % (Auto) Lymph % (Auto) [place] % (Auto) Eos % (Auto) Baso % (Auto) Neut # (Auto) Lymph # (Auto) [place] # (Auto) Eos # (Auto) Baso # (Auto) Immature Gran # (Auto) Absolute Nucleated RBC Nucleated RBC % (auto) Poikilocytosis Microcytosis Sample Site POC pH POC pCO2 POC pO2 POC HCO3 POC Total CO2 POC Base Excess ABG pH (Temp Correct) ABG pCO2 (Temp Corrct POC ABG pO2 at Pt Temp POC ABG O2 Sat Louie Test O2 Delivery Device POC O2 Rate POC FiO2 Tidal Volume PEEP POC Sodium Sodium POC Potassium Potassium Chloride Carbon Dioxide Anion Gap BUN Creatinine Est Cr Clr Drug Dosing Est GFR ( Amer) Est GFR (Non-Af Amer) BUN/Creatinine Ratio Glucose POC Glucose (other) 147 H 137 H Calcium Phosphorus Magnesium Random Vancomycin Hep Bs Antigen Hep Bs Antibody Hep Bs Antibody, Quant Medications Administered Current Inpatient Medications Acetaminophen (Acetaminophen 325 Mg Tab) 650 mg PO Q4H PRN PRN Reason: Pain or Fever Stop: 02/07/21 14:01 Last Admin: 01/13/21 08:30 Dose: 650 mg Documented by: Artificial Tears (Artificial Tears) 1 drops OP QID [facility] Stop: 02/07/21 14:01 Last Admin: 01/17/21 12:35 Dose: Not Given Documented by: Aspirin (Aspirin 81 Mg Chew) 81 mg NG QAM [facility] Stop: 02/16/21 10:29 Last Admin: 01/18/21 09:09 Dose: 81 mg Documented by: Brimonidine Tartrate (Brimonidine Tartrate-P 0.15% 5 Ml Btl) 1 drops OP TID [facility] Stop: 02/07/21 14:01 Last Admin: 01/18/21 15:15 Dose: 1 drops Documented by: Dextrose (Dextrose 50% 50 Ml Syringe) 25 - 50 ml IV UD PRN; Protocol PRN Reason: Hypoglycemia Protocol Stop: 02/07/21 14:01 Last Admin: 01/16/21 11:44 Dose: 50 ml Documented by: Fentanyl Citrate (Fentanyl Bolus From Bag) 50 mcg IV Q60M PRN PRN Reason: Pain or Agitation Stop: 01/30/21 12:01 Glucagon (Glucagon For Inj 1 Mg Vial) 1 mg SQ UD PRN; Protocol PRN Reason: Hypoglycemia Protocol Stop: 02/07/21 14:01 Glucose (Glucose 10 Tabs/Tube) 4 - 8 tabs PO UD PRN; Protocol PRN Reason: Hypoglycemia Protocol Stop: 02/07/21 14:01 Last Admin: 01/16/21 02:37 Dose: 2 tabs Documented by: Glucose (Glucose 40% Gel 15 Gm Tube) 15 - 30 gm PO UD PRN; Protocol PRN Reason: Hypoglycemia Protocol Stop: 02/07/21 14:01 Heparin Sodium (Porcine) (Heparin Sod 5,000 Unit/0.5 Ml Vial) 7,500 units SQ Q12 [facility] Stop: 02/15/21 20:59 Last Admin: 01/18/21 09:09 Dose: 7,500 units Documented by: Cisatracurium Besylate 40 mg/ (Sodium Chloride) 100 mls @ 13.05 mls/hr IV .Q7H40M [facility]; Protocol Stop: 02/15/21 12:59 Last Admin: 01/17/21 17:18 Dose: Not Given Documented by: Midazolam HCl (Versed) 125 mg in 250 mls @ 8 mls/hr IV .[id number] [facility]; Protocol Stop: 02/15/21 13:44 Last Titration: 01/18/21 07:23 Dose: 4 mg/hr, 8 mls/hr Documented by: Dexamethasone 6 mg/ Syringe 1.5 mls @ 1 mls/min IV DAILY [facility] Stop: 02/16/21 08:59 Last Admin: 01/18/21 09:06 Dose: 1 mls/min Documented by: Acetaminophen (Ofirmev) 1,000 mg in 100 mls @ 400 mls/hr IV Q8H PRN PRN Reason: Fever Stop: 01/20/21 03:43 Last Infusion: 01/18/21 09:37 Dose: Infused Documented by: Insulin Human Regular 250 (units/ Sodium Chloride) 250 mls @ 1 mls/hr IV .Q24H [facility]; Protocol Stop: 02/16/21 07:07 Last Titration: 01/18/21 15:30 Dose: 1 units/hr, 1 mls/hr Documented by: Vasopressin 20 units/ Sodium (Chloride) 101 mls @ 12.12 mls/hr IV .Q8H20M [facility] Stop: 02/16/21 06:59 Last Admin: 01/18/21 09:46 Dose: 0.04 unit/min, 12.1 mls/hr Documented by: Pantoprazole Sodium 40 mg/ (Syringe) 10 mls @ 5 mls/min IV DAILY@1100 [facility] Stop: 02/16/21 10:59 Last Admin: 01/18/21 12:00 Dose: 5 mls/min Documented by: Norepinephrine Bitartrate (Levophed/D5w) 32 mg in 250 mls @ 18.352 mls/hr IV .[id number] [facility]; Protocol Stop: 02/16/21 10:29 Last Admin: 01/18/21 13:23 Dose: 0.29 mcg/kg/min, 18.4 mls/hr Documented by: Fentanyl Citrate (Fentanyl Citrate) 2,500 mcg in 250 mls @ 10 mls/hr IV .Q25H [facility]; Protocol Stop: 01/31/21 11:14 Last Admin: 01/18/21 16:43 Dose: 200 mcg/hr, 20 mls/hr Documented by: Piperacillin Sod/Tazobactam (Sod 4.5 gm/ Dextrose) 120 mls @ 30 mls/hr IV Q12H [facility]; Protocol Stop: 01/25/21 00:00 Last Infusion: 01/18/21 15:56 Dose: Infused Documented by: Phenylephrine HCl 20 mg/ (Dextrose) 502 mls @ 101.655 mls/hr IV .Q4H57M [facility]; Protocol Stop: 02/16/21 21:29 Last Admin: 01/18/21 15:41 Dose: Not Given Documented by: Vancomycin HCl 250 mg/ Sodium (Chloride) 105 mls @ 132 mls/hr IV TODAY@1800 [facility] Stop: 01/18/21 18:47 Insulin Aspart (Insulin Aspart 100 Units/Ml 3 Ml Pen) 0 units SC ACHS [facility] Stop: 02/16/21 07:29 Last Admin: 01/18/21 16:37 Dose: Not Given Documented by: Latanoprost (Latanoprost 0.005% Op Soln 2.5 Ml Btl) 1 drops OP PM [facility] Stop: 02/07/21 20:59 Last Admin: 01/17/21 22:27 Dose: 1 drops Documented by: Levothyroxine Sodium (Levothyroxine Sodium 175 Mcg Tablet) 175 mcg PO DAILYBB [facility] Stop: 02/08/21 06:29 Last Admin: 01/18/21 05:38 Dose: 175 mcg Documented by: Midazolam HCl (Midazolam Bolus From Bag) 2 mg IV Q60M PRN PRN Reason: Sedation Stop: 02/15/21 13:37 Miscellaneous (Carbohydrates For Hypoglycemia ) 15 - 30 gm PO UD PRN PRN Reason: Hypoglycemia Protocol Stop: 02/07/21 14:01 Last Admin: 01/16/21 03:10 Dose: 13 gm Documented by: Miscellaneous Information (Pharmacy Glycemic Mgmt Consult) 1 ea N/A UD PRN; Protocol PRN Reason: Consult Stop: 02/07/21 14:01 Miscellaneous Information (Vancomycin Consult Active) 1 ea N/A UD PRN PRN Reason: Consult Stop: 02/16/21 06:28 Miscellaneous Information (Piperacill/Tazobac Consult Active) 1 ea N/A UD PRN PRN Reason: Consult Stop: 02/16/21 06:30 Multi-Ingredient Cream (Artificial Tears Op Oint 3.5 Gm Tube) 1 appln OP Q4H [facility] Stop: 02/15/21 13:59 Last Admin: 01/18/21 15:01 Dose: Not Given Documented by: Patiromer (Patiromer Calcium Sorbitex 8.4 Gm Pack) 8.4 gm PO DAILY@1000 [facility] Stop: 02/16/21 09:44 Last Admin: 01/18/21 09:07 Dose: 8.4 gm Documented by: Polyethylene Glycol (Polyethylene (Miralax) 17 Gm Pack) 17 gm PO DAILY PRN PRN Reason: Constipation Stop: 02/07/21 14:01 Timolol Maleate (Timolol Maleate 0.5% Op Soln 5 Ml Btl) 1 drops OP BID [facility] Stop: 02/07/21 20:59 Last Admin: 01/18/21 09:11 Dose: 1 drops Documented by: PG Care Time/CCT Total # of Minutes Spent Total Time Spent with Patient: Total time spent is greater than 50% in coordination of care (as documented) at patient's floor/unit and/or counseling patient: Coding Level of Care Code 33254 Subseq Hosp Care Lvl 3 Diagnoses Pneumonia due to 2019 novel coronavirus U07.1; J12.82 Acute respiratory failure with hypoxia J96.01 Obesity (BMI 30-39.9) E66.9 Respiratory failure, acute J96.01 Respiratory failure complication: hypoxia Acute kidney injury N17.9 Major depression with psychotic features F32.3 Thrombocytopenia D69.6 Hypothyroidism E03.9 Osteoarthritis M19.90 Neuropathy G62.9 Anemia D64.9 Hyperkalemia E87.5 ARDS (adult respiratory distress syndrome) J80 (1) Respiratory failure, acute Respiratory failure complication: hypoxia Qualified Code(s): J96.01 - Acute respiratory failure with hypoxia
[2021-01-18] MEDS: MIDAZOLAM HCL 125 MG/250 ML BAG IV SCH (17:49)
[2021-01-18] MEDS ORDERED: VANCOMYCIN HCL 250 MG in 0.9 % SODIUM CHLORIDE 100 ML IV ONE (18:00)
[2021-01-18] MEDS: LATANOPROST 0.005% OP SOLN 2.5 ML BTL OP SCH (19:59)
[2021-01-19] MEDS ORDERED: Nursing to Pharmacy Communication SCH (00:15)
[2021-01-19] MEDS: NOREPINEPHRINE/D5W 32 MG/250 ML BAG IV SCH ×7 (01:23→20:59)
[2021-01-19] MEDS: ACETAMINOPHEN 1,000 MG/100 ML VIAL IV PRN (01:23)
[2021-01-19] MEDS: VASOPRESSIN 20 UNITS in 0.9 % SODIUM CHLORIDE 100 ML IV SCH ×3 (01:23→17:02)
[2021-01-19] MEDS: MIDAZOLAM HCL 125 MG/250 ML BAG IV SCH ×3 (02:17→17:51)
[2021-01-19 03:16] LABS: HBSAG NON-REACTIVE (NON-REACTIVE); Hepatitis B Core Antibody Total REACTIVE (NON-REACTIVE)
[2021-01-19] MEDS: PHENYLEPHRINE HCL 20 MG in DEXTROSE 5% 500 ML IV SCH ×5 (03:50→23:02)
[2021-01-19] MEDS: fentaNYL citrate 2,500 MCG/250 ML BAG IV SCH ×2 (03:50→15:24)
[2021-01-19 04:47] LABS: iSTAT Arterial Blood Gas HCO3 25 meg/L (19-24); iSTAT Arterial Blood Gas pCO2 65 mmHg (35-46); iSTAT Arterial Blood Gas pH 7.19 (7.35-7.45); iSTAT Arterial Blood Gas pO2 66 mmHg (80-95); iSTAT Carbon Dioxide 27 mmol/L (24-31); iSTAT FiO2 100 %; iSTAT Site Art Line
[2021-01-19] MEDS: LEVOTHYROXINE SODIUM 175 MCG TABLET PO SCH (05:35)
[2021-01-19 06:51] LABS: Hematocrit (blood only) 42.7 % (42-52); Hemoglobin 13.3 g/dL (14.0-18.0); Mean Corpuscular Hgb Conc 31.1 g/dL (32-36); Mean Corpuscular Volume 67.5 fL (80-100); Nucleated RBC # (auto) 0.19 K/uL (0-0); Nucleated RBC % (auto) 0.4 %; Platelet Count 231 K/uL (130-400); RDW Coefficient of Variation 18.3 % (11.5-14.5); RDW Standard Deviation 44.7 fL (36.4-46.3); Red Blood Count 6.33 M/uL (4.7-6.1); White Blood Count 45.49 K/uL (4.8-10.8)
[2021-01-19 06:54] LABS: Basophils # (auto) 0.03 K/uL (0-0.2); Basophils % (auto) 0.1 %; Echinocytes 1+; Immature Granulocytes % (auto) 0.7 %; Lymphocytes % (auto) 4.8 %; Microcytosis Present; Monocytes % (auto) 7.5 %; Neutrophils # (auto) 39.56 K/uL (1.4-6.5); Neutrophils % (auto) 86.9 %
[2021-01-19 07:07] LABS: BUN Creatinine Ratio 12.1 (10-20); Calcium 7.4 mg/dl (8.5-10.1); Creatinine Clr Calc Pharmacy 22.9 ml/min; Est GFR (African American) 12.8 ml/min; Magnesium 2.6 mg/dl (1.8-2.4)
--- NOTE | 2021-01-19 07:33 | XRay Report ---
XR chest 1V portable HISTORY: 60 years-old Male Resp failure acute respiratory failure COMPARISON: Chest radiograph 01/18/2021 TECHNIQUE: Portable AP view of the chest FINDINGS: Endotracheal tube overlies the midline, 5.5 cm superior to the mitch. Bilateral internal jugular ramirez tral venous catheters appear to be in unchanged positioning. Enteric tube courses below the diaphragm with distal tip outside the [id number]. Study is limited secondary to an indeterminate material p rojected over the patient's chest. There is no pneumothorax identified. Unchanged small pleural effus ions. Extensive bilateral pulmonary opacities appear stable to slightly improved. No acute fracture. IMPRESSION: 1. Lines and tubes as above. No pneumothorax. 2. Stable to slightly improved extensive airspace opacities compatible with viral pneumonia. 3. Small pleural effusions. ACT 112: Negative or not required by law. The above report was generated using voice recognition software. It may contain grammatical, syntax o r spelling errors. Electronically signed by: Harvinder Mccartney M.D. 01/19/2021 7:32 AM
[2021-01-19] MEDS: INSULIN ASPART 100 UNITS/ML 3 ML PEN SC SCH ×4 (08:16→20:06)
[2021-01-19] MEDS: dexAMETHasone 6 MG in SYRINGE 0 ML IV SCH (08:24)
[2021-01-19] MEDS: HEPARIN SOD 5,000 UNIT/0.5 ML VIAL SQ SCH ×2 (08:25→20:08)
[2021-01-19] MEDS: ASPIRIN 81 MG CHEW NG SCH (08:25)
[2021-01-19] MEDS: BRIMONIDINE TARTRATE-P 0.15% 5 ML BTL OP SCH ×3 (08:27→20:09)
[2021-01-19] MEDS: TIMOLOL MALEATE 0.5% OP SOLN 5 ML BTL OP SCH ×2 (08:27→20:09)
[2021-01-19] MEDS ORDERED: SODIUM CHLORIDE 0.9% 1000ML 1,000 ML IV PRN (09:29)
[2021-01-19] MEDS ORDERED: HEPARIN SOD (PORCINE) 1000 UNIT/ML IV ONE (09:29)
[2021-01-19] MEDS: PATIROMER CALCIUM SORBITEX 8.4 GM PACK PO SCH (09:45)
--- NOTE | 2021-01-19 09:46 | Nephrology Progress Note ---
Date of Service January 19, 2021 Assessment & Plan (1) Acute kidney injury: Plan: Clinically consistent with ischemic ATN. Oliguric. Prognosis very poor. Ideally, would continue to encourage consideration for transfer for CRRT. First HD treatment completed 01/17. Second treatment yesterday. Orders for additional dialysis today have been entered into the EHR and reviewed with the dialysis nurse. Medications appropriate for kidney dysfunction. (2) Hyperkalemia: Plan: Will attempt clearance with HD today. Remains on daily Patiromer. (3) ARDS (adult respiratory distress syndrome): Plan: Prognosis guarded. Plan of care reviewed with Dr. Reyes this AM. Remains on Dexamethasone. (4) Pneumonia due to COVID-19 virus: Admission and Anticipated Discharge Date Admission Date: January 08, 2021 Subjective Remains on ventilator support. FIO2 100%. Active cooling being provided for fevers. Remains on Levophed and vaso gtt. Completed HD yesterday with net UF 400 ml. Review of Systems Review of Systems: Unobtainable due to endotracheal tube and Unobtainable due to reduced consciousness Physical Exam Constitutional: + ill appearing, + obese and + mechanically ventilated Eyes: + anicteric sclerae; no corneal abnormality Neck: normal visual inspection and trachea midline Respiratory: normal respiratory effort Auscultation: + rhonchi Cardiovascular: Rate/Rhythm: + tachycardic Heart Sounds: normal S1 and normal S2 Extremities: + edema Gastrointestinal (Abdomen): Inspection/Auscultation: + abdomen distended and normal bowel sounds Percussion/Palpation: abdomen soft Musculoskeletal: Extremities: no cyanosis and no clubbing Skin: normal turgor; no lesions Neurologic: Motor/Sensory: no tremor and no asterixis Results & Data ([facility]) Vital Signs (Past 12 Hours) Vital Signs Temp Pulse Resp BP Pulse Ox 01/19/21 08:00 120 H 01/19/21 07:22 120 H 33 H 89 L 01/19/21 06:45 38.3 C H 123 H 89 L 01/19/21 06:30 38.5 C H 125 H 89 L 01/19/21 06:15 38.7 C H 127 H 88 L 01/19/21 06:00 38.9 C H 127 H 125/82 88 L 01/19/21 05:45 39.0 C H 128 H 132/80 87 L 01/19/21 05:30 39.2 C H 129 H 124/94 88 L 01/19/21 05:15 39.4 C H 129 H 128/88 87 L 01/19/21 05:00 39.5 C H 129 H 123/79 88 L 01/19/21 04:45 39.6 C H 130 H 120/78 86 L 01/19/21 04:30 39.7 C H 131 H 120/89 86 L 01/19/21 04:15 39.7 C H 130 H 126/92 86 L 01/19/21 04:00 39.6 C H 130 H 124/82 86 L 01/19/21 03:58 130 H 36 H 86 L 01/19/21 03:45 39.6 C H 131 H 116/78 86 L 01/19/21 03:30 39.5 C H 130 H 103/74 85 L 01/19/21 03:15 39.3 C H 129 H 115/83 86 L 01/19/21 03:00 39.2 C H 127 H 114/73 85 L 01/19/21 02:45 39.1 C H 127 H 113/81 86 L 01/19/21 02:30 39.0 C H 127 H 85 L 01/19/21 02:15 38.9 C H 126 H 94/76 L 86 L 01/19/21 02:00 38.9 C H 126 H 111/75 86 L 01/19/21 01:45 38.8 C H 124 H 87 L 01/19/21 01:30 38.7 C H 123 H 113/76 86 L 01/19/21 01:15 38.6 C H 124 H 86 L 01/19/21 01:00 38.5 C H 124 H 86 L 01/19/21 00:45 38.4 C H 124 H 122/75 87 L 01/19/21 00:30 38.4 C H 124 H 120/85 87 L 01/19/21 00:15 38.3 C H 124 H 128/88 87 L 01/19/21 00:00 38.2 C H 124 H 125/86 88 L 01/18/21 23:45 38.1 C H 123 H 125/83 88 L 01/18/21 23:30 38.0 C H 123 H 122/90 88 L 01/18/21 23:15 37.9 C H 123 H 118/87 88 L 01/18/21 23:00 37.8 C H 121 H 135/83 88 L 01/18/21 22:59 121 H 32 H 88 L 01/18/21 22:45 37.7 C H 121 H 123/87 88 L 01/18/21 22:30 37.6 C H 119 H 128/87 89 L 01/18/21 22:15 37.6 C H 118 H 126/94 89 L 01/18/21 22:00 37.5 C 118 H 125/84 90 01/18/21 21:45 37.4 C 116 H 131/93 89 L Laboratory Results Laboratory Results - last 24 hr 01/17/21 01/18/21 01/18/21 16:29 05:41 09:34 WBC RBC Hgb Hct MCV MCH MCHC RDW Std Deviation RDW Coeff of Shree Plt Count Immature Gran % (Auto) Neut % (Auto) Lymph % (Auto) [place] % (Auto) Eos % (Auto) Baso % (Auto) Neut # (Auto) Lymph # (Auto) [place] # (Auto) Eos # (Auto) Baso # (Auto) Immature Gran # (Auto) Absolute Nucleated RBC Nucleated RBC % (auto) Microcytosis Echinocytes Sample Site POC pH POC pCO2 POC pO2 POC HCO3 POC Total CO2 POC Base Excess POC ABG O2 Sat Louie Test O2 Delivery Device POC O2 Rate POC FiO2 Tidal Volume PEEP Sodium Potassium Chloride Carbon Dioxide Anion Gap BUN Creatinine Est Cr Clr Drug Dosing Est GFR ( Amer) Est GFR (Non-Af Amer) BUN/Creatinine Ratio Glucose POC Glucose (other) 139 H Calcium Phosphorus Magnesium Random Vancomycin Hep Bs Antigen NON-REACTIVE Neg Hep Bs Antibody Cancelled Hep Bs Antibody, Quant Cancelled Hep B Core Total Ab REACTIVE A 01/18/21 01/18/21 01/18/21 11:54 13:20 15:35 WBC RBC Hgb Hct MCV MCH MCHC RDW Std Deviation RDW Coeff of Shree Plt Count Immature Gran % (Auto) Neut % (Auto) Lymph % (Auto) [place] % (Auto) Eos % (Auto) Baso % (Auto) Neut # (Auto) Lymph # (Auto) [place] # (Auto) Eos # (Auto) Baso # (Auto) Immature Gran # (Auto) Absolute Nucleated RBC Nucleated RBC % (auto) Microcytosis Echinocytes Sample Site POC pH POC pCO2 POC pO2 POC HCO3 POC Total CO2 POC Base Excess POC ABG O2 Sat Louie Test O2 Delivery Device POC O2 Rate POC FiO2 Tidal Volume PEEP Sodium Potassium Chloride Carbon Dioxide Anion Gap BUN Creatinine Est Cr Clr Drug Dosing Est GFR ( Amer) Est GFR (Non-Af Amer) BUN/Creatinine Ratio Glucose POC Glucose (other) 139 H 147 H 137 H Calcium Phosphorus Magnesium Random Vancomycin Hep Bs Antigen Hep Bs Antibody Hep Bs Antibody, Quant Hep B Core Total Ab 01/18/21 01/18/21 01/18/21 17:37 19:50 21:00 WBC RBC Hgb Hct MCV MCH MCHC RDW Std Deviation RDW Coeff of Shree Plt Count Immature Gran % (Auto) Neut % (Auto) Lymph % (Auto) [place] % (Auto) Eos % (Auto) Baso % (Auto) Neut # (Auto) Lymph # (Auto) [place] # (Auto) Eos # (Auto) Baso # (Auto) Immature Gran # (Auto) Absolute Nucleated RBC Nucleated RBC % (auto) Microcytosis Echinocytes Sample Site POC pH POC pCO2 POC pO2 POC HCO3 POC Total CO2 POC Base Excess POC ABG O2 Sat Louie Test O2 Delivery Device POC O2 Rate POC FiO2 Tidal Volume PEEP Sodium Potassium Chloride Carbon Dioxide Anion Gap BUN Creatinine Est Cr Clr Drug Dosing Est GFR ( Amer) Est GFR (Non-Af Amer) BUN/Creatinine Ratio Glucose POC Glucose (other) 132 H 161 H 163 H Calcium Phosphorus Magnesium Random Vancomycin Hep Bs Antigen Hep Bs Antibody Hep Bs Antibody, Quant Hep B Core Total Ab 01/18/21 01/18/21 01/19/21 22:01 23:57 01:40 WBC RBC Hgb Hct MCV MCH MCHC RDW Std Deviation RDW Coeff of Shree Plt Count Immature Gran % (Auto) Neut % (Auto) Lymph % (Auto) [place] % (Auto) Eos % (Auto) Baso % (Auto) Neut # (Auto) Lymph # (Auto) [place] # (Auto) Eos # (Auto) Baso # (Auto) Immature Gran # (Auto) Absolute Nucleated RBC Nucleated RBC % (auto) Microcytosis Echinocytes Sample Site POC pH POC pCO2 POC pO2 POC HCO3 POC Total CO2 POC Base Excess POC ABG O2 Sat Louie Test O2 Delivery Device POC O2 Rate POC FiO2 Tidal Volume PEEP Sodium Potassium Chloride Carbon Dioxide Anion Gap BUN Creatinine Est Cr Clr Drug Dosing Est GFR ( Amer) Est GFR (Non-Af Amer) BUN/Creatinine Ratio Glucose POC Glucose (other) 165 H 166 H 173 H Calcium Phosphorus Magnesium Random Vancomycin Hep Bs Antigen Hep Bs Antibody Hep Bs Antibody, Quant Hep B Core Total Ab 01/19/21 01/19/21 01/19/21 03:57 04:05 05:41 WBC RBC Hgb Hct MCV MCH MCHC RDW Std Deviation RDW Coeff of Shree Plt Count Immature Gran % (Auto) Neut % (Auto) Lymph % (Auto) [place] % (Auto) Eos % (Auto) Baso % (Auto) Neut # (Auto) Lymph # (Auto) [place] # (Auto) Eos # (Auto) Baso # (Auto) Immature Gran # (Auto) Absolute Nucleated RBC Nucleated RBC % (auto) Microcytosis Echinocytes Sample Site Art Line POC pH 7.19 L* POC pCO2 65 H POC pO2 66 L POC HCO3 25 H POC Total CO2 27 POC Base Excess -3.0 POC ABG O2 Sat 87.0 L Louie Test NA O2 Delivery Device Ventilator POC O2 Rate 32 POC FiO2 100 Tidal Volume 400 PEEP 14 Sodium Potassium Chloride Carbon Dioxide Anion Gap BUN Creatinine Est Cr Clr Drug Dosing Est GFR ( Amer) Est GFR (Non-Af Amer) BUN/Creatinine Ratio Glucose POC Glucose (other) 181 H Calcium Phosphorus Magnesium Random Vancomycin Hep Bs Antigen Hep Bs Antibody Pending Hep Bs Antibody, Quant Pending Hep B Core Total Ab 01/19/21 01/19/21 01/19/21 05:41 05:41 05:41 WBC 45.49 H* RBC 6.33 H Hgb 13.3 L Hct 42.7 MCV 67.5 L MCH 21.0 L MCHC 31.1 L RDW Std Deviation 44.7 RDW Coeff of Shree 18.3 H Plt Count 231 Immature Gran % (Auto) 0.7 Neut % (Auto) 86.9 Lymph % (Auto) 4.8 [place] % (Auto) 7.5 Eos % (Auto) 0.0 Baso % (Auto) 0.1 Neut # (Auto) 39.56 H Lymph # (Auto) 2.20 [place] # (Auto) 3.40 H Eos # (Auto) 0.00 Baso # (Auto) 0.03 Immature Gran # (Auto) 0.30 H Absolute Nucleated RBC 0.19 H Nucleated RBC % (auto) 0.4 Microcytosis Present Echinocytes 1+ Sample Site POC pH POC pCO2 POC pO2 POC HCO3 POC Total CO2 POC Base Excess POC ABG O2 Sat Louie Test O2 Delivery Device POC O2 Rate POC FiO2 Tidal Volume PEEP Sodium 131 L Potassium 6.0 H Chloride 96 L Carbon Dioxide 20 L Anion Gap 15.0 H BUN 63 H Creatinine 5.26 H* D Est Cr Clr Drug Dosing 22.9 Est GFR ( Amer) 12.8 Est GFR (Non-Af Amer) 11.0 BUN/Creatinine Ratio 12.1 Glucose 187 H POC Glucose (other) Calcium 7.4 L Phosphorus 9.0 H Magnesium 2.6 H Random Vancomycin 20.1 Hep Bs Antigen Hep Bs Antibody Hep Bs Antibody, Quant Hep B Core Total Ab 01/19/21 01/19/21 01/19/21 05:47 06:51 08:02 WBC RBC Hgb Hct MCV MCH MCHC RDW Std Deviation RDW Coeff of Shree Plt Count Immature Gran % (Auto) Neut % (Auto) Lymph % (Auto) [place] % (Auto) Eos % (Auto) Baso % (Auto) Neut # (Auto) Lymph # (Auto) [place] # (Auto) Eos # (Auto) Baso # (Auto) Immature Gran # (Auto) Absolute Nucleated RBC Nucleated RBC % (auto) Microcytosis Echinocytes Sample Site POC pH POC pCO2 POC pO2 POC HCO3 POC Total CO2 POC Base Excess POC ABG O2 Sat [place]ie Test O2 Delivery Device POC O2 Rate POC FiO2 Tidal Volume PEEP Sodium Potassium Chloride Carbon Dioxide Anion Gap BUN Creatinine Est Cr Clr Drug Dosing Est GFR ( Amer) Est GFR (Non-Af Amer) BUN/Creatinine Ratio Glucose POC Glucose (other) 191 H 193 H 189 H Calcium Phosphorus Magnesium Random Vancomycin Hep Bs Antigen Hep Bs Antibody Hep Bs Antibody, Quant Hep B Core Total Ab 01/19/21 08:57 WBC RBC Hgb Hct MCV MCH MCHC RDW Std Deviation RDW Coeff of Shree Plt Count Immature Gran % (Auto) Neut % (Auto) Lymph % (Auto) [place] % (Auto) Eos % (Auto) Baso % (Auto) Neut # (Auto) Lymph # (Auto) [place] # (Auto) Eos # (Auto) Baso # (Auto) Immature Gran # (Auto) Absolute Nucleated RBC Nucleated RBC % (auto) Microcytosis Echinocytes Sample Site POC pH POC pCO2 POC pO2 POC HCO3 POC Total CO2 POC Base Excess POC ABG O2 Sat [place]ie Test O2 Delivery Device POC O2 Rate POC FiO2 Tidal Volume PEEP Sodium Potassium Chloride Carbon Dioxide Anion Gap BUN Creatinine Est Cr Clr Drug Dosing Est GFR ( Amer) Est GFR (Non-Af Amer) BUN/Creatinine Ratio Glucose POC Glucose (other) 189 H Calcium Phosphorus Magnesium Random Vancomycin Hep Bs Antigen Hep Bs Antibody Hep Bs Antibody, Quant Hep B Core Total Ab PG Care Time/CCT Total # of Minutes Spent Total Time Spent with Patient: Total time spent is greater than 50% in coordination of care (as documented) at patient's floor/unit and/or counseling patient: Coding Level of Care Code 50036 Subseq Hosp Care Lvl 3 Diagnoses Acute kidney injury N17.9 Hyperkalemia E87.5 ARDS (adult respiratory distress syndrome) J80 Pneumonia due to COVID-19 virus U07.1; J12.82
--- NOTE | 2021-01-19 11:44 | Hospitalist Progress Note ---
Date of Service January 19, 2021 Assessment & Plan (1) Pneumonia due to 2019 novel coronavirus: Plan: (1) Pneumonia due to COVID-19 virus: Plan: Symptoms started approximately 01/03. With significantly high CRP and already requiring HFNC on admission Fully vaccinated with J&J Vaccine several months prior CXR with bilat infiltrates, CXR on 01/14 shows worsening infiltrates Lasix 40mg IV on 01/15, little response on dexamethasone since admission intubated on 01/16 after failing BIPAP his prognosis has worsened, now has circulatory shock requiring pressors and oliguric renal failure, hyperkalemia discussed with his aunt Randee again on 01/18 Dr. Soto discussed with her today continue aggressive measures (2) Acute respiratory failure with hypoxia: Plan: as above, secondary to COVID PNA progressed to needing intubated on 01/16 ICU managing he is on PEEP 15 and FiO2 100%, saturations 88-89% cannot prone as he is unstable with shock (3) MEHRDAD (acute kidney injury): Plan: Cr was 0.9 on 01/16 prior to intubation he did have some hypotension after intubation, required Levophed now he is on Levophed and Vasopressin Cr up to 5 today, hyperkalemia despite HD on 01/17 and 01/18 he is oliguric plan for HD again today, orders per Dr. Soto called 4 facilities on 01/17 to try for transfer for CRRT, no facilities have ICU beds for days, likely a week explained this to family (4) Shock could be septic as his WBC is up to 45k and spiking fevers on Vanco and Zosyn, cultures drawn requiring Levophed and Vasopressin slow HD, low volume with no plans for UF (5) DM ICU protocol for glucose management (6) Thrombocytopenia: Plan: resolved, likely from acute viral illness (7) Neuropathy: Plan: with h/o bilat great toe amputations due to DM ulcers (8) Anemia: Plan: Hb is stable (9) Hypertension: Plan: holding meds now needs Levophed after sedation/intubation (10) Hyperkalemia 6.0 today despite HD the past two days DVT prophylaxis-[place] SQ 7500 tid due to MEHRDAD, SCDs Dispo- transfer to ICU status remains full code, discussed with his aunt Randee on 01/18 (2) Acute respiratory failure with hypoxia: (3) Obesity (BMI 30-39.9): (4) Respiratory failure, acute: (5) Acute kidney injury: (6) Major depression with psychotic features: (7) Thrombocytopenia: (8) Hypothyroidism: (9) Osteoarthritis: (10) Neuropathy: (11) Anemia: (12) Hyperkalemia: (13) ARDS (adult respiratory distress syndrome): Admission and Anticipated Discharge Date Admission Date: January 08, 2021 Subjective patient doing worse today, remains on 2 pressors, max ventilatory settings, fevers Cr and K trending upward despite HD the past two days, d/w Dr. Soto, plans for HD this afternoon Dr. Soto again called the patient's aunt this morning, he explained that the patient is worse, not sure he can tolerate HD she still says she is praying for a miracle, asked us to do everything possible I discussed case with Dr. Reyes, he has explained to the aunt that CPR would be futile if his heart would stop given maximum life support he is on right now I agree with him that CPR would be futile at this time Review of Systems Review of Systems: Unobtainable due to endotracheal tube Physical Exam Physical Exam: General: well developed, well nourished, mechanically ventilated Neck: supple, trachea midline, normal thyroid Lungs: clear to auscultation bilaterally, symmetric chest movement on ventilator Heart: tachycardic S1 and S2, no murmur, peripheral pulses normal, capillary refill normal, no edema Abdomen: soft, NT, ND, + BS, no hepatomegaly, normal to percussion Extremities: normal in appearance, both big toes amputated Neuro: sedated, no focal motor deficits, CN II-XII intact Skin: warm, dry, no rash, normal turgor Psych: sedated Results & Data Results & Data ([facility]) Vital Signs (Past 12 Hours) Vital Signs Temp Pulse Resp BP Pulse Ox 01/19/21 08:00 120 H 01/19/21 07:22 120 H 33 H 89 L 01/19/21 06:45 38.3 C H 123 H 89 L 01/19/21 06:30 38.5 C H 125 H 89 L 01/19/21 06:15 38.7 C H 127 H 88 L 01/19/21 06:00 38.9 C H 127 H 125/82 88 L 01/19/21 05:45 39.0 C H 128 H 132/80 87 L 01/19/21 05:30 39.2 C H 129 H 124/94 88 L 01/19/21 05:15 39.4 C H 129 H 128/88 87 L 01/19/21 05:00 39.5 C H 129 H 123/79 88 L 01/19/21 04:45 39.6 C H 130 H 120/78 86 L 01/19/21 04:30 39.7 C H 131 H 120/89 86 L 01/19/21 04:15 39.7 C H 130 H 126/92 86 L 01/19/21 04:00 39.6 C H 130 H 124/82 86 L 01/19/21 03:58 130 H 36 H 86 L 01/19/21 03:45 39.6 C H 131 H 116/78 86 L 01/19/21 03:30 39.5 C H 130 H 103/74 85 L 01/19/21 03:15 39.3 C H 129 H 115/83 86 L 01/19/21 03:00 39.2 C H 127 H 114/73 85 L 01/19/21 02:45 39.1 C H 127 H 113/81 86 L 01/19/21 02:30 39.0 C H 127 H 85 L 01/19/21 02:15 38.9 C H 126 H 94/76 L 86 L 01/19/21 02:00 38.9 C H 126 H 111/75 86 L 01/19/21 01:45 38.8 C H 124 H 87 L 01/19/21 01:30 38.7 C H 123 H 113/76 86 L 01/19/21 01:15 38.6 C H 124 H 86 L 01/19/21 01:00 38.5 C H 124 H 86 L 01/19/21 00:45 38.4 C H 124 H 122/75 87 L 01/19/21 00:30 38.4 C H 124 H 120/85 87 L 01/19/21 00:15 38.3 C H 124 H 128/88 87 L 01/19/21 00:00 38.2 C H 124 H 125/86 88 L 01/18/21 23:45 38.1 C H 123 H 125/83 88 L Laboratory Results Laboratory Results - last 24 hr 01/17/21 01/18/21 01/18/21 16:29 05:41 09:34 WBC RBC Hgb Hct MCV MCH MCHC RDW Std Deviation RDW Coeff of Shree Plt Count Immature Gran % (Auto) Neut % (Auto) Lymph % (Auto) Stokes % (Auto) Eos % (Auto) Baso % (Auto) Neut # (Auto) Lymph # (Auto) Stokes # (Auto) Eos # (Auto) Baso # (Auto) Immature Gran # (Auto) Absolute Nucleated RBC Nucleated RBC % (auto) Microcytosis Echinocytes Sample Site POC pH POC pCO2 POC pO2 POC HCO3 POC Total CO2 POC Base Excess POC ABG O2 Sat Louie Test O2 Delivery Device POC O2 Rate POC FiO2 Tidal Volume PEEP Sodium Potassium Chloride Carbon Dioxide Anion Gap BUN Creatinine Est Cr Clr Drug Dosing Est GFR ( Amer) Est GFR (Non-Af Amer) BUN/Creatinine Ratio Glucose POC Glucose (other) 139 H Calcium Phosphorus Magnesium Random Vancomycin Hep Bs Antigen NON-REACTIVE Neg Hep Bs Antibody Cancelled Hep Bs Antibody, Quant Cancelled Hep B Core Total Ab REACTIVE A 01/18/21 01/18/21 01/18/21 11:54 13:20 15:35 WBC RBC Hgb Hct MCV MCH MCHC RDW Std Deviation RDW Coeff of Shree Plt Count Immature Gran % (Auto) Neut % (Auto) Lymph % (Auto) Stokes % (Auto) Eos % (Auto) Baso % (Auto) Neut # (Auto) Lymph # (Auto) Stokes # (Auto) Eos # (Auto) Baso # (Auto) Immature Gran # (Auto) Absolute Nucleated RBC Nucleated RBC % (auto) Microcytosis Echinocytes Sample Site POC pH POC pCO2 POC pO2 POC HCO3 POC Total CO2 POC Base Excess POC ABG O2 Sat Louie Test O2 Delivery Device POC O2 Rate POC FiO2 Tidal Volume PEEP Sodium Potassium Chloride Carbon Dioxide Anion Gap BUN Creatinine Est Cr Clr Drug Dosing Est GFR ( Amer) Est GFR (Non-Af Amer) BUN/Creatinine Ratio Glucose POC Glucose (other) 139 H 147 H 137 H Calcium Phosphorus Magnesium Random Vancomycin Hep Bs Antigen Hep Bs Antibody Hep Bs Antibody, Quant Hep B Core Total Ab 01/18/21 01/18/21 01/18/21 17:37 19:50 21:00 WBC RBC Hgb Hct MCV MCH MCHC RDW Std Deviation RDW Coeff of Shree Plt Count Immature Gran % (Auto) Neut % (Auto) Lymph % (Auto) Stokes % (Auto) Eos % (Auto) Baso % (Auto) Neut # (Auto) Lymph # (Auto) Stokes # (Auto) Eos # (Auto) Baso # (Auto) Immature Gran # (Auto) Absolute Nucleated RBC Nucleated RBC % (auto) Microcytosis Echinocytes Sample Site POC pH POC pCO2 POC pO2 POC HCO3 POC Total CO2 POC Base Excess POC ABG O2 Sat Louie Test O2 Delivery Device POC O2 Rate POC FiO2 Tidal Volume PEEP Sodium Potassium Chloride Carbon Dioxide Anion Gap BUN Creatinine Est Cr Clr Drug Dosing Est GFR ( Amer) Est GFR (Non-Af Amer) BUN/Creatinine Ratio Glucose POC Glucose (other) 132 H 161 H 163 H Calcium Phosphorus Magnesium Random Vancomycin Hep Bs Antigen Hep Bs Antibody Hep Bs Antibody, Quant Hep B Core Total Ab 01/18/21 01/18/21 01/19/21 22:01 23:57 01:40 WBC RBC Hgb Hct MCV MCH MCHC RDW Std Deviation RDW Coeff of Shree Plt Count Immature Gran % (Auto) Neut % (Auto) Lymph % (Auto) Stokes % (Auto) Eos % (Auto) Baso % (Auto) Neut # (Auto) Lymph # (Auto) Stokes # (Auto) Eos # (Auto) Baso # (Auto) Immature Gran # (Auto) Absolute Nucleated RBC Nucleated RBC % (auto) Microcytosis Echinocytes Sample Site POC pH POC pCO2 POC pO2 POC HCO3 POC Total CO2 POC Base Excess POC ABG O2 Sat Louie Test O2 Delivery Device POC O2 Rate POC FiO2 Tidal Volume PEEP Sodium Potassium Chloride Carbon Dioxide Anion Gap BUN Creatinine Est Cr Clr Drug Dosing Est GFR ( Amer) Est GFR (Non-Af Amer) BUN/Creatinine Ratio Glucose POC Glucose (other) 165 H 166 H 173 H Calcium Phosphorus Magnesium Random Vancomycin Hep Bs Antigen Hep Bs Antibody Hep Bs Antibody, Quant Hep B Core Total Ab 01/19/21 01/19/21 01/19/21 03:57 04:05 05:41 WBC RBC Hgb Hct MCV MCH MCHC RDW Std Deviation RDW Coeff of Shree Plt Count Immature Gran % (Auto) Neut % (Auto) Lymph % (Auto) Stokes % (Auto) Eos % (Auto) Baso % (Auto) Neut # (Auto) Lymph # (Auto) Stokes # (Auto) Eos # (Auto) Baso # (Auto) Immature Gran # (Auto) Absolute Nucleated RBC Nucleated RBC % (auto) Microcytosis Echinocytes Sample Site Art Line POC pH 7.19 L* POC pCO2 65 H POC pO2 66 L POC HCO3 25 H POC Total CO2 27 POC Base Excess -3.0 POC ABG O2 Sat 87.0 L Louie Test NA O2 Delivery Device Ventilator POC O2 Rate 32 POC FiO2 100 Tidal Volume 400 PEEP 14 Sodium Potassium Chloride Carbon Dioxide Anion Gap BUN Creatinine Est Cr Clr Drug Dosing Est GFR ( Amer) Est GFR (Non-Af Amer) BUN/Creatinine Ratio Glucose POC Glucose (other) 181 H Calcium Phosphorus Magnesium Random Vancomycin Hep Bs Antigen Hep Bs Antibody Pending Hep Bs Antibody, Quant Pending Hep B Core Total Ab 01/19/21 01/19/21 01/19/21 05:41 05:41 05:41 WBC 45.49 H* RBC 6.33 H Hgb 13.3 L Hct 42.7 MCV 67.5 L MCH 21.0 L MCHC 31.1 L RDW Std Deviation 44.7 RDW Coeff of Shree 18.3 H Plt Count 231 Immature Gran % (Auto) 0.7 Neut % (Auto) 86.9 Lymph % (Auto) 4.8 Stokes % (Auto) 7.5 Eos % (Auto) 0.0 Baso % (Auto) 0.1 Neut # (Auto) 39.56 H Lymph # (Auto) 2.20 Stokes # (Auto) 3.40 H Eos # (Auto) 0.00 Baso # (Auto) 0.03 Immature Gran # (Auto) 0.30 H Absolute Nucleated RBC 0.19 H Nucleated RBC % (auto) 0.4 Microcytosis Present Echinocytes 1+ Sample Site POC pH POC pCO2 POC pO2 POC HCO3 POC Total CO2 POC Base Excess POC ABG O2 Sat Louie Test O2 Delivery Device POC O2 Rate POC FiO2 Tidal Volume PEEP Sodium 131 L Potassium 6.0 H Chloride 96 L Carbon Dioxide 20 L Anion Gap 15.0 H BUN 63 H Creatinine 5.26 H* D Est Cr Clr Drug Dosing 22.9 Est GFR ( Amer) 12.8 Est GFR (Non-Af Amer) 11.0 BUN/Creatinine Ratio 12.1 Glucose 187 H POC Glucose (other) Calcium 7.4 L Phosphorus 9.0 H Magnesium 2.6 H Random Vancomycin 20.1 Hep Bs Antigen Hep Bs Antibody Hep Bs Antibody, Quant Hep B Core Total Ab 01/19/21 01/19/21 01/19/21 05:47 06:51 08:02 WBC RBC Hgb Hct MCV MCH MCHC RDW Std Deviation RDW Coeff of Shree Plt Count Immature Gran % (Auto) Neut % (Auto) Lymph % (Auto) Stokes % (Auto) Eos % (Auto) Baso % (Auto) Neut # (Auto) Lymph # (Auto) Stokes # (Auto) Eos # (Auto) Baso # (Auto) Immature Gran # (Auto) Absolute Nucleated RBC Nucleated RBC % (auto) Microcytosis Echinocytes Sample Site POC pH POC pCO2 POC pO2 POC HCO3 POC Total CO2 POC Base Excess POC ABG O2 Sat Louie Test O2 Delivery Device POC O2 Rate POC FiO2 Tidal Volume PEEP Sodium Potassium Chloride Carbon Dioxide Anion Gap BUN Creatinine Est Cr Clr Drug Dosing Est GFR ( Amer) Est GFR (Non-Af Amer) BUN/Creatinine Ratio Glucose POC Glucose (other) 191 H 193 H 189 H Calcium Phosphorus Magnesium Random Vancomycin Hep Bs Antigen Hep Bs Antibody Hep Bs Antibody, Quant Hep B Core Total Ab 01/19/21 01/19/21 01/19/21 08:57 09:53 10:52 WBC RBC Hgb Hct MCV MCH MCHC RDW Std Deviation RDW Coeff of Shree Plt Count Immature Gran % (Auto) Neut % (Auto) Lymph % (Auto) Stokes % (Auto) Eos % (Auto) Baso % (Auto) Neut # (Auto) Lymph # (Auto) Stokes # (Auto) Eos # (Auto) Baso # (Auto) Immature Gran # (Auto) Absolute Nucleated RBC Nucleated RBC % (auto) Microcytosis Echinocytes Sample Site POC pH POC pCO2 POC pO2 POC HCO3 POC Total CO2 POC Base Excess POC ABG O2 Sat Louie Test O2 Delivery Device POC O2 Rate POC FiO2 Tidal Volume PEEP Sodium Potassium Chloride Carbon Dioxide Anion Gap BUN Creatinine Est Cr Clr Drug Dosing Est GFR ( Amer) Est GFR (Non-Af Amer) BUN/Creatinine Ratio Glucose POC Glucose (other) 189 H 187 H 192 H Calcium Phosphorus Magnesium Random Vancomycin Hep Bs Antigen Hep Bs Antibody Hep Bs Antibody, Quant Hep B Core Total Ab Medications Administered Current Inpatient Medications Acetaminophen (Acetaminophen 325 Mg Tab) 650 mg PO Q4H PRN PRN Reason: Pain or Fever Stop: 02/07/21 14:01 Last Admin: 01/13/21 08:30 Dose: 650 mg Documented by: Artificial Tears (Artificial Tears) 1 drops OP QID [facility] Stop: 02/07/21 14:01 Last Admin: 01/17/21 12:35 Dose: Not Given Documented by: Aspirin (Aspirin 81 Mg Chew) 81 mg NG QAM [facility] Stop: 02/16/21 10:29 Last Admin: 01/19/21 08:25 Dose: 81 mg Documented by: Brimonidine Tartrate (Brimonidine Tartrate-P 0.15% 5 Ml Btl) 1 drops OP TID [facility] Stop: 02/07/21 14:01 Last Admin: 01/19/21 08:27 Dose: 1 drops Documented by: Dextrose (Dextrose 50% 50 Ml Syringe) 25 - 50 ml IV UD PRN; Protocol PRN Reason: Hypoglycemia Protocol Stop: 02/07/21 14:01 Last Admin: 01/16/21 11:44 Dose: 50 ml Documented by: Fentanyl Citrate (Fentanyl Bolus From Bag) 50 mcg IV Q60M PRN PRN Reason: Pain or Agitation Stop: 01/30/21 12:01 Glucagon (Glucagon For Inj 1 Mg Vial) 1 mg SQ UD PRN; Protocol PRN Reason: Hypoglycemia Protocol Stop: 02/07/21 14:01 Glucose (Glucose 10 Tabs/Tube) 4 - 8 tabs PO UD PRN; Protocol PRN Reason: Hypoglycemia Protocol Stop: 02/07/21 14:01 Last Admin: 01/16/21 02:37 Dose: 2 tabs Documented by: Glucose (Glucose 40% Gel 15 Gm Tube) 15 - 30 gm PO UD PRN; Protocol PRN Reason: Hypoglycemia Protocol Stop: 02/07/21 14:01 Heparin Sodium (Porcine) (Heparin Sod 5,000 Unit/0.5 Ml Vial) 7,500 units SQ Q12 [facility] Stop: 02/15/21 20:59 Last Admin: 01/19/21 08:25 Dose: 7,500 units Documented by: Cisatracurium Besylate 40 mg/ (Sodium Chloride) 100 mls @ 13.05 mls/hr IV .Q7H40M [facility]; Protocol Stop: 02/15/21 12:59 Last Admin: 01/17/21 17:18 Dose: Not Given Documented by: Midazolam HCl (Versed) 125 mg in 250 mls @ 12 mls/hr IV .G10S20H [facility]; Protocol Stop: 02/15/21 13:44 Last Titration: 01/19/21 06:57 Dose: 6 mg/hr, 12 mls/hr Documented by: Dexamethasone 6 mg/ Syringe 1.5 mls @ 1 mls/min IV DAILY [facility] Stop: 02/16/21 08:59 Last Admin: 01/19/21 08:24 Dose: 1 mls/min Documented by: Acetaminophen (Ofirmev) 1,000 mg in 100 mls @ 400 mls/hr IV Q8H PRN PRN Reason: Fever Stop: 01/20/21 03:43 Last Infusion: 01/19/21 01:41 Dose: Infused Documented by: Insulin Human Regular 250 (units/ Sodium Chloride) 250 mls @ 1.7 mls/hr IV .Q24H [facility]; Protocol Stop: 02/16/21 07:07 Last Titration: 01/19/21 10:58 Dose: 1.7 units/hr, 1.7 mls/hr Documented by: Vasopressin 20 units/ Sodium (Chloride) 101 mls @ 12.12 mls/hr IV .Q8H20M [facility] Stop: 02/16/21 06:59 Last Admin: 01/19/21 09:20 Dose: 0.04 unit/min, 12.1 mls/hr Documented by: Pantoprazole Sodium 40 mg/ (Syringe) 10 mls @ 5 mls/min IV DAILY@1100 [facility] Stop: 02/16/21 10:59 Last Admin: 01/18/21 12:00 Dose: 5 mls/min Documented by: Norepinephrine Bitartrate (Levophed/D5w) 32 mg in 250 mls @ 24.047 mls/hr IV .[id number] [facility]; Protocol Stop: 02/16/21 10:29 Last Admin: 01/19/21 09:21 Dose: 0.38 mcg/kg/min, 24 mls/hr Documented by: Fentanyl Citrate (Fentanyl Citrate) 2,500 mcg in 250 mls @ 10 mls/hr IV .Q25H [facility]; Protocol Stop: 01/31/21 11:14 Last Titration: 01/19/21 06:57 Dose: 225 mcg/hr, 22.5 mls/hr Documented by: Piperacillin Sod/Tazobactam (Sod 4.5 gm/ Dextrose) 120 mls @ 30 mls/hr IV Q12H [facility]; Protocol Stop: 01/25/21 00:00 Last Infusion: 01/19/21 04:00 Dose: Infused Documented by: Phenylephrine HCl 20 mg/ (Dextrose) 502 mls @ 101.655 mls/hr IV .Q4H57M [facility]; Protocol Stop: 02/16/21 21:29 Last Admin: 01/19/21 03:50 Dose: Not Given Documented by: Sodium Chloride (Nss 1000ml) 1,000 mls @ 0 mls/hr IV .Q0M PRN PRN Reason: For Hemodialysis Use ONLY Stop: 01/19/21 15:28 Insulin Aspart (Insulin Aspart 100 Units/Ml 3 Ml Pen) 0 units SC ACHS [facility] Stop: 02/16/21 07:29 Last Admin: 01/19/21 08:16 Dose: Not Given Documented by: Lactulose (Lactulose Syrup 20 Gm/30 Ml Udc) 20 gm PO QAM [facility] Stop: 02/18/21 11:59 Latanoprost (Latanoprost 0.005% Op Soln 2.5 Ml Btl) 1 drops OP PM [facility] Stop: 02/07/21 20:59 Last Admin: 01/18/21 19:59 Dose: 1 drops Documented by: Levothyroxine Sodium (Levothyroxine Sodium 175 Mcg Tablet) 175 mcg PO DAILYBB [facility] Stop: 02/08/21 06:29 Last Admin: 01/19/21 05:35 Dose: 175 mcg Documented by: Midazolam HCl (Midazolam Bolus From Bag) 2 mg IV Q60M PRN PRN Reason: Sedation Stop: 02/15/21 13:37 Miscellaneous (Carbohydrates For Hypoglycemia ) 15 - 30 gm PO UD PRN PRN Reason: Hypoglycemia Protocol Stop: 02/07/21 14:01 Last Admin: 01/16/21 03:10 Dose: 13 gm Documented by: Miscellaneous Information (Pharmacy Glycemic Mgmt Consult) 1 ea N/A UD PRN; Protocol PRN Reason: Consult Stop: 02/07/21 14:01 Miscellaneous Information (Vancomycin Consult Active) 1 ea N/A UD PRN PRN Reason: Consult Stop: 02/16/21 06:28 Miscellaneous Information (Piperacill/Tazobac Consult Active) 1 ea N/A UD PRN PRN Reason: Consult Stop: 02/16/21 06:30 Patiromer (Patiromer Calcium Sorbitex 8.4 Gm Pack) 8.4 gm PO DAILY@1000 [facility] Stop: 02/16/21 09:44 Last Admin: 01/19/21 09:45 Dose: 8.4 gm Documented by: Polyethylene Glycol (Polyethylene (Miralax) 17 Gm Pack) 17 gm PO DAILY PRN PRN Reason: Constipation Stop: 02/07/21 14:01 Sennosides (Sennosides 8.8 Mg/5 Ml Udc) 8.8 mg PO BID [facility] Stop: 02/18/21 11:59 Timolol Maleate (Timolol Maleate 0.5% Op Soln 5 Ml Btl) 1 drops OP BID [facility] Stop: 02/07/21 20:59 Last Admin: 01/19/21 08:27 Dose: 1 drops Documented by: PG Care Time/CCT Total # of Minutes Spent Total Time Spent with Patient: Total time spent is greater than 50% in coordination of care (as documented) at patient's floor/unit and/or counseling patient: Coding Level of Care Code 23706 Subseq Hosp Care Lvl 3 Diagnoses Pneumonia due to 2019 novel coronavirus U07.1; J12.82 Acute respiratory failure with hypoxia J96.01 Obesity (BMI 30-39.9) E66.9 Respiratory failure, acute J96.01 Respiratory failure complication: hypoxia Acute kidney injury N17.9 Major depression with psychotic features F32.3 Thrombocytopenia D69.6 Hypothyroidism E03.9 Osteoarthritis M19.90 Neuropathy G62.9 Anemia D64.9 Hyperkalemia E87.5 ARDS (adult respiratory distress syndrome) J80 (1) Respiratory failure, acute Respiratory failure complication: hypoxia Qualified Code(s): J96.01 - Acute respiratory failure with hypoxia
[2021-01-19] MEDS: PANTOprazole 40 MG in SYRINGE 0 ML IV SCH (11:57)
--- NOTE | 2021-01-19 11:57 | Pharmacy Report ---
Pharmacy Glycemic Short Note 2 - Date of Service January 19, 2021 - Glycemic Short BSG Results (Last 24 hours): 01/18/21 01/18/21 01/18/21 09:34 11:54 13:20 Glucose POC Glucose (other) 139 H 139 H 147 H 01/18/21 01/18/21 01/18/21 15:35 17:37 19:50 Glucose POC Glucose (other) 137 H 132 H 161 H 01/18/21 01/18/21 01/18/21 21:00 22:01 23:57 Glucose POC Glucose (other) 163 H 165 H 166 H 01/19/21 01/19/21 01/19/21 01:40 04:05 05:41 Glucose 187 H POC Glucose (other) 173 H 181 H 01/19/21 01/19/21 01/19/21 05:47 06:51 08:02 Glucose POC Glucose (other) 191 H 193 H 189 H 01/19/21 01/19/21 01/19/21 08:57 09:53 10:52 Glucose POC Glucose (other) 189 H 187 H 192 H OUTPATIENT ANTIDIABETIC REGIMEN: * Lantus 60 units BID * Regular 30 units BID * A1c = 10.8% 01/09/21 ASSESSMENT: 01/19 * Pressor requirements remain high and 3rd HD session planned for today. * Insulin drip at mostly stable, low rate and BSG's good * Not able to transition off drip at this time 2nd significant pressor requirements and erratic subQ absorption of insulin 01/18: * Patient initiated on insulin drip yesterday due to hyperkalemia and hyper glycemia in the setting of septic shock, need for multiple pressors * Patient continues on relatively high doses of pressors, hyperkalemia improved but persistent, HD ordered for today * He is not receiving enteral feeds. He remains intubated and receiving dexamethasone 6mg IV daily * IV insulin therapy still indicated as this is controlling his BSGs, and I doubt SQ absorption is reliable given pressor requirements 01/16: * Patient again became hypoglycemic overnight. Fasting BSG 56 this AM with repeat of hypoglycemia 47 at noon time today. * Patient had received 45 units Lantus + 60 units NPH yesterday. Both basal insulin will be held today. * He had experience a similar hypoglycemic episode on 01/12 and he required no insulin that day while retaining BSGs at an acceptable level. Will likely resume reduced dose basal insulin tomorrow. Would prefer to administer long acting insulins in the AM with IV dexamethasone to allow for dissipation of effect over night. * Dexamethasone has been reduced from 6mg IV BID to once daily in the AM * Will lessen Novolog doses today as well should BSGs begin to rise PLAN FOR INPATIENT GLYCEMIC CONTROL: * Continue IV insulin drip - goal range 110-180 * Basal insulin * Lantus - hold * NPH - hold * Bolus insulin * Novolog SQ if permitted to have enteral feeds - carb ratio to be calculated by rate adjustment calculator PLAN FOR DISCHARGE: * to be determined
--- NOTE | 2021-01-19 12:31 | Pharmacy Report ---
Pharmacy Abx Dose Short Note - Date of Service January 19, 2021 - Assessment & Plan Assessment * 60 year old M receiving vancomycin/Zosyn for treatment of septic shock 2nd MRSA PNA. Multiple additional etiologies considered as well, including but not limited to ischemic bowel. * Pt has been hospitalized for COVID-19 viral PNA > 5 days and has been ventilated > 72 hrs. * Significant leukocytosis to 45 and temp >39 at present. * Prognosis poor per ICU rounds discussion * Pertinent microbiologic data includes: Positive MRSA Nasal Swab. BCx- NGTD. Sputum culture with MRSA (vanco WALDO 1) * iHD initiated on 01/17 with repeat on 01/18 and additional session today. * Day # 3 of Zosyn, vancomycin therapy Vancomycin * Goal pre-HD level ~20 mcg/mL for MRSA PNA * Pre-HD level today stable at at goal after vancomycin 250 mg IV x1 yesterday (post-3 hr HD session). * Will re-dose same as above, to be admin post-HD today Plan * Vancomycin 250 mg IV x1 post-HD today * Repeat random level with AM labs Pharmacy will continue to follow and will adjust dose/frequency as necessary. Thank you.
[2021-01-19 15:33] LABS: Hepatitis B Surface Ab Quant > 1000.00 mIU/mL (>or=10mIU/mL Immune); Hepatitis B Surface Antibody Immune
[2021-01-19] MEDS: LACTULOSE SYRUP 20 GM/30 ML UDC PO SCH (15:39)
[2021-01-19] MEDS: SENNOSIDES 8.8 MG/5 ML UDC PO SCH ×2 (15:40→20:08)
[2021-01-19] MEDS ORDERED: VANCOMYCIN HCL 500 MG in 0.9 % SODIUM CHLORIDE 100 ML IV ONE (16:00)
[2021-01-19] MEDS: PIPERACILLIN/TAZOBACTAM 4.5 GM in DEXTROSE 5% 100 ML IV SCH ×2 (16:57→23:04)
[2021-01-19] MEDS ORDERED: VANCOMYCIN HCL 250 MG in 0.9 % SODIUM CHLORIDE 100 ML IV ONE (18:00)
--- NOTE | 2021-01-19 18:24 | Critical Care Progress Note ---
Date of Service January 19, 2021 Assessment & Plan (1) Pneumonia due to 2019 novel coronavirus: (2) Respiratory failure, acute: (3) Obesity (BMI 30-39.9): (4) ARDS (adult respiratory distress syndrome): Plan: Impression: 60-year-old -[place] male who is an inmate admitted with Covid pneumonia. He is failed high flow oxygen positive airway pressure ventilation despite dexamethasone and baricitinib. He was intubated 01/16/2021 and proned. 24-hour events: Patient remains critically ill. He got through a session of HD yesterday and today with intensive vasopressor support. He remains on Levophed and vasopressin. He remains intermittently febrile. He is anuric. He continues with high ventilator requirements and is still requiring FiO2 of 100%. Recommendations: 1. Neurologic: Continue aggressive sedation with propofol fentanyl and Versed. Neuromuscular blockade has been discontinued 2. Cardiac: Probable severe septic shock. Continues norepinephrine and vasopressin. May need to consider epinephrin in replacement of norepinephrine. 3. Pulmonary: Progressive ARDS: The patient is not a candidate for advanced therapies such as ECMO due to length of stay and BMI. Current vent settings: Assist control/32/400/14/1.0 with a plateau pressure of 30. Current AB.19/65/66, current P:F 66. Currently day #10 of dexamethasone at 6 mg daily. We will change to 4 mg for 2 days then 2mg for 2 days and then stop. Also check CRP. Due to concurrent infection with staph pneumonia, good to taper steroids off. Continue ARDS net ventilatory strategy. At risk for barotrauma. Trach has been discussed with the patient's aunt. At this time we will hold off as she would like to further consider this. Patient also has FiO2 of 100% which excludes him from trach at this time. 4. GI: N.p.o. for now until pressors decreased. Continue PPI. 5. Renal: Acute oliguric renal failure. Nephrology input reviewed and appreciated. Tolerating HD on 2 vasopressor agents. Additional recommendations per nephrology. 6. ID: Persistent leukocytosis greater than 40,000. Patient remains febrile. Respiratory cultures are growing MRSA. 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 Day #4 Zosyn and vancomycin. Continue for now as patient continues to be critically ill. Target vancomycin trough greater than 20. Tylenol as needed for fever. Patient is too unstable to consider additional imaging such as CT of the abdomen and pelvis. Has not had any d iarrhea or bowel movements so suspicion for C. difficile is low. This could represent ischemic bowel or other intra-abdominal catastrophe. However, again, the patient is too unstable to consider any additional imaging and certainly not surgical candidate. 7. Endocrine: Glycemic control per ICU pharmacist. 8. Heme-onc: No active issues. Continue DVT prophylaxis subcu heparin 7500 twice daily. Patient is critically ill with significant possibility of . A total of 50 minutes critical care time was spent in evaluation management and stabilization of this patient. Dr. Whitfield to update family. . Admission and Anticipated Discharge Date Admission Date: January 08, 2021 Subjective Attending: Dr. Reyes Patient seen and examined at bedside. Patient doing worse today, remains on 2 pressors, max ventilatory settings, fevers. Cr and K trending upward despite HD the past two days. Patient received hemodialysis today. Right IJ dressing replaced. Left IJ hemodialysis catheter secure. Right radial line in place. Review of Systems Review of Systems: Unobtainable due to endotracheal tube Physical Exam Physical Exam: GENERAL : Continues on mechanical ventilation with sedation EYES: No icterus, gaze conjugate NOSE: No evidence of epistaxis MOUTH: No lesions or candidiasis NECK: Supple LUNGS: Bibasilar crackles with scattered wheezes HEART: Regular, rate controlled ABDOMEN: Soft, NT, ND, BS Present EXTREMITIES: No LE edema, pedal pulses intact. Feet are cold. Hands are cold. NEURO: Currently intubated and sedated Results & Data Results & Data ([facility]) Vital Signs (Past 12 Hours) Vital Signs Temp Pulse Pulse Resp BP BP Pulse Ox 01/19/21 15:50 35.9 C L 109 H 121/71 01/19/21 15:30 112 H 92/63 L 01/19/21 15:15 112 H 90/65 L 01/19/21 15:05 112 H 32 H 89 L 01/19/21 15:00 113 H 98/64 L 01/19/21 14:45 114 H 101/65 01/19/21 14:30 115 H 63/48 L 01/19/21 14:15 115 H 99/63 L 01/19/21 14:00 115 H 90/59 L 01/19/21 13:45 117 H 92/59 L 01/19/21 13:30 118 H 96/59 L 01/19/21 13:15 119 H 92/58 L 01/19/21 13:08 117 H 116/62 01/19/21 12:56 37.1 C 118 H 01/19/21 11:56 114 H 32 H 88 L 01/19/21 08:00 120 H 01/19/21 07:22 120 H 33 H 89 L 01/19/21 06:45 38.3 C H 123 H 89 L 01/19/21 06:30 38.5 C H 125 H 89 L 01/19/21 06:15 38.7 C H 127 H 88 L Laboratory Results 01/19/21 05:41 01/19/21 05:41 COVID-19 Results 01/08/21 09:23 SARS-CoV-2 (PCR) POSITIVE A* Critical Care Results & Data Vital Signs (Past 12 Hours) Vital Signs Temp Pulse Pulse Resp BP BP Pulse Ox 01/19/21 18:00 37.3 C 123 H 90 01/19/21 17:45 37.1 C 121 H 89 L 01/19/21 17:30 36.9 C 118 H 88 L 01/19/21 17:15 36.7 C 116 H 88 L 01/19/21 17:00 36.5 C 114 H 88 L 01/19/21 16:45 36.3 C L 113 H 86 L 01/19/21 16:30 36.1 C L 111 H 87 L 01/19/21 16:15 36.0 C L 111 H 88 L 01/19/21 16:00 35.9 C L 110 H 92/63 L 89 L 01/19/21 15:50 35.9 C L 109 H 121/71 01/19/21 15:45 35.9 C L 113 H 90 01/19/21 15:30 36.0 C L 113 H 92/63 L 90 01/19/21 15:15 36.1 C L 112 H 90/65 L 89 L 01/19/21 15:05 112 H 32 H 89 L 01/19/21 15:00 36.3 C L 113 H 98/64 L 85 L 01/19/21 14:45 36.6 C 114 H 101/65 86 L 01/19/21 14:30 36.8 C 114 H 63/48 L 85 L 01/19/21 14:15 37.0 C 114 H 99/63 L 86 L 01/19/21 14:00 37.2 C 115 H 90/59 L 87 L 01/19/21 13:45 37.4 C 117 H 92/59 L 86 L 01/19/21 13:30 37.6 C H 119 H 96/59 L 86 L 01/19/21 13:15 37.7 C H 119 H 92/58 L 88 L 01/19/21 13:08 117 H 116/62 01/19/21 13:00 37.7 C H 119 H 90 01/19/21 12:56 37.1 C 118 H 01/19/21 12:45 37.6 C H 118 H 90 01/19/21 12:30 37.5 C 117 H 90 01/19/21 12:15 37.4 C 117 H 89 L 01/19/21 12:00 37.2 C 115 H 88 L 01/19/21 11:56 114 H 32 H 88 L 01/19/21 11:45 37.1 C 111 H 86 L 01/19/21 11:30 36.9 C 108 H 88 L 01/19/21 11:15 36.7 C 105 H 90 01/19/21 11:00 36.6 C 104 H 89 L 01/19/21 10:45 36.4 C L 103 H 88 L 01/19/21 10:30 36.3 C L 101 H 89 L 01/19/21 10:15 36.2 C L 100 H 89 L 01/19/21 10:00 36.1 C L 101 H 89 L 01/19/21 09:45 36.1 C L 100 H 89 L 01/19/21 09:30 36.1 C L 101 H 89 L 01/19/21 09:15 36.3 C L 102 H 90 01/19/21 09:00 36.5 C 104 H 88 L 01/19/21 08:45 36.7 C 106 H 89 L 01/19/21 08:30 36.9 C 107 H 89 L 01/19/21 08:15 37.1 C 110 H 89 L 01/19/21 08:00 37.3 C 113 H 89 L 01/19/21 07:45 37.5 C 115 H 89 L 01/19/21 07:30 37.7 C H 118 H 89 L 01/19/21 07:22 120 H 33 H 89 L 01/19/21 07:15 37.9 C H 121 H 89 L 01/19/21 07:00 38.1 C H 123 H 90 01/19/21 06:45 38.3 C H 123 H 89 L 01/19/21 06:30 38.5 C H 125 H 89 L 01/19/21 06:15 38.7 C H 127 H 88 L Lab & Micro Results (Past 24 Hours) RBC 6.33 M/uL (4.7-6.1) H 01/19/21 WBC 45.49 K/uL (4.8-10.8) H* 01/19/21 Hgb 13.3 g/dL (14.0-18.0) L 01/19/21 Hct 42.7 % (42-52) 01/19/21 MCV 67.5 fL (80-100) L 01/19/21 MCH 21.0 pg (25-34) L 01/19/21 MCHC 31.1 g/dL (32-36) L 01/19/21 RDW Standard Deviation 44.7 fL (36.4-46.3) 01/19/21 RDW Coefficient of Variation 18.3 % (11.5-14.5) H 01/19/21 Plt Count 231 K/uL (130-400) 01/19/21 Nucleated Red Blood Cells % (auto) 0.4 % 01/19/21 Nucleated RBC Absolute Count (auto) 0.19 K/uL (0-0) H 01/19/21 Neutrophils (%) (Auto) 86.9 % 01/19/21 Lymphocytes (%) (Auto) 4.8 % 01/19/21 Monocytes # (Auto) 3.40 K/uL (0.11-0.59) H 01/19/21 Eosinophils # (Auto) 0.00 K/uL (0-0.5) 01/19/21 Immature Granulocyte % (Auto) 0.7 % 01/19/21 Neutrophils # (Auto) 39.56 K/uL (1.4-6.5) H 01/19/21 Lymphocytes # (Auto) 2.20 K/uL (1.2-3.4) 01/19/21 Monocytes # (Auto) 3.40 K/uL (0.11-0.59) H 01/19/21 Eosinophils # (Auto) 0.00 K/uL (0-0.5) 01/19/21 Basophils # (Auto) 0.03 K/uL (0-0.2) 01/19/21 Immature Granulocyte # (Auto) 0.30 K/uL (0.00-0.02) H 01/19/21 Echinocytes 1+ 01/19/21 Microcytosis Present 01/19/21 Na 131 mmol/L (136-145) L 01/19/21 K 6.0 mmol/L (3.5-5.1) H 01/19/21 Cl 96 mmol/L (98-107) L 01/19/21 CO2 20 mmol/L (21-32) L 01/19/21 Anion Gap 15.0 (3-11) H 01/19/21 BUN 63 mg/dl (7-18) H 01/19/21 Creatinine 5.26 mg/dl (0.6-1.4) H* 01/19/21 Estimated GFR ( Amer) 12.8 ml/min 01/19/21 Estimated GFR (Non-Af Amer) 11.0 ml/min 01/19/21 BUN/Creatinine Ratio 12.1 (10-20) 01/19/21 Glu 187 mg/dl (70-99) H 01/19/21 Ca 7.4 mg/dl (8.5-10.1) L 01/19/21 Phosphorus Level 9.0 mg/dl (2.5-4.9) H 01/19/21 Mg 2.6 mg/dl (1.8-2.4) H 01/19/21 05:41 01/19/21 Calcium Level 7.4 mg/dl (8.5-10.1) L 01/19/21 05:41 01/19/21 Louie Test NA 01/19/21 03:57 01/19/21 Microbiology 01/17/21 11:45 Gram Stain - Final Sputum,Vent Suction Sputum Culture - Final Staph aureus MRSA 01/17/21 07:19 Aerobic Blood Culture - Preliminary Blood No growth in Aerobic bottle after 48 hours. Anaerobic Blood Culture - Preliminary No growth in Anaerobic bottle after 48 hours. 01/17/21 07:34 Aerobic Blood Culture - Preliminary Blood No growth in Aerobic bottle after 48 hours. Anaerobic Blood Culture - Preliminary No growth in Anaerobic bottle after 48 hours. Diagnostic Findings (Past 24 Hours) Chest X-Ray 01/19/21 07:00 XR chest 1V portable HISTORY: 60 years-old Male Resp failure acute respiratory failure COMPARISON: Chest radiograph 01/18/2021 TECHNIQUE: Portable AP view of the chest FINDINGS: Endotracheal tube overlies the midline, 5.5 cm superior to the mitch. Bilateral internal jugular central venous catheters appear to be in unchanged positioning. Enteric tube courses below the diaphragm with distal tip outside the micpm-in-oort. Study is limited secondary to an indeterminate material projected over the patient's chest. There is no pneumothorax identified. Unchanged small pleural effusions. Extensive bilateral pulmonary opacities appear stable to slightly improved. No acute fracture. IMPRESSION: 1. Lines and tubes as above. No pneumothorax. 2. Stable to slightly improved extensive airspace opacities compatible with martina l pneumonia. 3. Small pleural effusions. ACT 112: Negative or not required by law. The above report was generated using voice recognition software. It may contain grammatical, syntax or spelling errors. Electronically signed by: Harvinder Mccartney M.D. 01/19/2021 7:32 AM I & O Totals 24 Hours 01/18/21 01/19/21 01/20/21 06:59 06:59 06:59 Intake Total 4464.943 / 4464.943 2926.144 / 2926.144 720.395 / 720.395 Output Total 200 / 200 5 Balance 4264.943 / 4264.943 2916.144 / 2916.144 715.395 / 715.395 Cumulative 01/08/21 08:14 thru 01/19/21 18:00 Intake Total 13985.990 Output Total 48810 Balance 76095.990 RT Ventilator Mngmt (Last Documented) Ventilator Ordered Settings Ventilator Support Mode Assist Control 01/19/21 16:00 Respiratory Rate 32 01/19/21 15:05 Ventilator Tidal Volume 400 01/19/21 16:00 Setting Minute Ventilation 12.5 01/19/21 15:05 Ventilator Positive Pressure 12 01/15/21 20:00 Support Setting Positive End Expiratory 14 01/19/21 16 :00 Pressure Fraction of Inspired Oxygen 100 01/19/21 16:00 Peak Inspiratory Flow 28 01/16/21 18:19 Machine Comment increased to 100%O2 01/18/21 14:45 Ventilator - PT Measurements Respiratory Rate 32 Exhaled Tidal Volume 401 Minute Ventilation 12.5 Peak Inspiratory Airway 32 Pressure Plateau Pressure 29 Respiratory Cycle Inspiratory: 1:1.5 Expiratory Ratio Inspiratory Phase Time 0.75 End-Tidal CO2 33 Static Lung Compliance 26.73 Dynamic Lung Compliance 22.28 Normal Static Lung Compliance 46.00 Patient Measurements Comment patient getting dialysis at this time Coding Level of Care Code Critical Care 1st 30-74 mins Diagnoses Pneumonia due to 2019 novel coronavirus U07.1; J12.82 Respiratory failure, acute J96.01 Respiratory failure complication: hypoxia Obesity (BMI 30-39.9) E66.9 ARDS (adult respiratory distress syndrome) J80 Time Spent (min) 40 (1) Respiratory failure, acute Respiratory failure complication: hypoxia Qualified Code(s): J96.01 - Acute respiratory failure with hypoxia
[2021-01-19] MEDS: LATANOPROST 0.005% OP SOLN 2.5 ML BTL OP SCH (20:08)
[2021-01-20] MEDS: VASOPRESSIN 20 UNITS in 0.9 % SODIUM CHLORIDE 100 ML IV SCH ×2 (01:03→09:08)
[2021-01-20] MEDS: fentaNYL citrate 2,500 MCG/250 ML BAG IV SCH (01:55)
[2021-01-20] MEDS: ACETAMINOPHEN 1,000 MG/100 ML VIAL IV PRN (01:55)
[2021-01-20] MEDS: PHENYLEPHRINE HCL 20 MG in DEXTROSE 5% 500 ML IV SCH ×2 (04:22→10:37)
[2021-01-20 04:42] LABS: iSTAT Arterial Blood Gas HCO3 24 meg/L (19-24); iSTAT Arterial Blood Gas pCO2 64 mmHg (35-46); iSTAT Arterial Blood Gas pH 7.19 (7.35-7.45); iSTAT Arterial Blood Gas pO2 68 mmHg (80-95); iSTAT Carbon Dioxide 26 mmol/L (24-31); iSTAT FiO2 100 %; iSTAT Site Art Line
[2021-01-20] MEDS: NOREPINEPHRINE/D5W 32 MG/250 ML BAG IV SCH ×2 (05:10→05:49)
[2021-01-20] MEDS: LEVOTHYROXINE SODIUM 175 MCG TABLET PO SCH (05:49)
[2021-01-20 06:29] LABS: Hematocrit (blood only) 39.1 % (42-52); Hemoglobin 12.1 g/dL (14.0-18.0); Mean Corpuscular Hemoglobin 20.8 pg (25-34); Mean Corpuscular Hgb Conc 30.9 g/dL (32-36); Mean Corpuscular Volume 67.2 fL (80-100); Nucleated RBC # (auto) 0.43 K/uL (0-0); Platelet Count 200 K/uL (130-400); RDW Coefficient of Variation 18.7 % (11.5-14.5); RDW Standard Deviation 45.5 fL (36.4-46.3); Red Blood Count 5.82 M/uL (4.7-6.1)
[2021-01-20 06:52] LABS: Basophils # (auto) 0.01 K/uL (0-0.2); Echinocytes 1+; Eosinophils # (auto) 0.01 K/uL (0-0.5); Immature Granulocytes # (auto) 0.26 K/uL (0.00-0.02); Immature Granulocytes % (auto) 0.6 %; Lymphocytes # (auto) 2.66 K/uL (1.2-3.4); Microcytosis Present; Monocytes % (auto) 8.1 %; Neutrophils # (auto) 37.76 K/uL (1.4-6.5); Neutrophils % (auto) 85.3 %; Polychromasia 1+
[2021-01-20 07:19] LABS: BUN Creatinine Ratio 11.4 (10-20); C Reactive Protein 15.2 mg/dl (0-0.29); Calcium 7.1 mg/dl (8.5-10.1); Creatinine Clr Calc Pharmacy 21.5 ml/min; Est GFR (African American) 11.8 ml/min; Est GFR (Non-African American) 10.2 ml/min; Magnesium 2.6 mg/dl (1.8-2.4); Potassium 5.6 mmol/L (3.5-5.1)
--- NOTE | 2021-01-20 08:26 | XRay Report ---
XR chest 1V portable CLINICAL HISTORY: Follow-up bilateral airspace opacities and left pleural effusion. COMPARISON STUDY: 01/19/2021 TECHNIQUE: 1 view of the chest FINDINGS: Single frontal view of the chest demonstrates the cardiomediastinal silhouette to be within normal li mits. Tubes and catheters are unchanged. Extensive interstitial and alveolar opacities characteristic of a viral type pneumonitis are again seen. There is again suspicion of a small left pleural effusio n as well. There is no evidence for vascular congestion. There is no acute osseous pathology. IMPRESSION: Compared to the previous examination, there is no significant interval change in bilatera l interstitial and alveolar opacities characteristic of a viral type pneumonitis and Covid pneumonia. There is again suspicion of a small left pleural effusion. ACT 112: Negative or not required by law. Electronically signed by: Ede Torres M.D. 01/20/2021 8:24 AM
[2021-01-20] MEDS ORDERED: PATIROMER CALCIUM SORBITEX 8.4 GM PACK PO ONE (08:41)
[2021-01-20] MEDS: HEPARIN SOD 5,000 UNIT/0.5 ML VIAL SQ SCH (08:46)
[2021-01-20] MEDS: LACTULOSE SYRUP 20 GM/30 ML UDC PO SCH (08:46)
[2021-01-20] MEDS: SENNOSIDES 8.8 MG/5 ML UDC PO SCH (08:46)
[2021-01-20] MEDS: TIMOLOL MALEATE 0.5% OP SOLN 5 ML BTL OP SCH (08:47)
[2021-01-20] MEDS: BRIMONIDINE TARTRATE-P 0.15% 5 ML BTL OP SCH ×2 (08:49→13:03)
[2021-01-20] MEDS: ASPIRIN 81 MG CHEW NG SCH (08:49)
[2021-01-20] MEDS: INSULIN ASPART 100 UNITS/ML 3 ML PEN SC SCH ×2 (08:50→10:39)
[2021-01-20] MEDS ORDERED: dexAMETHasone 4 MG in SYRINGE 0 ML IV SCH (09:00)
[2021-01-20] MEDS ORDERED: HEPARIN SOD (PORCINE) 1000 UNIT/ML IV ONE (09:58)
--- NOTE | 2021-01-20 10:07 | Nephrology Progress Note ---
Date of Service January 20, 2021 Assessment & Plan (1) Acute kidney injury: Plan: Clinically consistent with ischemic ATN. Oliguric. First HD treatment completed 01/17. Daily HD provided since this time. Orders for HD today entered into EHR and reviewed with dialysis nurse. Medications appropriate for kidney dysfunction. (2) Hyperkalemia: Plan: Will attempt clearance with HD today. Remains on daily Patiromer 8.4 g daily. (3) ARDS (adult respiratory distress syndrome): Plan: Prognosis guarded. Plan of care reviewed with Dr. Reyes this AM. Remains on Dexamethasone. (4) Pneumonia due to COVID-19 virus: Plan: Continued updates to family provided. Admission and Anticipated Discharge Date Admission Date: January 08, 2021 Subjective Tolerated HD yesterday with vasopressor support, net UF 400 ml. Remains on max vent support. Remains on dual vasopressor support. I discussed the plan of care with Dr. Poole at the bedside today. Review of Systems Review of Systems: Unobtainable due to endotracheal tube and Unobtainable due to reduced consciousness Physical Exam Constitutional: + ill appearing, + obese and + mechanically ventilated Eyes: + anicteric sclerae; no corneal abnormality Neck: normal visual inspection and trachea midline LIJ HD catheter Respiratory: normal respiratory effort Auscultation: + rhonchi Cardiovascular: Rate/Rhythm: + tachycardic Heart Sounds: normal S1 and normal S2 Extremities: + edema Gastrointestinal (Abdomen): Inspection/Auscultation: + abdomen distended; + abnormal bowel sounds Percussion/Palpation: abdomen soft Musculoskeletal: Extremities: no cyanosis and no clubbing Skin: normal turgor; no lesions Neurologic: Motor/Sensory: no tremor and no asterixis Results & Data ([facility]) Vital Signs (Past 12 Hours) Vital Signs Temp Pulse Resp BP Pulse Ox 01/20/21 06:15 38.0 C H 120 H 90 01/20/21 06:11 120 H 32 H 90 01/20/21 06:00 37.9 C H 121 H 120/81 90 01/20/21 05:45 37.7 C H 119 H 117/73 89 L 01/20/21 05:30 37.6 C H 117 H 121/78 90 01/20/21 05:15 37.4 C 113 H 115/76 90 01/20/21 05:00 37.2 C 111 H 117/71 90 01/20/21 04:45 37.0 C 108 H 122/70 90 01/20/21 04:30 36.9 C 105 H 111/74 91 01/20/21 04:15 36.7 C 102 H 122/74 90 01/20/21 04:00 36.6 C 101 H 114/73 91 01/20/21 03:45 36.6 C 100 H 32 H 108/70 91 01/20/21 03:30 36.7 C 100 H 123/67 91 01/20/21 03:15 36.9 C 99 H 109/70 91 01/20/21 03:00 37.1 C 102 H 121/71 90 01/20/21 02:45 37.3 C 103 H 117/71 91 01/20/21 02:30 37.6 C H 106 H 91 01/20/21 02:15 37.8 C H 109 H 91 01/20/21 02:00 38.1 C H 115 H 118/78 90 01/20/21 01:45 38.2 C H 119 H 90 01/20/21 01:30 38.4 C H 120 H 122/80 90 01/20/21 01:15 38.4 C H 124 H 123/80 91 01/20/21 01:00 38.4 C H 124 H 129/79 91 01/20/21 00:45 38.4 C H 125 H 124/83 90 01/20/21 00:30 38.3 C H 126 H 121/77 89 L 01/20/21 00:15 38.1 C H 126 H 124/85 90 01/20/21 00:00 37.9 C H 124 H 90 01/19/21 23:45 37.8 C H 123 H 90 01/19/21 23:30 37.6 C H 121 H 113/79 89 L 01/19/21 23:15 37.4 C 119 H 89 L 01/19/21 23:00 37.2 C 110 H 88 L 01/19/21 22:45 37.1 C 114 H 87 L 01/19/21 22:30 36.9 C 112 H 107/74 86 L 01/19/21 22:15 36.8 C 110 H 86 L Laboratory Results Laboratory Results - last 24 hr 01/19/21 01/19/21 01/19/21 05:41 10:52 11:54 WBC RBC Hgb Hct MCV MCH MCHC RDW Std Deviation RDW Coeff of Shree Plt Count Immature Gran % (Auto) Neut % (Auto) Lymph % (Auto) [place] % (Auto) Eos % (Auto) Baso % (Auto) Neut # (Auto) Lymph # (Auto) [place] # (Auto) Eos # (Auto) Baso # (Auto) Immature Gran # (Auto) Absolute Nucleated RBC Nucleated RBC % (auto) Polychromasia Microcytosis Echinocytes Sample Site POC pH POC pCO2 POC pO2 POC HCO3 POC Total CO2 POC Base Excess POC ABG O2 Sat Louie Test O2 Delivery Device POC O2 Rate POC FiO2 Tidal Volume PEEP Sodium Potassium Chloride Carbon Dioxide Anion Gap BUN Creatinine Est Cr Clr Drug Dosing Est GFR ( Amer) Est GFR (Non-Af Amer) BUN/Creatinine Ratio Glucose POC Glucose (other) 192 H 198 H Calcium Phosphorus Magnesium C-Reactive Protein Procalcitonin Random Vancomycin Hep Bs Antibody Immune Hep Bs Antibody, Quant > 1000.00 01/19/21 01/19/21 01/19/21 13:06 14:13 14:58 WBC RBC Hgb Hct MCV MCH MCHC RDW Std Deviation RDW Coeff of Shree Plt Count Immature Gran % (Auto) Neut % (Auto) Lymph % (Auto) [place] % (Auto) Eos % (Auto) Baso % (Auto) Neut # (Auto) Lymph # (Auto) [place] # (Auto) Eos # (Auto) Baso # (Auto) Immature Gran # (Auto) Absolute Nucleated RBC Nucleated RBC % (auto) Polychromasia Microcytosis Echinocytes Sample Site POC pH POC pCO2 POC pO2 POC HCO3 POC Total CO2 POC Base Excess POC ABG O2 Sat Louie Test O2 Delivery Device POC O2 Rate POC FiO2 Tidal Volume PEEP Sodium Potassium Chloride Carbon Dioxide Anion Gap BUN Creatinine Est Cr Clr Drug Dosing Est GFR ( Amer) Est GFR (Non-Af Amer) BUN/Creatinine Ratio Glucose POC Glucose (other) 198 H 156 H 140 H Calcium Phosphorus Magnesium C-Reactive Protein Procalcitonin Random Vancomycin Hep Bs Antibody Hep Bs Antibody, Quant 01/19/21 01/19/21 01/19/21 15:51 17:18 18:02 WBC RBC Hgb Hct MCV MCH MCHC RDW Std Deviation RDW Coeff of Shree Plt Count Immature Gran % (Auto) Neut % (Auto) Lymph % (Auto) [place] % (Auto) Eos % (Auto) Baso % (Auto) Neut # (Auto) Lymph # (Auto) [place] # (Auto) Eos # (Auto) Baso # (Auto) Immature Gran # (Auto) Absolute Nucleated RBC Nucleated RBC % (auto) Polychromasia Microcytosis Echinocytes Sample Site POC pH POC pCO2 POC pO2 POC HCO3 POC Total CO2 POC Base Excess POC ABG O2 Sat Louie Test O2 Delivery Device POC O2 Rate POC FiO2 Tidal Volume PEEP Sodium Potassium Chloride Carbon Dioxide Anion Gap BUN Creatinine Est Cr Clr Drug Dosing Est GFR ( Amer) Est GFR (Non-Af Amer) BUN/Creatinine Ratio Glucose POC Glucose (other) 147 H 155 H 164 H Calcium Phosphorus Magnesium C-Reactive Protein Procalcitonin Random Vancomycin Hep Bs Antibody Hep Bs Antibody, Quant 01/19/21 01/19/21 01/19/21 19:06 20:02 20:59 WBC RBC Hgb Hct MCV MCH MCHC RDW Std Deviation RDW Coeff of Shree Plt Count Immature Gran % (Auto) Neut % (Auto) Lymph % (Auto) [place] % (Auto) Eos % (Auto) Baso % (Auto) Neut # (Auto) Lymph # (Auto) [place] # (Auto) Eos # (Auto) Baso # (Auto) Immature Gran # (Auto) Absolute Nucleated RBC Nucleated RBC % (auto) Polychromasia Microcytosis Echinocytes Sample Site POC pH POC pCO2 POC pO2 POC HCO3 POC Total CO2 POC Base Excess POC ABG O2 Sat Louie Test O2 Delivery Device POC O2 Rate POC FiO2 Tidal Volume PEEP Sodium Potassium Chloride Carbon Dioxide Anion Gap BUN Creatinine Est Cr Clr Drug Dosing Est GFR ( Amer) Est GFR (Non-Af Amer) BUN/Creatinine Ratio Glucose POC Glucose (other) 173 H 182 H 183 H Calcium Phosphorus Magnesium C-Reactive Protein Procalcitonin Random Vancomycin Hep Bs Antibody Hep Bs Antibody, Quant 01/19/21 01/19/21 01/20/21 22:04 23:03 00:00 WBC RBC Hgb Hct MCV MCH MCHC RDW Std Deviation RDW Coeff of Shree Plt Count Immature Gran % (Auto) Neut % (Auto) Lymph % (Auto) [place] % (Auto) Eos % (Auto) Baso % (Auto) Neut # (Auto) Lymph # (Auto) [place] # (Auto) Eos # (Auto) Baso # (Auto) Immature Gran # (Auto) Absolute Nucleated RBC Nucleated RBC % (auto) Polychromasia Microcytosis Echinocytes Sample Site POC pH POC pCO2 POC pO2 POC HCO3 POC Total CO2 POC Base Excess POC ABG O2 Sat Louie Test O2 Delivery Device POC O2 Rate POC FiO2 Tidal Volume PEEP Sodium Potassium Chloride Carbon Dioxide Anion Gap BUN Creatinine Est Cr Clr Drug Dosing Est GFR ( Amer) Est GFR (Non-Af Amer) BUN/Creatinine Ratio Glucose POC Glucose (other) 176 H 169 H 168 H Calcium Phosphorus Magnesium C-Reactive Protein Procalcitonin Random Vancomycin Hep Bs Antibody Hep Bs Antibody, Quant 01/20/21 01/20/21 01/20/21 01:57 04:23 04:29 WBC RBC Hgb Hct MCV MCH MCHC RDW Std Deviation RDW Coeff of Shree Plt Count Immature Gran % (Auto) Neut % (Auto) Lymph % (Auto) [place] % (Auto) Eos % (Auto) Baso % (Auto) Neut # (Auto) Lymph # (Auto) [place] # (Auto) Eos # (Auto) Baso # (Auto) Immature Gran # (Auto) Absolute Nucleated RBC Nucleated RBC % (auto) Polychromasia Microcytosis Echinocytes Sample Site Art Line POC pH 7.19 L* POC pCO2 64 H POC pO2 68 L POC HCO3 24 POC Total CO2 26 POC Base Excess -4.0 POC ABG O2 Sat 88.0 L Louei Test NA O2 Delivery Device Ventilator POC O2 Rate 32 POC FiO2 100 Tidal Volume 420 PEEP 14 Sodium Potassium Chloride Carbon Dioxide Anion Gap BUN Creatinine Est Cr Clr Drug Dosing Est GFR ( Amer) Est GFR (Non-Af Amer) BUN/Creatinine Ratio Glucose POC Glucose (other) 171 H 160 H Calcium Phosphorus Magnesium C-Reactive Protein Procalcitonin Random Vancomycin Hep Bs Antibody Hep Bs Antibody, Quant 01/20/21 01/20/21 01/20/21 05:46 05:46 05:46 WBC 44.30 H* RBC 5.82 Hgb 12.1 L Hct 39.1 L MCV 67.2 L MCH 20.8 L MCHC 30.9 L RDW Std Deviation 45.5 RDW Coeff of Shree 18.7 H Plt Count 200 Immature Gran % (Auto) 0.6 Neut % (Auto) 85.3 Lymph % (Auto) 6.0 [place] % (Auto) 8.1 Eos % (Auto) 0.0 Baso % (Auto) 0.0 Neut # (Auto) 37.76 H Lymph # (Auto) 2.66 [place] # (Auto) 3.60 H Eos # (Auto) 0.01 Baso # (Auto) 0.01 Immature Gran # (Auto) 0.26 H Absolute Nucleated RBC 0.43 H Nucleated RBC % (auto) 1.0 Polychromasia 1+ Microcytosis Present Echinocytes 1+ Sample Site POC pH POC pCO2 POC pO2 POC HCO3 POC Total CO2 POC Base Excess POC ABG O2 Sat Louie Test O2 Delivery Device POC O2 Rate POC FiO2 Tidal Volume PEEP Sodium 134 L Potassium 5.6 H Chloride 98 Carbon Dioxide 23 Anion Gap 13.0 H BUN 63 H Creatinine 5.62 H* D Est Cr Clr Drug Dosing 21.5 Est GFR ( Amer) 11.8 Est GFR (Non-Af Amer) 10.2 BUN/Creatinine Ratio 11.4 Glucose 152 H POC Glucose (other) Calcium 7.1 L Phosphorus 9.0 H Magnesium 2.6 H C-Reactive Protein 15.20 H Procalcitonin Random Vancomycin 20.4 Hep Bs Antibody Hep Bs Antibody, Quant 01/20/21 01/20/21 05:46 05:51 WBC RBC Hgb Hct MCV MCH MCHC RDW Std Deviation RDW Coeff of Shree Plt Count Immature Gran % (Auto) Neut % (Auto) Lymph % (Auto) [place] % (Auto) Eos % (Auto) Baso % (Auto) Neut # (Auto) Lymph # (Auto) [place] # (Auto) Eos # (Auto) Baso # (Auto) Immature Gran # (Auto) Absolute Nucleated RBC Nucleated RBC % (auto) Polychromasia Microcytosis Echinocytes Sample Site POC pH POC pCO2 POC pO2 POC HCO3 POC Total CO2 POC Base Excess POC ABG O2 Sat Louie Test O2 Delivery Device POC O2 Rate POC FiO2 Tidal Volume PEEP Sodium Potassium Chloride Carbon Dioxide Anion Gap BUN Creatinine Est Cr Clr Drug Dosing Est GFR ( Amer) Est GFR (Non-Af Amer) BUN/Creatinine Ratio Glucose POC Glucose (other) 159 H Calcium Phosphorus Magnesium C-Reactive Protein Procalcitonin 16.32 H Random Vancomycin Hep Bs Antibody Hep Bs Antibody, Quant PG Care Time/CCT Total # of Minutes Spent Total Time Spent with Patient: Total time spent is greater than 50% in coordination of care (as documented) at patient's floor/unit and/or counseling patient: Coding Level of Care Code 02304 Subseq Hosp Care Lvl 3 Diagnoses Acute kidney injury N17.9 Hyperkalemia E87.5 ARDS (adult respiratory distress syndrome) J80 Pneumonia due to COVID-19 virus U07.1; J12.82
[2021-01-20] MEDS: PATIROMER CALCIUM SORBITEX 8.4 GM PACK PO SCH (10:56)
[2021-01-20] MEDS: INSULIN REGULAR 250 UNITS in SODIUM CHLORIDE 0.9% 247.5 ML IV SCH (10:58)
[2021-01-20] MEDS: PANTOprazole 40 MG in SYRINGE 0 ML IV SCH (10:59)
[2021-01-20] MEDS: PIPERACILLIN/TAZOBACTAM 4.5 GM in DEXTROSE 5% 100 ML IV SCH (13:19)
[2021-01-20] MEDS ORDERED: MoRPHine SULFATE 2 MG/ML CARP IV PRN (14:18)
[2021-01-20] MEDS ORDERED: LORazepam 0.5 MG/1 ML VIAL IV PRN (14:18)
--- NOTE | 2021-01-20 14:19 | Pharmacy Report ---
Pharmacy Abx Dose Short Note - Date of Service January 20, 2021 - Assessment & Plan Assessment * 60 year old M receiving vancomycin/Zosyn for treatment of septic shock 2nd MRSA PNA. Multiple additional etiologies considered as well, including but not limited to ischemic bowel. * Pt has been hospitalized for COVID-19 viral PNA > 5 days and has been ventilated > 96 hrs. * Significant leukocytosis persists although fever improving * Prognosis poor per ICU rounds discussion * Pertinent microbiologic data includes: Positive MRSA Nasal Swab. BCx- NGTD. Sputum culture with MRSA (vanco WALDO 1) * iHD initiated on 01/17 with daily sessions since that time. Anticipated again today. * Day # 4 of Zosyn, vancomycin therapy Vancomycin * Goal pre-HD level ~20 mcg/mL for MRSA PNA * Pre-HD level today stable and at goal after vancomycin 250 mg IV x1 yesterday and the day prior (post-3 hr and 2.5 hr HD sessions). * Will re-dose same as above, to be admin post-HD today Plan * Vancomycin 250 mg IV x1 post-HD today * Repeat random level with AM labs Pharmacy will continue to follow and will adjust dose/frequency as necessary. Thank you.
--- NOTE | 2021-01-20 14:34 | Pharmacy Report ---
Pharmacy Glycemic Short Note 2 - Date of Service January 20, 2021 - Glycemic Short BSG Results (Last 24 hours): 01/19/21 01/19/21 01/19/21 14:13 14:58 15:51 Glucose POC Glucose POC Glucose (other) 156 H 140 H 147 H 01/19/21 01/19/21 01/19/21 17:18 18:02 19:06 Glucose POC Glucose POC Glucose (other) 155 H 164 H 173 H 01/19/21 01/19/21 01/19/21 20:02 20:59 22:04 Glucose POC Glucose POC Glucose (other) 182 H 183 H 176 H 01/19/21 01/20/21 01/20/21 23:03 00:00 01:57 Glucose POC Glucose POC Glucose (other) 169 H 168 H 171 H 01/20/21 01/20/21 01/20/21 04:29 05:46 05:51 Glucose 152 H POC Glucose POC Glucose (other) 160 H 159 H 01/20/21 01/20/21 10:21 14:13 Glucose POC Glucose 147 H 176 H POC Glucose (other) OUTPATIENT ANTIDIABETIC REGIMEN: * Lantus 60 units BID * Regular 30 units BID * A1c = 10.8% 01/09/21 ASSESSMENT: 01/20 * HD continues daily, pressor requirements remain high * Still not able to transition off of drip 2nd pressors 01/19 * Pressor requirements remain high and 3rd HD session planned for today. * Insulin drip at mostly stable, low rate and BSG's good * Not able to transition off drip at this time 2nd significant pressor requirements and erratic subQ absorption of insulin 01/18: * Patient initiated on insulin drip yesterday due to hyperkalemia and hyperglyce morris in the setting of septic shock, need for multiple pressors * Patient continues on relatively high doses of pressors, hyperkalemia improved but persistent, HD ordered for today * He is not receiving enteral feeds. He remains intubated and receiving dexamethasone 6mg IV daily * IV insulin therapy still indicated as this is controlling his BSGs, and I doubt SQ absorption is reliable given pressor requirement PLAN FOR INPATIENT GLYCEMIC CONTROL: * Continue IV insulin drip - goal range 140-180 mg/dL * Basal insulin * Lantus - hold * NPH - hold * Bolus insulin * Novolog SQ if permitted to have enteral feeds - carb ratio to be calculated by rate adjustment calculator PLAN FOR DISCHARGE: * to be determined
--- NOTE | 2021-01-20 15:07 | Discharge Summary ---
Date of Service January 20, 2021 Admission HPI Per Admitting Provider This pt is a 60 yo male prisoner with a h/o DMII, obesity, parathyroid adenoma, thyroid goiter and hypothyroidism s/p total thyroidectomy, microcytic anemia, HTN, Hepatitis C now s/p curative tx, GERD, major depressive disorder with psychotic features,and hyperlipidemia who presents to the ER with 5 days of worsening SOB, cough, loss of taste and smell, runny nose and congestion after testing positive for COVID at the assisted a few days ago. Of note, he was FULLY VACCINATED with J&J Vaccine several months ago. He was found to be hypoxic at the assisted and was sent to the ER. He is now on HFNC at 50L, 70% FiO2 and sats in the 90s. He reports feeling very tired, but denies CP. He is not really bringing up much sputum. He feels achy all over his body, denies headache. No nausea or vomiting but has no appetite and has not been eating or drinking much lately. He reports his urine has been dark in color but has been making about the same amount as usual. Denies diarrhea. Denies tongue or throat pain but does have evidence of thrush on exam. His CBC showed a chronic but slightly worse thrombocytopenia, CRP quite elevated at 15, BUN/airborne electronics analyst elevated at 61/3.4 (baseline airborne electronics analyst 1.0), trop neg,VBG normal,LFTs normal. CXR showed bilateral airspace opacities consistent with PNA. He will be admitted for COVID-19 Pneumonia and acute respiratory failure with hypoxia as well as acute kidney injury. Principal Diagnosis COVID 19 pneumonia Acute hypoxic respiratory failure Discharge Exam no pulse, no respirations, no heart tones, no breath sounds, pupils fixed, unresponsive Discharge Data Allergies Allergy/AdvReac Type Severity Reaction Status Date / Time No Known Allergies Allergy Verified 01/08/21 09:51 Consultations 01/08/21 09:53 ED Decision to Admit Stat 01/09/21 13:34 Consult Pulmonology Routine 01/17/21 06:51 Consult Nephrology Routine Ordered Studies 01/08/21 11:51 US renal/blad retro comp Urgent 01/17/21 US venous doppler LE BI Stat Diabetes Follow up Diabetes Follow-up Needed for HgbA1c >9% Hospital Course (1) Pneumonia due to 2019 novel coronavirus: I had a long conversation with the patient's aunt Randee in the morning on 01/20/21 discussed that he was getting worse, Cr going up, hyperkalemic, on pressors, max ventilatory settings, pH of 7.1 we discussed that he was dying and that there was no hope of meaningful survival she was upset, did not want to make the decision to end his life I assured her that he would have naturally 4 days ago without any interventions she understood and she planned to speak with her family about what they would recommend I called her back in the afternoon, she said that her and her family were in agreement with comfort care, withdrawal of care I called the RN at [facility] Christ to let them know of the plan patient's pressors were turned off, he was extubated while on Fentanyl drip for comfort patient at 1507 I called Randee and [facility] (1) Pneumonia due to COVID-19 virus: Plan: Symptoms started approximately 01/03. With significantly high CRP and already requiring HFNC on admission Fully vaccinated with J&J Vaccine several months prior CXR with bilat infiltrates, CXR on 01/14 shows worsening infiltrates Lasix 40mg IV on 01/15, little response on dexamethasone since admission intubated on 01/16 after failing BIPAP his prognosis has worsened, now has circulatory shock requiring pressors and oliguric renal failure, hyperkalemia terminal extubation 01/20 (2) Acute respiratory failure with hypoxia: Plan: as above, secondary to COVID PNA progressed to needing intubated on 01/16 ICU managing he is on PEEP 15 and FiO2 100%, saturations 88-89% cannot prone as he is unstable with shock terminal extubation 01/20 (3) MEHRDAD (acute kidney injury): Plan: Cr was 0.9 on 01/16 prior to intubation he did have some hypotension after intubation, required Levophed now he is on Levophed and Vasopressin Cr up to 5 today, hyperkalemia despite HD on 01/17 and 01/18 he is oliguric plan for HD again today, orders per Dr. Soto called 4 facilities on 01/17 to try for transfer for CRRT, no facilities have ICU beds for days, likely a week explained this to family stopped HD, comfort care (4) Shock could be septic as his WBC is up to 45k and spiking fevers on Vanco and Zosyn, cultures drawn requiring Levophed and Vasopressin slow HD, low volume with no plans for UF stopped pressors, comfort care, he quickly (5) DM ICU protocol for glucose management (6) Thrombocytopenia: Plan: resolved, likely from acute viral illness (7) Neuropathy: Plan: with h/o bilat great toe amputations due to DM ulcers (8) Anemia: Plan: Hb is stable (9) Hypertension: Plan: (10) Hyperkalemia persisted despite HD (2) Acute respiratory failure with hypoxia: (3) Obesity (BMI 30-39.9): (4) Respiratory failure, acute: (5) Acute kidney injury: (6) Major depression with psychotic features: (7) Thrombocytopenia: (8) Hypothyroidism: (9) Osteoarthritis: (10) Neuropathy: (11) Anemia: (12) Hyperkalemia: (13) ARDS (adult respiratory distress syndrome): Total Time Total Time Spent Total Time Spent (In Minutes): 35 Total Time Includes: Examination of the Patient, Communication With Other Providers and Other (speaking with family) Discharge Plan Discharge Items Reason For Visit: COVID PNA, HYPOXIA Follow-up/Referrals: Christ HATCH [Primary Care Provider] - Medications and DC Order Prescriptions: No Action vitamin E cream 1 appln TOP BID RF: 0 peg [id number] [Visine Tears] 1-0.2-0.2 % drops 1 drops OP QID RF: 0 aspirin [Adult Low Dose Aspirin] 81 mg tablet,delayed release (DR/EC) 81 mg PO DAILY RF: 0 calcium carbonate-vitamin D3 [Calcium 600 + D(3)] 600 mg(1,500mg) -400 unit tablet 1 tab PO TID RF: 0 docusate sodium 100 mg capsule 100 mg PO BID RF: 0 hydrochlorothiazide 25 mg tablet 25 mg PO DAILY RF: 0 levothyroxine 175 mcg tablet 175 mcg PO DAILY RF: 0 metoprolol succinate 100 mg tablet extended release 24 hr 100 mg PO DAILY RF: 0 minoxidil 10 mg tablet 10 mg PO DAILY RF: 0 paroxetine HCl 30 mg tablet 60 mg PO DAILY RF: 0 topiramate 50 mg capsule,extended release 24hr 50 mg PO DAILY RF: 0 timolol 0.5 % Drops 1 drp OPHTHALMIC (EYE) BID RF: 0 lisinopril 40 mg Tablet 40 mg PO DAILY RF: 0 latanoprost [Xalatan] 0.005 % Drops 1 drp OPHTHALMIC (EYE) PM RF: 0 atorvastatin 40 mg Tablet 40 mg PO HS RF: 0 Semglee U-100 Insulin 100 unit/mL Solution 60 unit SUBCUT BID RF: 0 trazodone 50 mg Tablet 50 mg PO HS RF: 0 amlodipine 5 mg Tablet 5 mg PO DAILY RF: 0 Novolin R Regular U-100 Insuln 100 unit/mL Solution 30 unit SUBCUT BID RF: 0 Novolin R Regular U-100 Insuln 100 unit/mL Solution 1 sliding scale dose SUBCUT USEASDIRECTD RF: 0 diclofenac sodium [Voltaren] 75 mg Tablet,Delayed Release (Dr/Ec) 75 mg PO BID RF: 0 brimonidine 0.15 % Drops 1 drp OPHTHALMIC (EYE) TID RF: 0 Admission Data Admit Date/Time: 01/08/21 12:33 Attending Provider: Nik Whitfield Admit Provider: Dianne Ashford Primary Care Provider: Christ HATCH Other Providers: Dianne Ashford ; Jacob Quesada ; Jabier Soto Coding Level of Care Code D/C DAY MANAGEMENT >30 MINS Diagnoses Pneumonia due to 2019 novel coronavirus U07.1; J12.82 Acute respiratory failure with hypoxia J96.01 Obesity (BMI 30-39.9) E66.9 Respiratory failure, acute J96.01 Respiratory failure complication: hypoxia Acute kidney injury N17.9 Major depression with psychotic features F32.3 Thrombocytopenia D69.6 Hypothyroidism E03.9 Osteoarthritis M19.90 Neuropathy G62.9 Anemia D64.9 Hyperkalemia E87.5 ARDS (adult respiratory distress syndrome) J80
--- NOTE | 2021-01-20 15:15 | Death Pronouncement Note ---
Date of Service January 20, 2021 Pronouncement Note Admission Date Admission Date: January 08, 2021 Date and Time of Date of : 01/20/21 Time of : 15:07 Contributing Factors (1) Pneumonia due to 2019 novel coronavirus: (2) Acute respiratory failure with hypoxia: (3) Obesity (BMI 30-39.9): (4) Respiratory failure, acute: (5) Acute kidney injury: (6) Major depression with psychotic features: (7) Thrombocytopenia: (8) Hypothyroidism: (9) Osteoarthritis: (10) Neuropathy: (11) Anemia: (12) Hyperkalemia: (13) ARDS (adult respiratory distress syndrome): Summary Additional details: see discharge summary Additional Data Confirmation of : no pulse, no respirations, no heart sounds and pupils fixed and dilated Family: contacted Attending/PCP notified?: Yes Attending physician: Nik Whitfield, DO Was code activated?: No Coding Level of Care Code None Diagnoses Pneumonia due to 2019 novel coronavirus U07.1; J12.82 Acute respiratory failure with hypoxia J96.01 Obesity (BMI 30-39.9) E66.9 Respiratory failure, acute J96.01 Respiratory failure complication: hypoxia Acute kidney injury N17.9 Major depression with psychotic features F32.3 Thrombocytopenia D69.6 Hypothyroidism E03.9 Osteoarthritis M19.90 Neuropathy G62.9 Anemia D64.9 Hyperkalemia E87.5 ARDS (adult respiratory distress syndrome) J80
--- NOTE | 2021-01-20 15:21 | Critical Care Progress Note ---
Date of Service January 20, 2021 Assessment & Plan (1) Pneumonia due to 2019 novel coronavirus: (2) Respiratory failure, acute: (3) Obesity (BMI 30-39.9): (4) ARDS (adult respiratory distress syndrome): Plan: Impression: 60-year-old -Filipino male who is an inmate admitted with Covid pneumonia. He is failed high flow oxygen positive airway pressure ventilation despite dexamethasone and baricitinib. He was intubated 01/16/2021 and proned. 24-hour events: Patient remains critically ill. He has persistent acidemia and anuric renal failure. No significant progress in weaning his pressors. He continues to demonstrate cyclical fevers. Recommendations: 1. Neurologic: Continue aggressive sedation with propofol fentanyl and Versed. Neuromuscular blockade has been discontinued 2. Cardiac: Probable severe septic shock. Continues norepinephrine and vasopressin. May need to consider epinephrine in replacement of norepinephrine. 3. Pulmonary: Progressive ARDS: The patient is not a candidate for advanced therapies such as ECMO due to length of stay and BMI. Current vent settings: Assist control/32/400/14/1.0 with a plateau pressure of 30. Current AB.19/65/66, current P:F 66. Currently day #11 of dexamethasone. Tapering down to 4 mg for 2 days then 2mg for 2 days and then stop. See comments below 4. GI: N.p.o. for now until pressors decreased. Continue PPI. 5. Renal: Acute oliguric renal failure. Nephrology input reviewed and appreciated. Tolerating HD on 2 vasopressor agents. Discussed with nephrology using a higher bicarb bath to try and offset some of his acidosis 6. ID: Persistent leukocytosis greater than 40,000. Patient remains febrile. Respiratory cultures are growing MRSA. 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 Day #5 Zosyn and vancomycin. Continue for now as patient continues to be critically ill. Target vancomycin trough greater than 20. Tylenol as needed for fever. Patient is too unstable to consider add itional imaging such as CT of the abdomen and pelvis. Has not had any diarrhea or bowel movements so suspicion for C. difficile is low. This could represent ischemic bowel or other intra-abdominal catastrophe. However, again, the patient is too unstable to consider any additional imaging and certainly not surgical candidate. 7. Endocrine: Glycemic control per ICU pharmacist. 8. Heme-onc: No active issues. Continue DVT prophylaxis subcu heparin 7500 twice daily. Patient is critically ill with significant possibility of . Dr. Whitfield has been coordinating efforts with the patient's and. She apparently had discussions with other family members and they have elected to proceed with terminal extubation and comfort care measures which I think is reasonable given the patient's poor prognosis and multiple organ system dysfunction. We have not seen any clinical improvement in the 5 days that we have been offering maximal support for this patient. 40 minutes critical care time including end-of-life issues and managing this patient including discussion on multidisciplinary rounds, with bedside critical care nurse, and admitting hospitalist Admission and Anticipated Discharge Date Admission Date: January 08, 2021 Subjective Intubated and sedated Review of Systems Review of Systems: Unobtainable due to endotracheal tube Physical Exam Constitutional: + ill appearing, + obese and + mechanically ventilated Eyes: + anicteric sclerae; no corneal abnormality Neck: normal visual inspection and trachea midline LIJ HD catheter Respiratory: normal respiratory effort Auscultation: + rhonchi Cardiovascular: Rate/Rhythm: + tachycardic Heart Sounds: normal S1 and normal S2 Extremities: + edema Gastrointestinal (Abdomen): Inspection/Auscultation: + abdomen distended; + abnormal bowel sounds Percussion/Palpation: abdomen soft Musculoskeletal: Extremities: no cyanosis and no clubbing Skin: normal turgor; no lesions Neurologic: Motor/Sensory: no tremor and no asterixis Results & Data Results & Data ([facility]) Vital Signs (Past 12 Hours) Vital Signs Temp Pulse Resp BP Pulse Ox 01/20/21 14:15 36.4 C L 91 H 91 01/20/21 14:00 36.4 C L 91 H 91 01/20/21 13:45 36.3 C L 90 92 01/20/21 13:30 36.3 C L 90 91 01/20/21 13:15 36.2 C L 90 91 01/20/21 13:00 36.2 C L 91 H 91 01/20/21 12:45 36.1 C L 89 91 01/20/21 12:30 36.1 C L 89 91 01/20/21 12:15 36.1 C L 89 91 01/20/21 12:00 36.0 C L 89 91 01/20/21 11:45 36.0 C L 88 32 H 91 01/20/21 11:30 36.0 C L 87 91 01/20/21 11:15 36.0 C L 88 91 01/20/21 11:00 36.0 C L 88 32 H 91 01/20/21 10:45 36.0 C L 88 32 H 91 01/20/21 10:30 36.0 C L 88 91 01/20/21 10:15 36.1 C L 89 91 01/20/21 10:00 36.2 C L 90 91 01/20/21 09:45 36.2 C L 91 H 91 01/20/21 09:30 36.3 C L 93 H 91 01/20/21 09:15 36.5 C 96 H 90 01/20/21 09:00 36.6 C 98 H 90 01/20/21 08:45 36.9 C 103 H 89 L 01/20/21 08:30 37.0 C 105 H 89 L 01/20/21 08:15 37.3 C 108 H 89 L 01/20/21 08:00 37.5 C 110 H 89 L 01/20/21 07:45 37.7 C H 113 H 89 L 01/20/21 07:30 37.8 C H 116 H 89 L 01/20/21 07:15 37.9 C H 116 H 89 L 01/20/21 07:00 38.1 C H 118 H 90 01/20/21 06:15 38.0 C H 120 H 90 01/20/21 06:11 120 H 32 H 90 01/20/21 06:00 37.9 C H 121 H 120/81 90 01/20/21 05:45 37.7 C H 119 H 117/73 89 L 01/20/21 05:30 37.6 C H 117 H 121/78 90 01/20/21 05:15 37.4 C 113 H 115/76 90 01/20/21 05:00 37.2 C 111 H 117/71 90 01/20/21 04:45 37.0 C 108 H 122/70 90 01/20/21 04:30 36.9 C 105 H 111/74 91 01/20/21 04:15 36.7 C 102 H 122/74 90 01/20/21 04:00 36.6 C 101 H 114/73 91 01/20/21 03:45 36.6 C 100 H 32 H 108/70 91 01/20/21 03:30 36.7 C 100 H 123/67 91 Critical Care Results & Data Vital Signs (Past 12 Hours) Vital Signs Temp Pulse Resp BP Pulse Ox 01/20/21 14:15 36.4 C L 91 H 91 01/20/21 14:00 36.4 C L 91 H 91 01/20/21 13:45 36.3 C L 90 92 01/20/21 13:30 36.3 C L 90 91 01/20/21 13:15 36.2 C L 90 91 01/20/21 13:00 36.2 C L 91 H 91 01/20/21 12:45 36.1 C L 89 91 01/20/21 12:30 36.1 C L 89 91 01/20/21 12:15 36.1 C L 89 91 01/20/21 12:00 36.0 C L 89 91 01/20/21 11:45 36.0 C L 88 32 H 91 01/20/21 11:30 36.0 C L 87 91 01/20/21 11:15 36.0 C L 88 91 01/20/21 11:00 36.0 C L 88 32 H 91 01/20/21 10:45 36.0 C L 88 32 H 91 01/20/21 10:30 36.0 C L 88 91 01/20/21 10:15 36.1 C L 89 91 01/20/21 10:00 36.2 C L 90 91 01/20/21 09:45 36.2 C L 91 H 91 01/20/21 09:30 36.3 C L 93 H 91 01/20/21 09:15 36.5 C 96 H 90 01/20/21 09:00 36.6 C 98 H 90 01/20/21 08:45 36.9 C 103 H 89 L 01/20/21 08:30 37.0 C 105 H 89 L 01/20/21 08:15 37.3 C 108 H 89 L 01/20/21 08:00 37.5 C 110 H 89 L 01/20/21 07:45 37.7 C H 113 H 89 L 01/20/21 07:30 37.8 C H 116 H 89 L 01/20/21 07:15 37.9 C H 116 H 89 L 01/20/21 07:00 38.1 C H 118 H 90 01/20/21 06:15 38.0 C H 120 H 90 01/20/21 06:11 120 H 32 H 90 01/20/21 06:00 37.9 C H 121 H 120/81 90 01/20/21 05:45 37.7 C H 119 H 117/73 89 L 01/20/21 05:30 37.6 C H 117 H 121/78 90 01/20/21 05:15 37.4 C 113 H 115/76 90 01/20/21 05:00 37.2 C 111 H 117/71 90 01/20/21 04:45 37.0 C 108 H 122/70 90 01/20/21 04:30 36.9 C 105 H 111/74 91 01/20/21 04:15 36.7 C 102 H 122/74 90 01/20/21 04:00 36.6 C 101 H 114/73 91 01/20/21 03:45 36.6 C 100 H 32 H 108/70 91 01/20/21 03:30 36.7 C 100 H 123/67 91 Lab & Micro Results (Past 24 Hours) RBC 5.82 M/uL (4.7-6.1) 01/20/21 WBC 44.30 K/uL (4.8-10.8) H* 01/20/21 Hgb 12.1 g/dL (14.0-18.0) L 01/20/21 Hct 39.1 % (42-52) L 01/20/21 MCV 67.2 fL (80-100) L 01/20/21 MCH 20.8 pg (25-34) L 01/20/21 MCHC 30.9 g/dL (32-36) L 01/20/21 RDW Standard Deviation 45.5 fL (36.4-46.3) 01/20/21 RDW Coefficient of Variation 18.7 % (11.5-14.5) H 01/20/21 Plt Count 200 K/uL (130-400) 01/20/21 Nucleated Red Blood Cells % (auto) 1.0 % 01/20/21 Nucleated RBC Absolute Count (auto) 0.43 K/uL (0-0) H 01/20/21 Neutrophils (%) (Auto) 85.3 % 01/20/21 Lymphocytes (%) (Auto) 6.0 % 01/20/21 Monocytes # (Auto) 3.60 K/uL (0.11-0.59) H 01/20/21 Eosinophils # (Auto) 0.01 K/uL (0-0.5) 01/20/21 Immature Granulocyte % (Auto) 0.6 % 01/20/21 Neutrophils # (Auto) 37.76 K/uL (1.4-6.5) H 01/20/21 Lymphocytes # (Auto) 2.66 K/uL (1.2-3.4) 01/20/21 Monocytes # (Auto) 3.60 K/uL (0.11-0.59) H 01/20/21 Eosinophils # (Auto) 0.01 K/uL (0-0.5) 01/20/21 Basophils # (Auto) 0.01 K/uL (0-0.2) 01/20/21 Immature Granulocyte # (Auto) 0.26 K/uL (0.00-0.02) H 01/20/21 Polychromasia 1+ 01/20/21 Echinocytes 1+ 01/20/21 Microcytosis Present 01/20/21 Na 134 mmol/L (136-145) L 01/20/21 K 5.6 mmol/L (3.5-5.1) H 01/20/21 Cl 98 mmol/L (98-107) 01/20/21 CO2 23 mmol/L (21-32) 01/20/21 Anion Gap 13.0 (3-11) H 01/20/21 BUN 63 mg/dl (7-18) H 01/20/21 Creatinine 5.62 mg/dl (0.6-1.4) H* 01/20/21 Estimated GFR ( Amer) 11.8 ml/min 01/20/21 Estimated GFR (Non-Af Amer) 10.2 ml/min 01/20/21 BUN/Creatinine Ratio 11.4 (10-20) 01/20/21 Glu 152 mg/dl (70-99) H 01/20/21 Ca 7.1 mg/dl (8.5-10.1) L 01/20/21 Phosphorus Level 9.0 mg/dl (2.5-4.9) H 01/20/21 2 Mg 2.6 mg/dl (1.8-2.4) H 01/20/21 05:46 01/20/21 Calcium Level 7.1 mg/dl (8.5-10.1) L 01/20/21 05:46 01/20/21 Louie Test NA 01/20/21 04:23 01/20/21 Diagnostic Findings (Past 24 Hours) Chest X-Ray 01/20/21 07:00 XR chest 1V portable CLINICAL HISTORY: Follow-up bilateral airspace opacities and left pleural effusion. COMPARISON STUDY: 01/19/2021 TECHNIQUE: 1 view of the chest FINDINGS: Single frontal view of the chest demonstrates the cardiomediastinal silhouette to be within normal limits. Tubes and catheters are unchanged. Extensive interstitial and alveolar opacities characteristic of a viral type pneumonitis are again seen. There is again suspicion of a small left pleural effusion as well. There is no evidence for vascular congestion. There is no acute osseous pathology. IMPRESSION: Compared to the previous examination, there is no significant interval change in bilateral interstitial and alveolar opacities characteristic of a viral type pneumonitis and Covid pneumonia. There is again suspicion of a small left pleural effusion. ACT 112: Negative or not required by law. Electronically signed by: Ede Torres M.D. 01/20/2021 8:24 AM I & O Totals 24 Hours 01/19/21 01/20/21 01/21/21 06:59 06:59 06:59 Intake Total 2926.144 / 2926.144 1864.275 / 1864.275 247.808 / 247.808 Output Total 305 / 305 5 / 5 Balance 2916.144 / 2916.144 1559.275 / 1559.275 242.808 / 242.808 Cumulative 01/08/21 08:14 thru 01/20/21 12:54 Intake Total 35463.678 Output Total 10475 Balance 82403.678 RT Ventilator Mngmt (Last Documented) Ventilator Ordered Settings Ventilator Support Mode Assist Control 01/20/21 12:00 Respiratory Rate 32 01/20/21 11:45 Ventilator Tidal Volume 420 01/20/21 12:00 Setting Minute Ventilation 13.4 01/20/21 10:45 Ventilator Positive Pressure 12 01/15/21 20:00 Support Setting Positive End Expiratory 14 01/20/21 12:00 Pressure Fraction of Inspired Oxygen 100 01/20/21 12:00 Peak Inspiratory Flow 28 01/16/21 18:19 Machine Comment increased to 100%O2 01/18/21 14:45 Ventilator - PT Measurements Respiratory Rate 32 Exhaled Tidal Volume 420 Minute Ventilation 13.4 Peak Inspiratory Airway 36 Pressure Plateau Pressure 33 Respiratory Cycle Inspiratory: 1:1.5 Expiratory Ratio Inspiratory Phase Time 0.75 End-Tidal CO2 33 Static Lung Compliance 22.11 Dynamic Lung Compliance 19.09 Normal Static Lung Compliance 45.00 Patient Measurements Comment PT TERMINALLY EXTUBATED PER PROVIDER ORDER. Coding Level of Care Code Critical Care 1st 30-74 mins Diagnoses Pneumonia due to 2019 novel coronavirus U07.1; J12.82 Respiratory failure, acute J96.01 Respiratory failure complication: hypoxia Obesity (BMI 30-39.9) E66.9 ARDS (adult respiratory distress syndrome) J80 Time Spent (min) 40 (1) Respiratory failure, acute Respiratory failure complication: hypoxia Qualified Code(s): J96.01 - Acute respiratory failure with hypoxia
[2021-01-20] MEDS ORDERED: VANCOMYCIN HCL 250 MG in 0.9 % SODIUM CHLORIDE 100 ML IV ONE (18:00)
[2021-01-22] MEDS ORDERED: dexAMETHasone 2 MG in SYRINGE 0 ML IV SCH (09:00)
--- NOTE | 2021-01-31 09:58 | Coding Query ---
SEPSIS To promote full compliance with coding requirements relating to patient care, physician participation is requested in all cases of sketcher uncertainty. Please assist us with the question(s) below: In responding to this query, please exercise your independent professional judgement. The fact that a question is asked does not imply that any particular answer is desired or expected. We appreciate your clarification on this issue. Throughout the medical record, you have clearly documented a localized infection and your patient has clinical evidence of a generalized sepsis or severe sepsis. The term urosepsis is a nonspecific entity and is coded as an UTI. If the patient has sepsis, severe sepsis, from an urinary source or some other source, please clarify in your response below. The medical record reflects the following clinical findings: Pt admitted with Covid Pneumonia, ARDS. Presented hypoxic from nursing home. DS documented possible Septic shock . Seeking to determine if Sepsis was treated, and if it was present on admission. Thank you. Sven Giordano [facility] ( )Bacteremia (Nonspecific laboratory finding of bacteria in the blood) Specify Organism ( ) Present on Admission ( ) Not present on admission ( ) Unable to clinically determine ( ) Septicemia (Systemic disease associated with the presence of pathogenic microorganisms in the blood): Specify Organism ( ) Present on Admission ( ) Not present on admission ( ) Unable to clinically determine ( ) Sepsis Specify Organism Specify Associated Condition/Diagnosis ( ) Present on Admission ( ) Not present on admission ( ) Unable to clinically determine ( ) Severe Sepsis (Sepsis associated with acute organ dysfunction) Specify Organism Specify Associated Condition/Diagnosis ( ) Present on Admission ( ) Not present on admission ( ) Unable to clinically determine ( ) Septic Shock (Severe sepsis with acute circulatory failure, unexplained by other causes) ( ) Present on Admission ( ) Not present on admission ( ) Unable to clinically determine ( ) Other, patient has: MTDD
--- NOTE | 2021-01-31 10:01 | Coding Query ---
SEPSIS To promote full compliance with coding requirements relating to patient care, physician participation is requested in all cases of gas golf cart repairer uncertainty. Please assist us with the question(s) below: In responding to this query, please exercise your independent professional judgement. The fact that a question is asked does not imply that any particular answer is desired or expected. We appreciate your clarification on this issue. Throughout the medical record, you have clearly documented a localized infection and your patient has clinical evidence of a generalized sepsis or severe sepsis. The term urosepsis is a nonspecific entity and is coded as an UTI. If the patient has sepsis, severe sepsis, from an urinary source or some other source, please clarify in your response below. The medical record reflects the following clinical findings: Patient admitted from [facility] with Covid 19 pneumonia, ARDS. Intubated on 01/16 and vented . DS documented Septic shock. Seeking to dtermine if patient had Sepsis and if it was present on admission. Thanks for your help. Sven Giordano [facility] ____ ( )Bacteremia (Nonspecific laboratory finding of bacteria in the blood) Specify Organism ( ) Present on Admission ( ) Not present on admission ( ) Unable to clinically determine ( ) Septicemia (Systemic disease associated with the presence of pathogenic microorganisms in the blood): Specify Organism ( ) Present on Admission () Not present on admission () Unable to clinically determine () Sepsis Specify Organism Specify Associated Condition/Diagnosis ( ) Present on Admission ( ) Not present on admission ( ) Unable to clinically determine ( ) Severe Sepsis (Sepsis associated with acute organ dysfunction) Specify Organism Specify Associated Condition/Diagnosis ( ) Present on Admission ( ) Not present on admission ( ) Unable to clinically determine ( x) Septic Shock (Severe sepsis with acute circulatory failure, unexplained by other causes) ( ) Present on Admission ( x) Not present on admission ( ) Unable to clinically determine ( ) Other, patient has: MTDD
--- NOTE | 2021-02-02 05:44 | Coding Query ---
SEPSIS To promote full compliance with coding requirements relating to patient care, physician participation is requested in all cases of remote coders uncertainty. Please assist us with the question(s) below: In responding to this query, please exercise your independent professional judgement. The fact that a question is asked does not imply that any particular answer is desired or expected. We appreciate your clarification on this issue. Throughout the medical record, you have clearly documented a localized infection and your patient has clinical evidence of a generalized sepsis or severe sepsis. The term urosepsis is a nonspecific entity and is coded as an UTI. If the patient has sepsis, severe sepsis, from an urinary source or some other source, please clarify in your response below. The medical record reflects the following clinical findings: Pt admitted with Covid Pneumonia. Intubated/Ventilated during this IP Stay. Discharge Summary mentions possible Sepsis/Septic Shock. Seeking to clarify if Sepsis was treated. Pt on Vanco & Zosyn, requiring Lovophed and Vasopressin. Thanks for your help! Sven Giordano [facility] ____ ( )Bacteremia (Nonspecific laboratory finding of bacteria in the blood) Specify Organism ( ) Present on Admission ( ) Not present on admission ( ) Unable to clinically determine ( ) Septicemia (Systemic disease associated with the presence of pathogenic microorganisms in the blood): Specify Organism ( ) Present on Admission ( ) Not present on admission ( ) Unable to clinically determine ( ) Sepsis Specify Organism Specify Associated Condition/Diagnosis ( ) Present on Admission ( ) Not present on admission ( ) Unable to clinically determine ( ) Severe Sepsis (Sepsis associated with acute organ dysfunction) Specify Organism Specify Associated Condition/Diagnosis ( ) Present on Admission ( ) Not present on admission ( ) Unable to clinically determine ( ) Septic Shock (Severe sepsis with acute circulatory failure, unexplained by other causes) ( ) Present on Admission ( ) Not present on admission ( ) Unable to clinically determine ( ) Other, patient has: MTDD
--- NOTE | 2021-02-09 05:39 | Coding Query ---
CODING QUERY To promote full compliance with coding requirements relating to patient care, provider participation is requested in all cases of cold patcher uncertainty. Please assist us with the question(s) below: Coding Question(s): Please document the cause of . Thank you. Sven Giordano [facility] Physician's Response(s): COVID 19 pneumonia Principal Diagnosis: "that condition established after study, to be chiefly responsible for occasioning the admission of the patient to the hospital for care." Co-Existing Principal Diagnosis: "when two or more diagnoses equally meet the criteria for principal diagnosis as determined by the circumstances of admission, diagnostic work up, and/or therapy provided, and the Alphabetic Index, Tabular List, or another coding guideline does not provide sequencing direction, any one of the diagnoses may be sequenced first." "When the physician has documented what appears to be a current diagnosis in the body of the record, but has not included the diagnosis in the final diagnostic statement, the physician should be asked whether the diagnosis should be added." ([facility] 2 QTR90. p3-4) KAI
== END 2021-01-20 18:24 | disposition expired | DRG 208 ==
LOC: ED 08:28 → SUATTDRO 12:33 → EDINP 12:33 → 2E 01-09 16:24
DX: Z66 Do not resuscitate; E86.0 Dehydration; D50.9 Iron deficiency anemia, unspecified; E78.5 Hyperlipidemia, unspecified; F32.3 Major depressive disorder, single episode, severe with psychotic features; E03.9 Hypothyroidism, unspecified; U07.1 COVID-19; Z79.4 Long term (current) use of insulin; E66.9 Obesity, unspecified; Z68.30 Body mass index [BMI] 30.0-30.9, adult; R65.21 Severe sepsis with septic shock; D69.6 Thrombocytopenia, unspecified; Z51.5 Encounter for palliative care; E87.2 Acidosis; J80 Acute respiratory distress syndrome; J12.82 Pneumonia due to coronavirus disease 2019; R33.9 Retention of urine, unspecified; E11.40 Type 2 diabetes mellitus with diabetic neuropathy, unspecified; A41.89 Other specified sepsis; N17.0 Acute kidney failure with tubular necrosis; B37.0 Candidal stomatitis; E87.5 Hyperkalemia; Z79.82 Long term (current) use of aspirin; N39.0 Urinary tract infection, site not specified